=== PATIENT | female | born 1960 | race Caucasian/White ===

== ENCOUNTER 2024-09-16 15:55 | Emergency (ER) | payer MEDICARE, SELFPAY ==
[2024-09-16 15:55] VITALS: BP 148/94; PULSE 99; RESP 16; TEMP 36.2; O2SAT 95
--- NOTE | 2024-09-16 16:17 | ED.EXTPRO ---
HPI - Extremity Problem General Chief complaint: Animal Bite Stated complaint: wound Time Seen by Provider: 09/16/24 16:11 Source: patient Mode of arrival: ambulatory Limitations: no limitations History of Present Illness HPI Narrative: patient was bit by cat last night by and her hand started swelling up. She says that she put he Mupirocin ointment on it she says this helped a little bit in the swelling went down some. She says still very painful. She got very worried and came to the ER today for antibiotics. She will need antibiotics for this it is a pretty bad scratch to her right index finger and is swollen. MD Complaint: extremity swelling ( Right index finger) Onset (ago): day(s) Pain Consistency: constant Location: right and other ( index finger) Severity scale (1-10): 4 Quality: burning and aching Relieving factors: cold therapy Associated symptoms: denies other symptoms Related Data Allergies Allergy/AdvReac Type Severity Reaction Status Date / Time cephalexin (From Keflex) Allergy Unknown Unknown Verified 09/16/24 16:18 Review of Systems Review of Systems: All systems reviewed & are unremarkable except as noted in HPI and below Constitutional: Constitutional: Reports as per HPI Eyes: Eyes: Reports no additional eye complaints ENT: Reports system reviewed and no additional complaints, except as documented Cardiovascular: Cardiovascular: Reports no additional cardiovascular complaints Respiratory: Respiratory: Reports no additional respiratory complaints Gastrointestinal: Gastrointestinal: Reports no additional gastrointestinal complaints Genitourinary: Genitourinary: Reports no additional female genitourinary complaints Musculoskeletal: Musculoskeletal: Reports as per HPI, Reports arthralgias and Reports joint swelling Integumentary/Breasts: Skin/Breast: Reports as per HPI and Reports erythema Comments: laceration to right index finger Neurologic: Reports system reviewed and no additional complaints, except as documented Psychiatric: Psychiatric: Reports no additional psychiatric complaints Endocrine: Endocrine: Reports no additional endocrine complaints Hematologic/Lymphatic: Hematologic/Lymphatic: Reports no additional hematologic/lymphatic complaints Allergic/Immunologic: Allergic/Immunologic: Reports no additional allergic/immunologic complaints Exam Const: General: healthy appearing Nutritional Appearance: well nourished Orientation/consciousness: patient oriented x3 HENMT: Head: normal to inspection Ears: external ears normal Face/Nose/Sinus: Normal external nose present Face and sinus: normal facial exam Eyes: Conjunctivae: conjunctivae normal Pupils: Equal, round and reactive pupils present EOM: EOMs intact bilaterally Neck: Neck: normal visual inspection Chest: Chest palpation & inspection: normal inspection of the chest Resp: Effort & Inspection: normal respiratory effort Auscultation: clear to auscultation bilaterally Cardio: Rate: regular rate Rhythm: regular rhythm Heart sounds: Murmur heart sound present GI: GI Palp: Yes Soft to palpation Back/Spine/Pelvis: Back: no CVA tenderness Skin: General skin exam: normal color Rashes: no rashes Wounds: wounds noted ( 2 cm laceration to right index finger) Neuro: General: patient oriented x3 Cranial nerves: Yes Nystagmus not present Speech: normal speech Extrem: General: normal to inspection Psych: Mental Status: mental status grossly normal Affect: normal affect Attitude: cooperative Course Vital Signs Vital signs: Vital Signs Temperature 97.1 F L 09/16/24 15:55 Pulse Rate 99 09/16/24 15:55 Respiratory Rate 16 09/16/24 15:55 Blood Pressure 148/94 H 09/16/24 15:55 Pulse Oximetry 95 09/16/24 15:55 Oxygen Delivery Room Air 09/16/24 15:55 Temperature 97.1 F L 09/16/24 15:55 Pulse Rate 99 09/16/24 15:55 Respiratory Rate 16 09/16/24 15:55 Blood Pressure 148/94 H 09/16/24 15:55 Pulse Oximetry 95 09/16/24 15:55 Oxygen Delivery Room Air 09/16/24 15:55 MDM - Extremity (Nontraumatic) MDM Narrative Medical decision making narrative: patient has about a 2 cm laceration to the right index finger. The right index finger is very swollen as well. She will need antibiotics. Support Services Tech script for doxycycline has had this to her pharmacy. Will start on doxycycline here in the emergency department 1st. I cleaned the wound very well with ionized and put a Band-Aid over it and gave her wound care instructions. Differential Diagnosis Differential diagnosis: Likely other ( Finger laceration) Medical Records Attestation: I reviewed the patient's medical records. Discharge Plan Discharge Clinical Impression: Bite by animal, Cat bite Patient Disposition: Home Condition: Stable Instructions: Antibiotic Form, Animal Bite (ED) Additional Instructions: wound care instructions were given. Patient Language: Slovak Prescriptions: New doxycycline hyclate 100 mg tablet 100 mg PO Q12H Qty: 20 0RF Follow-up/Referrals: UNKNOWN,DOCTOR [Primary Care Provider] - Time of Disposition: 16:32
[2024-09-16] MEDS: DOXYCYCLINE HYCLATE 100 MG TABLET PO (16:21)
--- NOTE | 2024-09-16 16:33 | PC.NURSE ---
NO ANIMAL BITE FORM COMPLETED, [facility] ANIMAL [facility] IS THE ONE WHO REFERRED PT TO ER FOR TREATMENT, THEY CURRENTLY HAVE THE CAT IN THEIR POSSESSION.
--- OUTSIDE RECORDS SUMMARY | 2024-09-16 18:04 | XMS_ITS ---
Author Organization Unknown Address [address] [place] [address] [phone] Phone Care Team Providers Care Energy Rater Name Role Phone GENEVIEVE Kidd Wet Process Assistant Head Miller Surgeon Unavailable OSMAN Goncalves Attending Unavailable BRANDI RAMIREZ CRNA Unavailable DENIA DAVILA Primary Unavailable Immunization Immunization Date Status Additional Notes Code Code System pneumococcal polysaccharide PPV23 07/06/2016 Completed 33 CVX Tdap 06/22/2015 Completed 115 CVX Pneumococcal conjugate PCV 13 05/22/2013 Completed 133 CVX Influenza, split virus, trivalent, PF 02/19/2015 Completed 140 CVX Influenza, split virus, trivalent, PF 04/06/2016 Completed 140 CVX Influenza, split virus, quadrivalent, PF 02/25/2016 Completed 150 CVX Influenza, split virus, quadrivalent, PF 02/24/2017 Completed 150 CVX Influenza, split virus, quadrivalent, PF 02/13/2019 Completed 150 CVX Influenza, split virus, quadrivalent, PF 02/26/2020 Completed 150 CVX Influenza, split virus, quadrivalent, PF 02/01/2021 Completed 150 CVX Influenza, split virus, quadrivalent, PF 02/21/2022 Completed 150 CVX Influenza, adjuvanted, trivalent, PF 03/21/2024 Completed 168 CVX zoster recombinant 04/18/2023 Completed 187 CVX zoster recombinant 06/21/2023 Completed 187 CVX Influenza, adjuvanted, quadrivalent, PF 03/23/2023 Completed 205 CVX Pneumococcal conjugate PCV20 , polysaccharide [id number] conjugate, adjuvant, PF 06/21/2023 Completed 216 CVX RSV, recombinant, protein subunit RSVpreF, adjuvant reconstituted, 0.5 mL, PF 04/18/2023 Completed 303 CV X Social History Type Status Start Date End Date Code Code Syst em Smoking History Current every day smoker 164896044 SNOMED CT Sex Female Vital Signs Vital Sign Value Unit [place] Date/Time Recent/Initial? Code Code System Body Mass Index 33.99 kg/m2 07/01/2024 08:36 Most Recent 61771 -5 [facility] Body Mass Index 33.99 kg/m2 06/21/2024 12:56 Initial 57028 -5 [facility] Systolic Blood Pressure 114 mm[Hg] 07/01/2024 08:36 Initial 8480- 6 [facility] Diastolic Blood Pressure 71 mm[Hg] 07/01/2024 08:36 Initial 8462- 4 [facility] Body Surface Area 2.16 m2 07/01/2024 08:36 Most Recent 3140- 1 [facility] Body Surface Area 2.16 m2 06/21/2024 12:56 Initial 3140- 1 LOINC Height 170.180 0 cm 67.00 in 07/01/2024 08:36 Most Recent 8302- 2 INC Height 170.180 0 cm 67.00 in 06/21/2024 12:56 Initial 8302- 2 [facility] O2 Saturation 98 % 2024 08:36 Initial 25246 -5 [facility] Pulse 100.0 /min 07/01/2024 08:36 Initial 8867- 4 [facility] Respiration 18 /min 07/01/19 25 08:36 Initial 9279- 1 [facility] Temperature 36.2 Chiqui 97.1 F 07/01/19 25 08:36 Initial 8310- 5 INC Weight 98.43 kg 217.00 lbs 07/01/2024 08:36 Most Recent 68908 -7 [facility] Weight 98.43 kg 217.00 lbs 06/21/2024 12:56 Initial 96047 -7 [facility] Medications Medication Start Date End Date Route Frequency Dose Code Code System Medication Instructions Home Meds Albuterol Sulfate 0.09MG/1Actuation Inhalation Suspension 10/13/2023 Unknown INHALATION THREE TIMES A DAY 2 unit(s) 0479957 RxNorm 2 EACH INHALATION THREE TIMES A DAY Atorvastatin Calcium 40MG Oral Tablet 10/13/2023 Unknown ORAL AT BEDTIM E 40 MILLIGRA MS 048267 RxNorm TAKE 40 MILLIGRAMS ORAL AT BEDTIME Biotin 5 MG Oral Tablet 10/13/2023 Unknown ORAL ONCE A DAY 5 MG 395913 RxNorm TAKE 5 MG ORAL ONCE A DAY Bumetanide 1MG Oral Tablet 10/13/2023 Unknown ORAL TWICE A DAY 1 MILLIGRA MS 339892 RxNorm TAKE 1 MILLIGRAMS ORAL TWICE A DAY Estradiol 0.25MG/1Packet Transdermal Gel/Jelly 10/13/2023 Unknown TRANSDERMAL DIRECT ED 1 unit(s) 4287504 RxNorm APPLY TO 1 EACH TRANSDERMAL DIRECTED Fluticasone 0.05MG/1Actuation Nasal [place] 10/13/2023 Unknown NASAL ONCE A DAY 1 unit(s) 4735493 RxNorm 1 EACH NASAL ONCE A DAY HYDROcodone bitartrate-acetami nophen 10MG-325MG Oral Tablet 10/13/2023 Unknown ORAL THREE TIMES A DAY 1 unit(s) 498315 RxNorm TAKE 1 EACH ORAL THREE TIMES A DAY Lantus 100U/1ML Subcutaneous Solution 10/13/2023 Unknown SUBCUTANEOU S AT BEDTIM E 46 unit(s) 613840 RxNorm INJECT INTO 46 EACH SUBCUTANEOU S AT BEDTIME NovoLOG FlexPen 100U/1ML Subcutaneous Solution 10/13/2023 Unknown SUBCUTANEOU S BEFORE MEALS AND AT BEDTIM E 1 unit(s) 6587751 RxNorm INJECT INTO 1 EACH SUBCUTANEOU S BEFORE MEALS AND AT BEDTIME Ondansetron HCl 4MG Oral Tablet 10/13/2023 Unknown ORAL DIRECT ED 4 MILLIGRA MS 240243 RxNorm TAKE 4 MILLIGRAMS ORAL DIRECTED SUMAtriptan Succinate 100MG Oral Tablet 10/13/2023 Unknown ORAL DIRECT ED 100 MILLIGRA MS 975208 RxNorm TAKE 100 MILLIGRAMS ORAL DIRECTED Spironolactone 25MG Oral Tablet 10/13/2023 Unknown ORAL TWICE A DAY 25 MILLIGRA MS 909625 RxNorm TAKE 25 MILLIGRAMS ORAL TWICE A DAY buPROPion HCl 300MG Oral Tablet, Extended Release, 24 HR 10/13/2023 Unknown ORAL ONCE A DAY 300 MILLIGRA MS 270493 RxNorm TAKE 300 MILLIGRAMS ORAL ONCE A DAY clonazePAM 1MG Oral Tablet 10/13/2023 Unknown ORAL TWICE A DAY 1 MILLIGRA MS 037650 RxNorm TAKE 1 MILLIGRAMS ORAL TWICE A DAY hydrOXYzine HCl 25MG Oral Tablet 10/13/2023 Unknown ORAL NEEDED TWICE A DAY 25 MILLIGRA MS 216683 RxNorm TAKE 25 MILLIGRAMS ORAL NEEDED TWICE A DAY rOPINIRole HCl 2MG Oral Tablet 10/13/2023 Unknown ORAL ONCE A DAY 2 MILLIGRA MS 880953 RxNorm TAKE 2 MILLIGRAMS ORAL ONCE A DAY Protonix 40 MG Oral Tablet, Delayed Release 10/13/2023 Unknown BY MOUTH TWICE A DAY 1 TABLET 127735 RxNorm TAKE 1 TABLET BY MOUTH TWICE A DAY HYDROcodone bitartrate-acetami nophen 7.5MG-325MG Oral Tablet 07/01/2024 Unknown BY MOUTH NEEDED EVERY 6 HOURS 1 TABLET 077548 RxNorm TAKE 1 TABLET BY MOUTH NEEDED EVERY 6 HOURS FOR PAIN Cyclobenzaprine 10MG Oral Tablet 07/01/2024 Unknown ORAL NEEDED TWICE A DAY 10 MILLIGRA MS 950086 RxNorm TAKE 10 MILLIGRAMS ORAL NEEDED TWICE A DAY Fenofibrate 54MG Oral Tablet 07/01/2024 Unknown ORAL ONCE A DAY 54 MILLIGRA MS 905572 RxNorm TAKE 54 MILLIGRAMS ORAL ONCE A DAY Hair, Skin & Nails Oral Capsule, Liquid Filled 07/01/2024 Unknown ORAL ONCE A DAY 1 unit(s) RxNorm TAKE 1 EACH ORAL ONCE A DAY Lisinopril 2.5MG Oral Tablet 07/01/2024 Unknown ORAL ONCE A DAY 2.5 MILLIGRA MS 303018 RxNorm TAKE 2.5 MILLIGRAMS ORAL ONCE A DAY Probiotic 1 Billion CFU Oral Capsule 07/01/2024 Unknown ORAL ONCE A DAY 1 Billion CFU RxNorm TAKE 1 Billion CFU ORAL ONCE A DAY Rybelsus 14MG Oral Tablet 07/01/2024 Unknown ORAL ONCE A DAY 14 MILLIGRA MS 0088918 RxNorm TAKE 14 MILLIGRAMS ORAL ONCE A DAY Hospital Discharge Instructions Should you have any questions prior to discharge, please contact a member of your healthcare team. If you have left the hospital and have any questions, please contact your primary care physician. Reason For Referral No Data Found Procedures Procedure Name Date Status Code Code Syste m Repair of anterior abdominal hernia(s) (ie, epigastric, incisional, ventra 07/01/2024 completed 59837 C PT Repair of anterior abdominal hernia(s) (ie, epigastric, incisional, ventra 07/01/2024 completed 19227 C PT Anesthesia for intraperitone al procedures in upper abdomen including lapar 07/01/2024 completed 27052 CP T Implants Implanted KESHAWN Status Assigning Authority Procedure Date Lot Number Serial Number Manufacturing Date Expiration Date Distinct ID Code Brand Name Model Number ETHICON SECURESTRA P ABSORBABLE STRAP FIXATION DEVICE Active UMBILICAL HERNIA REPAIR WITH MESH 07/01 UBMUTA STRAP 25 06/21/2025 ETHICO N SECURE STRAP [address] Hernia Patch Active UMBILICAL HERNIA REPAIR WITH MESH 07/01 [id number] 11/16/[address] 8262653 Allergies and Adverse Reactions Allergy Substance Reaction Severity Start Date Concern Status Code Code System CEPHALEXIN Hives (SNOMED-CT: 472721720) Active 2231 RxNorm FOLIC ACID Rash (SNOMED-CT: 306312890) Active 4511 RxNorm FOLIC ACID Rash (SNOMED-CT: 442820372) Active 4511 RxNorm METHOTREXATE NAUSEA/BLISTER S (SNOMED-CT: null) Active 6851 RxNorm METHOTREXATE Hives (SNOMED-CT: 498550521) Active 6851 RxNorm ADHESIVE Rash (SNOMED-CT: 196139615) Active PREGABALIN Swelling (SNOMED-CT: 74614268) Active 644680 RxNorm PREGABALIN Swelling (SNOMED-CT: 90995277) Active 323339 RxNorm KEFLEX Hives (SNOMED-CT: 353521830) Active 454868 RxNorm CONTRAST MEDIA, IODINE RELATED Active 598210480 SNOMED-CT CONTRAST MEDIA, IODINE RELATED Active 788363495 SNOMED-CT Plan of Treatment CT Chest/Lung W Contrast (60737) 2024 Encounters Encounter Diagnosis Start Date Code Code Sys tem Umbilical hernia with obstruction, without gangrene SNOMED-CT Personal Care Team Section Performer Name Performer Role Active Date Inactive HARDY Norris PCP - Primary care physician 2021-12-27 2022-03-04 Alejandro Anguiano PCP - Primary care physician 2022-03-04
--- OUTSIDE RECORDS SUMMARY | 2024-09-16 18:04 | XMS_ITS ---
Author Organization Unknown Address [address] [place] [address] [phone] Phone Care Team Providers Care Vehicle Insurance Agent Name Role Phone LESLIE Guillen Attending Unavailable DENIA DAVILA Primary Unavailable Immunization Immunization [...] 205 CVX Pneumococcal conjugate PCV20 , polysaccharide [id number] conjugate, adjuvant, PF 06/21/2023 Completed 216 CVX RSV, recombinant, protein subunit RSVpreF, adjuvant reconstituted, 0.5 mL, PF 04/18/2023 Completed 303 CV X Social History Type Status Start Date End Date Code Code Syst em Smoking History Current every day smoker 137139888 SNOMED CT Sex Female Medications Medication Start Date End Date Route Frequency Dose Code Code System Medication Instructions Home Meds Albuterol Sulfate 0.09MG/1Actuation Inhalation Suspension 10/13/2023 Unknown INHALATION THREE TIMES A DAY 2 unit(s) 6598462 RxNorm 2 EACH INHALATION THREE TIMES A DAY Atorvastatin Calcium 40MG Oral Tablet 10/13/2023 Unknown ORAL AT BEDTIM E 40 MILLIGRA MS 660204 RxNorm TAKE 40 MILLIGRAMS ORAL AT BEDTIME Biotin 5 MG Oral Tablet 10/13/2023 Unknown ORAL ONCE A DAY 5 MG 030059 RxNorm TAKE 5 MG ORAL ONCE A DAY Bumetanide 1MG Oral Tablet 10/13/2023 Unknown ORAL TWICE A DAY 1 MILLIGRA MS 978044 RxNorm TAKE 1 MILLIGRAMS ORAL TWICE A DAY Coconut Oil Oil 10/13/2023 06/21/19 25 ROUTE NOT APPLICABLE ONCE A DAY 1 unit(s) RxNorm 1 EACH ROUTE NOT APPLICABLE ONCE A DAY Cyclobenzaprine 10MG Oral Tablet 10/13/2023 06/21/19 25 ORAL TWICE A DAY 10 MILLIGRA MS 026798 RxNorm TAKE 10 MILLIGRAMS ORAL TWICE A DAY Estradiol 0.25MG/1Packet Transdermal Gel/Jelly 10/13/2023 Unknown TRANSDERMAL DIRECT ED 1 unit(s) 5205910 RxNorm APPLY TO 1 EACH TRANSDERMAL DIRECTED Fluticasone 0.05MG/1Actuation Nasal [place] 10/13/2023 Unknown NASAL ONCE A DAY 1 unit(s) 9638767 RxNorm 1 EACH NASAL ONCE A DAY HYDROcodone bitartrate-acetami nophen 10MG-325MG Oral Tablet 10/13/2023 Unknown ORAL THREE TIMES A DAY 1 unit(s) 226474 RxNorm TAKE 1 EACH ORAL THREE TIMES A DAY Lantus 100U/1ML Subcutaneous Solution 10/13/2023 Unknown SUBCUTANEOU S AT BEDTIM E 46 unit(s) 167435 RxNorm INJECT INTO 46 EACH SUBCUTANEOU S AT BEDTIME NovoLOG FlexPen 100U/1ML Subcutaneous Solution 10/13/2023 Unknown SUBCUTANEOU S BEFORE MEALS AND AT BEDTIM E 1 unit(s) 1376981 RxNorm INJECT INTO 1 EACH SUBCUTANEOU S BEFORE MEALS AND AT BEDTIME Ondansetron HCl 4MG Oral Tablet 10/13/2023 Unknown ORAL DIRECT ED 4 MILLIGRA MS 686737 RxNorm TAKE 4 MILLIGRAMS ORAL DIRECTED Rybelsus 3MG Oral Tablet 10/13/2023 06/21/19 25 ORAL ONCE A DAY 7 MILLIGRA MS 6996654 RxNorm TAKE 7 MILLIGRAMS ORAL ONCE A DAY SUMAtriptan Succinate 100MG Oral Tablet 10/13/2023 Unknown ORAL DIRECT ED 100 MILLIGRA MS 430890 RxNorm TAKE 100 MILLIGRAMS ORAL DIRECTED Spironolactone 25MG Oral Tablet 10/13/2023 Unknown ORAL TWICE A DAY 25 MILLIGRA MS 143187 RxNorm TAKE 25 MILLIGRAMS ORAL TWICE A DAY buPROPion HCl 300MG Oral Tablet, Extended Release, 24 HR 10/13/2023 Unknown ORAL ONCE A DAY 300 MILLIGRA MS 976003 RxNorm TAKE 300 MILLIGRAMS ORAL ONCE A DAY clonazePAM 1MG Oral Tablet 10/13/2023 Unknown ORAL TWICE A DAY 1 MILLIGRA MS 052131 RxNorm TAKE 1 MILLIGRAMS ORAL TWICE A DAY hydrOXYzine HCl 25MG Oral Tablet 10/13/2023 Unknown ORAL NEEDED TWICE A DAY 25 MILLIGRA MS 232842 RxNorm TAKE 25 MILLIGRAMS ORAL NEEDED TWICE A DAY rOPINIRole HCl 2MG Oral Tablet 10/13/2023 Unknown ORAL ONCE A DAY 2 MILLIGRA MS 055437 RxNorm TAKE 2 MILLIGRAMS ORAL ONCE A DAY Protonix 40 MG Oral Tablet, Delayed Release 10/13/2023 Unknown BY MOUTH TWICE A DAY 1 TABLET 480258 RxNorm TAKE 1 TABLET BY MOUTH TWICE A DAY HYDROcodone bitartrate-acetami nophen 7.5MG-325MG Oral Tablet 07/01/2024 Unknown BY MOUTH NEEDED EVERY 6 HOURS 1 TABLET 849806 RxNorm TAKE 1 TABLET BY MOUTH NEEDED EVERY 6 HOURS FOR PAIN Cyclobenzaprine 10MG Oral Tablet 07/01/2024 Unknown ORAL NEEDED TWICE A DAY 10 MILLIGRA MS 710838 RxNorm TAKE 10 MILLIGRAMS ORAL NEEDED TWICE A DAY Fenofibrate 54MG Oral Tablet 07/01/2024 Unknown ORAL ONCE A DAY 54 MILLIGRA MS 303585 RxNorm TAKE 54 MILLIGRAMS ORAL ONCE A DAY Hair, Skin & Nails Oral Capsule, Liquid Filled 07/01/2024 Unknown ORAL ONCE A DAY 1 unit(s) RxNorm TAKE 1 EACH ORAL ONCE A DAY Lisinopril 2.5MG Oral Tablet 07/01/2024 Unknown ORAL ONCE A DAY 2.5 MILLIGRA MS 833009 RxNorm TAKE 2.5 MILLIGRAMS ORAL ONCE A DAY Probiotic 1 Billion CFU Oral Capsule 07/01/2024 Unknown ORAL ONCE A DAY 1 Billion CFU RxNorm TAKE 1 Billion CFU ORAL ONCE A DAY Rybelsus 14MG Oral Tablet 07/01/2024 Unknown ORAL ONCE A DAY 14 MILLIGRA MS 9430846 RxNorm TAKE 14 MILLIGRAMS ORAL ONCE A DAY Hospital Discharge Instructions Should you have any questions prior to discharge, please contact a member of your healthcare team. If you have left the hospital and have any questions, please contact your primary care physician. Reason For Referral No Data Found Implants Implanted KESHAWN Status Assigning Authority Procedure Date Lot Number Serial Number Manufacturing Date Expiration Date Distinct ID Code Brand Name Model Number ETHICON SECURESTRA P ABSORBABLE STRAP FIXATION DEVICE Active UMBILICAL HERNIA REPAIR WITH MESH 07/01 UBMUTA STRAP 25 06/21/2025 ETHICO N SECURE STRAP [address] Hernia Patch Active UMBILICAL HERNIA REPAIR WITH MESH 07/01 [id number] 11/16/[address] 8332322 Allergies and Adverse Reactions Allergy Substance Reaction Severity Start Date Concern Status Code Code System CEPHALEXIN Hives (SNOMED-CT: 767087840) Active 2231 RxNorm FOLIC ACID Rash (SNOMED-CT: 504635346) Active 4511 RxNorm FOLIC ACID Rash (SNOMED-CT: 725353354) Active 4511 RxNorm METHOTREXATE NAUSEA/BLISTER S (SNOMED-CT: null) Active 6851 RxNorm METHOTREXATE Hives (SNOMED-CT: 338984797) Active 6851 RxNorm ADHESIVE Rash (SNOMED-CT: 281013039) Active PREGABALIN Swelling (SNOMED-CT: 05623000) Active 633531 RxNorm PREGABALIN Swelling (SNOMED-CT: 38987944) Active 754465 RxNorm KEFLEX Hives (SNOMED-CT: 356627051) Active 949894 RxNorm CONTRAST MEDIA, IODINE RELATED Active 403674678 SNOMED-CT CONTRAST MEDIA, IODINE RELATED Active 044188178 SNOMED-CT Plan of Treatment CT Chest/Lung W Contrast (48399) 2024 Encounters Encounter Diagnosis Start Date Code Code Sys tem Dysphagia, unspecified 05/01/2023 SNOME D-CT Personal Care Team Section Performer Name Performer Role Active Date Inactive Da HARDY Rivas PCP - Primary care physician 2021-12-27 2022-03-04 Alejandro Anguiano PCP - Primary care physician 2022-03-04
--- OUTSIDE RECORDS SUMMARY | 2024-09-16 18:04 | XMS_ITS ---
Author Organization Unknown Address [address] [place] [phone] Phone Care Team Providers Care Bar Back Name Role Phone DENIA DAVILA Attending Unavailable Immunization Immunization Date Status Additional Notes [...] 205 CVX Pneumococcal conjugate PCV20 , polysaccharide [id number] conjugate, adjuvant, PF 06/21/2023 Completed 216 CVX RSV, recombinant, protein subunit RSVpreF, adjuvant reconstituted, 0.5 mL, PF 04/18/2023 Completed 303 CV X Results MICROALBUMIN - Collect Date/ Time: 09/28/2023 10:07 [facility] ID: [id number] [place], [place], [id number] LOINC: 98134-0 Test Value Unit Reference Range Code Code System Flag MICROALBUMIN 674.0 mg/L L=0.0 H=16.7 79412-8 LOINC H UR CREATININE 80.00 mg/dL L=30.00 H=125 1-8 LOINC MA/CR 842.5 mg/gCR MEDICAL PROFESSIONAL PROFILE (11) - Collect Date/Time: 09/28/2023 10:07 [facility] ID: [id number] [place], [place], [id number] LOINC: Test Value Unit Reference Range Code Code System Flag Creatinine 75.4 20.0-300.0 2161-8 LOINC Amphetamines, Urine Negative Bpraqk=1465 92371-6 LOINC Barbiturate Negative Kowkjm=851 3377-9 LOINC Benzodiazepines Negative Uinmrb=893 42694-8 LOINC Cannabinoids Negative Cutoff=20 07655-9 LOINC Cocaine (Metabolite) Negative Lpybkj=171 3393-6 LOINC Opiates See Final Results Jwojov=757 65729-8 LOINC Oxycodone/Oxymorphone, Urine Negative Dwgsqz=537 19574-3 LOINC Phencyclidine Negative Cutoff=25 3936-2 LOINC Methadone Negative Vbqeac=367 3773-9 LOINC Propoxyphene Negative Alsldp=100 16209-0 LOINC Meperidine Negative Iilvbc=390 3746-5 LOINC Ethanol, Urine Negative Cutoff=0.020 5645-7 LOINC Opiates WILL FOLLOW 41296-4 LOINC Codeine WILL FOLLOW 3507-1 LOINC Codeine Conf, MS, UR WILL FOLLOW 90639-3 LOINC Morphine WILL FOLLOW 3830-7 LOINC Morphine Conf, MS, UR WILL FOLLOW 04949-8 LOINC Hydromorphone WILL FOLLOW 9834-3 LOINC Hydromorphone Conf, MS,UR WILL FOLLOW 78630-8 LOINC Hydrocodone WILL FOLLOW 65286-7 LOINC Hydrocodone Conf, MS, UR WILL FOLLOW 70208-0 LOINC Opiates Positive Jmyndw=757 60264-6 LOINC A Codeine Negative Hvdppj=513 3507-1 LOINC Morphine Negative Bulpkn=204 3830-7 LOINC Hydromorphone Negative Nwgjrh=884 9834-3 LOINC Hydrocodone Positive 42492-4 LOINC A Hydrocodone Conf, MS, UR 2254 Jhiawy=186 07119-7 LOINC HEMOGLOBIN A1C WITH eAG - Co llect Date/Time: 09/28/2023 10:03 [facility] ID: [id number] [place], [place], [id number] LOINC: 4548-4 Test Value Unit Reference Range Code Code System Flag HGBA1C 8.7 % 4548-4 LOINC eAG 203.0 mg/dL 4548-4 [facility] - Collect Date/Time: 09/28/2023 10:03 [facility] ID: [id number] [place], [place], [id number] LOINC: 22999-4 Test Value Unit Reference Range Code Code System Flag FASTING YES BUN 20 mg/dL L=7 H=20 3094-0 LOINC CREATININE 0.90 mg/dL L=0.52 H=1.04 2160-0 LOINC GLUCOSE 64 mg/dL L=74 H=106 2345-7 LOINC L SODIUM 142 mmol/L L=132 H=144 2951-2 LOINC POTASSIUM 3.7 mmol/L L=3.5 H=5.1 2823-3 LOINC CHLORIDE 103 mmol/L L=98 H=107 2075-0 LOINC CO2 24.0 mmol/L L=22.0 H=30.0 8-9 LOINC ANION GAP 19 L=10 H=20 97235-5 LOINC OSMOLALITY 295 mOs/kG L=280 H=296 68044-5 LOINC BUN/CREAT 22.2 3097-3 LOINC CALCIUM 9.7 mg/dL L=8.3 H=10.5 45012-3 LOINC AST 29 U/L L=15 H=46 1920-8 LOINC ALT 25 U/L L=9 H=72 1742-6 LOINC ALKALINE PHOS 83 U/L L=38 H=126 6768-6 LOINC TOTAL BILI 0.3 mg/dL L=0.2 H=1.3 1975-2 LOINC ALBUMIN 4.9 G/dL L=3.5 H=5.0 1751-7 LOINC TOTAL PROTEIN 8.7 g/L L=6.3 H=8.2 2885-2 LOINC H A/G RATIO 1.3 44797-1 LOINC AGE 63 85987-3 LOINC eGFR NON-AFR 68 ml/min eGFR AFR AMER 82 ml/min HEPATITIS C AB (HCV Ab) - Co llect Date/Time: 09/28/2023 10:03 [facility] ID: [id number] [address] [place] [address], [phone] LOINC: 47194-5 Test Value Unit Reference Range Code Code System Flag Hep C Virus Ab Non Reactive Non Reactive 08751-3 LOINC SEND TO [facility]? NO LIPID PANEL - Collect Date/T russ: 09/28/2023 10:03 [facility] ID: [id number] [place] [address], [id number] LOINC: 17880-5 Test Value Unit Reference Range Code Code System Flag FASTING YES CHOLESTEROL 164 mg/dL L=0 H=200 2093-3 LOINC TRIGLYCERIDE 245 mg/dL L=0 H=150 2571-8 LOINC H HDL 35 mg/dL L=40 H=60 2085-9 LOINC L LDL 105 mg/dL 9-1 LOINC Social History Type Status Start Date End Date Code Code Syst em Smoking History Current every day smoker [id number] SNOMED CT Sex Female Medications Medication Start Date End Date Route Frequency Dose Code Code System Medication Instructions Home Meds Albuterol Sulfate 0.09MG/1Actuation Inhalation Suspension 10/13/2023 Unknown INHALATION THREE TIMES A DAY 2 unit(s) 0281524 RxNorm 2 EACH INHALATION THREE TIMES A DAY Atorvastatin Calcium 40MG Oral Tablet 10/13/2023 Unknown ORAL AT BEDTIM E 40 MILLIGRA MS 407595 RxNorm TAKE 40 MILLIGRAMS ORAL AT BEDTIME Biotin 5 MG Oral Tablet 10/13/2023 Unknown ORAL ONCE A DAY 5 MG RxNorm TAKE 5 MG ORAL ONCE A DAY Bumetanide 1MG Oral Tablet 10/13/2023 Unknown ORAL TWICE A DAY 1 MILLIGRA MS 579444 RxNorm TAKE 1 MILLIGRAMS ORAL TWICE A DAY Coconut Oil Oil 10/13/2023 06/21/19 ROUTE NOT APPLICABLE ONCE A DAY 1 unit(s) RxNorm 1 EACH ROUTE NOT APPLICABLE ONCE A DAY Cyclobenzaprine 10MG Oral Tablet 10/13/2023 06/21/19 ORAL TWICE A DAY 10 MILLIGRA MS 889640 RxNorm TAKE 10 MILLIGRAMS ORAL TWICE A DAY Estradiol 0.25MG/1Packet Transdermal Gel/Jelly 10/13/2023 Unknown TRANSDERMAL DIRECT ED 1 unit(s) 6588237 RxNorm APPLY TO 1 EACH TRANSDERMAL DIRECTED Fluticasone 0.05MG/1Actuation Nasal [place] 10/13/2023 Unknown NASAL ONCE A DAY 1 unit(s) 7319678 RxNorm 1 EACH NASAL ONCE A DAY HYDROcodone bitartrate-acetami nophen 10MG-325MG Oral Tablet 10/13/2023 Unknown ORAL THREE TIMES A DAY 1 unit(s) 707678 RxNorm TAKE 1 EACH ORAL THREE TIMES A DAY Lantus 100U/1ML Subcutaneous Solution 10/13/2023 Unknown SUBCUTANEOU S AT BEDTIM E 46 unit(s) 280109 RxNorm INJECT INTO 46 EACH SUBCUTANEOU S AT BEDTIME NovoLOG FlexPen 100U/1ML Subcutaneous Solution 10/13/2023 Unknown SUBCUTANEOU S BEFORE MEALS AND AT BEDTIM E 1 unit(s) 2443351 RxNorm INJECT INTO 1 EACH SUBCUTANEOU S BEFORE MEALS AND AT BEDTIME Ondansetron HCl 4MG Oral Tablet 10/13/2023 Unknown ORAL DIRECT ED 4 MILLIGRA MS 267076 RxNorm TAKE 4 MILLIGRAMS ORAL DIRECTED Rybelsus 3MG Oral Tablet 10/13/2023 06/21/19 ORAL ONCE A DAY 7 MILLIGRA MS 9794813 RxNorm TAKE 7 MILLIGRAMS ORAL ONCE A DAY SUMAtriptan Succinate 100MG Oral Tablet 10/13/2023 Unknown ORAL DIRECT ED 100 MILLIGRA MS 598834 RxNorm TAKE 100 MILLIGRAMS ORAL DIRECTED Spironolactone 25MG Oral Tablet 10/13/2023 Unknown ORAL TWICE A DAY 25 MILLIGRA MS 161410 RxNorm TAKE 25 MILLIGRAMS ORAL TWICE A DAY buPROPion HCl 300MG Oral Tablet, Extended Release, 24 HR 10/13/2023 Unknown ORAL ONCE A DAY 300 MILLIGRA MS 604985 RxNorm TAKE 300 MILLIGRAMS ORAL ONCE A DAY clonazePAM 1MG Oral Tablet 10/13/2023 Unknown ORAL TWICE A DAY 1 MILLIGRA MS 247124 RxNorm TAKE 1 MILLIGRAMS ORAL TWICE A DAY hydrOXYzine HCl 25MG Oral Tablet 10/13/2023 Unknown ORAL NEEDED TWICE A DAY 25 MILLIGRA MS 296502 RxNorm TAKE 25 MILLIGRAMS ORAL NEEDED TWICE A DAY rOPINIRole HCl 2MG Oral Tablet 10/13/2023 Unknown ORAL ONCE A DAY 2 MILLIGRA MS 709700 RxNorm TAKE 2 MILLIGRAMS ORAL ONCE A DAY Protonix 40 MG Oral Tablet, Delayed Release 10/13/2023 Unknown BY MOUTH TWICE A DAY 1 TABLET 404525 RxNorm TAKE 1 TABLET BY MOUTH TWICE A DAY HYDROcodone bitartrate-acetami nophen 7.5MG-325MG Oral Tablet 07/01/2024 Unknown BY MOUTH NEEDED EVERY 6 HOURS 1 TABLET 577410 RxNorm TAKE 1 TABLET BY MOUTH NEEDED EVERY 6 HOURS FOR PAIN Cyclobenzaprine 10MG Oral Tablet 07/01/2024 Unknown ORAL NEEDED TWICE A DAY 10 MILLIGRA MS 762035 RxNorm TAKE 10 MILLIGRAMS ORAL NEEDED TWICE A DAY Fenofibrate 54MG Oral Tablet 07/01/2024 Unknown ORAL ONCE A DAY 54 MILLIGRA MS 721983 RxNorm TAKE 54 MILLIGRAMS ORAL ONCE A DAY Hair, Skin & Nails Oral Capsule, Liquid Filled 07/01/2024 Unknown ORAL ONCE A DAY 1 unit(s) RxNorm TAKE 1 EACH ORAL ONCE A DAY Lisinopril 2.5MG Oral Tablet 07/01/2024 Unknown ORAL ONCE A DAY 2.5 MILLIGRA MS 778543 RxNorm TAKE 2.5 MILLIGRAMS ORAL ONCE A DAY Probiotic 1 Billion CFU Oral Capsule 07/01/2024 Unknown ORAL ONCE A DAY 1 Billion CFU RxNorm TAKE 1 Billion CFU ORAL ONCE A DAY Rybelsus 14MG Oral Tablet 07/01/2024 Unknown ORAL ONCE A DAY 14 MILLIGRA MS 3265214 RxNorm TAKE 14 MILLIGRAMS ORAL ONCE A [...] Active UMBILICAL HERNIA REPAIR WITH MESH 07/01 [id number] 7 [id number] 11/16/[address] 2328645 Allergies and Adverse Reactions Allergy Substance Reaction Severity Start Date Concern Status Code Code System CEPHALEXIN Hives (SNOMED-CT: 649764219) Active 2231 RxNorm FOLIC ACID Rash (SNOMED-CT: 328783131) Active 4511 RxNorm FOLIC ACID Rash (SNOMED-CT: 490725710) Active 4511 RxNorm METHOTREXATE NAUSEA/BLISTER S (SNOMED-CT: null) Active 6851 RxNorm METHOTREXATE Hives (SNOMED-CT: 050326951) Active 6851 RxNorm ADHESIVE Rash (SNOMED-CT: 925864639) Active PREGABALIN Swelling (SNOMED-CT: 62565833) Active 423906 RxNorm PREGABALIN Swelling (SNOMED-CT: 80420249) Active 915650 RxNorm KEFLEX Hives (SNOMED-CT: 789289738) Active 572527 RxNorm CONTRAST MEDIA, IODINE RELATED Active 866829852 SNOMED-CT CONTRAST MEDIA, IODINE RELATED Active 666153376 SNOMED-CT Plan of Treatment CT Chest/Lung W Contrast (03869) 2024 Encounters Encounter Diagnosis Start Date Code Code Sys tem Type 2 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
--- OUTSIDE RECORDS SUMMARY | 2024-09-16 18:04 | XMS_ITS ---
Author Organization Unknown Address [address] [place] [address] [phone] Phone Care Team Providers Care Playground Equipment Erector Name Role Phone DWAINE SANTIAGO Attending Unavailable DENIA DAVILA Primary Unavailable Immunization [...] 205 CVX Pneumococcal conjugate PCV20 , polysaccharide [id number] conjugate, adjuvant, PF 06/21/2023 Completed 216 CVX RSV, recombinant, protein subunit RSVpreF, adjuvant reconstituted, 0.5 mL, PF 04/18/2023 Completed 303 CV X Results US ECHO W/COLOR W/CONTRAST - Completed: 08/29/2023 10:18 LOINC: See Scanned Image Attachment for Report Dictated By: Trans Initials: BG Trans Date: 09/01/23 15:27 <<REPDIST>> Social History Type Status Start Date End Date Code Code Syst em Smoking History Current every day smoker [id number] SNOMED CT Sex Female Medications Medication Start Date End Date Route Frequency Dose Code Code System Medication Instructions Home Meds Albuterol Sulfate 0.09MG/1Actuation Inhalation Suspension 10/13/2023 Unknown INHALATION THREE TIMES A DAY 2 unit(s) 3593930 RxNorm 2 EACH INHALATION THREE TIMES A DAY Atorvastatin Calcium 40MG Oral Tablet 10/13/2023 Unknown ORAL AT BEDTIM E 40 MILLIGRA MS 356986 RxNorm TAKE 40 MILLIGRAMS ORAL AT BEDTIME Biotin 5 MG Oral Tablet 10/13/2023 Unknown ORAL ONCE A DAY 5 MG 135347 RxNorm TAKE 5 MG ORAL ONCE A DAY Bumetanide 1MG Oral Tablet 10/13/2023 Unknown ORAL TWICE A DAY 1 MILLIGRA MS 146457 RxNorm TAKE 1 MILLIGRAMS ORAL TWICE A DAY Coconut Oil Oil 10/13/2023 06/21/19 25 ROUTE NOT APPLICABLE ONCE A DAY 1 unit(s) RxNorm 1 EACH ROUTE NOT APPLICABLE ONCE A DAY Cyclobenzaprine 10MG Oral Tablet 10/13/2023 06/21/19 25 ORAL TWICE A DAY 10 MILLIGRA MS 683299 RxNorm TAKE 10 MILLIGRAMS ORAL TWICE A DAY Estradiol 0.25MG/1Packet Transdermal Gel/Jelly 10/13/2023 Unknown TRANSDERMAL DIRECT ED 1 unit(s) 9145395 RxNorm APPLY TO 1 EACH TRANSDERMAL DIRECTED Fluticasone 0.05MG/1Actuation Nasal [place] 10/13/2023 Unknown NASAL ONCE A DAY 1 unit(s) 0789165 RxNorm 1 EACH NASAL ONCE A DAY HYDROcodone bitartrate-acetami nophen 10MG-325MG Oral Tablet 10/13/2023 Unknown ORAL THREE TIMES A DAY 1 unit(s) 433290 RxNorm TAKE 1 EACH ORAL THREE TIMES A DAY Lantus 100U/1ML Subcutaneous Solution 10/13/2023 Unknown SUBCUTANEOU S AT BEDTIM E 46 unit(s) 683674 RxNorm INJECT INTO 46 EACH SUBCUTANEOU S AT BEDTIME NovoLOG FlexPen 100U/1ML Subcutaneous Solution 10/13/2023 Unknown SUBCUTANEOU S BEFORE MEALS AND AT BEDTIM E 1 unit(s) 7202732 RxNorm INJECT INTO 1 EACH SUBCUTANEOU S BEFORE MEALS AND AT BEDTIME Ondansetron HCl 4MG Oral Tablet 10/13/2023 Unknown ORAL DIRECT ED 4 MILLIGRA MS 675232 RxNorm TAKE 4 MILLIGRAMS ORAL DIRECTED Rybelsus 3MG Oral Tablet 10/13/2023 06/21/19 25 ORAL ONCE A DAY 7 MILLIGRA MS 3455203 RxNorm TAKE 7 MILLIGRAMS ORAL ONCE A DAY SUMAtriptan Succinate 100MG Oral Tablet 10/13/2023 Unknown ORAL DIRECT ED 100 MILLIGRA MS 740071 RxNorm TAKE 100 MILLIGRAMS ORAL DIRECTED Spironolactone 25MG Oral Tablet 10/13/2023 Unknown ORAL TWICE A DAY 25 MILLIGRA MS 706580 RxNorm TAKE 25 MILLIGRAMS ORAL TWICE A DAY buPROPion HCl 300MG Oral Tablet, Extended Release, 24 HR 10/13/2023 Unknown ORAL ONCE A DAY 300 MILLIGRA MS 792587 RxNorm TAKE 300 MILLIGRAMS ORAL ONCE A DAY clonazePAM 1MG Oral Tablet 10/13/2023 Unknown ORAL TWICE A DAY 1 MILLIGRA MS 058650 RxNorm TAKE 1 MILLIGRAMS ORAL TWICE A DAY hydrOXYzine HCl 25MG Oral Tablet 10/13/2023 Unknown ORAL NEEDED TWICE A DAY 25 MILLIGRA MS 834468 RxNorm TAKE 25 MILLIGRAMS ORAL NEEDED TWICE A DAY rOPINIRole HCl 2MG Oral Tablet 10/13/2023 Unknown ORAL ONCE A DAY 2 MILLIGRA MS 374017 RxNorm TAKE 2 MILLIGRAMS ORAL ONCE A DAY Protonix 40 MG Oral Tablet, Delayed Release 10/13/2023 Unknown BY MOUTH TWICE A DAY 1 TABLET 622170 RxNorm TAKE 1 TABLET BY MOUTH TWICE A DAY HYDROcodone bitartrate-acetami nophen 7.5MG-325MG Oral Tablet 07/01/2024 Unknown BY MOUTH NEEDED EVERY 6 HOURS 1 TABLET 918625 RxNorm TAKE 1 TABLET BY MOUTH NEEDED EVERY 6 HOURS FOR PAIN Cyclobenzaprine 10MG Oral Tablet 07/01/2024 Unknown ORAL NEEDED TWICE A DAY 10 MILLIGRA MS 479632 RxNorm TAKE 10 MILLIGRAMS ORAL NEEDED TWICE A DAY Fenofibrate 54MG Oral Tablet 07/01/2024 Unknown ORAL ONCE A DAY 54 MILLIGRA MS 590498 RxNorm TAKE 54 MILLIGRAMS ORAL ONCE A DAY Hair, Skin & Nails Oral Capsule, Liquid Filled 07/01/2024 Unknown ORAL ONCE A DAY 1 unit(s) RxNorm TAKE 1 EACH ORAL ONCE A DAY Lisinopril 2.5MG Oral Tablet 07/01/2024 Unknown ORAL ONCE A DAY 2.5 MILLIGRA MS 712453 RxNorm TAKE 2.5 MILLIGRAMS ORAL ONCE A DAY Probiotic 1 Billion CFU Oral Capsule 07/01/2024 Unknown ORAL ONCE A DAY 1 Billion CFU RxNorm TAKE 1 Billion CFU ORAL ONCE A DAY Rybelsus 14MG Oral Tablet 07/01/2024 Unknown ORAL ONCE A DAY 14 MILLIGRA MS 3224598 RxNorm TAKE 14 MILLIGRAMS ORAL ONCE A [...] Active UMBILICAL HERNIA REPAIR WITH MESH 07/01 [id number] 7 [id number] 11/16/[address] 9548556 Allergies and Adverse Reactions Allergy Substance Reaction Severity Start Date Concern Status Code Code System CEPHALEXIN Hives (SNOMED-CT: 696736054) Active 2231 RxNorm FOLIC ACID Rash (SNOMED-CT: 189329983) Active 4511 RxNorm FOLIC ACID Rash (SNOMED-CT: 900404057) Active 4511 RxNorm METHOTREXATE NAUSEA/BLISTER S (SNOMED-CT: null) Active 6851 RxNorm METHOTREXATE Hives (SNOMED-CT: 836604094) Active 6851 RxNorm ADHESIVE Rash (SNOMED-CT: 912449518) Active PREGABALIN Swelling (SNOMED-CT: 69554578) Active 901242 RxNorm PREGABALIN Swelling (SNOMED-CT: 61124138) Active 739416 RxNorm KEFLEX Hives (SNOMED-CT: 951801862) Active 977001 RxNorm CONTRAST MEDIA, IODINE RELATED Active 874884273 SNOMED-CT CONTRAST MEDIA, IODINE RELATED Active 523972888 SNOMED-CT Plan of Treatment CT Chest/Lung W Contrast (53073) 2024 Encounters Encounter Diagnosis Start Date Code Code Sys tem Chest pain, unspecified 08/29/2023 SNOM ED-CT Personal Care Team Section Performer Name Performer Role Active Date Inactive HARDY Norris PCP - Primary care physician 2021-12-27 2022-03-04 Alejandro Anguiano PCP - Primary care physician 2022-03-04
--- OUTSIDE RECORDS SUMMARY | 2024-09-16 18:04 | XMS_ITS ---
Author Organization Unknown Address [address] [place] [address] [phone] Phone Care Team Providers Care Guard Entrance Registrar Name Role Phone LESLIE Guillen Attending Unavailable [...] 205 CVX Pneumococcal conjugate PCV20 , polysaccharide [id number] conjugate, adjuvant, PF 06/21/2023 Completed 216 CVX RSV, recombinant, protein subunit RSVpreF, adjuvant reconstituted, 0.5 mL, PF 04/18/2023 Completed 303 CV X Results Pharynx Study w Speech - Com pleted: 06/22/2023 09:52 LOINC: EXAM DESCRIPTION: ESOPHAGUS Difficulty swallowing. History of cervical fusion. DOSE: Dose: 21.233 mGy Reference Air Kerma (Ka,r) TECHNIQUE: Fluoroscopic assistance provided to Speech Pathology Department who performed the exam. The patient was brought into the fluoro room and placed upright on a modified barium swallow chair. The patient was then given multiple consistencies mixed with barium to swallow under live fluoroscopic video guidance. COMPARISON: Esophagram 02/22/2023 FINDINGS: There is aspiration of purees, thin liquids and nectar thick liquids. There is aspiration of mixed consistency. There is penetration of multiple consistencies. There is anterior discectomy and fusion in the cervical spine. IMPRESSION: Aspiration of multiple consistencies, as above Please correlate with Speech Pathology report. THIS IS AN ELECTRONICALLY VERIFIED FINAL REPORT 06/26/2023 11:27 AM - Electronically signed by Paco Puri M.D. MZ: MZ Report ID: [id number] Reading Location: [place] [address] Social History Type Status Start Date End Date Code Code Syst em Smoking History Current every day smoker [id number] SNOMED CT Sex Female Medications Medication Start Date End Date Route Frequency Dose Code Code System Medication Instructions Home Meds Albuterol Sulfate 0.09MG/1Actuation Inhalation Suspension 10/13/2023 Unknown INHALATION THREE TIMES A DAY 2 unit(s) 6170042 RxNorm 2 EACH INHALATION THREE TIMES A DAY Atorvastatin Calcium 40MG Oral Tablet 10/13/2023 Unknown ORAL AT BEDTIM E 40 MILLIGRA MS 285805 RxNorm TAKE 40 MILLIGRAMS ORAL AT BEDTIME Biotin 5 MG Oral Tablet 10/13/2023 Unknown ORAL ONCE A DAY 5 MG 780015 RxNorm TAKE 5 MG ORAL ONCE A DAY Bumetanide 1MG Oral Tablet 10/13/2023 Unknown ORAL TWICE A DAY 1 MILLIGRA MS 441225 RxNorm TAKE 1 MILLIGRAMS ORAL TWICE A DAY Coconut Oil Oil 10/13/2023 06/21/19 25 ROUTE NOT APPLICABLE ONCE A DAY 1 unit(s) RxNorm 1 EACH ROUTE NOT APPLICABLE ONCE A DAY Cyclobenzaprine 10MG Oral Tablet 10/13/2023 06/21/19 25 ORAL TWICE A DAY 10 MILLIGRA MS 669436 RxNorm TAKE 10 MILLIGRAMS ORAL TWICE A DAY Estradiol 0.25MG/1Packet Transdermal Gel/Jelly 10/13/2023 Unknown TRANSDERMAL DIRECT ED 1 unit(s) 6126777 RxNorm APPLY TO 1 EACH TRANSDERMAL DIRECTED Fluticasone 0.05MG/1Actuation Nasal [place] 10/13/2023 Unknown NASAL ONCE A DAY 1 unit(s) 4920998 RxNorm 1 EACH NASAL ONCE A DAY HYDROcodone bitartrate-acetami nophen 10MG-325MG Oral Tablet 10/13/2023 Unknown ORAL THREE TIMES A DAY 1 unit(s) 463487 RxNorm TAKE 1 EACH ORAL THREE TIMES A DAY Lantus 100U/1ML Subcutaneous Solution 10/13/2023 Unknown SUBCUTANEOU S AT BEDTIM E 46 unit(s) 513994 RxNorm INJECT INTO 46 EACH SUBCUTANEOU S AT BEDTIME NovoLOG FlexPen 100U/1ML Subcutaneous Solution 10/13/2023 Unknown SUBCUTANEOU S BEFORE MEALS AND AT BEDTIM E 1 unit(s) 4241561 RxNorm INJECT INTO 1 EACH SUBCUTANEOU S BEFORE MEALS AND AT BEDTIME Ondansetron HCl 4MG Oral Tablet 10/13/2023 Unknown ORAL DIRECT ED 4 MILLIGRA MS 369272 RxNorm TAKE 4 MILLIGRAMS ORAL DIRECTED Rybelsus 3MG Oral Tablet 10/13/2023 06/21/19 25 ORAL ONCE A DAY 7 MILLIGRA MS 5410798 RxNorm TAKE 7 MILLIGRAMS ORAL ONCE A DAY SUMAtriptan Succinate 100MG Oral Tablet 10/13/2023 Unknown ORAL DIRECT ED 100 MILLIGRA MS 187439 RxNorm TAKE 100 MILLIGRAMS ORAL DIRECTED Spironolactone 25MG Oral Tablet 10/13/2023 Unknown ORAL TWICE A DAY 25 MILLIGRA MS 439592 RxNorm TAKE 25 MILLIGRAMS ORAL TWICE A DAY buPROPion HCl 300MG Oral Tablet, Extended Release, 24 HR 10/13/2023 Unknown ORAL ONCE A DAY 300 MILLIGRA MS 920562 RxNorm TAKE 300 MILLIGRAMS ORAL ONCE A DAY clonazePAM 1MG Oral Tablet 10/13/2023 Unknown ORAL TWICE A DAY 1 MILLIGRA MS 640950 RxNorm TAKE 1 MILLIGRAMS ORAL TWICE A DAY hydrOXYzine HCl 25MG Oral Tablet 10/13/2023 Unknown ORAL NEEDED TWICE A DAY 25 MILLIGRA MS 356544 RxNorm TAKE 25 MILLIGRAMS ORAL NEEDED TWICE A DAY rOPINIRole HCl 2MG Oral Tablet 10/13/2023 Unknown ORAL ONCE A DAY 2 MILLIGRA MS 617742 RxNorm TAKE 2 MILLIGRAMS ORAL ONCE A DAY Protonix 40 MG Oral Tablet, Delayed Release 10/13/2023 Unknown BY MOUTH TWICE A DAY 1 TABLET 065371 RxNorm TAKE 1 TABLET BY MOUTH TWICE A DAY HYDROcodone bitartrate-acetami nophen 7.5MG-325MG Oral Tablet 07/01/2024 Unknown BY MOUTH NEEDED EVERY 6 HOURS 1 TABLET 078498 RxNorm TAKE 1 TABLET BY MOUTH NEEDED EVERY 6 HOURS FOR PAIN Cyclobenzaprine 10MG Oral Tablet 07/01/2024 Unknown ORAL NEEDED TWICE A DAY 10 MILLIGRA MS 162866 RxNorm TAKE 10 MILLIGRAMS ORAL NEEDED TWICE A DAY Fenofibrate 54MG Oral Tablet 07/01/2024 Unknown ORAL ONCE A DAY 54 MILLIGRA MS 413561 RxNorm TAKE 54 MILLIGRAMS ORAL ONCE A DAY Hair, Skin & Nails Oral Capsule, Liquid Filled 07/01/2024 Unknown ORAL ONCE A DAY 1 unit(s) RxNorm TAKE 1 EACH ORAL ONCE A DAY Lisinopril 2.5MG Oral Tablet 07/01/2024 Unknown ORAL ONCE A DAY 2.5 MILLIGRA MS 862691 RxNorm TAKE 2.5 MILLIGRAMS ORAL ONCE A DAY Probiotic 1 Billion CFU Oral Capsule 07/01/2024 Unknown ORAL ONCE A DAY 1 Billion CFU RxNorm TAKE 1 Billion CFU ORAL ONCE A DAY Rybelsus 14MG Oral Tablet 07/01/2024 Unknown ORAL ONCE A DAY 14 MILLIGRA MS 7829971 RxNorm TAKE 14 MILLIGRAMS ORAL ONCE A [...] Active UMBILICAL HERNIA REPAIR WITH MESH 07/01 [id number] 7 [id number] 11/16/[address] 5616387 Allergies and Adverse Reactions Allergy Substance Reaction Severity Start Date Concern Status Code Code System CEPHALEXIN Hives (SNOMED-CT: 663197397) Active 2231 RxNorm FOLIC ACID Rash (SNOMED-CT: 753973681) Active 4511 RxNorm FOLIC ACID Rash (SNOMED-CT: 234881768) Active 4511 RxNorm METHOTREXATE NAUSEA/BLISTER S (SNOMED-CT: null) Active 6851 RxNorm METHOTREXATE Hives (SNOMED-CT: 352853912) Active 6851 RxNorm ADHESIVE Rash (SNOMED-CT: 368303015) Active PREGABALIN Swelling (SNOMED-CT: 86711482) Active 093416 RxNorm PREGABALIN Swelling (SNOMED-CT: 70572251) Active 406614 RxNorm KEFLEX Hives (SNOMED-CT: 677385764) Active 640221 RxNorm CONTRAST MEDIA, IODINE RELATED Active 563209413 SNOMED-CT CONTRAST MEDIA, IODINE RELATED Active 089541130 SNOMED-CT Plan of Treatment CT Chest/Lung W Contrast (58892) 2024 Encounters Encounter Diagnosis Start Date Code Code Sys tem Abnormal findings on diagnos tic imaging of other parts of digestive tract 06/22/2023 SNOMED-CT Personal Care Team Section Performer Name Performer Role Active Date Inactive HARDY Norris PCP - Primary care physician 2021-12-27 2022-03-04 Alejandro Anguiano PCP - Primary care physician 2022-03-04
--- OUTSIDE RECORDS SUMMARY | 2024-09-16 18:04 | XMS_ITS ---
Author Organization Unknown Address [address] [place] [address] [phone] Phone Care Team Providers [facility] Name Role Phone GENEVIEVE Kidd Attending Unavailable DENIA DAVILA Primary Unavailable Immunization [...] 205 CVX Pneumococcal conjugate PCV20 , polysaccharide [id number] conjugate, adjuvant, PF 06/21/2023 Completed 216 CVX RSV, recombinant, protein subunit RSVpreF, adjuvant reconstituted, 0.5 mL, PF 04/18/2023 Completed 303 CV X Social History Type Status Start Date End Date Code Code Syst em Smoking History Current every day smoker [id number] SNOMED CT Sex Female Medications Medication Start Date End Date Route Frequency Dose Code Code System Medication Instructions Home Meds Albuterol Sulfate 0.09MG/1Actuation Inhalation Suspension 10/13/2023 Unknown INHALATION THREE TIMES A DAY 2 unit(s) 6093119 RxNorm 2 EACH INHALATION THREE TIMES A DAY Atorvastatin Calcium 40MG Oral Tablet 10/13/2023 Unknown ORAL AT BEDTIM E 40 MILLIGRA MS 112367 RxNorm TAKE 40 MILLIGRAMS ORAL AT BEDTIME Biotin 5 MG Oral Tablet 10/13/2023 Unknown ORAL ONCE A DAY 5 MG 188213 RxNorm TAKE 5 MG ORAL ONCE A DAY Bumetanide 1MG Oral Tablet 10/13/2023 Unknown ORAL TWICE A DAY 1 MILLIGRA MS 935649 RxNorm TAKE 1 MILLIGRAMS ORAL TWICE A DAY Coconut Oil Oil 10/13/2023 06/21/19 25 ROUTE NOT APPLICABLE ONCE A DAY 1 unit(s) RxNorm 1 EACH ROUTE NOT APPLICABLE ONCE A DAY Cyclobenzaprine 10MG Oral Tablet 10/13/2023 06/21/19 25 ORAL TWICE A DAY 10 MILLIGRA MS 305597 RxNorm TAKE 10 MILLIGRAMS ORAL TWICE A DAY Estradiol 0.25MG/1Packet Transdermal Gel/Jelly 10/13/2023 Unknown TRANSDERMAL DIRECT ED 1 unit(s) 1037444 RxNorm APPLY TO 1 EACH TRANSDERMAL DIRECTED Fluticasone 0.05MG/1Actuation Nasal [place] 10/13/2023 Unknown NASAL ONCE A DAY 1 unit(s) 3503861 RxNorm 1 EACH NASAL ONCE A DAY HYDROcodone bitartrate-acetami nophen 10MG-325MG Oral Tablet 10/13/2023 Unknown ORAL THREE TIMES A DAY 1 unit(s) 089134 RxNorm TAKE 1 EACH ORAL THREE TIMES A DAY Lantus 100U/1ML Subcutaneous Solution 10/13/2023 Unknown SUBCUTANEOU S AT BEDTIM E 46 unit(s) 618192 RxNorm INJECT INTO 46 EACH SUBCUTANEOU S AT BEDTIME NovoLOG FlexPen 100U/1ML Subcutaneous Solution 10/13/2023 Unknown SUBCUTANEOU S BEFORE MEALS AND AT BEDTIM E 1 unit(s) 4017389 RxNorm INJECT INTO 1 EACH SUBCUTANEOU S BEFORE MEALS AND AT BEDTIME Ondansetron HCl 4MG Oral Tablet 10/13/2023 Unknown ORAL DIRECT ED 4 MILLIGRA MS 517888 RxNorm TAKE 4 MILLIGRAMS ORAL DIRECTED Rybelsus 3MG Oral Tablet 10/13/2023 06/21/19 25 ORAL ONCE A DAY 7 MILLIGRA MS 7311314 RxNorm TAKE 7 MILLIGRAMS ORAL ONCE A DAY SUMAtriptan Succinate 100MG Oral Tablet 10/13/2023 Unknown ORAL DIRECT ED 100 MILLIGRA MS 539500 RxNorm TAKE 100 MILLIGRAMS ORAL DIRECTED Spironolactone 25MG Oral Tablet 10/13/2023 Unknown ORAL TWICE A DAY 25 MILLIGRA MS 059275 RxNorm TAKE 25 MILLIGRAMS ORAL TWICE A DAY buPROPion HCl 300MG Oral Tablet, Extended Release, 24 HR 10/13/2023 Unknown ORAL ONCE A DAY 300 MILLIGRA MS 054868 RxNorm TAKE 300 MILLIGRAMS ORAL ONCE A DAY clonazePAM 1MG Oral Tablet 10/13/2023 Unknown ORAL TWICE A DAY 1 MILLIGRA MS 615966 RxNorm TAKE 1 MILLIGRAMS ORAL TWICE A DAY hydrOXYzine HCl 25MG Oral Tablet 10/13/2023 Unknown ORAL NEEDED TWICE A DAY 25 MILLIGRA MS 266596 RxNorm TAKE 25 MILLIGRAMS ORAL NEEDED TWICE A DAY rOPINIRole HCl 2MG Oral Tablet 10/13/2023 Unknown ORAL ONCE A DAY 2 MILLIGRA MS 123100 RxNorm TAKE 2 MILLIGRAMS ORAL ONCE A DAY Protonix 40 MG Oral Tablet, Delayed Release 10/13/2023 Unknown BY MOUTH TWICE A DAY 1 TABLET 242689 RxNorm TAKE 1 TABLET BY MOUTH TWICE A DAY HYDROcodone bitartrate-acetami nophen 7.5MG-325MG Oral Tablet 07/01/2024 Unknown BY MOUTH NEEDED EVERY 6 HOURS 1 TABLET 328694 RxNorm TAKE 1 TABLET BY MOUTH NEEDED EVERY 6 HOURS FOR PAIN Cyclobenzaprine 10MG Oral Tablet 07/01/2024 Unknown ORAL NEEDED TWICE A DAY 10 MILLIGRA MS 902344 RxNorm TAKE 10 MILLIGRAMS ORAL NEEDED TWICE A DAY Fenofibrate 54MG Oral Tablet 07/01/2024 Unknown ORAL ONCE A DAY 54 MILLIGRA MS 777720 RxNorm TAKE 54 MILLIGRAMS ORAL ONCE A DAY Hair, Skin & Nails Oral Capsule, Liquid Filled 07/01/2024 Unknown ORAL ONCE A DAY 1 unit(s) RxNorm TAKE 1 EACH ORAL ONCE A DAY Lisinopril 2.5MG Oral Tablet 07/01/2024 Unknown ORAL ONCE A DAY 2.5 MILLIGRA MS 727446 RxNorm TAKE 2.5 MILLIGRAMS ORAL ONCE A DAY Probiotic 1 Billion CFU Oral Capsule 07/01/2024 Unknown ORAL ONCE A DAY 1 Billion CFU RxNorm TAKE 1 Billion CFU ORAL ONCE A DAY Rybelsus 14MG Oral Tablet 07/01/2024 Unknown ORAL ONCE A DAY 14 MILLIGRA MS 2424202 RxNorm TAKE 14 MILLIGRAMS ORAL ONCE A [...] Active UMBILICAL HERNIA REPAIR WITH MESH 07/01 [id number] 11/16/[address] 5181530 Allergies and Adverse Reactions Allergy Substance Reaction Severity Start Date Concern Status Code Code System CEPHALEXIN Hives (SNOMED-CT: 435275569) Active 2231 RxNorm FOLIC ACID Rash (SNOMED-CT: 406572463) Active 4511 RxNorm FOLIC ACID Rash (SNOMED-CT: 007306351) Active 4511 RxNorm METHOTREXATE NAUSEA/BLISTER S (SNOMED-CT: null) Active 6851 RxNorm METHOTREXATE Hives (SNOMED-CT: 171399802) Active 6851 RxNorm ADHESIVE Rash (SNOMED-CT: 067356486) Active PREGABALIN Swelling (SNOMED-CT: 83489063) Active 238491 RxNorm PREGABALIN Swelling (SNOMED-CT: 53703535) Active 156554 RxNorm KEFLEX Hives (SNOMED-CT: 398275390) Active 464795 RxNorm CONTRAST MEDIA, IODINE RELATED Active 735361184 SNOMED-CT CONTRAST MEDIA, IODINE RELATED Active 107969268 SNOMED-CT Plan of Treatment CT Chest/Lung W Contrast (70667) 2024 Encounters Encounter Diagnosis Start Date Code Code Sys tem Umbilical hernia without obstruction or gangrene 06/13 SNOMED-CT Personal Care Team Section Performer Name Performer Role Active Date Inactive Da te HARDY ARECHIGA PCP - Primary care physician 2021-12-27 2022-03-04 Alejandro Anguiano PCP - Primary care physician 2022-03-04
--- OUTSIDE RECORDS SUMMARY | 2024-09-16 18:05 | XMS_ITS ---
Author Organization Unknown Address [address] [place] [address] [phone] Phone Care Team Providers Care Furniture Builder Name Role Phone DWAINE SANTIAGO Attending Unavailable [...] 205 CVX Pneumococcal conjugate PCV20 , polysaccharide NRS960 conjugate, adjuvant, PF 06/21/2023 Completed 216 CVX RSV, recombinant, protein subunit RSVpreF, adjuvant reconstituted, 0.5 mL, PF 04/18/2023 Completed 303 CV X Social History Type Status Start Date End Date Code Code Syst em Smoking History Current every day smoker [id number] SNOMED CT Sex Female Medications Medication Start Date End Date Route Frequency Dose Code Code System Medication Instructions Home Meds Albuterol Sulfate 0.09MG/1Actuation Inhalation Suspension 10/13/2023 Unknown INHALATION THREE TIMES A DAY 2 unit(s) 6190191 RxNorm 2 EACH INHALATION THREE TIMES A DAY Atorvastatin Calcium 40MG Oral Tablet 10/13/2023 Unknown ORAL AT BEDTIM E 40 MILLIGRA MS 162214 RxNorm TAKE 40 MILLIGRAMS ORAL AT BEDTIME Biotin 5 MG Oral Tablet 10/13/2023 Unknown ORAL ONCE A DAY 5 MG 469148 RxNorm TAKE 5 MG ORAL ONCE A DAY Bumetanide 1MG Oral Tablet 10/13/2023 Unknown ORAL TWICE A DAY 1 MILLIGRA MS 695328 RxNorm TAKE 1 MILLIGRAMS ORAL TWICE A DAY Coconut Oil Oil 10/13/2023 06/21/19 25 ROUTE NOT APPLICABLE ONCE A DAY 1 unit(s) RxNorm 1 EACH ROUTE NOT APPLICABLE ONCE A DAY Cyclobenzaprine 10MG Oral Tablet 10/13/2023 06/21/19 25 ORAL TWICE A DAY 10 MILLIGRA MS 846307 RxNorm TAKE 10 MILLIGRAMS ORAL TWICE A DAY Estradiol 0.25MG/1Packet Transdermal Gel/Jelly 10/13/2023 Unknown TRANSDERMAL DIRECT ED 1 unit(s) 3022870 RxNorm APPLY TO 1 EACH TRANSDERMAL DIRECTED Fluticasone 0.05MG/1Actuation Nasal [place] 10/13/2023 Unknown NASAL ONCE A DAY 1 unit(s) 9278087 RxNorm 1 EACH NASAL ONCE A DAY HYDROcodone bitartrate-acetami nophen 10MG-325MG Oral Tablet 10/13/2023 Unknown ORAL THREE TIMES A DAY 1 unit(s) 546032 RxNorm TAKE 1 EACH ORAL THREE TIMES A DAY Lantus 100U/1ML Subcutaneous Solution 10/13/2023 Unknown SUBCUTANEOU S AT BEDTIM E 46 unit(s) 159233 RxNorm INJECT INTO 46 EACH SUBCUTANEOU S AT BEDTIME NovoLOG FlexPen 100U/1ML Subcutaneous Solution 10/13/2023 Unknown SUBCUTANEOU S BEFORE MEALS AND AT BEDTIM E 1 unit(s) 3845909 RxNorm INJECT INTO 1 EACH SUBCUTANEOU S BEFORE MEALS AND AT BEDTIME Ondansetron HCl 4MG Oral Tablet 10/13/2023 Unknown ORAL DIRECT ED 4 MILLIGRA MS 280096 RxNorm TAKE 4 MILLIGRAMS ORAL DIRECTED Rybelsus 3MG Oral Tablet 10/13/2023 06/21/19 25 ORAL ONCE A DAY 7 MILLIGRA MS 0442951 RxNorm TAKE 7 MILLIGRAMS ORAL ONCE A DAY SUMAtriptan Succinate 100MG Oral Tablet 10/13/2023 Unknown ORAL DIRECT ED 100 MILLIGRA MS 763947 RxNorm TAKE 100 MILLIGRAMS ORAL DIRECTED Spironolactone 25MG Oral Tablet 10/13/2023 Unknown ORAL TWICE A DAY 25 MILLIGRA MS 569835 RxNorm TAKE 25 MILLIGRAMS ORAL TWICE A DAY buPROPion HCl 300MG Oral Tablet, Extended Release, 24 HR 10/13/2023 Unknown ORAL ONCE A DAY 300 MILLIGRA MS 035224 RxNorm TAKE 300 MILLIGRAMS ORAL ONCE A DAY clonazePAM 1MG Oral Tablet 10/13/2023 Unknown ORAL TWICE A DAY 1 MILLIGRA MS 202192 RxNorm TAKE 1 MILLIGRAMS ORAL TWICE A DAY hydrOXYzine HCl 25MG Oral Tablet 10/13/2023 Unknown ORAL NEEDED TWICE A DAY 25 MILLIGRA MS 062522 RxNorm TAKE 25 MILLIGRAMS ORAL NEEDED TWICE A DAY rOPINIRole HCl 2MG Oral Tablet 10/13/2023 Unknown ORAL ONCE A DAY 2 MILLIGRA MS 797385 RxNorm TAKE 2 MILLIGRAMS ORAL ONCE A DAY Protonix 40 MG Oral Tablet, Delayed Release 10/13/2023 Unknown BY MOUTH TWICE A DAY 1 TABLET 029918 RxNorm TAKE 1 TABLET BY MOUTH TWICE A DAY HYDROcodone bitartrate-acetami nophen 7.5MG-325MG Oral Tablet 07/01/2024 Unknown BY MOUTH NEEDED EVERY 6 HOURS 1 TABLET 256962 RxNorm TAKE 1 TABLET BY MOUTH NEEDED EVERY 6 HOURS FOR PAIN Cyclobenzaprine 10MG Oral Tablet 07/01/2024 Unknown ORAL NEEDED TWICE A DAY 10 MILLIGRA MS 024834 RxNorm TAKE 10 MILLIGRAMS ORAL NEEDED TWICE A DAY Fenofibrate 54MG Oral Tablet 07/01/2024 Unknown ORAL ONCE A DAY 54 MILLIGRA MS 646996 RxNorm TAKE 54 MILLIGRAMS ORAL ONCE A DAY Hair, Skin & Nails Oral Capsule, Liquid Filled 07/01/2024 Unknown ORAL ONCE A DAY 1 unit(s) RxNorm TAKE 1 EACH ORAL ONCE A DAY Lisinopril 2.5MG Oral Tablet 07/01/2024 Unknown ORAL ONCE A DAY 2.5 MILLIGRA MS 213142 RxNorm TAKE 2.5 MILLIGRAMS ORAL ONCE A DAY Probiotic 1 Billion CFU Oral Capsule 07/01/2024 Unknown ORAL ONCE A DAY 1 Billion CFU RxNorm TAKE 1 Billion CFU ORAL ONCE A DAY Rybelsus 14MG Oral Tablet 07/01/2024 Unknown ORAL ONCE A DAY 14 MILLIGRA MS 7390159 RxNorm TAKE 14 MILLIGRAMS ORAL ONCE A [...] Active UMBILICAL HERNIA REPAIR WITH MESH 07/01 [id number] 11/16/[address] 1750331 Allergies and Adverse Reactions Allergy Substance Reaction Severity Start Date Concern Status Code Code System CEPHALEXIN Hives (SNOMED-CT: 925933222) Active 2231 RxNorm FOLIC ACID Rash (SNOMED-CT: 194106833) Active 4511 RxNorm FOLIC ACID Rash (SNOMED-CT: 427351335) Active 4511 RxNorm METHOTREXATE NAUSEA/BLISTER S (SNOMED-CT: null) Active 6851 RxNorm METHOTREXATE Hives (SNOMED-CT: 984045966) Active 6851 RxNorm ADHESIVE Rash (SNOMED-CT: 522853614) Active PREGABALIN Swelling (SNOMED-CT: 49022238) Active 904020 RxNorm PREGABALIN Swelling (SNOMED-CT: 93212475) Active 597278 RxNorm KEFLEX Hives (SNOMED-CT: 117817993) Active 102729 RxNorm CONTRAST MEDIA, IODINE RELATED Active 899014303 SNOMED-CT CONTRAST MEDIA, IODINE RELATED Active 537812778 SNOMED-CT Plan of Treatment CT Chest/Lung W Contrast (35937) 2024 Encounters Encounter Diagnosis Start Date Code Code Sys tem Essential (primary) hypertension 07/17/2023 SNOMED-CT Personal Care Team Section Performer Name Performer Role Active Date Inactive Da HARDY Rivas PCP - Primary care physician 2021-12-27 2022-03-04 Alejandro Anguiano PCP - Primary care physician 2022-03-04
--- OUTSIDE RECORDS SUMMARY | 2024-09-16 18:05 | XMS_ITS ---
Author Organization Unknown Address [address] [place] [phone] Phone Care Team Providers Care Accredited Pharmacy Technician Name Role Phone SAMSON VALDEZ Attending Unavailable LESLIE Guillen Consulting Unavailable DENIA DAVILA Primary Unavailable GENEVIEVE Kidd Secondary Unavailable Immunization Immunization Date Status Additional Notes [...] 205 CVX Pneumococcal conjugate PCV20 , polysaccharide CUD966 conjugate, adjuvant, PF 06/21/2023 Completed 216 CVX RSV, recombinant, protein subunit RSVpreF, adjuvant reconstituted, 0.5 mL, PF 04/18/2023 Completed [address] CHEST CA SCREEN - Complet ed: 07/15/2024 12:35 LOINC: \TM00\12PI\DRAo\BM09\ \MRHo\ [id number] [place] [address] ---------NAME--------- NUMBER SEX AGE ADMIT DISC. XRAY# F/C TYPE ILENE SMITH [id number] F 64 07/15/24 07/15/24 38351 MB3 O/P DATE OF : 1960 M/R# [id number] PH#: [id number] \MRx\ LOCATION: TRANSCRIBED: 07/15/24 15:18 CT CHEST [place] SCREEN [id number] COMPLETED:07/15/24 12:35 JDF [id number] {REASON-CT CHEST CA SCREEN: former smoker PHYSICIAN: LUKE R A D I O L O G Y R E P O R T CT Chest without intravenous contrast INDICATION: former smoker TECHNIQUE: Multidetector spiral CT of the chest was performed from the lung apices to the upper abdomen. Axial, coronal and sagittal multiplanar reformats were performed. Radiation dose : Chest: CTDI volume is 2.76 mGy. Dose-length product is 111.19 mGy*cm The dose indicators for CT are the volume computed tomography (CT) dose index (CTDIvol) and the dose length product (DLP), and are measured in units of mGy and mGy-cm, respectively. These indicators are not patient dose, but values generated from the CT scanner acquisition factors. The report includes radiation exposure data for exposures received during this examination. Comparison: CT CHEST CA SCREEN on DOS: 07/13/23 Findings: Lower neck: Normal thyroid. Lungs: Patchy consolidation and nodularity in the right lower lung. Heart/Vascular Structures: Normal heart size. No pericardial effusion. Lymph Nodes: Fullness of the right hilum, lymphadenopathy or mass is not excluded. Pleura: No pleural effusion or significant pneumothorax. Musculoskeletal: Compression deformity T12. Soft tissues: Normal. Upper abdomen: Left renal calculus. IMPRESSION: 1. New fullness of the right hilum with associated consolidation in the right lower lung. Findings could be infectious / inflammatory. An underlying mass is not excluded. Recommend follow-up chest CT with contrast. Clinical correlation and continued follow-up to resolution is recommended. BI-RADS 4-suspicious. Radiation optimization: All CT scans at this facility use at least one of these dose optimization techniques: Automated exposure control mA and/or kV adjustment per patient size (includes targeted exams where dose is matched to clinical indication) or iterative reconstruction. HS:Y RIST REPRESENTATIVE \ITLo\ \UNDo\ \UNDx\ \ITLx\ Reviewed and Electronically Signed by: Tom Quintanilla MD Signed Date: 07/15/24 15:18 07/15/[email or web address].to DENIA HERNANDEZ via Fredio Social History Type Status Start Date End Date Code Code Syst em Smoking History Current every day smoker [id number] SNOMED CT Sex Female Medications Medication Start Date End Date Route Frequency Dose Code Code System Medication Instructions Home Meds Albuterol Sulfate 0.09MG/1Actuation Inhalation Suspension 10/13/2023 Unknown INHALATION THREE TIMES A DAY 2 unit(s) 0331183 RxNorm 2 EACH INHALATION THREE TIMES A DAY Atorvastatin Calcium 40MG Oral Tablet 10/13/2023 Unknown ORAL AT BEDTIM E 40 MILLIGRA MS 399663 RxNorm TAKE 40 MILLIGRAMS ORAL AT BEDTIME Biotin 5 MG Oral Tablet 10/13/2023 Unknown ORAL ONCE A DAY 5 MG RxNorm TAKE 5 MG ORAL ONCE A DAY Bumetanide 1MG Oral Tablet 10/13/2023 Unknown ORAL TWICE A DAY 1 MILLIGRA MS 584898 RxNorm TAKE 1 MILLIGRAMS ORAL TWICE A DAY Estradiol 0.25MG/1Packet Transdermal Gel/Jelly 10/13/2023 Unknown TRANSDERMAL DIRECT ED 1 unit(s) 6816634 RxNorm APPLY TO 1 EACH TRANSDERMAL DIRECTED Fluticasone 0.05MG/1Actuation Nasal [place] 10/13/2023 Unknown NASAL ONCE A DAY 1 unit(s) 3395280 RxNorm 1 EACH NASAL ONCE A DAY HYDROcodone bitartrate-acetami nophen 10MG-325MG Oral Tablet 10/13/2023 Unknown ORAL THREE TIMES A DAY 1 unit(s) 007445 RxNorm TAKE 1 EACH ORAL THREE TIMES A DAY Lantus 100U/1ML Subcutaneous Solution 10/13/2023 Unknown SUBCUTANEOU S AT BEDTIM E 46 unit(s) 927735 RxNorm INJECT INTO 46 EACH SUBCUTANEOU S AT BEDTIME NovoLOG FlexPen 100U/1ML Subcutaneous Solution 10/13/2023 Unknown SUBCUTANEOU S BEFORE MEALS AND AT BEDTIM E 1 unit(s) 6765542 RxNorm INJECT INTO 1 EACH SUBCUTANEOU S BEFORE MEALS AND AT BEDTIME Ondansetron HCl 4MG Oral Tablet 10/13/2023 Unknown ORAL DIRECT ED 4 MILLIGRA MS 316799 RxNorm TAKE 4 MILLIGRAMS ORAL DIRECTED SUMAtriptan Succinate 100MG Oral Tablet 10/13/2023 Unknown ORAL DIRECT ED 100 MILLIGRA MS 297617 RxNorm TAKE 100 MILLIGRAMS ORAL DIRECTED Spironolactone 25MG Oral Tablet 10/13/2023 Unknown ORAL TWICE A DAY 25 MILLIGRA MS 420325 RxNorm TAKE 25 MILLIGRAMS ORAL TWICE A DAY buPROPion HCl 300MG Oral Tablet, Extended Release, 24 HR 10/13/2023 Unknown ORAL ONCE A DAY 300 MILLIGRA MS 575847 RxNorm TAKE 300 MILLIGRAMS ORAL ONCE A DAY clonazePAM 1MG Oral Tablet 10/13/2023 Unknown ORAL TWICE A DAY 1 MILLIGRA MS 497958 RxNorm TAKE 1 MILLIGRAMS ORAL TWICE A DAY hydrOXYzine HCl 25MG Oral Tablet 10/13/2023 Unknown ORAL NEEDED TWICE A DAY 25 MILLIGRA MS 466072 RxNorm TAKE 25 MILLIGRAMS ORAL NEEDED TWICE A DAY rOPINIRole HCl 2MG Oral Tablet 10/13/2023 Unknown ORAL ONCE A DAY 2 MILLIGRA MS 552310 RxNorm TAKE 2 MILLIGRAMS ORAL ONCE A DAY Protonix 40 MG Oral Tablet, Delayed Release 10/13/2023 Unknown BY MOUTH TWICE A DAY 1 TABLET 174951 RxNorm TAKE 1 TABLET BY MOUTH TWICE A DAY HYDROcodone bitartrate-acetami nophen 7.5MG-325MG Oral Tablet 07/01/2024 Unknown BY MOUTH NEEDED EVERY 6 HOURS 1 TABLET 271815 RxNorm TAKE 1 TABLET BY MOUTH NEEDED EVERY 6 HOURS FOR PAIN Cyclobenzaprine 10MG Oral Tablet 07/01/2024 Unknown ORAL NEEDED TWICE A DAY 10 MILLIGRA MS 839805 RxNorm TAKE 10 MILLIGRAMS ORAL NEEDED TWICE A DAY Fenofibrate 54MG Oral Tablet 07/01/2024 Unknown ORAL ONCE A DAY 54 MILLIGRA MS 583234 RxNorm TAKE 54 MILLIGRAMS ORAL ONCE A DAY Hair, Skin & Nails Oral Capsule, Liquid Filled 07/01/2024 Unknown ORAL ONCE A DAY 1 unit(s) RxNorm TAKE 1 EACH ORAL ONCE A DAY Lisinopril 2.5MG Oral Tablet 07/01/2024 Unknown ORAL ONCE A DAY 2.5 MILLIGRA MS 512115 RxNorm TAKE 2.5 MILLIGRAMS ORAL ONCE A DAY Probiotic 1 Billion CFU Oral Capsule 07/01/2024 Unknown ORAL ONCE A DAY 1 Billion CFU RxNorm TAKE 1 Billion CFU ORAL ONCE A DAY Rybelsus 14MG Oral Tablet 07/01/2024 Unknown ORAL ONCE A DAY 14 MILLIGRA MS 4244209 RxNorm TAKE 14 MILLIGRAMS ORAL ONCE A [...] Active UMBILICAL HERNIA REPAIR WITH MESH 07/01 [id number] 7 8090097 11/16/[address] 7067561 Allergies and Adverse Reactions Allergy Substance Reaction Severity Start Date Concern Status Code Code System CEPHALEXIN Hives (SNOMED-CT: 085018679) Active 2231 RxNorm FOLIC ACID Rash (SNOMED-CT: 906891095) Active 4511 RxNorm FOLIC ACID Rash (SNOMED-CT: 329232657) Active 4511 RxNorm METHOTREXATE NAUSEA/BLISTER S (SNOMED-CT: null) Active 6851 RxNorm METHOTREXATE Hives (SNOMED-CT: 060589963) Active 6851 RxNorm ADHESIVE Rash (SNOMED-CT: 846734488) Active PREGABALIN Swelling (SNOMED-CT: 59433712) Active 794897 RxNorm PREGABALIN Swelling (SNOMED-CT: 93312484) Active 993530 RxNorm KEFLEX Hives (SNOMED-CT: 569904417) Active 879168 RxNorm CONTRAST MEDIA, IODINE RELATED Active 485192171 SNOMED-CT CONTRAST MEDIA, IODINE RELATED Active 062133485 SNOMED-CT Plan of Treatment CT Chest/Lung W Contrast (52737) 2024 Encounters Encounter Diagnosis Start Date Code Code Sys tem Encounter for screening for malignant neoplasm of respiratory organs 07/15/2024 SNOMED-CT Personal Care Team Section Performer Name Performer Role Active Date Inactive HARDY Norris PCP - Primary care physician 2021-12-27 2022-03-04 Alejandro Anguiano PCP - Primary care physician 2022-03-04 Imaging Narrative Notes [facility] 07/15/2024 15:[address] [address] ---------NAME--------- NUMBER SEX AGE ADMIT DISC. XRAY# F/C TYPE ILENE SMITH [id number] F 64 07/15/24 07/15/24 [id number] MB3 O/P DATE OF : 1960 M/R# [id number] PH#: [id number] LOCATION: TRANSCRIBED: 07/15/24 15:18 CT CHEST [place] SCREEN [id number] COMPLETED:07/15/24 12:35 [facility] [id number] {REASON-CT CHEST CA SCREEN: former smoker PHYSICIAN: [facility] REPORT CT Chest without intravenous contrast INDICATION: former smoker TECHNIQUE: Multidetector spiral CT of the chest was performed from the lung apices to the upper abdomen. Axial, coronal and sagittal multiplanar reformats were performed. Radiation dose : Chest: CTDI volume is 2.76 mGy. Dose-length product is 111.19 mGy*cm The dose indicators for CT are the volume computed tomography (CT) dose index (CTDIvol) and the dose length product (DLP), and are measured in units of mGy and mGy-cm, respectively. These indicators are not patient dose, but values generated from the CT scanner acquisition factors. The report includes radiation exposure data for exposures received during this examination. Comparison: CT CHEST CA SCREEN on DOS: 07/13/23 Findings: Lower neck: Normal thyroid. Lungs: Patchy consolidation and nodularity in the right lower lung. Heart/Vascular Structures: Normal heart size. No pericardial effusion. Lymph Nodes: Fullness of the right hilum, lymphadenopathy or mass is not excluded. Pleura: No pleural effusion or significant pneumothorax. Musculoskeletal: Compression deformity T12. Soft tissues: Normal. Upper abdomen: Left renal calculus. IMPRESSION: 1. New fullness of the right hilum with associated consolidation in the right lower lung. Findings could be infectious / inflammatory. An underlying mass is not excluded. Recommend follow-up chest CT with contrast. Clinical correlation and continued follow-up to resolution is recommended. BI-RADS 4-suspicious. Radiation optimization: All CT scans at this facility use at least one of these dose optimization techniques: Automated exposure control mA and/or kV adjustment per patient size (includes targeted exams where dose is matched to clinical indication) or iterative reconstruction. HS:Y RIST REPRESENTATIVE Reviewed and Electronically Signed by: Tom Quintanilla MD Signed Date: 07/15/24 15:18 07/15/[email or web address].to DENIA HERNANDEZ via modem
--- OUTSIDE RECORDS SUMMARY | 2024-09-16 18:05 | XMS_ITS ---
Author Organization Unknown Address [address] [place] [address] [phone] Phone Care Team Providers Care Hog Scalder Name Role Phone LESLIE Guillen Attending Unavailable [...] 205 CVX Pneumococcal conjugate PCV20 , polysaccharide [id number] conjugate, adjuvant, PF 06/21/2023 Completed 216 CVX RSV, recombinant, protein subunit RSVpreF, adjuvant reconstituted, 0.5 mL, PF 04/18/2023 Completed 303 CV X Social History Type Status Start Date End Date Code Code Syst em Smoking History Current every day smoker [id number] SNOMED CT Sex Female Medications Medication Start Date End Date Route Frequency Dose Code Code System Medication Instructions Home Meds Albuterol Sulfate 0.09MG/1Actuation Inhalation Suspension 10/13/2023 Unknown INHALATION THREE TIMES A DAY 2 unit(s) 8124178 RxNorm 2 EACH INHALATION THREE TIMES A DAY Atorvastatin Calcium 40MG Oral Tablet 10/13/2023 Unknown ORAL AT BEDTIM E 40 MILLIGRA MS 665037 RxNorm TAKE 40 MILLIGRAMS ORAL AT BEDTIME Biotin 5 MG Oral Tablet 10/13/2023 Unknown ORAL ONCE A DAY 5 MG 283000 RxNorm TAKE 5 MG ORAL ONCE A DAY Bumetanide 1MG Oral Tablet 10/13/2023 Unknown ORAL TWICE A DAY 1 MILLIGRA MS 001763 RxNorm TAKE 1 MILLIGRAMS ORAL TWICE A DAY Coconut Oil Oil 10/13/2023 06/21/19 25 ROUTE NOT APPLICABLE ONCE A DAY 1 unit(s) RxNorm 1 EACH ROUTE NOT APPLICABLE ONCE A DAY Cyclobenzaprine 10MG Oral Tablet 10/13/2023 06/21/19 25 ORAL TWICE A DAY 10 MILLIGRA MS 162885 RxNorm TAKE 10 MILLIGRAMS ORAL TWICE A DAY Estradiol 0.25MG/1Packet Transdermal Gel/Jelly 10/13/2023 Unknown TRANSDERMAL DIRECT ED 1 unit(s) 6184149 RxNorm APPLY TO 1 EACH TRANSDERMAL DIRECTED Fluticasone 0.05MG/1Actuation Nasal [place] 10/13/2023 Unknown NASAL ONCE A DAY 1 unit(s) 4052542 RxNorm 1 EACH NASAL ONCE A DAY HYDROcodone bitartrate-acetami nophen 10MG-325MG Oral Tablet 10/13/2023 Unknown ORAL THREE TIMES A DAY 1 unit(s) 572522 RxNorm TAKE 1 EACH ORAL THREE TIMES A DAY Lantus 100U/1ML Subcutaneous Solution 10/13/2023 Unknown SUBCUTANEOU S AT BEDTIM E 46 unit(s) 074244 RxNorm INJECT INTO 46 EACH SUBCUTANEOU S AT BEDTIME NovoLOG FlexPen 100U/1ML Subcutaneous Solution 10/13/2023 Unknown SUBCUTANEOU S BEFORE MEALS AND AT BEDTIM E 1 unit(s) 9656638 RxNorm INJECT INTO 1 EACH SUBCUTANEOU S BEFORE MEALS AND AT BEDTIME Ondansetron HCl 4MG Oral Tablet 10/13/2023 Unknown ORAL DIRECT ED 4 MILLIGRA MS 832238 RxNorm TAKE 4 MILLIGRAMS ORAL DIRECTED Rybelsus 3MG Oral Tablet 10/13/2023 06/21/19 25 ORAL ONCE A DAY 7 MILLIGRA MS 3426068 RxNorm TAKE 7 MILLIGRAMS ORAL ONCE A DAY SUMAtriptan Succinate 100MG Oral Tablet 10/13/2023 Unknown ORAL DIRECT ED 100 MILLIGRA MS 469574 RxNorm TAKE 100 MILLIGRAMS ORAL DIRECTED Spironolactone 25MG Oral Tablet 10/13/2023 Unknown ORAL TWICE A DAY 25 MILLIGRA MS 768430 RxNorm TAKE 25 MILLIGRAMS ORAL TWICE A DAY buPROPion HCl 300MG Oral Tablet, Extended Release, 24 HR 10/13/2023 Unknown ORAL ONCE A DAY 300 MILLIGRA MS 785891 RxNorm TAKE 300 MILLIGRAMS ORAL ONCE A DAY clonazePAM 1MG Oral Tablet 10/13/2023 Unknown ORAL TWICE A DAY 1 MILLIGRA MS 370443 RxNorm TAKE 1 MILLIGRAMS ORAL TWICE A DAY hydrOXYzine HCl 25MG Oral Tablet 10/13/2023 Unknown ORAL NEEDED TWICE A DAY 25 MILLIGRA MS 090339 RxNorm TAKE 25 MILLIGRAMS ORAL NEEDED TWICE A DAY rOPINIRole HCl 2MG Oral Tablet 10/13/2023 Unknown ORAL ONCE A DAY 2 MILLIGRA MS 758438 RxNorm TAKE 2 MILLIGRAMS ORAL ONCE A DAY Protonix 40 MG Oral Tablet, Delayed Release 10/13/2023 Unknown BY MOUTH TWICE A DAY 1 TABLET 660414 RxNorm TAKE 1 TABLET BY MOUTH TWICE A DAY HYDROcodone bitartrate-acetami nophen 7.5MG-325MG Oral Tablet 07/01/2024 Unknown BY MOUTH NEEDED EVERY 6 HOURS 1 TABLET 015445 RxNorm TAKE 1 TABLET BY MOUTH NEEDED EVERY 6 HOURS FOR PAIN Cyclobenzaprine 10MG Oral Tablet 07/01/2024 Unknown ORAL NEEDED TWICE A DAY 10 MILLIGRA MS 463389 RxNorm TAKE 10 MILLIGRAMS ORAL NEEDED TWICE A DAY Fenofibrate 54MG Oral Tablet 07/01/2024 Unknown ORAL ONCE A DAY 54 MILLIGRA MS 047997 RxNorm TAKE 54 MILLIGRAMS ORAL ONCE A DAY Hair, Skin & Nails Oral Capsule, Liquid Filled 07/01/2024 Unknown ORAL ONCE A DAY 1 unit(s) RxNorm TAKE 1 EACH ORAL ONCE A DAY Lisinopril 2.5MG Oral Tablet 07/01/2024 Unknown ORAL ONCE A DAY 2.5 MILLIGRA MS 532491 RxNorm TAKE 2.5 MILLIGRAMS ORAL ONCE A DAY Probiotic 1 Billion CFU Oral Capsule 07/01/2024 Unknown ORAL ONCE A DAY 1 Billion CFU RxNorm TAKE 1 Billion CFU ORAL ONCE A DAY Rybelsus 14MG Oral Tablet 07/01/2024 Unknown ORAL ONCE A DAY 14 MILLIGRA MS 9742790 RxNorm TAKE 14 MILLIGRAMS ORAL ONCE A [...] Active UMBILICAL HERNIA REPAIR WITH MESH 07/01 [id number] 11/16/[address] [id number] Allergies and Adverse Reactions Allergy Substance Reaction Severity Start Date Concern Status Code Code System CEPHALEXIN Hives (SNOMED-CT: 477697554) Active 2231 RxNorm FOLIC ACID Rash (SNOMED-CT: 051016692) Active 4511 RxNorm FOLIC ACID Rash (SNOMED-CT: 305499119) Active 4511 RxNorm METHOTREXATE NAUSEA/BLISTER S (SNOMED-CT: null) Active 6851 RxNorm METHOTREXATE Hives (SNOMED-CT: 515854201) Active 6851 RxNorm ADHESIVE Rash (SNOMED-CT: 970303848) Active PREGABALIN Swelling (SNOMED-CT: 57986884) Active 613167 RxNorm PREGABALIN Swelling (SNOMED-CT: 54788097) Active 740341 RxNorm KEFLEX Hives (SNOMED-CT: 788601878) Active 838869 RxNorm CONTRAST MEDIA, IODINE RELATED Active 289823668 SNOMED-CT CONTRAST MEDIA, IODINE RELATED Active 861669784 SNOMED-CT Plan of Treatment CT Chest/Lung W Contrast (29763) 2024 Encounters Encounter Diagnosis Start Date Code Code Sys tem 07/05/2023 [id number] SNOMED-CT Personal Care Team Section Performer Name Performer Role Active Date Inactive Da HARDY Rivas PCP - Primary care physician 2021-12-27 2022-03-04 Alejandro Anguiano PCP - Primary care physician 2022-03-04
--- OUTSIDE RECORDS SUMMARY | 2024-09-16 18:05 | XMS_ITS ---
Author Organization Unknown Address [address] [place] [address] [phone] Phone Care Team Providers Care Montessori Lead Teacher Name Role Phone LESLIE Guillen Attending Unavailable [...] 205 CVX Pneumococcal conjugate PCV20 , polysaccharide [id number] conjugate, adjuvant, PF 06/21/2023 Completed 216 CVX RSV, recombinant, protein subunit RSVpreF, adjuvant reconstituted, 0.5 mL, PF 04/18/2023 Completed 303 CV X Social History Type Status Start Date End Date Code Code Syst em Smoking History Current every day smoker [id number] SNOMED CT Sex Female Medications Medication Start Date End Date Route Frequency Dose Code Code System Medication Instructions Home Meds Albuterol Sulfate 0.09MG/1Actuation Inhalation Suspension 10/13/2023 Unknown INHALATION THREE TIMES A DAY 2 unit(s) 7771635 RxNorm 2 EACH INHALATION THREE TIMES A DAY Atorvastatin Calcium 40MG Oral Tablet 10/13/2023 Unknown ORAL AT BEDTIM E 40 MILLIGRA MS 249546 RxNorm TAKE 40 MILLIGRAMS ORAL AT BEDTIME Biotin 5 MG Oral Tablet 10/13/2023 Unknown ORAL ONCE A DAY 5 MG 414977 RxNorm TAKE 5 MG ORAL ONCE A DAY Bumetanide 1MG Oral Tablet 10/13/2023 Unknown ORAL TWICE A DAY 1 MILLIGRA MS 710620 RxNorm TAKE 1 MILLIGRAMS ORAL TWICE A DAY Coconut Oil Oil 10/13/2023 06/21/19 25 ROUTE NOT APPLICABLE ONCE A DAY 1 unit(s) RxNorm 1 EACH ROUTE NOT APPLICABLE ONCE A DAY Cyclobenzaprine 10MG Oral Tablet 10/13/2023 06/21/19 25 ORAL TWICE A DAY 10 MILLIGRA MS 092787 RxNorm TAKE 10 MILLIGRAMS ORAL TWICE A DAY Estradiol 0.25MG/1Packet Transdermal Gel/Jelly 10/13/2023 Unknown TRANSDERMAL DIRECT ED 1 unit(s) 3619699 RxNorm APPLY TO 1 EACH TRANSDERMAL DIRECTED Fluticasone 0.05MG/1Actuation Nasal [place] 10/13/2023 Unknown NASAL ONCE A DAY 1 unit(s) 9569006 RxNorm 1 EACH NASAL ONCE A DAY HYDROcodone bitartrate-acetami nophen 10MG-325MG Oral Tablet 10/13/2023 Unknown ORAL THREE TIMES A DAY 1 unit(s) 525418 RxNorm TAKE 1 EACH ORAL THREE TIMES A DAY Lantus 100U/1ML Subcutaneous Solution 10/13/2023 Unknown SUBCUTANEOU S AT BEDTIM E 46 unit(s) 218364 RxNorm INJECT INTO 46 EACH SUBCUTANEOU S AT BEDTIME NovoLOG FlexPen 100U/1ML Subcutaneous Solution 10/13/2023 Unknown SUBCUTANEOU S BEFORE MEALS AND AT BEDTIM E 1 unit(s) 4472962 RxNorm INJECT INTO 1 EACH SUBCUTANEOU S BEFORE MEALS AND AT BEDTIME Ondansetron HCl 4MG Oral Tablet 10/13/2023 Unknown ORAL DIRECT ED 4 MILLIGRA MS 754303 RxNorm TAKE 4 MILLIGRAMS ORAL DIRECTED Rybelsus 3MG Oral Tablet 10/13/2023 06/21/19 25 ORAL ONCE A DAY 7 MILLIGRA MS 6726223 RxNorm TAKE 7 MILLIGRAMS ORAL ONCE A DAY SUMAtriptan Succinate 100MG Oral Tablet 10/13/2023 Unknown ORAL DIRECT ED 100 MILLIGRA MS 047609 RxNorm TAKE 100 MILLIGRAMS ORAL DIRECTED Spironolactone 25MG Oral Tablet 10/13/2023 Unknown ORAL TWICE A DAY 25 MILLIGRA MS 328702 RxNorm TAKE 25 MILLIGRAMS ORAL TWICE A DAY buPROPion HCl 300MG Oral Tablet, Extended Release, 24 HR 10/13/2023 Unknown ORAL ONCE A DAY 300 MILLIGRA MS 861341 RxNorm TAKE 300 MILLIGRAMS ORAL ONCE A DAY clonazePAM 1MG Oral Tablet 10/13/2023 Unknown ORAL TWICE A DAY 1 MILLIGRA MS 672893 RxNorm TAKE 1 MILLIGRAMS ORAL TWICE A DAY hydrOXYzine HCl 25MG Oral Tablet 10/13/2023 Unknown ORAL NEEDED TWICE A DAY 25 MILLIGRA MS 945911 RxNorm TAKE 25 MILLIGRAMS ORAL NEEDED TWICE A DAY rOPINIRole HCl 2MG Oral Tablet 10/13/2023 Unknown ORAL ONCE A DAY 2 MILLIGRA MS 680902 RxNorm TAKE 2 MILLIGRAMS ORAL ONCE A DAY Protonix 40 MG Oral Tablet, Delayed Release 10/13/2023 Unknown BY MOUTH TWICE A DAY 1 TABLET 934118 RxNorm TAKE 1 TABLET BY MOUTH TWICE A DAY HYDROcodone bitartrate-acetami nophen 7.5MG-325MG Oral Tablet 07/01/2024 Unknown BY MOUTH NEEDED EVERY 6 HOURS 1 TABLET 749474 RxNorm TAKE 1 TABLET BY MOUTH NEEDED EVERY 6 HOURS FOR PAIN Cyclobenzaprine 10MG Oral Tablet 07/01/2024 Unknown ORAL NEEDED TWICE A DAY 10 MILLIGRA MS 610820 RxNorm TAKE 10 MILLIGRAMS ORAL NEEDED TWICE A DAY Fenofibrate 54MG Oral Tablet 07/01/2024 Unknown ORAL ONCE A DAY 54 MILLIGRA MS 750798 RxNorm TAKE 54 MILLIGRAMS ORAL ONCE A DAY Hair, Skin & Nails Oral Capsule, Liquid Filled 07/01/2024 Unknown ORAL ONCE A DAY 1 unit(s) RxNorm TAKE 1 EACH ORAL ONCE A DAY Lisinopril 2.5MG Oral Tablet 07/01/2024 Unknown ORAL ONCE A DAY 2.5 MILLIGRA MS 551514 RxNorm TAKE 2.5 MILLIGRAMS ORAL ONCE A DAY Probiotic 1 Billion CFU Oral Capsule 07/01/2024 Unknown ORAL ONCE A DAY 1 Billion CFU RxNorm TAKE 1 Billion CFU ORAL ONCE A DAY Rybelsus 14MG Oral Tablet 07/01/2024 Unknown ORAL ONCE A DAY 14 MILLIGRA MS 4717940 RxNorm TAKE 14 MILLIGRAMS ORAL ONCE A [...] Active UMBILICAL HERNIA REPAIR WITH MESH 07/01 [id number] 7 [id number] 11/16/[address] 2686784 Allergies and Adverse Reactions Allergy Substance Reaction Severity Start Date Concern Status Code Code System CEPHALEXIN Hives (SNOMED-CT: 920857415) Active 2231 RxNorm FOLIC ACID Rash (SNOMED-CT: 281489755) Active 4511 RxNorm FOLIC ACID Rash (SNOMED-CT: 859294423) Active 4511 RxNorm METHOTREXATE NAUSEA/BLISTER S (SNOMED-CT: null) Active 6851 RxNorm METHOTREXATE Hives (SNOMED-CT: 165399423) Active 6851 RxNorm ADHESIVE Rash (SNOMED-CT: 877090807) Active PREGABALIN Swelling (SNOMED-CT: 33531284) Active 703572 RxNorm PREGABALIN Swelling (SNOMED-CT: 08121590) Active 313596 RxNorm KEFLEX Hives (SNOMED-CT: 575908640) Active 045599 RxNorm CONTRAST MEDIA, IODINE RELATED Active 341101342 SNOMED-CT CONTRAST MEDIA, IODINE RELATED Active 262067321 SNOMED-CT Plan of Treatment CT Chest/Lung W Contrast (62316) 2024 Encounters Encounter Diagnosis Start Date Code Code Sys tem Dysphagia 10/19/2023 [id number] SNOMED-CT Personal Care Team Section Performer Name Performer Role Active Date Inactive Da HARDY Rivas PCP - Primary care physician 2021-12-27 2022-03-04 Alejandro Anguiano PCP - Primary care physician 2022-03-04
--- OUTSIDE RECORDS SUMMARY | 2024-09-16 18:06 | XMS_ITS ---
Author Organization Unknown Address [address] [place] [address] [phone] Phone Care Team Providers Care Sponge Hooker Name Role Phone OSWALDO JOAQUIN Attending Unavailable DENIA DAVILA Primary Unavailable Immunization [...] 205 CVX Pneumococcal conjugate PCV20 , polysaccharide [id number] conjugate, adjuvant, PF 06/21/2023 Completed 216 CVX RSV, recombinant, protein subunit RSVpreF, adjuvant reconstituted, 0.5 mL, PF 04/18/2023 Completed 303 CV X Results KNEE 3V LEFT - Completed: 11:38 LOINC: EXAM DESCRIPTION: KNEE 3V LEFT REASON FOR STUDY: knee pain/ anterior knee pain and swelling/ no injury Duration: 1 week TECHNIQUE: 3 radiographic view(s) of the left knee . COMPARISON: None FINDINGS: There is no fracture or dislocation. There are moderate osteoarthritic changes of the knee, worse in the patellofemoral compartment. There are several marginal patellar osteophytes. There is a trace knee joint effusion. IMPRESSION: No acute osseous abnormality. Trace joint effusion. THIS IS AN ELECTRONICALLY VERIFIED FINAL REPORT 07/05/2023 11:55 AM - Electronically signed by Ravi Houston M.D. AM: AM Report ID: [id number] Reading Location: [id number] Social History Type Status Start Date End Date Code Code Syst em Smoking History Current every day smoker [id number] SNOMED CT Sex Female Medications Medication Start Date End Date Route Frequency Dose Code Code System Medication Instructions Home Meds Albuterol Sulfate 0.09MG/1Actuation Inhalation Suspension 10/13/2023 Unknown INHALATION THREE TIMES A DAY 2 unit(s) 3644263 RxNorm 2 EACH INHALATION THREE TIMES A DAY Atorvastatin Calcium 40MG Oral Tablet 10/13/2023 Unknown ORAL AT BEDTIM E 40 MILLIGRA MS 985095 RxNorm TAKE 40 MILLIGRAMS ORAL AT BEDTIME Biotin 5 MG Oral Tablet 10/13/2023 Unknown ORAL ONCE A DAY 5 MG 068555 RxNorm TAKE 5 MG ORAL ONCE A DAY Bumetanide 1MG Oral Tablet 10/13/2023 Unknown ORAL TWICE A DAY 1 MILLIGRA MS 608928 RxNorm TAKE 1 MILLIGRAMS ORAL TWICE A DAY Coconut Oil Oil 10/13/2023 06/21/19 25 ROUTE NOT APPLICABLE ONCE A DAY 1 unit(s) RxNorm 1 EACH ROUTE NOT APPLICABLE ONCE A DAY Cyclobenzaprine 10MG Oral Tablet 10/13/2023 06/21/19 25 ORAL TWICE A DAY 10 MILLIGRA MS 640211 RxNorm TAKE 10 MILLIGRAMS ORAL TWICE A DAY Estradiol 0.25MG/1Packet Transdermal Gel/Jelly 10/13/2023 Unknown TRANSDERMAL DIRECT ED 1 unit(s) 6170313 RxNorm APPLY TO 1 EACH TRANSDERMAL DIRECTED Fluticasone 0.05MG/1Actuation Nasal [place] 10/13/2023 Unknown NASAL ONCE A DAY 1 unit(s) 1001343 RxNorm 1 EACH NASAL ONCE A DAY HYDROcodone bitartrate-acetami nophen 10MG-325MG Oral Tablet 10/13/2023 Unknown ORAL THREE TIMES A DAY 1 unit(s) 372668 RxNorm TAKE 1 EACH ORAL THREE TIMES A DAY Lantus 100U/1ML Subcutaneous Solution 10/13/2023 Unknown SUBCUTANEOU S AT BEDTIM E 46 unit(s) 861077 RxNorm INJECT INTO 46 EACH SUBCUTANEOU S AT BEDTIME NovoLOG FlexPen 100U/1ML Subcutaneous Solution 10/13/2023 Unknown SUBCUTANEOU S BEFORE MEALS AND AT BEDTIM E 1 unit(s) 3763358 RxNorm INJECT INTO 1 EACH SUBCUTANEOU S BEFORE MEALS AND AT BEDTIME Ondansetron HCl 4MG Oral Tablet 10/13/2023 Unknown ORAL DIRECT ED 4 MILLIGRA MS 513975 RxNorm TAKE 4 MILLIGRAMS ORAL DIRECTED Rybelsus 3MG Oral Tablet 10/13/2023 06/21/19 25 ORAL ONCE A DAY 7 MILLIGRA MS 1823398 RxNorm TAKE 7 MILLIGRAMS ORAL ONCE A DAY SUMAtriptan Succinate 100MG Oral Tablet 10/13/2023 Unknown ORAL DIRECT ED 100 MILLIGRA MS 219611 RxNorm TAKE 100 MILLIGRAMS ORAL DIRECTED Spironolactone 25MG Oral Tablet 10/13/2023 Unknown ORAL TWICE A DAY 25 MILLIGRA MS 025095 RxNorm TAKE 25 MILLIGRAMS ORAL TWICE A DAY buPROPion HCl 300MG Oral Tablet, Extended Release, 24 HR 10/13/2023 Unknown ORAL ONCE A DAY 300 MILLIGRA MS 818269 RxNorm TAKE 300 MILLIGRAMS ORAL ONCE A DAY clonazePAM 1MG Oral Tablet 10/13/2023 Unknown ORAL TWICE A DAY 1 MILLIGRA MS 125492 RxNorm TAKE 1 MILLIGRAMS ORAL TWICE A DAY hydrOXYzine HCl 25MG Oral Tablet 10/13/2023 Unknown ORAL NEEDED TWICE A DAY 25 MILLIGRA MS 456117 RxNorm TAKE 25 MILLIGRAMS ORAL NEEDED TWICE A DAY rOPINIRole HCl 2MG Oral Tablet 10/13/2023 Unknown ORAL ONCE A DAY 2 MILLIGRA MS 476755 RxNorm TAKE 2 MILLIGRAMS ORAL ONCE A DAY Protonix 40 MG Oral Tablet, Delayed Release 10/13/2023 Unknown BY MOUTH TWICE A DAY 1 TABLET 892156 RxNorm TAKE 1 TABLET BY MOUTH TWICE A DAY HYDROcodone bitartrate-acetami nophen 7.5MG-325MG Oral Tablet 07/01/2024 Unknown BY MOUTH NEEDED EVERY 6 HOURS 1 TABLET 798811 RxNorm TAKE 1 TABLET BY MOUTH NEEDED EVERY 6 HOURS FOR PAIN Cyclobenzaprine 10MG Oral Tablet 07/01/2024 Unknown ORAL NEEDED TWICE A DAY 10 MILLIGRA MS 065268 RxNorm TAKE 10 MILLIGRAMS ORAL NEEDED TWICE A DAY Fenofibrate 54MG Oral Tablet 07/01/2024 Unknown ORAL ONCE A DAY 54 MILLIGRA MS 188807 RxNorm TAKE 54 MILLIGRAMS ORAL ONCE A DAY Hair, Skin & Nails Oral Capsule, Liquid Filled 07/01/2024 Unknown ORAL ONCE A DAY 1 unit(s) RxNorm TAKE 1 EACH ORAL ONCE A DAY Lisinopril 2.5MG Oral Tablet 07/01/2024 Unknown ORAL ONCE A DAY 2.5 MILLIGRA MS 979913 RxNorm TAKE 2.5 MILLIGRAMS ORAL ONCE A DAY Probiotic 1 Billion CFU Oral Capsule 07/01/2024 Unknown ORAL ONCE A DAY 1 Billion CFU RxNorm TAKE 1 Billion CFU ORAL ONCE A DAY Rybelsus 14MG Oral Tablet 07/01/2024 Unknown ORAL ONCE A DAY 14 MILLIGRA MS 9569927 RxNorm TAKE 14 MILLIGRAMS ORAL ONCE A [...] Active UMBILICAL HERNIA REPAIR WITH MESH 07/01 [id number] 11/16/[address] [id number] Allergies and Adverse Reactions Allergy Substance Reaction Severity Start Date Concern Status Code Code System CEPHALEXIN Hives (SNOMED-CT: 319453831) Active 2231 RxNorm FOLIC ACID Rash (SNOMED-CT: 698553670) Active 4511 RxNorm FOLIC ACID Rash (SNOMED-CT: 055152669) Active 4511 RxNorm METHOTREXATE NAUSEA/BLISTER S (SNOMED-CT: null) Active 6851 RxNorm METHOTREXATE Hives (SNOMED-CT: 965014424) Active 6851 RxNorm ADHESIVE Rash (SNOMED-CT: 597052580) Active PREGABALIN Swelling (SNOMED-CT: 06559027) Active 157738 RxNorm PREGABALIN Swelling (SNOMED-CT: 53848402) Active 188905 RxNorm KEFLEX Hives (SNOMED-CT: 183008495) Active 564401 RxNorm CONTRAST MEDIA, IODINE RELATED Active 101551671 SNOMED-CT CONTRAST MEDIA, IODINE RELATED Active 478400901 SNOMED-CT Plan of Treatment CT Chest/Lung W Contrast (02913) 2024 Encounters Encounter Diagnosis Start Date Code Code Sys tem 07/05/2023 [id number] SNOMED-CT Personal Care Team Section Performer Name Performer Role Active Date Inactive HARDY Norris PCP - Primary care physician 2021-12-27 2022-03-04 Alejandro Anguiano PCP - Primary care physician 2022-03-04 Imaging Narrative Notes
--- OUTSIDE RECORDS SUMMARY | 2024-09-16 18:06 | XMS_ITS ---
Author Organization Unknown Address [address] [place] [address] [phone] Phone Care Team Providers Care Supervisor Belt And Link Assembly Name Role Phone JOSE GALINDO Attending Unavailable DENIA DAVILA Primary Unavailable Immunization [...] 205 CVX Pneumococcal conjugate PCV20 , polysaccharide [id number] conjugate, adjuvant, PF 06/21/2023 Completed 216 CVX RSV, recombinant, protein subunit RSVpreF, adjuvant reconstituted, 0.5 mL, PF 04/18/2023 Completed 303 CV X Results DIG 3D ELENI SCREENING BILATER AL - Completed: 02/05/2024 11:12 LOINC: See Scanned Image Attachment for Report Dictated By: Trans Initials: XX Trans Date: 02/07/24 11:10 <<REPDIST>> Social History Type Status Start Date End Date Code Code Syst em Smoking History Current every day smoker [id number] SNOMED CT Sex Female Medications Medication Start Date End Date Route Frequency Dose Code Code System Medication Instructions Home Meds Albuterol Sulfate 0.09MG/1Actuation Inhalation Suspension 10/13/2023 Unknown INHALATION THREE TIMES A DAY 2 unit(s) 6942256 RxNorm 2 EACH INHALATION THREE TIMES A DAY Atorvastatin Calcium 40MG Oral Tablet 10/13/2023 Unknown ORAL AT BEDTIM E 40 MILLIGRA MS 366316 RxNorm TAKE 40 MILLIGRAMS ORAL AT BEDTIME Biotin 5 MG Oral Tablet 10/13/2023 Unknown ORAL ONCE A DAY 5 MG 871676 RxNorm TAKE 5 MG ORAL ONCE A DAY Bumetanide 1MG Oral Tablet 10/13/2023 Unknown ORAL TWICE A DAY 1 MILLIGRA MS 475889 RxNorm TAKE 1 MILLIGRAMS ORAL TWICE A DAY Coconut Oil Oil 10/13/2023 06/21/19 25 ROUTE NOT APPLICABLE ONCE A DAY 1 unit(s) RxNorm 1 EACH ROUTE NOT APPLICABLE ONCE A DAY Cyclobenzaprine 10MG Oral Tablet 10/13/2023 06/21/19 25 ORAL TWICE A DAY 10 MILLIGRA MS 284379 RxNorm TAKE 10 MILLIGRAMS ORAL TWICE A DAY Estradiol 0.25MG/1Packet Transdermal Gel/Jelly 10/13/2023 Unknown TRANSDERMAL DIRECT ED 1 unit(s) 8962271 RxNorm APPLY TO 1 EACH TRANSDERMAL DIRECTED Fluticasone 0.05MG/1Actuation Nasal [place] 10/13/2023 Unknown NASAL ONCE A DAY 1 unit(s) 0290747 RxNorm 1 EACH NASAL ONCE A DAY HYDROcodone bitartrate-acetami nophen 10MG-325MG Oral Tablet 10/13/2023 Unknown ORAL THREE TIMES A DAY 1 unit(s) 868879 RxNorm TAKE 1 EACH ORAL THREE TIMES A DAY Lantus 100U/1ML Subcutaneous Solution 10/13/2023 Unknown SUBCUTANEOU S AT BEDTIM E 46 unit(s) 197115 RxNorm INJECT INTO 46 EACH SUBCUTANEOU S AT BEDTIME NovoLOG FlexPen 100U/1ML Subcutaneous Solution 10/13/2023 Unknown SUBCUTANEOU S BEFORE MEALS AND AT BEDTIM E 1 unit(s) 2502538 RxNorm INJECT INTO 1 EACH SUBCUTANEOU S BEFORE MEALS AND AT BEDTIME Ondansetron HCl 4MG Oral Tablet 10/13/2023 Unknown ORAL DIRECT ED 4 MILLIGRA MS 604087 RxNorm TAKE 4 MILLIGRAMS ORAL DIRECTED Rybelsus 3MG Oral Tablet 10/13/2023 06/21/19 25 ORAL ONCE A DAY 7 MILLIGRA MS 5859452 RxNorm TAKE 7 MILLIGRAMS ORAL ONCE A DAY SUMAtriptan Succinate 100MG Oral Tablet 10/13/2023 Unknown ORAL DIRECT ED 100 MILLIGRA MS 526019 RxNorm TAKE 100 MILLIGRAMS ORAL DIRECTED Spironolactone 25MG Oral Tablet 10/13/2023 Unknown ORAL TWICE A DAY 25 MILLIGRA MS 499222 RxNorm TAKE 25 MILLIGRAMS ORAL TWICE A DAY buPROPion HCl 300MG Oral Tablet, Extended Release, 24 HR 10/13/2023 Unknown ORAL ONCE A DAY 300 MILLIGRA MS 111043 RxNorm TAKE 300 MILLIGRAMS ORAL ONCE A DAY clonazePAM 1MG Oral Tablet 10/13/2023 Unknown ORAL TWICE A DAY 1 MILLIGRA MS 669492 RxNorm TAKE 1 MILLIGRAMS ORAL TWICE A DAY hydrOXYzine HCl 25MG Oral Tablet 10/13/2023 Unknown ORAL NEEDED TWICE A DAY 25 MILLIGRA MS 578076 RxNorm TAKE 25 MILLIGRAMS ORAL NEEDED TWICE A DAY rOPINIRole HCl 2MG Oral Tablet 10/13/2023 Unknown ORAL ONCE A DAY 2 MILLIGRA MS 108017 RxNorm TAKE 2 MILLIGRAMS ORAL ONCE A DAY Protonix 40 MG Oral Tablet, Delayed Release 10/13/2023 Unknown BY MOUTH TWICE A DAY 1 TABLET 875931 RxNorm TAKE 1 TABLET BY MOUTH TWICE A DAY HYDROcodone bitartrate-acetami nophen 7.5MG-325MG Oral Tablet 07/01/2024 Unknown BY MOUTH NEEDED EVERY 6 HOURS 1 TABLET 905159 RxNorm TAKE 1 TABLET BY MOUTH NEEDED EVERY 6 HOURS FOR PAIN Cyclobenzaprine 10MG Oral Tablet 07/01/2024 Unknown ORAL NEEDED TWICE A DAY 10 MILLIGRA MS 123976 RxNorm TAKE 10 MILLIGRAMS ORAL NEEDED TWICE A DAY Fenofibrate 54MG Oral Tablet 07/01/2024 Unknown ORAL ONCE A DAY 54 MILLIGRA MS 774468 RxNorm TAKE 54 MILLIGRAMS ORAL ONCE A DAY Hair, Skin & Nails Oral Capsule, Liquid Filled 07/01/2024 Unknown ORAL ONCE A DAY 1 unit(s) RxNorm TAKE 1 EACH ORAL ONCE A DAY Lisinopril 2.5MG Oral Tablet 07/01/2024 Unknown ORAL ONCE A DAY 2.5 MILLIGRA MS 489597 RxNorm TAKE 2.5 MILLIGRAMS ORAL ONCE A DAY Probiotic 1 Billion CFU Oral Capsule 07/01/2024 Unknown ORAL ONCE A DAY 1 Billion CFU RxNorm TAKE 1 Billion CFU ORAL ONCE A DAY Rybelsus 14MG Oral Tablet 07/01/2024 Unknown ORAL ONCE A DAY 14 MILLIGRA MS 8818880 RxNorm TAKE 14 MILLIGRAMS ORAL ONCE A [...] Active UMBILICAL HERNIA REPAIR WITH MESH 07/01 [id number] 7 5884768 11/16/[address] 6447925 Allergies and Adverse Reactions Allergy Substance Reaction Severity Start Date Concern Status Code Code System CEPHALEXIN Hives (SNOMED-CT: 711118917) Active 2231 RxNorm FOLIC ACID Rash (SNOMED-CT: 281477748) Active 4511 RxNorm FOLIC ACID Rash (SNOMED-CT: 214116504) Active 4511 RxNorm METHOTREXATE NAUSEA/BLISTER S (SNOMED-CT: null) Active 6851 RxNorm METHOTREXATE Hives (SNOMED-CT: 054085987) Active 6851 RxNorm ADHESIVE Rash (SNOMED-CT: 508142980) Active PREGABALIN Swelling (SNOMED-CT: 53577809) Active 673227 RxNorm PREGABALIN Swelling (SNOMED-CT: 61259284) Active 105920 RxNorm KEFLEX Hives (SNOMED-CT: 907988435) Active 181688 RxNorm CONTRAST MEDIA, IODINE RELATED Active 625955279 SNOMED-CT CONTRAST MEDIA, IODINE RELATED Active 083650377 SNOMED-CT Plan of Treatment CT Chest/Lung W Contrast (86988) 2024 Encounters Encounter Diagnosis Start Date Code Code Sys tem Screening mammography 02/05/2024 [id number] SNOMED -CT Personal Care Team Section Performer Name Performer Role Active Date Inactive HARDY Norris PCP - Primary care physician 2021-12-27 2022-03-04 Alejandro Anguiano PCP - Primary care physician 2022-03-04 Imaging Narrative Notes [facility] 02/07/2024 11:[address] [address] RADIOLOGY REPORT Patient Number: [id number] Patient Name: ILENE SMITH Type: O/P MR Number: [id number] : 1960 Age: 63 Sex: F Room #: Admit Date: 02/05/24 Discharge Date 02/05/24 Ordering Physician: JOSE GALINDO Family Physician: DENIA HERNANDEZ [facility] Physician: X-Ray Number : [id number] DIG 3D ELENI SCREENING BILATERA 57328 COMPLETE:02/05/24 11:12 [facility] [id number] ([facility]ONS-DIG 3D ELENI SCREENING BILATERAL: SCREENING See Scanned Image Attachment for Report Dictated By: Trans Initials: XX Trans Date: 02/07/24 11:10 <<REPDIST>>
--- OUTSIDE RECORDS SUMMARY | 2024-09-16 18:06 | XMS_ITS | Clinical Summary ---
Author Organization [facility] Address [address] [place] [address] Care Team Providers Care Freight Service Inspector Name Role Phone Alejandro Anguiano DO Primary Care Provider Allergies Active Allergy Reactions Criticality Noted Date Comments Apple Juice Other (see comment) Medium 12/28/2017 Unclear reaction Cephalexin Hives 10/09/2015 Folic Acid Rash Low 02/25/2016 Methotrexate Nausea Only,Other (see comment) 02/25/2016 Blisters Gadolinium Derivatives Hives 07/23/2023 07/23/2023: Patient initially stated she is allergic to iodine. This was based on history of having hives after she received IV contrast for an MRI. She is certain it was when she was getting a 4-hour long MRI scan, not CT scan. It seems highly unlikely that this was iodinated contrast. Pregabalin Swelling 07/30/2018 Tape Rash Low 04/06/2016 Medications beclomethasone (QVAR) 80 MCG/ACT inhaler 2 puffs every 4 (four) hours as needed. 08/18/19 16 Active buPROPion XL 300 MG 24 hr tablet Take 300 mg by mouth daily. 08/17/19 22 Active Calcium-Vitamin D3 (CALCIUM 500+D HIGH POTENCY) 500-400 MG-UNIT Tab Take 1 tablet by mouth daily. 07/30/19 16 Active clonazePAM 2 MG tablet Take 2 mg by mouth 2 (two) times daily. 08/22/19 22 Active estradiol 0.025 MG/24HR Place 1 patch onto the skin twice a week. 06/17/19 22 Active albuterol (2.5 MG/3ML) 0.083% nebulizer solution Take 2.5 mg by nebulization every 6 (six) hours as needed. FOR WHEEZING 09/15/20 21 Active albuterol sulfate HFA 108 (90 Base) MCG/ACT inhaler Inhale 2 puffs into the lungs. Active amitriptyline 50 MG tablet Take 50 mg by mouth 2 (two) times daily. 05/13/20 Active atorvastatin 40 MG tablet Take 1 tablet by mouth daily. 07/30/19 Active baclofen 10 MG tablet Take 10 mg by mouth 3 (three) times daily. 07/28/19 Active fenofibrate 54 MG tablet Take 1 tablet by mouth daily. 06/06/19 Active fluticasone propionate 50 MCG/ACT nasal spray 1 spray by Each Nostril route daily as needed. 03/31/20 Active furosemide 40 MG tablet Take 40 mg by mouth daily. 08/07/19 Active GUAIATUSSIN AC 100-10 MG/5ML syrup Take 5 mLs by mouth 3 (three) times daily as needed. 02/04/20 Active HYDROcodone-aceta minophen 10-325 MG tablet Take 10-325 tablets by mouth every 6 (six) hours as needed. 09/02/19 Active hydroxychloroquin e 200 MG tablet Take 200 mg by mouth 2 (two) times daily. 07/02/19 Active hydrOXYzine 25 MG tablet Take 2 tablets by mouth every 6 (six) hours. 08/18/19 Active Probiotic Product (ACIDOPHILUS/GOAT MILK) Cap Take by mouth daily. Active propafenone 150 MG tablet Take 1 tablet by mouth daily. 07/30/19 Active propranolol 10 MG tablet Take 10 mg by mouth daily. 03/31/20 Active traZODone 100 MG tablet Take 100 mg by mouth nightly at bedtime. 08/22/19 Active rOPINIRole 2 MG tablet Take 2 mg by mouth 2 (two) times daily. Active insulin lispro 100 UNIT/ML injection (VIAL) Inject 0-8 Units into the skin 4 (four) times daily before meals and nightly. (Less than 70: Initiate Hypoglycemia Standing Orders) (70 - 149, administer 0 units) (150 - 199, administer 1 units) (200 - 249, administer 2 units) (250 - 299, administer 3 units) (300 - 349, administer 4 units) (Greater than 349, administer 5 units and Call her buyers' agent ofice) 10 mL 04/18/20 22 Active cyclobenzaprine (FLEXERIL) 10 MG tablet Take 1 tablet (10 mg total) by mouth 2 (two) times daily as needed. 08/11/19 24 Active ondansetron (ZOFRAN-ODT) 4 MG disintegrating tablet Take 1 tablet (4 mg total) by mouth every 8 (eight) hours as needed for Nausea. 12 tablet 08/22/19 24 Active Active Problems Problem Noted Date Diagnosed Date Hypoglycemia 09/03/2021 Immunizations Immunization Administration Dates Next Due Influenza (Generic) 04/06/2016,02/19/2015 Influenza Adult (Generic) 02/01/2021,11/2019,02/13/2019,02/24/2017,10/2015 Pneumococcal (Pneumovax 23) 07/06/2016 Pneumococcal (Prevnar 13) 05/22/2013 Tdap (Generic) 06/22/2015 Family History Medical History Relation Comments Diabetes Mother Heart Disease Mother Relation Status Comments Mother Social History Tobacco Use Types Packs/Day Years Used Date Smoking Tobacco: Smoker, Current Status Unknown Smokeless Tobacco: Never Tobacco Cessation:Ready to Q uit: Not Asked; Counseling Given: Not Answered Alcohol Use Standard Drinks/Week Comments Not Currently 0 (1 standard drink = 0.6 oz pur e alcohol) Comments No Sex and Gender Information Value Date Recorded Sex Assigned at Not on file Legal Sex Female 8:50 PM CDT Gender Identity Not on file Sexual Orientation Not on file Last Filed Vital Signs Vital Sign Reading Time Taken Comments Blood Pressure 107/51 12/16/2023 12:20 AM CDT Pulse 96 12/15/2023 9:23 PM CDT Temperature 36.5 C (97.7 F) 12/15/2023 9:23 PM CDT Respiratory Rate 21 12/15/2023 9:23 PM CDT Oxygen Saturation 94% 12/16/2023 12:20 AM CDT Inhaled Oxygen Concentration - - Weight 111.6 kg (246 lb 2 oz) 12/15/2023 9:23 PM CDT Height 170.2 cm (5' 7 ) 12/15/2023 9:23 PM CDT Body Mass Index 38.55 12/15/2023 9:23 PM CDT Plan of Treatment Health Maintenance Due Date Last Done Comments Colorectal Cancer Screening Colonoscopy (10 Years) 1960 Annual Physical 1965 Hepatitis C 02/19/1980 Zoster Vaccines (1 of 2) 02/19/2012 Mammogram Screening 11/22/2019 11/21/2017 Pneumococcal Vaccine: 50+ Years (3 of 3 - PCV20 or PCV21) 07/06/2021 07/06/2016, 05/22/2013 COVID-19 Vaccine (1 - 2023-2 5 season) 2024 DTaP, Tdap and Td Vaccines ( 2 - Td or Tdap) 06/22/2025 06/22/2015 RSV Immunization or 60+ Years (1 - 1-dose 75+ series) 2037 Meningococcal B Vaccine Aged Out No l onger eligible based on patient's age to complete this topic Meningococcal Vaccine Aged Out No tatiana nimisha eligible based on patient's age to complete this topic RSV Immunizations Under 20 Months Aged Out No longer eligible b ased on patient's age to complete this topic [place] [address] [place] [address] Advance Directives * Full Code (Latest Code Status on File) Date Activated Date Inactivated Comments 09/03/2021 3:26 AM 09/06/2021 7:54 PM Care Teams Freight Service Inspector Relationship Specialty Start [place] [address] [place] [phone] PCP - General FAMILY PRACTICE 07/23/23
--- OUTSIDE RECORDS SUMMARY | 2024-09-16 18:06 | XMS_ITS ---
Author Organization Unknown Address [address] [place] [phone] Phone Care Team Providers Care Greige Goods Marker Name Role Phone DENIA DAVILA Attending Unavailable [...] 205 CVX Pneumococcal conjugate PCV20 , polysaccharide [id number] conjugate, adjuvant, PF 06/21/2023 Completed 216 CVX RSV, recombinant, protein subunit RSVpreF, adjuvant reconstituted, 0.5 mL, PF 04/18/2023 Completed 303 CV X Results HEMOGLOBIN A1C WITH eAG - Co llect Date/Time: 12/28/2023 10:00 [facility] ID: [id number] [place], [place], [id number] LOINC: 4548-4 Test Value Unit Reference Range Code Code System Flag HGBA1C 6.7 % 4548-4 LOINC eAG 145.6 mg/dL 4548-4 LOINC Social History Type Status Start Date End Date Code Code Syst em Smoking History Current every day smoker [id number] SNOMED CT Sex Female Medications Medication Start Date End Date Route Frequency Dose Code Code System Medication Instructions Home Meds Albuterol Sulfate 0.09MG/1Actuation Inhalation Suspension 10/13/2023 Unknown INHALATION THREE TIMES A DAY 2 unit(s) 9018877 RxNorm 2 EACH INHALATION THREE TIMES A DAY Atorvastatin Calcium 40MG Oral Tablet 10/13/2023 Unknown ORAL AT BEDTIM E 40 MILLIGRA MS 929593 RxNorm TAKE 40 MILLIGRAMS ORAL AT BEDTIME Biotin 5 MG Oral Tablet 10/13/2023 Unknown ORAL ONCE A DAY 5 MG 343763 RxNorm TAKE 5 MG ORAL ONCE A DAY Bumetanide 1MG Oral Tablet 10/13/2023 Unknown ORAL TWICE A DAY 1 MILLIGRA MS 691587 RxNorm TAKE 1 MILLIGRAMS ORAL TWICE A DAY Coconut Oil Oil 10/13/2023 06/21/19 25 ROUTE NOT APPLICABLE ONCE A DAY 1 unit(s) RxNorm 1 EACH ROUTE NOT APPLICABLE ONCE A DAY Cyclobenzaprine 10MG Oral Tablet 10/13/2023 06/21/19 25 ORAL TWICE A DAY 10 MILLIGRA MS 076334 RxNorm TAKE 10 MILLIGRAMS ORAL TWICE A DAY Estradiol 0.25MG/1Packet Transdermal Gel/Jelly 10/13/2023 Unknown TRANSDERMAL DIRECT ED 1 unit(s) 2196362 RxNorm APPLY TO 1 EACH TRANSDERMAL DIRECTED Fluticasone 0.05MG/1Actuation Nasal [place] 10/13/2023 Unknown NASAL ONCE A DAY 1 unit(s) 0710581 RxNorm 1 EACH NASAL ONCE A DAY HYDROcodone bitartrate-acetami nophen 10MG-325MG Oral Tablet 10/13/2023 Unknown ORAL THREE TIMES A DAY 1 unit(s) 907787 RxNorm TAKE 1 EACH ORAL THREE TIMES A DAY Lantus 100U/1ML Subcutaneous Solution 10/13/2023 Unknown SUBCUTANEOU S AT BEDTIM E 46 unit(s) 190475 RxNorm INJECT INTO 46 EACH SUBCUTANEOU S AT BEDTIME NovoLOG FlexPen 100U/1ML Subcutaneous Solution 10/13/2023 Unknown SUBCUTANEOU S BEFORE MEALS AND AT BEDTIM E 1 unit(s) 8062183 RxNorm INJECT INTO 1 EACH SUBCUTANEOU S BEFORE MEALS AND AT BEDTIME Ondansetron HCl 4MG Oral Tablet 10/13/2023 Unknown ORAL DIRECT ED 4 MILLIGRA MS 511740 RxNorm TAKE 4 MILLIGRAMS ORAL DIRECTED Rybelsus 3MG Oral Tablet 10/13/2023 06/21/19 25 ORAL ONCE A DAY 7 MILLIGRA MS 4324317 RxNorm TAKE 7 MILLIGRAMS ORAL ONCE A DAY SUMAtriptan Succinate 100MG Oral Tablet 10/13/2023 Unknown ORAL DIRECT ED 100 MILLIGRA MS 866069 RxNorm TAKE 100 MILLIGRAMS ORAL DIRECTED Spironolactone 25MG Oral Tablet 10/13/2023 Unknown ORAL TWICE A DAY 25 MILLIGRA MS 770205 RxNorm TAKE 25 MILLIGRAMS ORAL TWICE A DAY buPROPion HCl 300MG Oral Tablet, Extended Release, 24 HR 10/13/2023 Unknown ORAL ONCE A DAY 300 MILLIGRA MS 903862 RxNorm TAKE 300 MILLIGRAMS ORAL ONCE A DAY clonazePAM 1MG Oral Tablet 10/13/2023 Unknown ORAL TWICE A DAY 1 MILLIGRA MS 856760 RxNorm TAKE 1 MILLIGRAMS ORAL TWICE A DAY hydrOXYzine HCl 25MG Oral Tablet 10/13/2023 Unknown ORAL NEEDED TWICE A DAY 25 MILLIGRA MS 320968 RxNorm TAKE 25 MILLIGRAMS ORAL NEEDED TWICE A DAY rOPINIRole HCl 2MG Oral Tablet 10/13/2023 Unknown ORAL ONCE A DAY 2 MILLIGRA MS 474737 RxNorm TAKE 2 MILLIGRAMS ORAL ONCE A DAY Protonix 40 MG Oral Tablet, Delayed Release 10/13/2023 Unknown BY MOUTH TWICE A DAY 1 TABLET 220352 RxNorm TAKE 1 TABLET BY MOUTH TWICE A DAY HYDROcodone bitartrate-acetami nophen 7.5MG-325MG Oral Tablet 07/01/2024 Unknown BY MOUTH NEEDED EVERY 6 HOURS 1 TABLET 207240 RxNorm TAKE 1 TABLET BY MOUTH NEEDED EVERY 6 HOURS FOR PAIN Cyclobenzaprine 10MG Oral Tablet 07/01/2024 Unknown ORAL NEEDED TWICE A DAY 10 MILLIGRA MS 056929 RxNorm TAKE 10 MILLIGRAMS ORAL NEEDED TWICE A DAY Fenofibrate 54MG Oral Tablet 07/01/2024 Unknown ORAL ONCE A DAY 54 MILLIGRA MS 648132 RxNorm TAKE 54 MILLIGRAMS ORAL ONCE A DAY Hair, Skin & Nails Oral Capsule, Liquid Filled 07/01/2024 Unknown ORAL ONCE A DAY 1 unit(s) RxNorm TAKE 1 EACH ORAL ONCE A DAY Lisinopril 2.5MG Oral Tablet 07/01/2024 Unknown ORAL ONCE A DAY 2.5 MILLIGRA MS 482797 RxNorm TAKE 2.5 MILLIGRAMS ORAL ONCE A DAY Probiotic 1 Billion CFU Oral Capsule 07/01/2024 Unknown ORAL ONCE A DAY 1 Billion CFU RxNorm TAKE 1 Billion CFU ORAL ONCE A DAY Rybelsus 14MG Oral Tablet 07/01/2024 Unknown ORAL ONCE A DAY 14 MILLIGRA MS 1623970 RxNorm TAKE 14 MILLIGRAMS ORAL ONCE A [...] Active UMBILICAL HERNIA REPAIR WITH MESH 07/01 [id number] 7 3270349 11/16/[address] 1176511 Allergies and Adverse Reactions Allergy Substance Reaction Severity Start Date Concern Status Code Code System CEPHALEXIN Hives (SNOMED-CT: 604314260) Active 2231 RxNorm FOLIC ACID Rash (SNOMED-CT: 157101385) Active 4511 RxNorm FOLIC ACID Rash (SNOMED-CT: 114538007) Active 4511 RxNorm METHOTREXATE NAUSEA/BLISTER S (SNOMED-CT: null) Active 6851 RxNorm METHOTREXATE Hives (SNOMED-CT: 897155576) Active 6851 RxNorm ADHESIVE Rash (SNOMED-CT: 647010562) Active PREGABALIN Swelling (SNOMED-CT: 50394739) Active 327521 RxNorm PREGABALIN Swelling (SNOMED-CT: 81599906) Active 786250 RxNorm KEFLEX Hives (SNOMED-CT: 705942027) Active 872383 RxNorm CONTRAST MEDIA, IODINE RELATED Active 123484054 SNOMED-CT CONTRAST MEDIA, IODINE RELATED Active 485598196 SNOMED-CT Plan of Treatment CT Chest/Lung W Contrast (35075) 2024 Encounters Encounter Diagnosis Start Date Code Code Sys tem Type 2 diabetes mellitus with hyperglycemia 12/28/2023 SNOMED-CT Personal Care Team Section Performer Name Performer Role Active Date Inactive HARDY Norris PCP - Primary care physician 2021-12-27 2022-03-04 Alejandro Anguiano PCP - Primary care physician 2022-03-04
--- OUTSIDE RECORDS SUMMARY | 2024-09-16 18:06 | XMS_ITS ---
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 Name Role Phone DENIA HERNANDEZALD Attending Unavailable QUICK MILTON J Secondary Unavailable Immunization Immunization Date Status Additional [...] 205 CVX Pneumococcal conjugate PCV20 , polysaccharide [id number] conjugate, adjuvant, PF 06/21/2023 Completed 216 CVX RSV, recombinant, protein subunit RSVpreF, adjuvant reconstituted, 0.5 mL, PF 04/18/2023 Completed 303 CV X Results CBC W/ DIFF - Collect Date/T russ: 05/23/2024 09:53 [facility] ID: [id number] [id number] [place], [place], [phone] LOINC: 59602-5 Test Value Unit Reference Range Code Code System Flag WBC 12.5 10^3uL L=4.8 H=10.8 H RBC 5.17 10^6uL L=4.20 H=5.40 HEMOGLOBIN 14.1 g/dL L=12.0 H=16.0 718-7 LOINC HEMATOCRIT 44.7 VOL% L=37.0 H=47.0 4544-3 LOINC MCV 86.5 fL L=81.0 H=99.0 MCH 27.3 pg L=27.0 H=32.0 MCHC 31.5 g/dL L=32.0 H=36.0 L PLATELETS 326 10^3uL L=100 H=400 88986-0 LOINC RDW 13.9 % L=11.7 H=15.5 %GRAN 78.6 % L=40.0 H=70.0 45701-5 LOINC H %LYMPH 14.9 % L=20.0 H=45.0 736-9 LOINC L %MONO 4.1 % L=2.0 H=10.0 74027-4 LOINC %EOS 1.4 % L=0.0 H=6.0 713-8 LOINC %BASO 0.4 % L=0.0 H=3.0 706-2 LOINC #NEUT 9.8 10^3uL L=1.9 H=7.6 75462-7 LOINC H #LYMPH 1.9 10^3uL L=0.9 H=4.9 78422-7 LOINC #MONO 0.5 10^3uL L=0.1 H=0.9 66030-7 LOINC #EOS 0.2 10^3uL L=0.0 H=0.6 712-0 LOINC #BASO 0.05 10^3uL L=0.00 H=0.10 38308-5 LOINC #IM GRANS 0.1 10^3uL L=0.0 H=7.0 89961-1 LOINC %IM GRANS 0.6 % L=0.0 H=5.0 06257-6 LOINC %NRB 0.0 L=0.0 H=0.2 58992-5 LOINC #NRB 0.000 L=0.000 H=0.012 93720-0 LOINC MANUAL DIFF NOT INDICATED RBC MORPH NOT INDICATED COMPREHENSIVE METABOLIC PANE L - Collect Date/Time: 05/23/2024 09:53 [facility] ID: [id number] [place], [place], [phone] LOINC: 44075-2 Test Value Unit Reference Range Code Code System Flag FASTING NO BUN 20 mg/dL L=7 H=20 3094-0 LOINC CREATININE 1.00 mg/dL L=0.52 H=1.04 2160-0 LOINC GLUCOSE 174 mg/dL L=74 H=106 2345-7 LOINC H SODIUM 139 mmol/L L=132 H=144 2951-2 LOINC POTASSIUM 4.5 mmol/L L=3.5 H=5.1 2823-3 LOINC CHLORIDE 100 mmol/L L=98 H=107 2075-0 LOINC CO2 28.0 mmol/L L=22.0 H=30.0 8-9 LOINC ANION GAP 16 L=10 H=20 97922-3 LOINC OSMOLALITY 295 mOs/kG L=280 H=296 68216-7 LOINC BUN/CREAT 20.0 3097-3 LOINC CALCIUM 9.8 mg/dL L=8.3 H=10.5 21711-4 LOINC AST 28 U/L L=15 H=46 1920-8 LOINC ALT 21 U/L L=9 H=72 1742-6 LOINC ALKALINE PHOS 68 U/L L=38 H=126 6768-6 LOINC TOTAL BILI 0.4 mg/dL L=0.2 H=1.3 1975-2 LOINC ALBUMIN 4.9 G/dL L=3.5 H=5.0 1751-7 LOINC TOTAL PROTEIN 8.4 g/L L=6.3 H=8.2 2885-2 LOINC H A/G RATIO 1.4 33337-9 LOINC AGE 64 43431-7 LOINC eGFR NON-AFR 60 ml/min eGFR AFR AMER 73 ml/min LIPID PANEL - Collect Date/T russ: 05/23/2024 09:53 [facility] ID: [id number] [address] [place] [address], [phone] LOINC: 84680-1 Test Value Unit Reference Range Code Code System Flag FASTING NO CHOLESTEROL 211 mg/dL L=0 H=200 2093-3 LOINC H TRIGLYCERIDE 135 mg/dL L=0 H=150 2571-8 LOINC HDL 38 mg/dL L=40 H=60 5-9 LOINC L LDL 139 mg/dL 2088-1 LOINC TSH / REFLEX FT4 - Collect D ate/Time: 05/23/2024 09:53 [facility] ID: [id number] [address] [place] [address], [id number] LOINC: Test Value Unit Reference Range Code Code System Flag TSH 0.747 uIU/L L=0.470 H=4.680 33383-6 LOINC HEMOGLOBIN A1C WITH eAG - Co llect Date/Time: 05/23/2024 09:53 [facility] ID: [id number] [address] [place] [address], [phone] LOINC: 4548-4 Test Value Unit Reference Range Code Code System Flag HGBA1C 5.9 % 4548-4 LOINC eAG 122.6 mg/dL 4548-4 LOINC MEDICAL PROFESSIONAL PROFILE (11) - Collect Date/Time: 05/23/2024 09:50 [facility] ID: [id number] [address] [place] [address], [phone] LOINC: Test Value Unit Reference Range Code Code System Flag Creatinine 107.2 20.0-300.0 2161-8 LOINC Amphetamines, Urine Negative Sgazil=7484 31464-4 LOINC Barbiturate Negative Nkigtr=937 3377-9 LOINC Benzodiazepines Negative Opxmql=296 93630-8 LOINC Cannabinoids Negative Cutoff=20 65621-7 LOINC Cocaine (Metabolite) Negative Vytkbr=302 3393-6 LOINC Ethanol, Urine Negative Cutoff=0.020 5645-7 LOINC Meperidine Negative Xvnmfs=683 3746-5 LOINC Methadone Negative Xnyrgj=072 3773-9 LOINC Opiates See Final Results Ltixgu=167 23124-1 LOINC Oxycodone/Oxymorphone, Urine Negative Qwrljc=763 02544-7 LOINC Phencyclidine Negative Cutoff=25 3936-2 LOINC Propoxyphene Negative Wxglbu=266 26236-0 LOINC Opiates WILL FOLLOW 43143-2 LOINC Codeine WILL FOLLOW 3507-1 LOINC Codeine Conf, MS, UR WILL FOLLOW 33680-9 LOINC Morphine WILL FOLLOW 3830-7 LOINC Morphine Conf, MS, UR WILL FOLLOW 63187-5 LOINC Hydromorphone WILL FOLLOW 9834-3 LOINC Hydromorphone Conf, MS,UR WILL FOLLOW 72882-7 LOINC Hydrocodone WILL FOLLOW 67228-4 LOINC Hydrocodone Conf, MS, UR WILL FOLLOW 37912-5 LOINC Opiates Negative Wcvvxk=704 91550-5 LOINC Social History Type Status Start Date End Date Code Code Syst em Smoking History Current every day smoker 460196602 SNOMED CT Sex Female Medications Medication Start Date End Date Route Frequency Dose Code Code System Medication Instructions Home Meds Albuterol Sulfate 0.09MG/1Actuation Inhalation Suspension 10/13/2023 Unknown INHALATION THREE TIMES A DAY 2 unit(s) 2154803 RxNorm 2 EACH INHALATION THREE TIMES A DAY Atorvastatin Calcium 40MG Oral Tablet 10/13/2023 Unknown ORAL AT BEDTIM E 40 MILLIGRA MS 434285 RxNorm TAKE 40 MILLIGRAMS ORAL AT BEDTIME Biotin 5 MG Oral Tablet 10/13/2023 Unknown ORAL ONCE A DAY 5 MG 333464 RxNorm TAKE 5 MG ORAL ONCE A DAY Bumetanide 1MG Oral Tablet 10/13/2023 Unknown ORAL TWICE A DAY 1 MILLIGRA MS 308349 RxNorm TAKE 1 MILLIGRAMS ORAL TWICE A DAY Coconut Oil Oil 10/13/2023 06/21/19 25 ROUTE NOT APPLICABLE ONCE A DAY 1 unit(s) RxNorm 1 EACH ROUTE NOT APPLICABLE ONCE A DAY Cyclobenzaprine 10MG Oral Tablet 10/13/2023 06/21/19 25 ORAL TWICE A DAY 10 MILLIGRA MS 949917 RxNorm TAKE 10 MILLIGRAMS ORAL TWICE A DAY Estradiol 0.25MG/1Packet Transdermal Gel/Jelly 10/13/2023 Unknown TRANSDERMAL DIRECT ED 1 unit(s) 2301987 RxNorm APPLY TO 1 EACH TRANSDERMAL DIRECTED Fluticasone 0.05MG/1Actuation Nasal [place] 10/13/2023 Unknown NASAL ONCE A DAY 1 unit(s) 5904365 RxNorm 1 EACH NASAL ONCE A DAY HYDROcodone bitartrate-acetami nophen 10MG-325MG Oral Tablet 10/13/2023 Unknown ORAL THREE TIMES A DAY 1 unit(s) 878341 RxNorm TAKE 1 EACH ORAL THREE TIMES A DAY Lantus 100U/1ML Subcutaneous Solution 10/13/2023 Unknown SUBCUTANEOU S AT BEDTIM E 46 unit(s) 245976 RxNorm INJECT INTO 46 EACH SUBCUTANEOU S AT BEDTIME NovoLOG FlexPen 100U/1ML Subcutaneous Solution 10/13/2023 Unknown SUBCUTANEOU S BEFORE MEALS AND AT BEDTIM E 1 unit(s) 5868441 RxNorm INJECT INTO 1 EACH SUBCUTANEOU S BEFORE MEALS AND AT BEDTIME Ondansetron HCl 4MG Oral Tablet 10/13/2023 Unknown ORAL DIRECT ED 4 MILLIGRA MS 600420 RxNorm TAKE 4 MILLIGRAMS ORAL DIRECTED Rybelsus 3MG Oral Tablet 10/13/2023 06/21/19 25 ORAL ONCE A DAY 7 MILLIGRA MS 3578144 RxNorm TAKE 7 MILLIGRAMS ORAL ONCE A DAY SUMAtriptan Succinate 100MG Oral Tablet 10/13/2023 Unknown ORAL DIRECT ED 100 MILLIGRA MS 798023 RxNorm TAKE 100 MILLIGRAMS ORAL DIRECTED Spironolactone 25MG Oral Tablet 10/13/2023 Unknown ORAL TWICE A DAY 25 MILLIGRA MS 062384 RxNorm TAKE 25 MILLIGRAMS ORAL TWICE A DAY buPROPion HCl 300MG Oral Tablet, Extended Release, 24 HR 10/13/2023 Unknown ORAL ONCE A DAY 300 MILLIGRA MS 478447 RxNorm TAKE 300 MILLIGRAMS ORAL ONCE A DAY clonazePAM 1MG Oral Tablet 10/13/2023 Unknown ORAL TWICE A DAY 1 MILLIGRA MS 620752 RxNorm TAKE 1 MILLIGRAMS ORAL TWICE A DAY hydrOXYzine HCl 25MG Oral Tablet 10/13/2023 Unknown ORAL NEEDED TWICE A DAY 25 MILLIGRA MS 028676 RxNorm TAKE 25 MILLIGRAMS ORAL NEEDED TWICE A DAY rOPINIRole HCl 2MG Oral Tablet 10/13/2023 Unknown ORAL ONCE A DAY 2 MILLIGRA MS 145630 RxNorm TAKE 2 MILLIGRAMS ORAL ONCE A DAY Protonix 40 MG Oral Tablet, Delayed Release 10/13/2023 Unknown BY MOUTH TWICE A DAY 1 TABLET 022071 RxNorm TAKE 1 TABLET BY MOUTH TWICE A DAY HYDROcodone bitartrate-acetami nophen 7.5MG-325MG Oral Tablet 07/01/2024 Unknown BY MOUTH NEEDED EVERY 6 HOURS 1 TABLET 914740 RxNorm TAKE 1 TABLET BY MOUTH NEEDED EVERY 6 HOURS FOR PAIN Cyclobenzaprine 10MG Oral Tablet 07/01/2024 Unknown ORAL NEEDED TWICE A DAY 10 MILLIGRA MS 937014 RxNorm TAKE 10 MILLIGRAMS ORAL NEEDED TWICE A DAY Fenofibrate 54MG Oral Tablet 07/01/2024 Unknown ORAL ONCE A DAY 54 MILLIGRA MS 011457 RxNorm TAKE 54 MILLIGRAMS ORAL ONCE A DAY Hair, Skin & Nails Oral Capsule, Liquid Filled 07/01/2024 Unknown ORAL ONCE A DAY 1 unit(s) RxNorm TAKE 1 EACH ORAL ONCE A DAY Lisinopril 2.5MG Oral Tablet 07/01/2024 Unknown ORAL ONCE A DAY 2.5 MILLIGRA MS 661375 RxNorm TAKE 2.5 MILLIGRAMS ORAL ONCE A DAY Probiotic 1 Billion CFU Oral Capsule 07/01/2024 Unknown ORAL ONCE A DAY 1 Billion CFU RxNorm TAKE 1 Billion CFU ORAL ONCE A DAY Rybelsus 14MG Oral Tablet 07/01/2024 Unknown ORAL ONCE A DAY 14 MILLIGRA MS 5293834 RxNorm TAKE 14 MILLIGRAMS ORAL ONCE A [...] Distinct ID Code Brand Name Model Number [facility] SECURESTRA P ABSORBABLE STRAP FIXATION DEVICE Active UMBILICAL HERNIA REPAIR WITH MESH 07/01 UBMUTA STRAP 25 06/21/2025 ETHICO N SECURE STRAP [address] Hernia Patch Active UMBILICAL HERNIA REPAIR WITH MESH 07/01 [id number] 7 [id number] 11/16/[address] [id number] Allergies and Adverse Reactions Allergy Substance Reaction Severity Start Date Concern Status Code Code System CEPHALEXIN Hives (SNOMED-CT: 110975681) Active 2231 RxNorm FOLIC ACID Rash (SNOMED-CT: 965517958) Active 4511 RxNorm FOLIC ACID Rash (SNOMED-CT: 099529966) Active 4511 RxNorm METHOTREXATE NAUSEA/BLISTER S (SNOMED-CT: null) Active 6851 RxNorm METHOTREXATE Hives (SNOMED-CT: 259392570) Active 6851 RxNorm ADHESIVE Rash (SNOMED-CT: 386692995) Active PREGABALIN Swelling (SNOMED-CT: 34126761) Active 924962 RxNorm PREGABALIN Swelling (SNOMED-CT: 25235837) Active 039984 RxNorm KEFLEX Hives (SNOMED-CT: 914454860) Active 068140 RxNorm CONTRAST MEDIA, IODINE RELATED Active 333657024 SNOMED-CT CONTRAST MEDIA, IODINE RELATED Active 378549877 SNOMED-CT Plan of Treatment CT Chest/Lung W Contrast (13701) 2024 Encounters Encounter Diagnosis Start Date Code Code Sys tem Type 2 diabetes mellitus with hyperglycemia 05/23/2024 SNOMED-CT Personal Care Team Section Performer Name Performer Role Active Date Inactive HARDY Norris PCP - Primary care physician 2021-12-27 2022-03-04 Alejandro Anguiano PCP - Primary care physician 2022-03-04
--- OUTSIDE RECORDS SUMMARY | 2024-09-16 18:06 | XMS_ITS ---
Author Organization Unknown Address [address] [place] [phone] Phone Care Team Providers Care Housing Assistant Name Role Phone DENIA ALEJANDRO Attending Unavailable Immunization Immunization Date Status Additional [...] 205 CVX Pneumococcal conjugate PCV20 , polysaccharide [id number] conjugate, adjuvant, PF 06/21/2023 Completed 216 CVX RSV, recombinant, protein subunit RSVpreF, adjuvant reconstituted, 0.5 mL, PF 04/18/2023 Completed [address] CHEST CA SCREEN - Complet ed: 07/13/2023 14:33 LOINC: EXAM DESCRIPTION: CT CHEST CA SCREEN REASON FOR STUDY: Screening CT of the chest in a former smoker with a 20 pack year smoking history. Additional history: Patient quit smoking 3 years ago.. TECHNIQUE: Low dose CT scan of the chest was performed without intravenous contrast using helical scanning technique. The exam extends from the lung apices through the lung bases. Automatic exposure control was used as a dose optimization technique. NOTE: This study was performed for the specific purposes of lung cancer screening and is not an alternative to diagnostic chest CT. RADIATION DOSE: CT dose index volume (CTDIvol) = 2.98 mGy COMPARISON: 03/18/2022. FINDINGS: SMOKING RELATED LUNG DISEASE: There is minimal pulmonary emphysema within the upper lobes. There is mild central bronchial wall thickening. LUNG NODULES: There are sub 4 mm noncalcified pulmonary nodules present bilaterally. There is no suspicious pulmonary nodule within either lung. For reference, there are 2 mm nodules in the lateral left upper lobe on image number 109, stable from prior study. CORONARY ARTERY CALCIFICATION: Present OTHER: There is some subsegmental scarring/atelectasis bilaterally. There is no pneumonic consolidation. There is no effusion or pneumothorax. Overall, improved aeration of the lungs compared to the previous examination. The central airways are patent. Visualized thyroid gland is unremarkable. There is no mediastinal or hilar lymphadenopathy. The esophagus is unremarkable. The heart is normal in size without pericardial effusion. The thoracic aorta is normal in caliber. Main pulmonary trunk is stable. There is no axillary lymphadenopathy. Scattered nodes are stable compared to the prior examination. The chest wall reveals slight asymmetry of density of the parenchyma of the left lateral breast. Would ensure patient is up-to-date with mammography. The included upper abdomen reveals hepatomegaly. The gallbladder is not clearly depicted, presumed surgically absent. There are atherosclerotic calcifications of the abdominal aorta. Nonobstructing lower pole left renal calculus measures 1 cm. There is an exophytic lesion at the posterior cortex of the right kidney on image 339 measuring 1.7 cm. By Hounsfield units, this lesion is indeterminate. It is similar in size compared to the prior study from February 2022. There is no acute osseous abnormality. There are chronic compression deformities at the superior endplates of T3 and T4. There is a chronic compression fracture deformity at T12, with mild retropulsion of the posterior cortex, stable. IMPRESSION: 1. Minimal pulmonary emphysema. 2. Scattered tiny bilateral pulmonary nodules. No suspicious nodule in either lung. 3. Coronary artery calcifications. 4. Slight asymmetric appearance of parenchyma within the lateral aspect of the left breast. Would ensure patient is up-to-date with mammography. 5. Exophytic lesion at the posterior cortex of the right kidney, stable in size compared to February 2022. Lesion is technically indeterminate based on Hounsfield units on the current examination. Further characterization with renal mass protocol MRI can be obtained as warranted clinically. 6. Chronic compression deformities at T3, T4 and T12. Lung-RADS category 2S: Benign appearance or behavior. Finding other than a pulmonary nodule which is potentially clinically significant. Recommendation: Low dose Screening CT of chest in 12 months. THIS IS AN ELECTRONICALLY VERIFIED FINAL REPORT 07/14/2023 12:16 PM - Electronically signed by Cheryl Bass M.D. TW: TW Report ID: [id number] Reading Location: [place] [address] Social History Type Status Start Date End Date Code Code Syst em Smoking History Current every day smoker [id number] SNOMED CT Sex Female Medications Medication Start Date End Date Route Frequency Dose Code Code System Medication Instructions Home Meds Albuterol Sulfate 0.09MG/1Actuation Inhalation Suspension 10/13/2023 Unknown INHALATION THREE TIMES A DAY 2 unit(s) 9659485 RxNorm 2 EACH INHALATION THREE TIMES A DAY Atorvastatin Calcium 40MG Oral Tablet 10/13/2023 Unknown ORAL AT BEDTIM E 40 MILLIGRA MS 618531 RxNorm TAKE 40 MILLIGRAMS ORAL AT BEDTIME Biotin 5 MG Oral Tablet 10/13/2023 Unknown ORAL ONCE A DAY 5 MG 711104 RxNorm TAKE 5 MG ORAL ONCE A DAY Bumetanide 1MG Oral Tablet 10/13/2023 Unknown ORAL TWICE A DAY 1 MILLIGRA MS 220721 RxNorm TAKE 1 MILLIGRAMS ORAL TWICE A DAY Coconut Oil Oil 10/13/2023 06/21/19 25 ROUTE NOT APPLICABLE ONCE A DAY 1 unit(s) RxNorm 1 EACH ROUTE NOT APPLICABLE ONCE A DAY Cyclobenzaprine 10MG Oral Tablet 10/13/2023 06/21/19 25 ORAL TWICE A DAY 10 MILLIGRA MS 543769 RxNorm TAKE 10 MILLIGRAMS ORAL TWICE A DAY Estradiol 0.25MG/1Packet Transdermal Gel/Jelly 10/13/2023 Unknown TRANSDERMAL DIRECT ED 1 unit(s) 5007584 RxNorm APPLY TO 1 EACH TRANSDERMAL DIRECTED Fluticasone 0.05MG/1Actuation Nasal [place] 10/13/2023 Unknown NASAL ONCE A DAY 1 unit(s) 2488089 RxNorm 1 EACH NASAL ONCE A DAY HYDROcodone bitartrate-acetami nophen 10MG-325MG Oral Tablet 10/13/2023 Unknown ORAL THREE TIMES A DAY 1 unit(s) 330324 RxNorm TAKE 1 EACH ORAL THREE TIMES A DAY Lantus 100U/1ML Subcutaneous Solution 10/13/2023 Unknown SUBCUTANEOU S AT BEDTIM E 46 unit(s) 731497 RxNorm INJECT INTO 46 EACH SUBCUTANEOU S AT BEDTIME NovoLOG FlexPen 100U/1ML Subcutaneous Solution 10/13/2023 Unknown SUBCUTANEOU S BEFORE MEALS AND AT BEDTIM E 1 unit(s) 7862858 RxNorm INJECT INTO 1 EACH SUBCUTANEOU S BEFORE MEALS AND AT BEDTIME Ondansetron HCl 4MG Oral Tablet 10/13/2023 Unknown ORAL DIRECT ED 4 MILLIGRA MS 363884 RxNorm TAKE 4 MILLIGRAMS ORAL DIRECTED Rybelsus 3MG Oral Tablet 10/13/2023 06/21/19 25 ORAL ONCE A DAY 7 MILLIGRA MS 7910327 RxNorm TAKE 7 MILLIGRAMS ORAL ONCE A DAY SUMAtriptan Succinate 100MG Oral Tablet 10/13/2023 Unknown ORAL DIRECT ED 100 MILLIGRA MS 600894 RxNorm TAKE 100 MILLIGRAMS ORAL DIRECTED Spironolactone 25MG Oral Tablet 10/13/2023 Unknown ORAL TWICE A DAY 25 MILLIGRA MS 883626 RxNorm TAKE 25 MILLIGRAMS ORAL TWICE A DAY buPROPion HCl 300MG Oral Tablet, Extended Release, 24 HR 10/13/2023 Unknown ORAL ONCE A DAY 300 MILLIGRA MS 274721 RxNorm TAKE 300 MILLIGRAMS ORAL ONCE A DAY clonazePAM 1MG Oral Tablet 10/13/2023 Unknown ORAL TWICE A DAY 1 MILLIGRA MS 730444 RxNorm TAKE 1 MILLIGRAMS ORAL TWICE A DAY hydrOXYzine HCl 25MG Oral Tablet 10/13/2023 Unknown ORAL NEEDED TWICE A DAY 25 MILLIGRA MS 976938 RxNorm TAKE 25 MILLIGRAMS ORAL NEEDED TWICE A DAY rOPINIRole HCl 2MG Oral Tablet 10/13/2023 Unknown ORAL ONCE A DAY 2 MILLIGRA MS 951209 RxNorm TAKE 2 MILLIGRAMS ORAL ONCE A DAY Protonix 40 MG Oral Tablet, Delayed Release 10/13/2023 Unknown BY MOUTH TWICE A DAY 1 TABLET 198803 RxNorm TAKE 1 TABLET BY MOUTH TWICE A DAY HYDROcodone bitartrate-acetami nophen 7.5MG-325MG Oral Tablet 07/01/2024 Unknown BY MOUTH NEEDED EVERY 6 HOURS 1 TABLET 979273 RxNorm TAKE 1 TABLET BY MOUTH NEEDED EVERY 6 HOURS FOR PAIN Cyclobenzaprine 10MG Oral Tablet 07/01/2024 Unknown ORAL NEEDED TWICE A DAY 10 MILLIGRA MS 569839 RxNorm TAKE 10 MILLIGRAMS ORAL NEEDED TWICE A DAY Fenofibrate 54MG Oral Tablet 07/01/2024 Unknown ORAL ONCE A DAY 54 MILLIGRA MS 486691 RxNorm TAKE 54 MILLIGRAMS ORAL ONCE A DAY Hair, Skin & Nails Oral Capsule, Liquid Filled 07/01/2024 Unknown ORAL ONCE A DAY 1 unit(s) RxNorm TAKE 1 EACH ORAL ONCE A DAY Lisinopril 2.5MG Oral Tablet 07/01/2024 Unknown ORAL ONCE A DAY 2.5 MILLIGRA MS 915723 RxNorm TAKE 2.5 MILLIGRAMS ORAL ONCE A DAY Probiotic 1 Billion CFU Oral Capsule 07/01/2024 Unknown ORAL ONCE A DAY 1 Billion CFU RxNorm TAKE 1 Billion CFU ORAL ONCE A DAY Rybelsus 14MG Oral Tablet 07/01/2024 Unknown ORAL ONCE A DAY 14 MILLIGRA MS 3161503 RxNorm TAKE 14 MILLIGRAMS ORAL ONCE A [...] Active UMBILICAL HERNIA REPAIR WITH MESH 07/01 [id number] 7 8780961 11/16/[address] 8634655 Allergies and Adverse Reactions Allergy Substance Reaction Severity Start Date Concern Status Code Code System CEPHALEXIN Hives (SNOMED-CT: 574465666) Active 2231 RxNorm FOLIC ACID Rash (SNOMED-CT: 499426350) Active 4511 RxNorm FOLIC ACID Rash (SNOMED-CT: 138705507) Active 4511 RxNorm METHOTREXATE NAUSEA/BLISTER S (SNOMED-CT: null) Active 6851 RxNorm METHOTREXATE Hives (SNOMED-CT: 491662866) Active 6851 RxNorm ADHESIVE Rash (SNOMED-CT: 616919149) Active PREGABALIN Swelling (SNOMED-CT: 58008248) Active 624137 RxNorm PREGABALIN Swelling (SNOMED-CT: 76255581) Active 013595 RxNorm KEFLEX Hives (SNOMED-CT: 530846691) Active 362874 RxNorm CONTRAST MEDIA, IODINE RELATED Active 022169497 SNOMED-CT CONTRAST MEDIA, IODINE RELATED Active 786904903 SNOMED-CT Plan of Treatment CT Chest/Lung W Contrast (24096) 2024 Encounters Encounter Diagnosis Start Date Code Code Sys tem Encounter for screening for malignant neoplasm of respiratory organs 07/13/2023 SNOMED-CT Personal Care Team Section Performer Name Performer Role Active Date Inactive HARDY Norris PCP - Primary care physician 2021-12-27 2022-03-04 Alejandro Anguiano PCP - Primary care physician 2022-03-04 Imaging Narrative Notes
--- OUTSIDE RECORDS SUMMARY | 2024-09-16 18:06 | XMS_ITS | CONTINUITY OF CARE DOCUMENT ---
Author Name dottie, anitaser Address Unknown Organization [facility] Address [address] [address] [place] [address] Phone [phone] Care Team Providers Care Real Estate Closing Coordinator Name Role Phone Trev CASTILLO, Parris Unavailable Parris Karimi MD Unavailable [phone] PROBLEMS Condition Status Date Provider Notes SLEEP APNEA active Anibal Carroll MD Shortness of breath (SOB) active Anibal stanton MD Edema active Anibal Carroll MD MORBID OBESITY active Anibal Carroll MD Diabetes mellitus, Type II active Anibal foster MD VENOUS INSUFFICIENCY active Anibal Carroll MD PVD active Anibal Carroll MD ENCOUNTERS Date Type Provider Location Encounter Diag nosis - In-person encounter Office Visit Anibal Carroll MD [facility] Shortness of breath (SOB)SLEEP APNEA - In-person encounter Office Visit Anibal Carroll MD [facility] PVDVENOUS INSUFFICIENCYDiabetes mellitus, Type IIMORBID OBESITYEdema VITAL SIGNS Date Observation Value Provider Body Mass Index (Ratio) 41.41 kg/m2 Ananya Carroll MD blood pressure, cuff size large Te joyce Quijano blood pressure, diastolic 68 mm[Hg] Te joyce Quijano blood pressure, systolic 126 mm[Hg] Ken Quijano oxygen saturation, oximetry 94 % Geno Quijano respiratory rate E&M 18 /min Geno Quijano pulse rate 114 /min Geno Quijano weight E&M 264.4 [lb_av] Geno beatty Body Mass Index (Ratio) 41.19 kg/m2 Ananya Carroll MD blood pressure, diastolic 70 mm[Hg] Ruth Ann dupree [facility] blood pressure, systolic 120 mm[Hg] Colette nguyen [facility] oxygen saturation, oximetry 98 % Cristin O'Isac respiratory rate E&M 18 /min Cristin O'Isac pulse rate 118 /min Critsin [facility] blood pressure, resting Yes Damon oakley [facility] height E&M 67 [in_i] Cristin O'[facility]ac weight E&M 263 [lb_av] Cristin O'Isac ALLERGIES Allergy Name Onset Date Reaction Criticality Status TAPE Low Criticality active NYQUIL Low Criticality active METHOTREXATE Low Criticality active KEFLEX Low Criticality active LODINATED DIAGNOSTIC AGENT Low Criti cality active FOLIC ACID Low Criticality active HISTORY OF MEDICATION USE Medication Status Instructions Dates Provider Indications Com ments VALIUM 10 MG ORAL TABLET active 1 tab take 1 hour prior to procedure 4 Nayeli Roberts RN PROAIR HFA 108 (90 Base) MCG/ACT INHALATION AEROSOL SOLUTION active 2 puffs every 4-6 hours 6 Cristin O'Isac LYRICA 50 MG ORAL CAPSULE active TWO TWICE DAILY 6 Cristin O'Isac KLOR-CON M10 10 MEQ ORAL TABLET EXTENDED RELEASE active TAB. DAILY 6 Cristin O'Isac ZOFRAN 8 MG ORAL TABLET active TWICE DAILY 6 Cristin O'Isac FISH OIL CAPSULE active ONE TAB. DAILY 6 Cristin O'Isac METHOTREXATE 2.5 MG ORAL TABLET active FOUR TIMES ONCE WKLY 6 Cristin O'Isac METFORMIN HCL 500 MG ORAL TABLET active TWICE DAILY 6 Cristin O'Isac LISINOPRIL 5 MG ORAL TABLET active ONE TAB. DAILY 6 Cristin O'Isac HUMALOG 100 UNIT/ML SUBCUTANEOUS SOLUTION CARTRIDGE active DIRECTED 6 Cristin O'Isac PLAQUENIL 200 MG ORAL TABLET active TWO TAB ONCE DAILY 6 Cristin O'Isac NORCO 10-325 MG ORAL TABLET active NEEDED 6 Cristin O'Isac HUMALOG 100 UNIT/ML SUBCUTANEOUS SOLUTION CARTRIDGE active DIRECTED 6 Cristin O'Isac GABAPENTIN 400 MG ORAL CAPSULE active THREE TIMES DAILY 6 Cristin O'Isac LASIX 40 MG ORAL TABLET active TWO TAB TWICE DAILY 6 Cristin O'Isac FOLIC ACID 1 MG ORAL TABLET active ONCE DAILY 6 Cristin O'Isac FLONASE ALLERGY RELIEF 50 MCG/ACT NASAL SUSPENSION active ONCE DAILY 6 Cristin O'Isac TRICOR 48 MG ORAL TABLET active ONCE DAILY 6 Cristin O'Isac CYCLOBENZAPRINE HCL TABLET active 75 MG TWO TAB THREE TIMES DAILY 6 Cristin O'Isac VITAMIN B-12 1000 MCG ORAL TABLET active One tablet daily 6 Cristin O'Isac COCONUT OIL CAPSULE active ONCE DAILY 6 Cristin O'Isac CLONAZEPAM 1 MG ORAL TABLET active ONCE DAILY 6 Cristin O'Isac VITAMIN D TABLET active ONCE DAILY 6 Cristin O'Isac ZYRTEC ALLERGY 10 MG ORAL CAPSULE active TWICE DAILY 6 Cristin O'Isac PHOSLO 667 MG ORAL CAPSULE active ONCE DAILY 6 Cristin O'Isac BENZONATATE 200 MG ORAL CAPSULE active THREE TIMES DAILY 6 Cristin O'Isac LIPITOR 40 MG ORAL TABLET active ONE TAB. DAILY 6 Cristin O'Isac [facility] VITAMIN C TABS active ONCE DAILY 6 Cristin O'Isac PROAIR HFA 108 (90 Base) MCG/ACT INHALATION AEROSOL SOLUTION active 2 puffs every 4-6 hours 6 Cristin Knutson SOCIAL HISTORY Date Observation Value Provider social history reviewed E&M reviewed - no changes required Anibal Carroll MD social history reviewed E&M reviewed - no changes required Anibal Carroll MD social history E&M quit 1 month ago. Smoking History: Angelina quispe is a former smoker. Anibal Carroll MD number of grandchildren Anibal Carroll MD Sacha hortencia Knutson smoking, year quit 2015 Cristin Chau cigarette use yes Cristin Knutson smoking status Former smoker Cristin Perales l INSURANCE PROVIDERS Payer name Policy type / Coverage type Santos red green party ID [employer] COMPLETE (2) Medicare [id number] ADVANCE DIRECTIVES Name Date DISCUSSED - NO DECISION MADE TREATMENT PLAN Date Name Performer Cardiology:Will try to get records from Dr. Viramontes's office. Anibal Carroll MD Cardiology:Per Dr. Jakob Carroll MD Cardiology Anibal Carroll MD Cardiology:Has used compression for 6 months along with elevation and continues to have swelling, pain and recently had ulcers. Will do EVLT. Will do the left leg first. Anibal Carroll MD Cardiology:check an echo has sob and edema Anibal Carroll MD Cardiology:rx weight loss Anibal Carroll MD Cardiology:per dr Jakob Carroll MD Cardiology:will chec k a standing venous doppler and a sensialse to see if she has pvd. Anibal Carroll MD Date Name Other Test Venous Doppler Bilat eral LE - Standing Arterial - SENSILASE Complete Echo HISTORY OF PROCEDURES Procedure Date Procedure Name Provider Procedure Notes S tatus venous ablation, one vein Anibal Carroll MD completed SNOMED-CT: 46257874 Physical Exam, Performed: Pulse Exam of Foot Anibal Carroll MD completed EKG Anibal Carroll MD completed SNOMED-CT: 800412334 [id number] Current Medications Documented Anibal Carroll MD completed SNOMED-CT: 96516074 Physical Exam, Performed: Pulse Exam of Foot Anibal Carroll MD completed
--- OUTSIDE RECORDS SUMMARY | 2024-09-16 18:07 | XMS_ITS ---
Author Organization Unknown Address [address] [place] [address] [phone] Phone Care Team Providers Care Auto Radio Mechanic Name Role Phone LESLIE Guillen Attending Unavailable [...] 205 CVX Pneumococcal conjugate PCV20 , polysaccharide [id number] conjugate, adjuvant, PF 06/21/2023 Completed 216 CVX RSV, recombinant, protein subunit RSVpreF, adjuvant reconstituted, 0.5 mL, PF 04/18/2023 Completed 303 CV X Social History Type Status Start Date End Date Code Code Syst em Smoking History Current every day smoker 050024982 SNOMED CT Sex Female Medications Medication Start Date End Date Route Frequency Dose Code Code System Medication Instructions Home Meds Albuterol Sulfate 0.09MG/1Actuation Inhalation Suspension 10/13/2023 Unknown INHALATION THREE TIMES A DAY 2 unit(s) 6105949 RxNorm 2 EACH INHALATION THREE TIMES A DAY Atorvastatin Calcium 40MG Oral Tablet 10/13/2023 Unknown ORAL AT BEDTIM E 40 MILLIGRA MS 200797 RxNorm TAKE 40 MILLIGRAMS ORAL AT BEDTIME Biotin 5 MG Oral Tablet 10/13/2023 Unknown ORAL ONCE A DAY 5 MG 482208 RxNorm TAKE 5 MG ORAL ONCE A DAY Bumetanide 1MG Oral Tablet 10/13/2023 Unknown ORAL TWICE A DAY 1 MILLIGRA MS 340166 RxNorm TAKE 1 MILLIGRAMS ORAL TWICE A DAY Coconut Oil Oil 10/13/2023 06/21/19 25 ROUTE NOT APPLICABLE ONCE A DAY 1 unit(s) RxNorm 1 EACH ROUTE NOT APPLICABLE ONCE A DAY Cyclobenzaprine 10MG Oral Tablet 10/13/2023 06/21/19 25 ORAL TWICE A DAY 10 MILLIGRA MS 493958 RxNorm TAKE 10 MILLIGRAMS ORAL TWICE A DAY Estradiol 0.25MG/1Packet Transdermal Gel/Jelly 10/13/2023 Unknown TRANSDERMAL DIRECT ED 1 unit(s) 9752821 RxNorm APPLY TO 1 EACH TRANSDERMAL DIRECTED Fluticasone 0.05MG/1Actuation Nasal [place] 10/13/2023 Unknown NASAL ONCE A DAY 1 unit(s) 0336846 RxNorm 1 EACH NASAL ONCE A DAY HYDROcodone bitartrate-acetami nophen 10MG-325MG Oral Tablet 10/13/2023 Unknown ORAL THREE TIMES A DAY 1 unit(s) 677792 RxNorm TAKE 1 EACH ORAL THREE TIMES A DAY Lantus 100U/1ML Subcutaneous Solution 10/13/2023 Unknown SUBCUTANEOU S AT BEDTIM E 46 unit(s) 668656 RxNorm INJECT INTO 46 EACH SUBCUTANEOU S AT BEDTIME NovoLOG FlexPen 100U/1ML Subcutaneous Solution 10/13/2023 Unknown SUBCUTANEOU S BEFORE MEALS AND AT BEDTIM E 1 unit(s) 9251441 RxNorm INJECT INTO 1 EACH SUBCUTANEOU S BEFORE MEALS AND AT BEDTIME Ondansetron HCl 4MG Oral Tablet 10/13/2023 Unknown ORAL DIRECT ED 4 MILLIGRA MS 257715 RxNorm TAKE 4 MILLIGRAMS ORAL DIRECTED Rybelsus 3MG Oral Tablet 10/13/2023 06/21/19 25 ORAL ONCE A DAY 7 MILLIGRA MS 7699338 RxNorm TAKE 7 MILLIGRAMS ORAL ONCE A DAY SUMAtriptan Succinate 100MG Oral Tablet 10/13/2023 Unknown ORAL DIRECT ED 100 MILLIGRA MS 283277 RxNorm TAKE 100 MILLIGRAMS ORAL DIRECTED Spironolactone 25MG Oral Tablet 10/13/2023 Unknown ORAL TWICE A DAY 25 MILLIGRA MS 220170 RxNorm TAKE 25 MILLIGRAMS ORAL TWICE A DAY buPROPion HCl 300MG Oral Tablet, Extended Release, 24 HR 10/13/2023 Unknown ORAL ONCE A DAY 300 MILLIGRA MS 130583 RxNorm TAKE 300 MILLIGRAMS ORAL ONCE A DAY clonazePAM 1MG Oral Tablet 10/13/2023 Unknown ORAL TWICE A DAY 1 MILLIGRA MS 525614 RxNorm TAKE 1 MILLIGRAMS ORAL TWICE A DAY hydrOXYzine HCl 25MG Oral Tablet 10/13/2023 Unknown ORAL NEEDED TWICE A DAY 25 MILLIGRA MS 389059 RxNorm TAKE 25 MILLIGRAMS ORAL NEEDED TWICE A DAY rOPINIRole HCl 2MG Oral Tablet 10/13/2023 Unknown ORAL ONCE A DAY 2 MILLIGRA MS 359853 RxNorm TAKE 2 MILLIGRAMS ORAL ONCE A DAY Protonix 40 MG Oral Tablet, Delayed Release 10/13/2023 Unknown BY MOUTH TWICE A DAY 1 TABLET 020301 RxNorm TAKE 1 TABLET BY MOUTH TWICE A DAY HYDROcodone bitartrate-acetami nophen 7.5MG-325MG Oral Tablet 07/01/2024 Unknown BY MOUTH NEEDED EVERY 6 HOURS 1 TABLET 115702 RxNorm TAKE 1 TABLET BY MOUTH NEEDED EVERY 6 HOURS FOR PAIN Cyclobenzaprine 10MG Oral Tablet 07/01/2024 Unknown ORAL NEEDED TWICE A DAY 10 MILLIGRA MS 911862 RxNorm TAKE 10 MILLIGRAMS ORAL NEEDED TWICE A DAY Fenofibrate 54MG Oral Tablet 07/01/2024 Unknown ORAL ONCE A DAY 54 MILLIGRA MS 925330 RxNorm TAKE 54 MILLIGRAMS ORAL ONCE A DAY Hair, Skin & Nails Oral Capsule, Liquid Filled 07/01/2024 Unknown ORAL ONCE A DAY 1 unit(s) RxNorm TAKE 1 EACH ORAL ONCE A DAY Lisinopril 2.5MG Oral Tablet 07/01/2024 Unknown ORAL ONCE A DAY 2.5 MILLIGRA MS 309716 RxNorm TAKE 2.5 MILLIGRAMS ORAL ONCE A DAY Probiotic 1 Billion CFU Oral Capsule 07/01/2024 Unknown ORAL ONCE A DAY 1 Billion CFU RxNorm TAKE 1 Billion CFU ORAL ONCE A DAY Rybelsus 14MG Oral Tablet 07/01/2024 Unknown ORAL ONCE A DAY 14 MILLIGRA MS 7643408 RxNorm TAKE 14 MILLIGRAMS ORAL ONCE A [...] Active UMBILICAL HERNIA REPAIR WITH MESH 07/01 [id number] 11/16/[address] 6153303 Allergies and Adverse Reactions Allergy Substance Reaction Severity Start Date Concern Status Code Code System CEPHALEXIN Hives (SNOMED-CT: 727334766) Active 2231 RxNorm FOLIC ACID Rash (SNOMED-CT: 870847821) Active 4511 RxNorm FOLIC ACID Rash (SNOMED-CT: 289357255) Active 4511 RxNorm METHOTREXATE NAUSEA/BLISTER S (SNOMED-CT: null) Active 6851 RxNorm METHOTREXATE Hives (SNOMED-CT: 605776133) Active 6851 RxNorm ADHESIVE Rash (SNOMED-CT: 695682146) Active PREGABALIN Swelling (SNOMED-CT: 33833581) Active 186780 RxNorm PREGABALIN Swelling (SNOMED-CT: 28954589) Active 088717 RxNorm KEFLEX Hives (SNOMED-CT: 368781688) Active 491585 RxNorm CONTRAST MEDIA, IODINE RELATED Active 676369403 SNOMED-CT CONTRAST MEDIA, IODINE RELATED Active 653759533 SNOMED-CT Plan of Treatment CT Chest/Lung W Contrast (33178) 2024 Encounters Encounter Diagnosis Start Date Code Code Sys tem Dysphagia, oropharyngeal phase 06/14/2023 SNOMED-CT Personal Care Team Section Performer Name Performer Role Active Date Inactive Da HARDY Rivas PCP - Primary care physician 2021-12-27 2022-03-04 Alejandro Anguiano PCP - Primary care physician 2022-03-04
--- OUTSIDE RECORDS SUMMARY | 2024-09-16 18:07 | XMS_ITS ---
Author Organization Unknown Address [address] [place] [address] [phone] Phone Care Team Providers Care Early Head Start Teacher Name Role Phone DENIA DAVILA Attending Unavailable [...] 205 CVX Pneumococcal conjugate PCV20 , polysaccharide [id number] conjugate, adjuvant, PF 06/21/2023 Completed 216 CVX RSV, recombinant, protein subunit RSVpreF, adjuvant reconstituted, 0.5 mL, PF 04/18/2023 Completed 303 CV X Social History Type Status Start Date End Date Code Code Syst em Smoking History Current every day smoker [id number] SNOMED CT Sex Female Medications Medication Start Date End Date Route Frequency Dose Code Code System Medication Instructions Home Meds Albuterol Sulfate 0.09MG/1Actuation Inhalation Suspension 10/13/2023 Unknown INHALATION THREE TIMES A DAY 2 unit(s) 2071597 RxNorm 2 EACH INHALATION THREE TIMES A DAY Atorvastatin Calcium 40MG Oral Tablet 10/13/2023 Unknown ORAL AT BEDTIM E 40 MILLIGRA MS 453864 RxNorm TAKE 40 MILLIGRAMS ORAL AT BEDTIME Biotin 5 MG Oral Tablet 10/13/2023 Unknown ORAL ONCE A DAY 5 MG 932170 RxNorm TAKE 5 MG ORAL ONCE A DAY Bumetanide 1MG Oral Tablet 10/13/2023 Unknown ORAL TWICE A DAY 1 MILLIGRA MS 766736 RxNorm TAKE 1 MILLIGRAMS ORAL TWICE A DAY Coconut Oil Oil 10/13/2023 06/21/19 25 ROUTE NOT APPLICABLE ONCE A DAY 1 unit(s) RxNorm 1 EACH ROUTE NOT APPLICABLE ONCE A DAY Cyclobenzaprine 10MG Oral Tablet 10/13/2023 06/21/19 25 ORAL TWICE A DAY 10 MILLIGRA MS 950094 RxNorm TAKE 10 MILLIGRAMS ORAL TWICE A DAY Estradiol 0.25MG/1Packet Transdermal Gel/Jelly 10/13/2023 Unknown TRANSDERMAL DIRECT ED 1 unit(s) 3922621 RxNorm APPLY TO 1 EACH TRANSDERMAL DIRECTED Fluticasone 0.05MG/1Actuation Nasal [place] 10/13/2023 Unknown NASAL ONCE A DAY 1 unit(s) 6979019 RxNorm 1 EACH NASAL ONCE A DAY HYDROcodone bitartrate-acetami nophen 10MG-325MG Oral Tablet 10/13/2023 Unknown ORAL THREE TIMES A DAY 1 unit(s) 024338 RxNorm TAKE 1 EACH ORAL THREE TIMES A DAY Lantus 100U/1ML Subcutaneous Solution 10/13/2023 Unknown SUBCUTANEOU S AT BEDTIM E 46 unit(s) 519110 RxNorm INJECT INTO 46 EACH SUBCUTANEOU S AT BEDTIME NovoLOG FlexPen 100U/1ML Subcutaneous Solution 10/13/2023 Unknown SUBCUTANEOU S BEFORE MEALS AND AT BEDTIM E 1 unit(s) 2109005 RxNorm INJECT INTO 1 EACH SUBCUTANEOU S BEFORE MEALS AND AT BEDTIME Ondansetron HCl 4MG Oral Tablet 10/13/2023 Unknown ORAL DIRECT ED 4 MILLIGRA MS 175141 RxNorm TAKE 4 MILLIGRAMS ORAL DIRECTED Rybelsus 3MG Oral Tablet 10/13/2023 06/21/19 25 ORAL ONCE A DAY 7 MILLIGRA MS 0518978 RxNorm TAKE 7 MILLIGRAMS ORAL ONCE A DAY SUMAtriptan Succinate 100MG Oral Tablet 10/13/2023 Unknown ORAL DIRECT ED 100 MILLIGRA MS 983124 RxNorm TAKE 100 MILLIGRAMS ORAL DIRECTED Spironolactone 25MG Oral Tablet 10/13/2023 Unknown ORAL TWICE A DAY 25 MILLIGRA MS 343898 RxNorm TAKE 25 MILLIGRAMS ORAL TWICE A DAY buPROPion HCl 300MG Oral Tablet, Extended Release, 24 HR 10/13/2023 Unknown ORAL ONCE A DAY 300 MILLIGRA MS 745302 RxNorm TAKE 300 MILLIGRAMS ORAL ONCE A DAY clonazePAM 1MG Oral Tablet 10/13/2023 Unknown ORAL TWICE A DAY 1 MILLIGRA MS 510796 RxNorm TAKE 1 MILLIGRAMS ORAL TWICE A DAY hydrOXYzine HCl 25MG Oral Tablet 10/13/2023 Unknown ORAL NEEDED TWICE A DAY 25 MILLIGRA MS 828200 RxNorm TAKE 25 MILLIGRAMS ORAL NEEDED TWICE A DAY rOPINIRole HCl 2MG Oral Tablet 10/13/2023 Unknown ORAL ONCE A DAY 2 MILLIGRA MS 045224 RxNorm TAKE 2 MILLIGRAMS ORAL ONCE A DAY Protonix 40 MG Oral Tablet, Delayed Release 10/13/2023 Unknown BY MOUTH TWICE A DAY 1 TABLET 952649 RxNorm TAKE 1 TABLET BY MOUTH TWICE A DAY HYDROcodone bitartrate-acetami nophen 7.5MG-325MG Oral Tablet 07/01/2024 Unknown BY MOUTH NEEDED EVERY 6 HOURS 1 TABLET 766223 RxNorm TAKE 1 TABLET BY MOUTH NEEDED EVERY 6 HOURS FOR PAIN Cyclobenzaprine 10MG Oral Tablet 07/01/2024 Unknown ORAL NEEDED TWICE A DAY 10 MILLIGRA MS 023660 RxNorm TAKE 10 MILLIGRAMS ORAL NEEDED TWICE A DAY Fenofibrate 54MG Oral Tablet 07/01/2024 Unknown ORAL ONCE A DAY 54 MILLIGRA MS 553547 RxNorm TAKE 54 MILLIGRAMS ORAL ONCE A DAY Hair, Skin & Nails Oral Capsule, Liquid Filled 07/01/2024 Unknown ORAL ONCE A DAY 1 unit(s) RxNorm TAKE 1 EACH ORAL ONCE A DAY Lisinopril 2.5MG Oral Tablet 07/01/2024 Unknown ORAL ONCE A DAY 2.5 MILLIGRA MS 456925 RxNorm TAKE 2.5 MILLIGRAMS ORAL ONCE A DAY Probiotic 1 Billion CFU Oral Capsule 07/01/2024 Unknown ORAL ONCE A DAY 1 Billion CFU RxNorm TAKE 1 Billion CFU ORAL ONCE A DAY Rybelsus 14MG Oral Tablet 07/01/2024 Unknown ORAL ONCE A DAY 14 MILLIGRA MS 7133117 RxNorm TAKE 14 MILLIGRAMS ORAL ONCE A [...] Active UMBILICAL HERNIA REPAIR WITH MESH 07/01 [id number] 7 0254458 11/16/[address] 0174365 Allergies and Adverse Reactions Allergy Substance Reaction Severity Start Date Concern Status Code Code System CEPHALEXIN Hives (SNOMED-CT: 194387057) Active 2231 RxNorm FOLIC ACID Rash (SNOMED-CT: 473270767) Active 4511 RxNorm FOLIC ACID Rash (SNOMED-CT: 344685711) Active 4511 RxNorm METHOTREXATE NAUSEA/BLISTER S (SNOMED-CT: null) Active 6851 RxNorm METHOTREXATE Hives (SNOMED-CT: 496281081) Active 6851 RxNorm ADHESIVE Rash (SNOMED-CT: 012981925) Active PREGABALIN Swelling (SNOMED-CT: 97017920) Active 035818 RxNorm PREGABALIN Swelling (SNOMED-CT: 67525181) Active 751711 RxNorm KEFLEX Hives (SNOMED-CT: 607116266) Active 100656 RxNorm CONTRAST MEDIA, IODINE RELATED Active 230493989 SNOMED-CT CONTRAST MEDIA, IODINE RELATED Active 816149684 SNOMED-CT Plan of Treatment CT Chest/Lung W Contrast (42443) 2024 Encounters Encounter Diagnosis Start Date Code Code Sys tem Type 2 diabetes mellitus with hyperglycemia 12/25/2023 SNOMED-CT Personal Care Team Section Performer Name Performer Role Active Date Inactive Da HARDY Rivas PCP - Primary care physician 2021-12-27 2022-03-04 Alejandro Anguiano PCP - Primary care physician 2022-03-04
--- OUTSIDE RECORDS SUMMARY | 2024-09-16 18:07 | XMS_ITS ---
Author Organization Unknown Address [address] [place] [address] [phone] Phone Care Team Providers Care Stock Preparer Name Role Phone DENIA DAVILA Attending Unavailable [...] 205 CVX Pneumococcal conjugate PCV20 , polysaccharide [id number] conjugate, adjuvant, PF 06/21/2023 Completed 216 CVX RSV, recombinant, protein subunit RSVpreF, adjuvant reconstituted, 0.5 mL, PF 04/18/2023 Completed 303 CV X Social History Type Status Start Date End Date Code Code Syst em Smoking History Current every day smoker [id number] SNOMED CT Sex Female Medications Medication Start Date End Date Route Frequency Dose Code Code System Medication Instructions Home Meds Albuterol Sulfate 0.09MG/1Actuation Inhalation Suspension 10/13/2023 Unknown INHALATION THREE TIMES A DAY 2 unit(s) 1392694 RxNorm 2 EACH INHALATION THREE TIMES A DAY Atorvastatin Calcium 40MG Oral Tablet 10/13/2023 Unknown ORAL AT BEDTIM E 40 MILLIGRA MS 869001 RxNorm TAKE 40 MILLIGRAMS ORAL AT BEDTIME Biotin 5 MG Oral Tablet 10/13/2023 Unknown ORAL ONCE A DAY 5 MG 303049 RxNorm TAKE 5 MG ORAL ONCE A DAY Bumetanide 1MG Oral Tablet 10/13/2023 Unknown ORAL TWICE A DAY 1 MILLIGRA MS 862982 RxNorm TAKE 1 MILLIGRAMS ORAL TWICE A DAY Coconut Oil Oil 10/13/2023 06/21/19 25 ROUTE NOT APPLICABLE ONCE A DAY 1 unit(s) RxNorm 1 EACH ROUTE NOT APPLICABLE ONCE A DAY Cyclobenzaprine 10MG Oral Tablet 10/13/2023 06/21/19 25 ORAL TWICE A DAY 10 MILLIGRA MS 674292 RxNorm TAKE 10 MILLIGRAMS ORAL TWICE A DAY Estradiol 0.25MG/1Packet Transdermal Gel/Jelly 10/13/2023 Unknown TRANSDERMAL DIRECT ED 1 unit(s) 2813262 RxNorm APPLY TO 1 EACH TRANSDERMAL DIRECTED Fluticasone 0.05MG/1Actuation Nasal [place] 10/13/2023 Unknown NASAL ONCE A DAY 1 unit(s) 2924033 RxNorm 1 EACH NASAL ONCE A DAY HYDROcodone bitartrate-acetami nophen 10MG-325MG Oral Tablet 10/13/2023 Unknown ORAL THREE TIMES A DAY 1 unit(s) 593162 RxNorm TAKE 1 EACH ORAL THREE TIMES A DAY Lantus 100U/1ML Subcutaneous Solution 10/13/2023 Unknown SUBCUTANEOU S AT BEDTIM E 46 unit(s) 794469 RxNorm INJECT INTO 46 EACH SUBCUTANEOU S AT BEDTIME NovoLOG FlexPen 100U/1ML Subcutaneous Solution 10/13/2023 Unknown SUBCUTANEOU S BEFORE MEALS AND AT BEDTIM E 1 unit(s) 1616433 RxNorm INJECT INTO 1 EACH SUBCUTANEOU S BEFORE MEALS AND AT BEDTIME Ondansetron HCl 4MG Oral Tablet 10/13/2023 Unknown ORAL DIRECT ED 4 MILLIGRA MS 632326 RxNorm TAKE 4 MILLIGRAMS ORAL DIRECTED Rybelsus 3MG Oral Tablet 10/13/2023 06/21/19 25 ORAL ONCE A DAY 7 MILLIGRA MS 0727961 RxNorm TAKE 7 MILLIGRAMS ORAL ONCE A DAY SUMAtriptan Succinate 100MG Oral Tablet 10/13/2023 Unknown ORAL DIRECT ED 100 MILLIGRA MS 410097 RxNorm TAKE 100 MILLIGRAMS ORAL DIRECTED Spironolactone 25MG Oral Tablet 10/13/2023 Unknown ORAL TWICE A DAY 25 MILLIGRA MS 051732 RxNorm TAKE 25 MILLIGRAMS ORAL TWICE A DAY buPROPion HCl 300MG Oral Tablet, Extended Release, 24 HR 10/13/2023 Unknown ORAL ONCE A DAY 300 MILLIGRA MS 619190 RxNorm TAKE 300 MILLIGRAMS ORAL ONCE A DAY clonazePAM 1MG Oral Tablet 10/13/2023 Unknown ORAL TWICE A DAY 1 MILLIGRA MS 334969 RxNorm TAKE 1 MILLIGRAMS ORAL TWICE A DAY hydrOXYzine HCl 25MG Oral Tablet 10/13/2023 Unknown ORAL NEEDED TWICE A DAY 25 MILLIGRA MS 032412 RxNorm TAKE 25 MILLIGRAMS ORAL NEEDED TWICE A DAY rOPINIRole HCl 2MG Oral Tablet 10/13/2023 Unknown ORAL ONCE A DAY 2 MILLIGRA MS 049132 RxNorm TAKE 2 MILLIGRAMS ORAL ONCE A DAY Protonix 40 MG Oral Tablet, Delayed Release 10/13/2023 Unknown BY MOUTH TWICE A DAY 1 TABLET 715652 RxNorm TAKE 1 TABLET BY MOUTH TWICE A DAY HYDROcodone bitartrate-acetami nophen 7.5MG-325MG Oral Tablet 07/01/2024 Unknown BY MOUTH NEEDED EVERY 6 HOURS 1 TABLET 922121 RxNorm TAKE 1 TABLET BY MOUTH NEEDED EVERY 6 HOURS FOR PAIN Cyclobenzaprine 10MG Oral Tablet 07/01/2024 Unknown ORAL NEEDED TWICE A DAY 10 MILLIGRA MS 205831 RxNorm TAKE 10 MILLIGRAMS ORAL NEEDED TWICE A DAY Fenofibrate 54MG Oral Tablet 07/01/2024 Unknown ORAL ONCE A DAY 54 MILLIGRA MS 995309 RxNorm TAKE 54 MILLIGRAMS ORAL ONCE A DAY Hair, Skin & Nails Oral Capsule, Liquid Filled 07/01/2024 Unknown ORAL ONCE A DAY 1 unit(s) RxNorm TAKE 1 EACH ORAL ONCE A DAY Lisinopril 2.5MG Oral Tablet 07/01/2024 Unknown ORAL ONCE A DAY 2.5 MILLIGRA MS 954766 RxNorm TAKE 2.5 MILLIGRAMS ORAL ONCE A DAY Probiotic 1 Billion CFU Oral Capsule 07/01/2024 Unknown ORAL ONCE A DAY 1 Billion CFU RxNorm TAKE 1 Billion CFU ORAL ONCE A DAY Rybelsus 14MG Oral Tablet 07/01/2024 Unknown ORAL ONCE A DAY 14 MILLIGRA MS 0406827 RxNorm TAKE 14 MILLIGRAMS ORAL ONCE A [...] Active UMBILICAL HERNIA REPAIR WITH MESH 07/01 [id number] 7 [id number] 11/16/[address] 5628518 Allergies and Adverse Reactions Allergy Substance Reaction Severity Start Date Concern Status Code Code System CEPHALEXIN Hives (SNOMED-CT: 954810634) Active 2231 RxNorm FOLIC ACID Rash (SNOMED-CT: 927160979) Active 4511 RxNorm FOLIC ACID Rash (SNOMED-CT: 528414960) Active 4511 RxNorm METHOTREXATE NAUSEA/BLISTER S (SNOMED-CT: null) Active 6851 RxNorm METHOTREXATE Hives (SNOMED-CT: 129928236) Active 6851 RxNorm ADHESIVE Rash (SNOMED-CT: 202081629) Active PREGABALIN Swelling (SNOMED-CT: 55386263) Active 699680 RxNorm PREGABALIN Swelling (SNOMED-CT: 56475139) Active 534899 RxNorm KEFLEX Hives (SNOMED-CT: 743388295) Active 105699 RxNorm CONTRAST MEDIA, IODINE RELATED Active 820613959 SNOMED-CT CONTRAST MEDIA, IODINE RELATED Active 824586613 SNOMED-CT Plan of Treatment CT Chest/Lung W Contrast (43766) 2024 Encounters Encounter Diagnosis Start Date Code Code Sys tem Chronic pain syndrome 12/13/2023 SNOMED -CT Personal Care Team Section Performer Name Performer Role Active Date Inactive Da HARDY Rvias PCP - Primary care physician 2021-12-27 2022-03-04 Alejandro Anguiano PCP - Primary care physician 2022-03-04
--- OUTSIDE RECORDS SUMMARY | 2024-09-16 18:07 | XMS_ITS ---
Author Organization Unknown Address [address] [place] [address] [phone] Phone Care Team Providers Care Retirement Officer Name Role Phone TOSHIA Mosley Attending Unavailable BRANDI RAMIREZ CRNA Unavailable DENIA [...] 205 CVX Pneumococcal conjugate PCV20 , polysaccharide [id number] conjugate, adjuvant, PF 06/21/2023 Completed 216 CVX RSV, recombinant, protein subunit RSVpreF, adjuvant reconstituted, 0.5 mL, PF 04/18/2023 Completed 303 CV X Results BEDSIDE GLUCOSE - Collect Da te/Time: 10/13/2023 15:20 [facility] ID: [id number] [address] [place], [place], [id number] LOINC: 38627-5 Test Value Unit Reference Range Code Code System Flag BEDSIDE GLUCOSE 74 mg/dl L=74 H=106 82876-9 [facility] Collect Da te/Time: 10/13/2023 12:57 [facility] ID: [id number] [address] [place], [place], [id number] LOINC: 31345-0 Test Value Unit Reference Range Code Code System Flag BEDSIDE GLUCOSE 76 mg/dl L=74 H=106 65321-3 [facility] Social History Type Status Start Date End Date Code Code Syst em Smoking History Current every day smoker 017446285 SNOMED CT Sex Female Vital Signs Vital Sign Value Unit [place] Value [place] Unit Date/Time Recent/Initial? Code Code System Body Mass Index 39.47 kg/m2 10/13/2023 13:04 Most Recent 52870 -5 [facility] Body Mass Index 39.47 kg/m2 10/02/2023 11:22 Initial 99837 -5 [facility] Systolic Blood Pressure 137 mm[Hg] 10/13/2023 13:03 Initial 8480- 6 [facility] Diastolic Blood Pressure 59 mm[Hg] 10/13/2023 13:03 Initial 8462- 4 [facility] Body Surface Area 2.32 m2 10/13/2023 13:04 Most Recent 3140- 1 [facility] Body Surface Area 2.32 m2 10/02/2023 11:22 Initial 3140- 1 [facility] Height 170.180 0 cm 67.00 in 10/13/2023 13:04 Most Recent 8302- 2 [facility] Height 170.180 0 cm 67.00 in 10/02/2023 11:22 Initial 8302- 2 [facility] O2 Saturation 99 % 2023 13:03 Initial 05594 -5 [facility] Pulse 96.0 /min 10/13/2023 13:03 Initial 8867- 4 [facility] Respiration 20 /min 10/13/19 13:03 Initial 9279- 1 [facility] Temperature 36.1 Chiqui 97.0 F 10/13/19 13:03 Initial 8310- 5 [facility] Weight 114.31 kg 252.00 lbs 10/13/2023 13:04 Most Recent 89699 -7 [facility] Weight 114.31 kg 252.00 lbs 10/02/2023 11:22 Initial 84528 -7 [facility] Medications Medication Start Date End Date Route Frequency Dose Code Code System Medication Instructions Home Meds Albuterol Sulfate 0.09MG/1Actuation Inhalation Suspension 10/13/2023 Unknown INHALATION THREE TIMES A DAY 2 unit(s) 6186200 RxNorm 2 EACH INHALATION THREE TIMES A DAY Atorvastatin Calcium 40MG Oral Tablet 10/13/2023 Unknown ORAL AT BEDTIM E 40 MILLIGRA MS 795759 RxNorm TAKE 40 MILLIGRAMS ORAL AT BEDTIME Biotin 5 MG Oral Tablet 10/13/2023 Unknown ORAL ONCE A DAY 5 MG 441143 RxNorm TAKE 5 MG ORAL ONCE A DAY Bumetanide 1MG Oral Tablet 10/13/2023 Unknown ORAL TWICE A DAY 1 MILLIGRA MS 884447 RxNorm TAKE 1 MILLIGRAMS ORAL TWICE A DAY Coconut Oil Oil 10/13/2023 06/21/19 25 ROUTE NOT APPLICABLE ONCE A DAY 1 unit(s) RxNorm 1 EACH ROUTE NOT APPLICABLE ONCE A DAY Cyclobenzaprine 10MG Oral Tablet 10/13/2023 06/21/19 25 ORAL TWICE A DAY 10 MILLIGRA MS 842031 RxNorm TAKE 10 MILLIGRAMS ORAL TWICE A DAY Estradiol 0.25MG/1Packet Transdermal Gel/Jelly 10/13/2023 Unknown TRANSDERMAL DIRECT ED 1 unit(s) 5014589 RxNorm APPLY TO 1 EACH TRANSDERMAL DIRECTED Fluticasone 0.05MG/1Actuation Nasal [place] 10/13/2023 Unknown NASAL ONCE A DAY 1 unit(s) 9606983 RxNorm 1 EACH NASAL ONCE A DAY HYDROcodone bitartrate-acetami nophen 10MG-325MG Oral Tablet 10/13/2023 Unknown ORAL THREE TIMES A DAY 1 unit(s) 267662 RxNorm TAKE 1 EACH ORAL THREE TIMES A DAY Lantus 100U/1ML Subcutaneous Solution 10/13/2023 Unknown SUBCUTANEOU S AT BEDTIM E 46 unit(s) 289605 RxNorm INJECT INTO 46 EACH SUBCUTANEOU S AT BEDTIME NovoLOG FlexPen 100U/1ML Subcutaneous Solution 10/13/2023 Unknown SUBCUTANEOU S BEFORE MEALS AND AT BEDTIM E 1 unit(s) 2055014 RxNorm INJECT INTO 1 EACH SUBCUTANEOU S BEFORE MEALS AND AT BEDTIME Ondansetron HCl 4MG Oral Tablet 10/13/2023 Unknown ORAL DIRECT ED 4 MILLIGRA MS 428913 RxNorm TAKE 4 MILLIGRAMS ORAL DIRECTED Rybelsus 3MG Oral Tablet 10/13/2023 06/21/19 25 ORAL ONCE A DAY 7 MILLIGRA MS 9313439 RxNorm TAKE 7 MILLIGRAMS ORAL ONCE A DAY SUMAtriptan Succinate 100MG Oral Tablet 10/13/2023 Unknown ORAL DIRECT ED 100 MILLIGRA MS 549821 RxNorm TAKE 100 MILLIGRAMS ORAL DIRECTED Spironolactone 25MG Oral Tablet 10/13/2023 Unknown ORAL TWICE A DAY 25 MILLIGRA MS 300808 RxNorm TAKE 25 MILLIGRAMS ORAL TWICE A DAY buPROPion HCl 300MG Oral Tablet, Extended Release, 24 HR 10/13/2023 Unknown ORAL ONCE A DAY 300 MILLIGRA MS 052767 RxNorm TAKE 300 MILLIGRAMS ORAL ONCE A DAY clonazePAM 1MG Oral Tablet 10/13/2023 Unknown ORAL TWICE A DAY 1 MILLIGRA MS 700275 RxNorm TAKE 1 MILLIGRAMS ORAL TWICE A DAY hydrOXYzine HCl 25MG Oral Tablet 10/13/2023 Unknown ORAL NEEDED TWICE A DAY 25 MILLIGRA MS 883842 RxNorm TAKE 25 MILLIGRAMS ORAL NEEDED TWICE A DAY rOPINIRole HCl 2MG Oral Tablet 10/13/2023 Unknown ORAL ONCE A DAY 2 MILLIGRA MS 400999 RxNorm TAKE 2 MILLIGRAMS ORAL ONCE A DAY Protonix 40 MG Oral Tablet, Delayed Release 10/13/2023 Unknown BY MOUTH TWICE A DAY 1 TABLET 779623 RxNorm TAKE 1 TABLET BY MOUTH TWICE A DAY HYDROcodone bitartrate-acetami nophen 7.5MG-325MG Oral Tablet 07/01/2024 Unknown BY MOUTH NEEDED EVERY 6 HOURS 1 TABLET 790037 RxNorm TAKE 1 TABLET BY MOUTH NEEDED EVERY 6 HOURS FOR PAIN Cyclobenzaprine 10MG Oral Tablet 07/01/2024 Unknown ORAL NEEDED TWICE A DAY 10 MILLIGRA MS 909823 RxNorm TAKE 10 MILLIGRAMS ORAL NEEDED TWICE A DAY Fenofibrate 54MG Oral Tablet 07/01/2024 Unknown ORAL ONCE A DAY 54 MILLIGRA MS 085865 RxNorm TAKE 54 MILLIGRAMS ORAL ONCE A DAY Hair, Skin & Nails Oral Capsule, Liquid Filled 07/01/2024 Unknown ORAL ONCE A DAY 1 unit(s) RxNorm TAKE 1 EACH ORAL ONCE A DAY Lisinopril 2.5MG Oral Tablet 07/01/2024 Unknown ORAL ONCE A DAY 2.5 MILLIGRA MS 576271 RxNorm TAKE 2.5 MILLIGRAMS ORAL ONCE A DAY Probiotic 1 Billion CFU Oral Capsule 07/01/2024 Unknown ORAL ONCE A DAY 1 Billion CFU RxNorm TAKE 1 Billion CFU ORAL ONCE A DAY Rybelsus 14MG Oral Tablet 07/01/2024 Unknown ORAL ONCE A DAY 14 MILLIGRA MS 3812740 RxNorm TAKE 14 MILLIGRAMS ORAL ONCE A DAY Hospital Discharge Instructions Should you have any questions prior to discharge, please contact a member of your healthcare team. If you have left the hospital and have any questions, please contact your primary care physician. Reason For Referral No Data Found Procedures Procedure Name Date Status Code Code Syste m Cubital tunnel completed [id number] SNOMEDCT Cardioversion completed 652782215 SNOMEDCT Carpal tunnel completed 79773151 SNOMEDCT Esophagogastroduodenoscopy, flexible, transoral; with transendoscopic ball 10/13/2023 completed 03510 CPT Anesthesia for upper gastroi ntestinal endoscopic procedures, endoscope int 10/13/2023 completed 48203 CPT Implants Implanted KES[facility]WN Status Assigning Authority Procedure Date Lot Number Serial Number Manufacturing Date Expiration Date Distinct ID Code Brand Name Model Number ETHICON SECURESTRA P ABSORBABLE STRAP FIXATION DEVICE Active UMBILICAL HERNIA REPAIR WITH MESH 07/01 UBMUTA STRAP 25 06/21/2025 ETHICO N SECURE STRAP [address] Hernia Patch Active UMBILICAL HERNIA REPAIR WITH MESH 07/01 [id number] 7 8277650 11/16/[address] 6473546 Allergies and Adverse Reactions Allergy Substance Reaction Severity Start Date Concern Status Code Code System CEPHALEXIN Hives (SNOMED-CT: 781712575) Active 2231 RxNorm FOLIC ACID Rash (SNOMED-CT: 901803687) Active 4511 RxNorm FOLIC ACID Rash (SNOMED-CT: 552450756) Active 4511 RxNorm METHOTREXATE NAUSEA/BLISTER S (SNOMED-CT: null) Active 6851 RxNorm METHOTREXATE Hives (SNOMED-CT: 432455234) Active 6851 RxNorm ADHESIVE Rash (SNOMED-CT: 414669316) Active PREGABALIN Swelling (SNOMED-CT: 50843366) Active 937279 RxNorm PREGABALIN Swelling (SNOMED-CT: 13002829) Active 461655 RxNorm KEFLEX Hives (SNOMED-CT: 770909628) Active 391018 RxNorm CONTRAST MEDIA, IODINE RELATED Active 982473125 SNOMED-CT CONTRAST MEDIA, IODINE RELATED Active 995358138 SNOMED-CT Plan of Treatment CT Chest/Lung W Contrast (76428) 2024 Encounters Encounter Diagnosis Start Date Code Code Sys tem Dysphagia, unspecified 10/13/2023 SNOME D-CT Personal Care Team Section Performer Name Performer Role Active Date Inactive HARDY Norris PCP - Primary care physician 2021-12-27 2022-03-04 Alejandro Anguiano PCP - Primary care physician 2022-03-04
--- OUTSIDE RECORDS SUMMARY | 2024-09-16 18:17 | XMS_ITS ---
Author Organization Unknown Address [address] [place] [address] [phone] Phone Care Team Providers Care Extrusion Engineer Name Role Phone DWAINE SANTIAGO Attending Unavailable [...] 205 CVX Pneumococcal conjugate PCV20 , polysaccharide [id number] conjugate, adjuvant, PF 06/21/2023 Completed 216 CVX [...] em Smoking History Current every day smoker [id number] SNOMED CT Sex Female Medications Medication Start Date End Date Route Frequency Dose Code Code System Medication Instructions Home Meds Albuterol Sulfate 0.09MG/1Actuation Inhalation Suspension 10/13/2023 Unknown INHALATION THREE TIMES A DAY 2 unit(s) 2506102 RxNorm 2 EACH INHALATION THREE TIMES A DAY Atorvastatin Calcium 40MG Oral Tablet 10/13/2023 Unknown ORAL AT BEDTIM E 40 MILLIGRA MS 508354 RxNorm TAKE 40 MILLIGRAMS ORAL AT BEDTIME Biotin 5 MG Oral Tablet 10/13/2023 Unknown ORAL ONCE A DAY 5 MG 695642 RxNorm TAKE 5 MG ORAL ONCE A DAY Bumetanide 1MG Oral Tablet 10/13/2023 Unknown ORAL TWICE A DAY 1 MILLIGRA MS 102403 RxNorm TAKE 1 MILLIGRAMS ORAL TWICE A DAY Coconut Oil Oil 10/13/2023 06/21/19 25 ROUTE NOT APPLICABLE ONCE A DAY 1 unit(s) RxNorm 1 EACH ROUTE NOT APPLICABLE ONCE A DAY Cyclobenzaprine 10MG Oral Tablet 10/13/2023 06/21/19 25 ORAL TWICE A DAY 10 MILLIGRA MS 087043 RxNorm TAKE 10 MILLIGRAMS ORAL TWICE A DAY Estradiol 0.25MG/1Packet Transdermal Gel/Jelly 10/13/2023 Unknown TRANSDERMAL DIRECT ED 1 unit(s) 0194368 RxNorm APPLY TO 1 EACH TRANSDERMAL DIRECTED Fluticasone 0.05MG/1Actuation Nasal [place] 10/13/2023 Unknown NASAL ONCE A DAY 1 unit(s) 2041871 RxNorm 1 EACH NASAL ONCE A DAY HYDROcodone bitartrate-acetami nophen 10MG-325MG Oral Tablet 10/13/2023 Unknown ORAL THREE TIMES A DAY 1 unit(s) 990013 RxNorm TAKE 1 EACH ORAL THREE TIMES A DAY Lantus 100U/1ML Subcutaneous Solution 10/13/2023 Unknown SUBCUTANEOU S AT BEDTIM E 46 unit(s) 114515 RxNorm INJECT INTO 46 EACH SUBCUTANEOU S AT BEDTIME NovoLOG FlexPen 100U/1ML Subcutaneous Solution 10/13/2023 Unknown SUBCUTANEOU S BEFORE MEALS AND AT BEDTIM E 1 unit(s) 1667330 RxNorm INJECT INTO 1 EACH SUBCUTANEOU S BEFORE MEALS AND AT BEDTIME Ondansetron HCl 4MG Oral Tablet 10/13/2023 Unknown ORAL DIRECT ED 4 MILLIGRA MS 676656 RxNorm TAKE 4 MILLIGRAMS ORAL DIRECTED Rybelsus 3MG Oral Tablet 10/13/2023 06/21/19 25 ORAL ONCE A DAY 7 MILLIGRA MS 4036724 RxNorm TAKE 7 MILLIGRAMS ORAL ONCE A DAY SUMAtriptan Succinate 100MG Oral Tablet 10/13/2023 Unknown ORAL DIRECT ED 100 MILLIGRA MS 631388 RxNorm TAKE 100 MILLIGRAMS ORAL DIRECTED Spironolactone 25MG Oral Tablet 10/13/2023 Unknown ORAL TWICE A DAY 25 MILLIGRA MS 269647 RxNorm TAKE 25 MILLIGRAMS ORAL TWICE A DAY buPROPion HCl 300MG Oral Tablet, Extended Release, 24 HR 10/13/2023 Unknown ORAL ONCE A DAY 300 MILLIGRA MS 154054 RxNorm TAKE 300 MILLIGRAMS ORAL ONCE A DAY clonazePAM 1MG Oral Tablet 10/13/2023 Unknown ORAL TWICE A DAY 1 MILLIGRA MS 088728 RxNorm TAKE 1 MILLIGRAMS ORAL TWICE A DAY hydrOXYzine HCl 25MG Oral Tablet 10/13/2023 Unknown ORAL NEEDED TWICE A DAY 25 MILLIGRA MS 275013 RxNorm TAKE 25 MILLIGRAMS ORAL NEEDED TWICE A DAY rOPINIRole HCl 2MG Oral Tablet 10/13/2023 Unknown ORAL ONCE A DAY 2 MILLIGRA MS 096391 RxNorm TAKE 2 MILLIGRAMS ORAL ONCE A DAY Protonix 40 MG Oral Tablet, Delayed Release 10/13/2023 Unknown BY MOUTH TWICE A DAY 1 TABLET 221369 RxNorm TAKE 1 TABLET BY MOUTH TWICE A DAY HYDROcodone bitartrate-acetami nophen 7.5MG-325MG Oral Tablet 07/01/2024 Unknown BY MOUTH NEEDED EVERY 6 HOURS 1 TABLET 748622 RxNorm TAKE 1 TABLET BY MOUTH NEEDED EVERY 6 HOURS FOR PAIN Cyclobenzaprine 10MG Oral Tablet 07/01/2024 Unknown ORAL NEEDED TWICE A DAY 10 MILLIGRA MS 788957 RxNorm TAKE 10 MILLIGRAMS ORAL NEEDED TWICE A DAY Fenofibrate 54MG Oral Tablet 07/01/2024 Unknown ORAL ONCE A DAY 54 MILLIGRA MS 798506 RxNorm TAKE 54 MILLIGRAMS ORAL ONCE A DAY Hair, Skin & Nails Oral Capsule, Liquid Filled 07/01/2024 Unknown ORAL ONCE A DAY 1 unit(s) RxNorm TAKE 1 EACH ORAL ONCE A DAY Lisinopril 2.5MG Oral Tablet 07/01/2024 Unknown ORAL ONCE A DAY 2.5 MILLIGRA MS 175661 RxNorm TAKE 2.5 MILLIGRAMS ORAL ONCE A DAY Probiotic 1 Billion CFU Oral Capsule 07/01/2024 Unknown ORAL ONCE A DAY 1 Billion CFU RxNorm TAKE 1 Billion CFU ORAL ONCE A DAY Rybelsus 14MG Oral Tablet 07/01/2024 Unknown ORAL ONCE A DAY 14 MILLIGRA MS 1445307 RxNorm TAKE 14 MILLIGRAMS ORAL ONCE A [...] Active UMBILICAL HERNIA REPAIR WITH MESH 07/01 [id number] 7 1973950 11/16/[address] 4443494 Allergies and Adverse Reactions Allergy Substance Reaction Severity Start Date Concern Status Code Code System CEPHALEXIN Hives (SNOMED-CT: 475320151) Active 2231 RxNorm FOLIC ACID Rash (SNOMED-CT: 162721421) Active 4511 RxNorm FOLIC ACID Rash (SNOMED-CT: 050470426) Active 4511 RxNorm METHOTREXATE NAUSEA/BLISTER S (SNOMED-CT: null) Active 6851 RxNorm METHOTREXATE Hives (SNOMED-CT: 457065300) Active 6851 RxNorm ADHESIVE Rash (SNOMED-CT: 385947846) Active PREGABALIN Swelling (SNOMED-CT: 06189245) Active 955977 RxNorm PREGABALIN Swelling (SNOMED-CT: 29213646) Active 295023 RxNorm KEFLEX Hives (SNOMED-CT: 099367440) Active 175796 RxNorm CONTRAST MEDIA, IODINE RELATED Active 973278056 SNOMED-CT CONTRAST MEDIA, IODINE RELATED Active 447756784 SNOMED-CT Plan of Treatment CT Chest/Lung W Contrast (10089) 2024 Encounters Encounter Diagnosis Start Date Code Code Sys tem Chest pain, unspecified 08/29/2023 SNOM ED-CT Personal Care Team Section Performer Name Performer Role Active Date Inactive HARDY Norris PCP - Primary care physician 2021-12-27 2022-03-04 Alejandro Anguiano PCP - Primary care physician 2022-03-04
--- OUTSIDE RECORDS SUMMARY | 2024-09-16 18:17 | XMS_ITS ---
Author Organization Unknown Address [address] [place] [address] [phone] Phone Care Team Providers Care Jet Worker Name Role Phone LESLIE Guillen Attending Unavailable [...] 205 CVX Pneumococcal conjugate PCV20 , polysaccharide [id number] conjugate, adjuvant, PF 06/21/2023 Completed 216 CVX [...] Paco Puri M.D. MZ: MZ Report ID: [id number] Reading Location: [place] [address] Social History Type Status Start Date End Date Code Code Syst em Smoking History Current every day smoker [id number] SNOMED CT Sex Female Medications Medication Start Date End Date Route Frequency Dose Code Code System Medication Instructions Home Meds Albuterol Sulfate 0.09MG/1Actuation Inhalation Suspension 10/13/2023 Unknown INHALATION THREE TIMES A DAY 2 unit(s) 5882245 RxNorm 2 EACH INHALATION THREE TIMES A DAY Atorvastatin Calcium 40MG Oral Tablet 10/13/2023 Unknown ORAL AT BEDTIM E 40 MILLIGRA MS 591487 RxNorm TAKE 40 MILLIGRAMS ORAL AT BEDTIME Biotin 5 MG Oral Tablet 10/13/2023 Unknown ORAL ONCE A DAY 5 MG 270699 RxNorm TAKE 5 MG ORAL ONCE A DAY Bumetanide 1MG Oral Tablet 10/13/2023 Unknown ORAL TWICE A DAY 1 MILLIGRA MS 759317 RxNorm TAKE 1 MILLIGRAMS ORAL TWICE A DAY Coconut Oil Oil 10/13/2023 06/21/19 25 ROUTE NOT APPLICABLE ONCE A DAY 1 unit(s) RxNorm 1 EACH ROUTE NOT APPLICABLE ONCE A DAY Cyclobenzaprine 10MG Oral Tablet 10/13/2023 06/21/19 25 ORAL TWICE A DAY 10 MILLIGRA MS 473290 RxNorm TAKE 10 MILLIGRAMS ORAL TWICE A DAY Estradiol 0.25MG/1Packet Transdermal Gel/Jelly 10/13/2023 Unknown TRANSDERMAL DIRECT ED 1 unit(s) 7111713 RxNorm APPLY TO 1 EACH TRANSDERMAL DIRECTED Fluticasone 0.05MG/1Actuation Nasal [place] 10/13/2023 Unknown NASAL ONCE A DAY 1 unit(s) 0545466 RxNorm 1 EACH NASAL ONCE A DAY HYDROcodone bitartrate-acetami nophen 10MG-325MG Oral Tablet 10/13/2023 Unknown ORAL THREE TIMES A DAY 1 unit(s) 831117 RxNorm TAKE 1 EACH ORAL THREE TIMES A DAY Lantus 100U/1ML Subcutaneous Solution 10/13/2023 Unknown SUBCUTANEOU S AT BEDTIM E 46 unit(s) 093324 RxNorm INJECT INTO 46 EACH SUBCUTANEOU S AT BEDTIME NovoLOG FlexPen 100U/1ML Subcutaneous Solution 10/13/2023 Unknown SUBCUTANEOU S BEFORE MEALS AND AT BEDTIM E 1 unit(s) 4243356 RxNorm INJECT INTO 1 EACH SUBCUTANEOU S BEFORE MEALS AND AT BEDTIME Ondansetron HCl 4MG Oral Tablet 10/13/2023 Unknown ORAL DIRECT ED 4 MILLIGRA MS 589902 RxNorm TAKE 4 MILLIGRAMS ORAL DIRECTED Rybelsus 3MG Oral Tablet 10/13/2023 06/21/19 25 ORAL ONCE A DAY 7 MILLIGRA MS 5594571 RxNorm TAKE 7 MILLIGRAMS ORAL ONCE A DAY SUMAtriptan Succinate 100MG Oral Tablet 10/13/2023 Unknown ORAL DIRECT ED 100 MILLIGRA MS 142119 RxNorm TAKE 100 MILLIGRAMS ORAL DIRECTED Spironolactone 25MG Oral Tablet 10/13/2023 Unknown ORAL TWICE A DAY 25 MILLIGRA MS 668657 RxNorm TAKE 25 MILLIGRAMS ORAL TWICE A DAY buPROPion HCl 300MG Oral Tablet, Extended Release, 24 HR 10/13/2023 Unknown ORAL ONCE A DAY 300 MILLIGRA MS 737001 RxNorm TAKE 300 MILLIGRAMS ORAL ONCE A DAY clonazePAM 1MG Oral Tablet 10/13/2023 Unknown ORAL TWICE A DAY 1 MILLIGRA MS 645182 RxNorm TAKE 1 MILLIGRAMS ORAL TWICE A DAY hydrOXYzine HCl 25MG Oral Tablet 10/13/2023 Unknown ORAL NEEDED TWICE A DAY 25 MILLIGRA MS 125608 RxNorm TAKE 25 MILLIGRAMS ORAL NEEDED TWICE A DAY rOPINIRole HCl 2MG Oral Tablet 10/13/2023 Unknown ORAL ONCE A DAY 2 MILLIGRA MS 195818 RxNorm TAKE 2 MILLIGRAMS ORAL ONCE A DAY Protonix 40 MG Oral Tablet, Delayed Release 10/13/2023 Unknown BY MOUTH TWICE A DAY 1 TABLET 557016 RxNorm TAKE 1 TABLET BY MOUTH TWICE A DAY HYDROcodone bitartrate-acetami nophen 7.5MG-325MG Oral Tablet 07/01/2024 Unknown BY MOUTH NEEDED EVERY 6 HOURS 1 TABLET 358715 RxNorm TAKE 1 TABLET BY MOUTH NEEDED EVERY 6 HOURS FOR PAIN Cyclobenzaprine 10MG Oral Tablet 07/01/2024 Unknown ORAL NEEDED TWICE A DAY 10 MILLIGRA MS 930861 RxNorm TAKE 10 MILLIGRAMS ORAL NEEDED TWICE A DAY Fenofibrate 54MG Oral Tablet 07/01/2024 Unknown ORAL ONCE A DAY 54 MILLIGRA MS 583189 RxNorm TAKE 54 MILLIGRAMS ORAL ONCE A DAY Hair, Skin & Nails Oral Capsule, Liquid Filled 07/01/2024 Unknown ORAL ONCE A DAY 1 unit(s) RxNorm TAKE 1 EACH ORAL ONCE A DAY Lisinopril 2.5MG Oral Tablet 07/01/2024 Unknown ORAL ONCE A DAY 2.5 MILLIGRA MS 510144 RxNorm TAKE 2.5 MILLIGRAMS ORAL ONCE A DAY Probiotic 1 Billion CFU Oral Capsule 07/01/2024 Unknown ORAL ONCE A DAY 1 Billion CFU RxNorm TAKE 1 Billion CFU ORAL ONCE A DAY Rybelsus 14MG Oral Tablet 07/01/2024 Unknown ORAL ONCE A DAY 14 MILLIGRA MS 5070008 RxNorm TAKE 14 MILLIGRAMS ORAL ONCE A [...] Active UMBILICAL HERNIA REPAIR WITH MESH 07/01 [id number] 7 1281258 11/16/[address] 5792059 Allergies and Adverse Reactions Allergy Substance Reaction Severity Start Date Concern Status Code Code System CEPHALEXIN Hives (SNOMED-CT: 148105871) Active 2231 RxNorm FOLIC ACID Rash (SNOMED-CT: 508094408) Active 4511 RxNorm FOLIC ACID Rash (SNOMED-CT: 587707908) Active 4511 RxNorm METHOTREXATE NAUSEA/BLISTER S (SNOMED-CT: null) Active 6851 RxNorm METHOTREXATE Hives (SNOMED-CT: 331112140) Active 6851 RxNorm ADHESIVE Rash (SNOMED-CT: 054530328) Active PREGABALIN Swelling (SNOMED-CT: 44353828) Active 333808 RxNorm PREGABALIN Swelling (SNOMED-CT: 78847615) Active 502286 RxNorm KEFLEX Hives (SNOMED-CT: 491448636) Active 117095 RxNorm CONTRAST MEDIA, IODINE RELATED Active 556315647 SNOMED-CT CONTRAST MEDIA, IODINE RELATED Active 578400446 SNOMED-CT Plan of Treatment CT Chest/Lung W Contrast (00313) 2024 Encounters Encounter Diagnosis Start Date Code Code Sys tem Abnormal findings on diagnos tic imaging of other parts of digestive tract 06/22/2023 SNOMED-CT Personal Care Team Section Performer Name Performer Role Active Date Inactive HARDY Norris PCP - Primary care physician 2021-12-27 2022-03-04 Alejandro Anguiano PCP - Primary care physician 2022-03-04
--- OUTSIDE RECORDS SUMMARY | 2024-09-16 18:17 | XMS_ITS ---
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 Name Role Phone LESLIE Guillen Attending Unavailable [...] 205 CVX Pneumococcal conjugate PCV20 , polysaccharide [id number] conjugate, adjuvant, PF 06/21/2023 Completed 216 CVX RSV, recombinant, protein subunit RSVpreF, adjuvant reconstituted, 0.5 mL, PF 04/18/2023 Completed 303 CV X Social History Type Status Start Date End Date Code Code Syst em Smoking History Current every day smoker [id number] SNOMED CT Sex Female Medications Medication Start Date End Date Route Frequency Dose Code Code System Medication Instructions Home Meds Albuterol Sulfate 0.09MG/1Actuation Inhalation Suspension 10/13/2023 Unknown INHALATION THREE TIMES A DAY 2 unit(s) 0754451 RxNorm 2 EACH INHALATION THREE TIMES A DAY Atorvastatin Calcium 40MG Oral Tablet 10/13/2023 Unknown ORAL AT BEDTIM E 40 MILLIGRA MS 994678 RxNorm TAKE 40 MILLIGRAMS ORAL AT BEDTIME Biotin 5 MG Oral Tablet 10/13/2023 Unknown ORAL ONCE A DAY 5 MG 991346 RxNorm TAKE 5 MG ORAL ONCE A DAY Bumetanide 1MG Oral Tablet 10/13/2023 Unknown ORAL TWICE A DAY 1 MILLIGRA MS 946957 RxNorm TAKE 1 MILLIGRAMS ORAL TWICE A DAY Coconut Oil Oil 10/13/2023 06/21/19 25 ROUTE NOT APPLICABLE ONCE A DAY 1 unit(s) RxNorm 1 EACH ROUTE NOT APPLICABLE ONCE A DAY Cyclobenzaprine 10MG Oral Tablet 10/13/2023 06/21/19 25 ORAL TWICE A DAY 10 MILLIGRA MS 578871 RxNorm TAKE 10 MILLIGRAMS ORAL TWICE A DAY Estradiol 0.25MG/1Packet Transdermal Gel/Jelly 10/13/2023 Unknown TRANSDERMAL DIRECT ED 1 unit(s) 5097032 RxNorm APPLY TO 1 EACH TRANSDERMAL DIRECTED Fluticasone 0.05MG/1Actuation Nasal [place] 10/13/2023 Unknown NASAL ONCE A DAY 1 unit(s) 1811740 RxNorm 1 EACH NASAL ONCE A DAY HYDROcodone bitartrate-acetami nophen 10MG-325MG Oral Tablet 10/13/2023 Unknown ORAL THREE TIMES A DAY 1 unit(s) 536381 RxNorm TAKE 1 EACH ORAL THREE TIMES A DAY Lantus 100U/1ML Subcutaneous Solution 10/13/2023 Unknown SUBCUTANEOU S AT BEDTIM E 46 unit(s) 922565 RxNorm INJECT INTO 46 EACH SUBCUTANEOU S AT BEDTIME NovoLOG FlexPen 100U/1ML Subcutaneous Solution 10/13/2023 Unknown SUBCUTANEOU S BEFORE MEALS AND AT BEDTIM E 1 unit(s) 4083629 RxNorm INJECT INTO 1 EACH SUBCUTANEOU S BEFORE MEALS AND AT BEDTIME Ondansetron HCl 4MG Oral Tablet 10/13/2023 Unknown ORAL DIRECT ED 4 MILLIGRA MS 851425 RxNorm TAKE 4 MILLIGRAMS ORAL DIRECTED Rybelsus 3MG Oral Tablet 10/13/2023 06/21/19 25 ORAL ONCE A DAY 7 MILLIGRA MS 1667165 RxNorm TAKE 7 MILLIGRAMS ORAL ONCE A DAY SUMAtriptan Succinate 100MG Oral Tablet 10/13/2023 Unknown ORAL DIRECT ED 100 MILLIGRA MS 893071 RxNorm TAKE 100 MILLIGRAMS ORAL DIRECTED Spironolactone 25MG Oral Tablet 10/13/2023 Unknown ORAL TWICE A DAY 25 MILLIGRA MS 129821 RxNorm TAKE 25 MILLIGRAMS ORAL TWICE A DAY buPROPion HCl 300MG Oral Tablet, Extended Release, 24 HR 10/13/2023 Unknown ORAL ONCE A DAY 300 MILLIGRA MS 386523 RxNorm TAKE 300 MILLIGRAMS ORAL ONCE A DAY clonazePAM 1MG Oral Tablet 10/13/2023 Unknown ORAL TWICE A DAY 1 MILLIGRA MS 905360 RxNorm TAKE 1 MILLIGRAMS ORAL TWICE A DAY hydrOXYzine HCl 25MG Oral Tablet 10/13/2023 Unknown ORAL NEEDED TWICE A DAY 25 MILLIGRA MS 194630 RxNorm TAKE 25 MILLIGRAMS ORAL NEEDED TWICE A DAY rOPINIRole HCl 2MG Oral Tablet 10/13/2023 Unknown ORAL ONCE A DAY 2 MILLIGRA MS 163880 RxNorm TAKE 2 MILLIGRAMS ORAL ONCE A DAY Protonix 40 MG Oral Tablet, Delayed Release 10/13/2023 Unknown BY MOUTH TWICE A DAY 1 TABLET 165942 RxNorm TAKE 1 TABLET BY MOUTH TWICE A DAY HYDROcodone bitartrate-acetami nophen 7.5MG-325MG Oral Tablet 07/01/2024 Unknown BY MOUTH NEEDED EVERY 6 HOURS 1 TABLET 986956 RxNorm TAKE 1 TABLET BY MOUTH NEEDED EVERY 6 HOURS FOR PAIN Cyclobenzaprine 10MG Oral Tablet 07/01/2024 Unknown ORAL NEEDED TWICE A DAY 10 MILLIGRA MS 433049 RxNorm TAKE 10 MILLIGRAMS ORAL NEEDED TWICE A DAY Fenofibrate 54MG Oral Tablet 07/01/2024 Unknown ORAL ONCE A DAY 54 MILLIGRA MS 221629 RxNorm TAKE 54 MILLIGRAMS ORAL ONCE A DAY Hair, Skin & Nails Oral Capsule, Liquid Filled 07/01/2024 Unknown ORAL ONCE A DAY 1 unit(s) RxNorm TAKE 1 EACH ORAL ONCE A DAY Lisinopril 2.5MG Oral Tablet 07/01/2024 Unknown ORAL ONCE A DAY 2.5 MILLIGRA MS 955990 RxNorm TAKE 2.5 MILLIGRAMS ORAL ONCE A DAY Probiotic 1 Billion CFU Oral Capsule 07/01/2024 Unknown ORAL ONCE A DAY 1 Billion CFU RxNorm TAKE 1 Billion CFU ORAL ONCE A DAY Rybelsus 14MG Oral Tablet 07/01/2024 Unknown ORAL ONCE A DAY 14 MILLIGRA MS 9071328 RxNorm TAKE 14 MILLIGRAMS ORAL ONCE A [...] Active UMBILICAL HERNIA REPAIR WITH MESH 07/01 [id number] 11/16/[address] [id number] Allergies and Adverse Reactions Allergy Substance Reaction Severity Start Date Concern Status Code Code System CEPHALEXIN Hives (SNOMED-CT: 895819405) Active 2231 RxNorm FOLIC ACID Rash (SNOMED-CT: 715570436) Active 4511 RxNorm FOLIC ACID Rash (SNOMED-CT: 554828042) Active 4511 RxNorm METHOTREXATE NAUSEA/BLISTER S (SNOMED-CT: null) Active 6851 RxNorm METHOTREXATE Hives (SNOMED-CT: 489456077) Active 6851 RxNorm ADHESIVE Rash (SNOMED-CT: 889824735) Active PREGABALIN Swelling (SNOMED-CT: 63192046) Active 091120 RxNorm PREGABALIN Swelling (SNOMED-CT: 90675860) Active 951247 RxNorm KEFLEX Hives (SNOMED-CT: 490382931) Active 501390 RxNorm CONTRAST MEDIA, IODINE RELATED Active 292094606 SNOMED-CT CONTRAST MEDIA, IODINE RELATED Active 476544483 SNOMED-CT Plan of Treatment CT Chest/Lung W Contrast (56264) 2024 Encounters Encounter Diagnosis Start Date Code Code Sys tem Dysphagia, unspecified 05/01/2023 SNOME D-CT Personal Care Team Section Performer Name Performer Role Active Date Inactive Da HARDY Rivas PCP - Primary care physician 2021-12-27 2022-03-04 Alejandro Anguiano PCP - Primary care physician 2022-03-04
--- OUTSIDE RECORDS SUMMARY | 2024-09-16 18:17 | XMS_ITS ---
Author Organization Unknown Address [address] [place] [address] [phone] Phone Care Team Providers Care Chair Mender Name Role Phone GENEVIEVE Kidd Attending Unavailable [...] 205 CVX Pneumococcal conjugate PCV20 , polysaccharide [id number] conjugate, adjuvant, PF 06/21/2023 Completed 216 CVX RSV, recombinant, protein subunit RSVpreF, adjuvant reconstituted, 0.5 mL, PF 04/18/2023 Completed 303 CV X Social History Type Status Start Date End Date Code Code Syst em Smoking History Current every day smoker [id number] SNOMED CT Sex Female Medications Medication Start Date End Date Route Frequency Dose Code Code System Medication Instructions Home Meds Albuterol Sulfate 0.09MG/1Actuation Inhalation Suspension 10/13/2023 Unknown INHALATION THREE TIMES A DAY 2 unit(s) 3666934 RxNorm 2 EACH INHALATION THREE TIMES A DAY Atorvastatin Calcium 40MG Oral Tablet 10/13/2023 Unknown ORAL AT BEDTIM E 40 MILLIGRA MS 222080 RxNorm TAKE 40 MILLIGRAMS ORAL AT BEDTIME Biotin 5 MG Oral Tablet 10/13/2023 Unknown ORAL ONCE A DAY 5 MG 735743 RxNorm TAKE 5 MG ORAL ONCE A DAY Bumetanide 1MG Oral Tablet 10/13/2023 Unknown ORAL TWICE A DAY 1 MILLIGRA MS 095859 RxNorm TAKE 1 MILLIGRAMS ORAL TWICE A DAY Coconut Oil Oil 10/13/2023 06/21/19 25 ROUTE NOT APPLICABLE ONCE A DAY 1 unit(s) RxNorm 1 EACH ROUTE NOT APPLICABLE ONCE A DAY Cyclobenzaprine 10MG Oral Tablet 10/13/2023 06/21/19 25 ORAL TWICE A DAY 10 MILLIGRA MS 306437 RxNorm TAKE 10 MILLIGRAMS ORAL TWICE A DAY Estradiol 0.25MG/1Packet Transdermal Gel/Jelly 10/13/2023 Unknown TRANSDERMAL DIRECT ED 1 unit(s) 0573471 RxNorm APPLY TO 1 EACH TRANSDERMAL DIRECTED Fluticasone 0.05MG/1Actuation Nasal [place] 10/13/2023 Unknown NASAL ONCE A DAY 1 unit(s) 9356208 RxNorm 1 EACH NASAL ONCE A DAY HYDROcodone bitartrate-acetami nophen 10MG-325MG Oral Tablet 10/13/2023 Unknown ORAL THREE TIMES A DAY 1 unit(s) 337656 RxNorm TAKE 1 EACH ORAL THREE TIMES A DAY Lantus 100U/1ML Subcutaneous Solution 10/13/2023 Unknown SUBCUTANEOU S AT BEDTIM E 46 unit(s) 330916 RxNorm INJECT INTO 46 EACH SUBCUTANEOU S AT BEDTIME NovoLOG FlexPen 100U/1ML Subcutaneous Solution 10/13/2023 Unknown SUBCUTANEOU S BEFORE MEALS AND AT BEDTIM E 1 unit(s) 5049061 RxNorm INJECT INTO 1 EACH SUBCUTANEOU S BEFORE MEALS AND AT BEDTIME Ondansetron HCl 4MG Oral Tablet 10/13/2023 Unknown ORAL DIRECT ED 4 MILLIGRA MS 489773 RxNorm TAKE 4 MILLIGRAMS ORAL DIRECTED Rybelsus 3MG Oral Tablet 10/13/2023 06/21/19 25 ORAL ONCE A DAY 7 MILLIGRA MS 5466411 RxNorm TAKE 7 MILLIGRAMS ORAL ONCE A DAY SUMAtriptan Succinate 100MG Oral Tablet 10/13/2023 Unknown ORAL DIRECT ED 100 MILLIGRA MS 064609 RxNorm TAKE 100 MILLIGRAMS ORAL DIRECTED Spironolactone 25MG Oral Tablet 10/13/2023 Unknown ORAL TWICE A DAY 25 MILLIGRA MS 989674 RxNorm TAKE 25 MILLIGRAMS ORAL TWICE A DAY buPROPion HCl 300MG Oral Tablet, Extended Release, 24 HR 10/13/2023 Unknown ORAL ONCE A DAY 300 MILLIGRA MS 809769 RxNorm TAKE 300 MILLIGRAMS ORAL ONCE A DAY clonazePAM 1MG Oral Tablet 10/13/2023 Unknown ORAL TWICE A DAY 1 MILLIGRA MS 680618 RxNorm TAKE 1 MILLIGRAMS ORAL TWICE A DAY hydrOXYzine HCl 25MG Oral Tablet 10/13/2023 Unknown ORAL NEEDED TWICE A DAY 25 MILLIGRA MS 356320 RxNorm TAKE 25 MILLIGRAMS ORAL NEEDED TWICE A DAY rOPINIRole HCl 2MG Oral Tablet 10/13/2023 Unknown ORAL ONCE A DAY 2 MILLIGRA MS 202636 RxNorm TAKE 2 MILLIGRAMS ORAL ONCE A DAY Protonix 40 MG Oral Tablet, Delayed Release 10/13/2023 Unknown BY MOUTH TWICE A DAY 1 TABLET 185896 RxNorm TAKE 1 TABLET BY MOUTH TWICE A DAY HYDROcodone bitartrate-acetami nophen 7.5MG-325MG Oral Tablet 07/01/2024 Unknown BY MOUTH NEEDED EVERY 6 HOURS 1 TABLET 955367 RxNorm TAKE 1 TABLET BY MOUTH NEEDED EVERY 6 HOURS FOR PAIN Cyclobenzaprine 10MG Oral Tablet 07/01/2024 Unknown ORAL NEEDED TWICE A DAY 10 MILLIGRA MS 622961 RxNorm TAKE 10 MILLIGRAMS ORAL NEEDED TWICE A DAY Fenofibrate 54MG Oral Tablet 07/01/2024 Unknown ORAL ONCE A DAY 54 MILLIGRA MS 426902 RxNorm TAKE 54 MILLIGRAMS ORAL ONCE A DAY Hair, Skin & Nails Oral Capsule, Liquid Filled 07/01/2024 Unknown ORAL ONCE A DAY 1 unit(s) RxNorm TAKE 1 EACH ORAL ONCE A DAY Lisinopril 2.5MG Oral Tablet 07/01/2024 Unknown ORAL ONCE A DAY 2.5 MILLIGRA MS 742615 RxNorm TAKE 2.5 MILLIGRAMS ORAL ONCE A DAY Probiotic 1 Billion CFU Oral Capsule 07/01/2024 Unknown ORAL ONCE A DAY 1 Billion CFU RxNorm TAKE 1 Billion CFU ORAL ONCE A DAY Rybelsus 14MG Oral Tablet 07/01/2024 Unknown ORAL ONCE A DAY 14 MILLIGRA MS 3088154 RxNorm TAKE 14 MILLIGRAMS ORAL ONCE A [...] Active UMBILICAL HERNIA REPAIR WITH MESH 07/01 [id number] 11/16/[address] 6969731 Allergies and Adverse Reactions Allergy Substance Reaction Severity Start Date Concern Status Code Code System CEPHALEXIN Hives (SNOMED-CT: 974299950) Active 2231 RxNorm FOLIC ACID Rash (SNOMED-CT: 400406042) Active 4511 RxNorm FOLIC ACID Rash (SNOMED-CT: 317220097) Active 4511 RxNorm METHOTREXATE NAUSEA/BLISTER S (SNOMED-CT: null) Active 6851 RxNorm METHOTREXATE Hives (SNOMED-CT: 744536511) Active 6851 RxNorm ADHESIVE Rash (SNOMED-CT: 411508373) Active PREGABALIN Swelling (SNOMED-CT: 84341163) Active 120983 RxNorm PREGABALIN Swelling (SNOMED-CT: 70195814) Active 366877 RxNorm KEFLEX Hives (SNOMED-CT: 428619811) Active 011314 RxNorm CONTRAST MEDIA, IODINE RELATED Active 990554425 SNOMED-CT CONTRAST MEDIA, IODINE RELATED Active 988406824 SNOMED-CT Plan of Treatment CT Chest/Lung W Contrast (63889) 2024 Encounters Encounter Diagnosis Start Date Code Code Sys tem Umbilical hernia without obstruction or gangrene 06/13 SNOMED-CT Personal Care Team Section Performer Name Performer Role Active Date Inactive Da te HARDY ARECHIGA PCP - Primary care physician 2021-12-27 2022-03-04 Alejandro Anguiano PCP - Primary care physician 2022-03-04
--- OUTSIDE RECORDS SUMMARY | 2024-09-16 18:18 | XMS_ITS ---
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 Name Role Phone DWAINE SANTIAGO Attending Unavailable [...] 205 CVX Pneumococcal conjugate PCV20 , polysaccharide [id number] conjugate, adjuvant, PF 06/21/2023 Completed 216 CVX RSV, recombinant, protein subunit RSVpreF, adjuvant reconstituted, 0.5 mL, PF 04/18/2023 Completed 303 CV X Social History Type Status Start Date End Date Code Code Syst em Smoking History Current every day smoker [id number] SNOMED CT Sex Female Medications Medication Start Date End Date Route Frequency Dose Code Code System Medication Instructions Home Meds Albuterol Sulfate 0.09MG/1Actuation Inhalation Suspension 10/13/2023 Unknown INHALATION THREE TIMES A DAY 2 unit(s) 3748692 RxNorm 2 EACH INHALATION THREE TIMES A DAY Atorvastatin Calcium 40MG Oral Tablet 10/13/2023 Unknown ORAL AT BEDTIM E 40 MILLIGRA MS 952934 RxNorm TAKE 40 MILLIGRAMS ORAL AT BEDTIME Biotin 5 MG Oral Tablet 10/13/2023 Unknown ORAL ONCE A DAY 5 MG 009906 RxNorm TAKE 5 MG ORAL ONCE A DAY Bumetanide 1MG Oral Tablet 10/13/2023 Unknown ORAL TWICE A DAY 1 MILLIGRA MS 027155 RxNorm TAKE 1 MILLIGRAMS ORAL TWICE A DAY Coconut Oil Oil 10/13/2023 06/21/19 25 ROUTE NOT APPLICABLE ONCE A DAY 1 unit(s) RxNorm 1 EACH ROUTE NOT APPLICABLE ONCE A DAY Cyclobenzaprine 10MG Oral Tablet 10/13/2023 06/21/19 25 ORAL TWICE A DAY 10 MILLIGRA MS 348570 RxNorm TAKE 10 MILLIGRAMS ORAL TWICE A DAY Estradiol 0.25MG/1Packet Transdermal Gel/Jelly 10/13/2023 Unknown TRANSDERMAL DIRECT ED 1 unit(s) 2803603 RxNorm APPLY TO 1 EACH TRANSDERMAL DIRECTED Fluticasone 0.05MG/1Actuation Nasal [place] 10/13/2023 Unknown NASAL ONCE A DAY 1 unit(s) 4544916 RxNorm 1 EACH NASAL ONCE A DAY HYDROcodone bitartrate-acetami nophen 10MG-325MG Oral Tablet 10/13/2023 Unknown ORAL THREE TIMES A DAY 1 unit(s) 592104 RxNorm TAKE 1 EACH ORAL THREE TIMES A DAY Lantus 100U/1ML Subcutaneous Solution 10/13/2023 Unknown SUBCUTANEOU S AT BEDTIM E 46 unit(s) 526034 RxNorm INJECT INTO 46 EACH SUBCUTANEOU S AT BEDTIME NovoLOG FlexPen 100U/1ML Subcutaneous Solution 10/13/2023 Unknown SUBCUTANEOU S BEFORE MEALS AND AT BEDTIM E 1 unit(s) 9954157 RxNorm INJECT INTO 1 EACH SUBCUTANEOU S BEFORE MEALS AND AT BEDTIME Ondansetron HCl 4MG Oral Tablet 10/13/2023 Unknown ORAL DIRECT ED 4 MILLIGRA MS 252704 RxNorm TAKE 4 MILLIGRAMS ORAL DIRECTED Rybelsus 3MG Oral Tablet 10/13/2023 06/21/19 25 ORAL ONCE A DAY 7 MILLIGRA MS 2551137 RxNorm TAKE 7 MILLIGRAMS ORAL ONCE A DAY SUMAtriptan Succinate 100MG Oral Tablet 10/13/2023 Unknown ORAL DIRECT ED 100 MILLIGRA MS 732036 RxNorm TAKE 100 MILLIGRAMS ORAL DIRECTED Spironolactone 25MG Oral Tablet 10/13/2023 Unknown ORAL TWICE A DAY 25 MILLIGRA MS 714632 RxNorm TAKE 25 MILLIGRAMS ORAL TWICE A DAY buPROPion HCl 300MG Oral Tablet, Extended Release, 24 HR 10/13/2023 Unknown ORAL ONCE A DAY 300 MILLIGRA MS 444563 RxNorm TAKE 300 MILLIGRAMS ORAL ONCE A DAY clonazePAM 1MG Oral Tablet 10/13/2023 Unknown ORAL TWICE A DAY 1 MILLIGRA MS 779170 RxNorm TAKE 1 MILLIGRAMS ORAL TWICE A DAY hydrOXYzine HCl 25MG Oral Tablet 10/13/2023 Unknown ORAL NEEDED TWICE A DAY 25 MILLIGRA MS 926754 RxNorm TAKE 25 MILLIGRAMS ORAL NEEDED TWICE A DAY rOPINIRole HCl 2MG Oral Tablet 10/13/2023 Unknown ORAL ONCE A DAY 2 MILLIGRA MS 978188 RxNorm TAKE 2 MILLIGRAMS ORAL ONCE A DAY Protonix 40 MG Oral Tablet, Delayed Release 10/13/2023 Unknown BY MOUTH TWICE A DAY 1 TABLET 784604 RxNorm TAKE 1 TABLET BY MOUTH TWICE A DAY HYDROcodone bitartrate-acetami nophen 7.5MG-325MG Oral Tablet 07/01/2024 Unknown BY MOUTH NEEDED EVERY 6 HOURS 1 TABLET 916992 RxNorm TAKE 1 TABLET BY MOUTH NEEDED EVERY 6 HOURS FOR PAIN Cyclobenzaprine 10MG Oral Tablet 07/01/2024 Unknown ORAL NEEDED TWICE A DAY 10 MILLIGRA MS 699804 RxNorm TAKE 10 MILLIGRAMS ORAL NEEDED TWICE A DAY Fenofibrate 54MG Oral Tablet 07/01/2024 Unknown ORAL ONCE A DAY 54 MILLIGRA MS 267731 RxNorm TAKE 54 MILLIGRAMS ORAL ONCE A DAY Hair, Skin & Nails Oral Capsule, Liquid Filled 07/01/2024 Unknown ORAL ONCE A DAY 1 unit(s) RxNorm TAKE 1 EACH ORAL ONCE A DAY Lisinopril 2.5MG Oral Tablet 07/01/2024 Unknown ORAL ONCE A DAY 2.5 MILLIGRA MS 884431 RxNorm TAKE 2.5 MILLIGRAMS ORAL ONCE A DAY Probiotic 1 Billion CFU Oral Capsule 07/01/2024 Unknown ORAL ONCE A DAY 1 Billion CFU RxNorm TAKE 1 Billion CFU ORAL ONCE A DAY Rybelsus 14MG Oral Tablet 07/01/2024 Unknown ORAL ONCE A DAY 14 MILLIGRA MS 8500558 RxNorm TAKE 14 MILLIGRAMS ORAL ONCE A [...] Active UMBILICAL HERNIA REPAIR WITH MESH 07/01 [id number] 11/16/[address] 4289911 Allergies and Adverse Reactions Allergy Substance Reaction Severity Start Date Concern Status Code Code System CEPHALEXIN Hives (SNOMED-CT: 796795176) Active 2231 RxNorm FOLIC ACID Rash (SNOMED-CT: 692403992) Active 4511 RxNorm FOLIC ACID Rash (SNOMED-CT: 235092455) Active 4511 RxNorm METHOTREXATE NAUSEA/BLISTER S (SNOMED-CT: null) Active 6851 RxNorm METHOTREXATE Hives (SNOMED-CT: 989093054) Active 6851 RxNorm ADHESIVE Rash (SNOMED-CT: 692319858) Active PREGABALIN Swelling (SNOMED-CT: 75566649) Active 601771 RxNorm PREGABALIN Swelling (SNOMED-CT: 61576529) Active 850645 RxNorm KEFLEX Hives (SNOMED-CT: 963355325) Active 597077 RxNorm CONTRAST MEDIA, IODINE RELATED Active 978024844 SNOMED-CT CONTRAST MEDIA, IODINE RELATED Active 405898952 SNOMED-CT Plan of Treatment CT Chest/Lung W Contrast (52930) 2024 Encounters Encounter Diagnosis Start Date Code Code Sys tem Essential (primary) hypertension 07/17/2023 SNOMED-CT Personal Care Team Section Performer Name Performer Role Active Date Inactive Da HARDY Rivas PCP - Primary care physician 2021-12-27 2022-03-04 Alejandro Anguiano PCP - Primary care physician 2022-03-04
--- OUTSIDE RECORDS SUMMARY | 2024-09-16 18:18 | XMS_ITS ---
Author Organization Unknown Address [address] [place] [address] [phone] Phone Care Team Providers Care Director Of Automation Name Role Phone GENEVIEVE Kidd [employer] Team Member Surgeon Unavailable OSMAN Goncalves Attending Unavailable BRANDI [...] 205 CVX Pneumococcal conjugate PCV20 , polysaccharide [id number] conjugate, adjuvant, PF 06/21/2023 Completed 216 CVX RSV, recombinant, protein subunit RSVpreF, adjuvant reconstituted, 0.5 mL, PF 04/18/2023 Completed 303 CV X Social History Type Status Start Date End Date Code Code Syst em Smoking History Current every day smoker [id number] SNOMED CT Sex Female Vital Signs Vital Sign Value Unit Mcminn Value Mcminn Unit Date/Time Recent/Initial? Code Code System Body Mass Index 33.99 kg/m2 07/01/2024 08:36 Most Recent 69323 -5 [facility] Body Mass Index 33.99 kg/m2 06/21/2024 12:56 Initial 09130 -5 [facility] Systolic Blood Pressure 114 mm[Hg] 07/01/2024 08:36 Initial 8480- 6 [facility] Diastolic Blood Pressure 71 mm[Hg] 07/01/2024 08:36 Initial 8462- 4 [facility] Body Surface Area 2.16 m2 07/01/2024 08:36 Most Recent 3140- 1 [facility] Body Surface Area 2.16 m2 06/21/2024 12:56 Initial 3140- 1 [facility] Height 170.180 0 cm 67.00 in 07/01/2024 08:36 Most Recent 8302- 2 INC Height 170.180 0 cm 67.00 in 06/21/2024 12:56 Initial 8302- 2 [facility] O2 Saturation 98 % 2024 08:36 Initial 62505 -5 [facility] Pulse 100.0 /min 07/01/2024 08:36 Initial 8867- 4 [facility] Respiration 18 /min 07/01/19 25 08:36 Initial 9279- 1 [facility] Temperature 36.2 Chiqui 97.1 F 07/01/19 25 08:36 Initial 8310- 5 INC Weight 98.43 kg 217.00 lbs 07/01/2024 08:36 Most Recent 51530 -7 [facility] Weight 98.43 kg 217.00 lbs 06/21/2024 12:56 Initial 67665 -7 [facility] Medications Medication Start Date End Date Route Frequency Dose Code Code System Medication Instructions Home Meds Albuterol Sulfate 0.09MG/1Actuation Inhalation Suspension 10/13/2023 Unknown INHALATION THREE TIMES A DAY 2 unit(s) 6070926 RxNorm 2 EACH INHALATION THREE TIMES A DAY Atorvastatin Calcium 40MG Oral Tablet 10/13/2023 Unknown ORAL AT BEDTIM E 40 MILLIGRA MS 061304 RxNorm TAKE 40 MILLIGRAMS ORAL AT BEDTIME Biotin 5 MG Oral Tablet 10/13/2023 Unknown ORAL ONCE A DAY 5 MG 172985 RxNorm TAKE 5 MG ORAL ONCE A DAY Bumetanide 1MG Oral Tablet 10/13/2023 Unknown ORAL TWICE A DAY 1 MILLIGRA MS 004396 RxNorm TAKE 1 MILLIGRAMS ORAL TWICE A DAY Estradiol 0.25MG/1Packet Transdermal Gel/Jelly 10/13/2023 Unknown TRANSDERMAL DIRECT ED 1 unit(s) 1865334 RxNorm APPLY TO 1 EACH TRANSDERMAL DIRECTED Fluticasone 0.05MG/1Actuation Nasal [place] 10/13/2023 Unknown NASAL ONCE A DAY 1 unit(s) 6880764 RxNorm 1 EACH NASAL ONCE A DAY HYDROcodone bitartrate-acetami nophen 10MG-325MG Oral Tablet 10/13/2023 Unknown ORAL THREE TIMES A DAY 1 unit(s) 471334 RxNorm TAKE 1 EACH ORAL THREE TIMES A DAY Lantus 100U/1ML Subcutaneous Solution 10/13/2023 Unknown SUBCUTANEOU S AT BEDTIM E 46 unit(s) 071178 RxNorm INJECT INTO 46 EACH SUBCUTANEOU S AT BEDTIME NovoLOG FlexPen 100U/1ML Subcutaneous Solution 10/13/2023 Unknown SUBCUTANEOU S BEFORE MEALS AND AT BEDTIM E 1 unit(s) 4095419 RxNorm INJECT INTO 1 EACH SUBCUTANEOU S BEFORE MEALS AND AT BEDTIME Ondansetron HCl 4MG Oral Tablet 10/13/2023 Unknown ORAL DIRECT ED 4 MILLIGRA MS 510219 RxNorm TAKE 4 MILLIGRAMS ORAL DIRECTED SUMAtriptan Succinate 100MG Oral Tablet 10/13/2023 Unknown ORAL DIRECT ED 100 MILLIGRA MS 747598 RxNorm TAKE 100 MILLIGRAMS ORAL DIRECTED Spironolactone 25MG Oral Tablet 10/13/2023 Unknown ORAL TWICE A DAY 25 MILLIGRA MS 176229 RxNorm TAKE 25 MILLIGRAMS ORAL TWICE A DAY buPROPion HCl 300MG Oral Tablet, Extended Release, 24 HR 10/13/2023 Unknown ORAL ONCE A DAY 300 MILLIGRA MS 598046 RxNorm TAKE 300 MILLIGRAMS ORAL ONCE A DAY clonazePAM 1MG Oral Tablet 10/13/2023 Unknown ORAL TWICE A DAY 1 MILLIGRA MS 397412 RxNorm TAKE 1 MILLIGRAMS ORAL TWICE A DAY hydrOXYzine HCl 25MG Oral Tablet 10/13/2023 Unknown ORAL NEEDED TWICE A DAY 25 MILLIGRA MS 438704 RxNorm TAKE 25 MILLIGRAMS ORAL NEEDED TWICE A DAY rOPINIRole HCl 2MG Oral Tablet 10/13/2023 Unknown ORAL ONCE A DAY 2 MILLIGRA MS 115782 RxNorm TAKE 2 MILLIGRAMS ORAL ONCE A DAY Protonix 40 MG Oral Tablet, Delayed Release 10/13/2023 Unknown BY MOUTH TWICE A DAY 1 TABLET 067748 RxNorm TAKE 1 TABLET BY MOUTH TWICE A DAY HYDROcodone bitartrate-acetami nophen 7.5MG-325MG Oral Tablet 07/01/2024 Unknown BY MOUTH NEEDED EVERY 6 HOURS 1 TABLET 412552 RxNorm TAKE 1 TABLET BY MOUTH NEEDED EVERY 6 HOURS FOR PAIN Cyclobenzaprine 10MG Oral Tablet 07/01/2024 Unknown ORAL NEEDED TWICE A DAY 10 MILLIGRA MS 840386 RxNorm TAKE 10 MILLIGRAMS ORAL NEEDED TWICE A DAY Fenofibrate 54MG Oral Tablet 07/01/2024 Unknown ORAL ONCE A DAY 54 MILLIGRA MS 710114 RxNorm TAKE 54 MILLIGRAMS ORAL ONCE A DAY Hair, Skin & Nails Oral Capsule, Liquid Filled 07/01/2024 Unknown ORAL ONCE A DAY 1 unit(s) RxNorm TAKE 1 EACH ORAL ONCE A DAY Lisinopril 2.5MG Oral Tablet 07/01/2024 Unknown ORAL ONCE A DAY 2.5 MILLIGRA MS 947201 RxNorm TAKE 2.5 MILLIGRAMS ORAL ONCE A DAY Probiotic 1 Billion CFU Oral Capsule 07/01/2024 Unknown ORAL ONCE A DAY 1 Billion CFU RxNorm TAKE 1 Billion CFU ORAL ONCE A DAY Rybelsus 14MG Oral Tablet 07/01/2024 Unknown ORAL ONCE A DAY 14 MILLIGRA MS 2714405 RxNorm TAKE 14 MILLIGRAMS ORAL ONCE A [...] hernia(s) (ie, epigastric, incisional, ventra 07/01/2024 completed 38786 C PT Repair of anterior abdominal hernia(s) (ie, epigastric, incisional, ventra 07/01/2024 completed 52756 C PT Anesthesia for intraperitone al procedures in upper abdomen including lapar 07/01/2024 completed 31446 CP T Implants Implanted KESHAWN Status Assigning Authority Procedure Date Lot Number Serial Number Manufacturing Date Expiration Date Distinct ID Code Brand Name Model Number ETHICON SECURESTRA P ABSORBABLE STRAP FIXATION DEVICE Active UMBILICAL HERNIA REPAIR WITH MESH 07/01 UBMUTA STRAP 25 06/21/2025 ETHICO N SECURE STRAP [address] Hernia Patch Active UMBILICAL HERNIA REPAIR WITH MESH 07/01 [id number] 7 [id number] 11/16/[address] 8017772 Allergies and Adverse Reactions Allergy Substance Reaction Severity Start Date Concern Status Code Code System CEPHALEXIN Hives (SNOMED-CT: 367997449) Active 2231 RxNorm FOLIC ACID Rash (SNOMED-CT: 488693946) Active 4511 RxNorm FOLIC ACID Rash (SNOMED-CT: 585129731) Active 4511 RxNorm METHOTREXATE NAUSEA/BLISTER S (SNOMED-CT: null) Active 6851 RxNorm METHOTREXATE Hives (SNOMED-CT: 736763059) Active 6851 RxNorm ADHESIVE Rash (SNOMED-CT: 273656700) Active PREGABALIN Swelling (SNOMED-CT: 55808924) Active 563074 RxNorm PREGABALIN Swelling (SNOMED-CT: 52937632) Active 046321 RxNorm KEFLEX Hives (SNOMED-CT: 331410462) Active 790687 RxNorm CONTRAST MEDIA, IODINE RELATED Active 072460622 SNOMED-CT CONTRAST MEDIA, IODINE RELATED Active 406934608 SNOMED-CT Plan of Treatment CT Chest/Lung W Contrast (87634) 2024 Encounters Encounter Diagnosis Start Date Code Code Sys tem Umbilical hernia with obstruction, without gangrene SNOMED-CT Personal Care Team Section Performer Name Performer Role Active Date Inactive HARDY Norris PCP - Primary care physician 2021-12-27 2022-03-04 Alejandro Anguiano PCP - Primary care physician 2022-03-04
--- OUTSIDE RECORDS SUMMARY | 2024-09-16 18:18 | XMS_ITS ---
Author Organization Unknown Address [address] [place] [address] [phone] Phone Care Team Providers Care Darkroom Worker Name Role Phone DENIA DAVILA Attending Unavailable [...] 205 CVX Pneumococcal conjugate PCV20 , polysaccharide [id number] conjugate, adjuvant, PF 06/21/2023 Completed 216 CVX RSV, recombinant, protein subunit RSVpreF, adjuvant reconstituted, 0.5 mL, PF 04/18/2023 Completed 303 CV X Results MICROALBUMIN - Collect Date/ Time: 09/28/2023 10:07 [facility] ID: [id number] [place], [place], [id number] LOINC: 72060-3 Test Value Unit Reference Range Code Code System Flag MICROALBUMIN 674.0 mg/L L=0.0 H=16.7 69021-9 LOINC H UR CREATININE 80.00 mg/dL L=30.00 H=125 1-8 LOINC MA/CR 842.5 mg/gCR MEDICAL PROFESSIONAL PROFILE (11) - Collect Date/Time: 09/28/2023 10:07 [facility] ID: [id number] [place], [place], [phone] LOINC: Test Value Unit Reference Range Code Code System Flag Creatinine 75.4 20.0-300.0 2161-8 LOINC Amphetamines, Urine Negative Yatnfj=6843 25366-7 LOINC Barbiturate Negative Hcvhpk=847 3377-9 LOINC Benzodiazepines Negative Fzgxph=919 52548-9 LOINC Cannabinoids Negative Cutoff=20 55800-2 LOINC Cocaine (Metabolite) Negative Pijwib=732 3393-6 LOINC Opiates See Final Results Ykklnd=126 63516-6 LOINC Oxycodone/Oxymorphone, Urine Negative Ncigrs=218 82324-7 LOINC Phencyclidine Negative Cutoff=25 3936-2 LOINC Methadone Negative Vecvor=187 3773-9 LOINC Propoxyphene Negative Jmbzrx=363 53625-7 LOINC Meperidine Negative Qbhywm=803 3746-5 LOINC Ethanol, Urine Negative Cutoff=0.020 5645-7 LOINC Opiates WILL FOLLOW 10761-0 LOINC Codeine WILL FOLLOW 3507-1 LOINC Codeine Conf, MS, UR WILL FOLLOW 45774-2 LOINC Morphine WILL FOLLOW 3830-7 LOINC Morphine Conf, MS, UR WILL FOLLOW 76747-0 LOINC Hydromorphone WILL FOLLOW 9834-3 LOINC Hydromorphone Conf, MS,UR WILL FOLLOW 63528-0 LOINC Hydrocodone WILL FOLLOW 43470-3 LOINC Hydrocodone Conf, MS, UR WILL FOLLOW 81056-8 LOINC Opiates Positive Tzveed=484 05568-4 LOINC A Codeine Negative Cksbxd=432 3507-1 LOINC Morphine Negative Qwdaqe=697 3830-7 LOINC Hydromorphone Negative Tccqfa=886 9834-3 LOINC Hydrocodone Positive 09247-0 LOINC A Hydrocodone Conf, MS, UR 2254 Nbwons=793 57286-4 LOINC HEMOGLOBIN A1C WITH eAG - Co llect Date/Time: 09/28/2023 10:03 [facility] ID: [id number] [place], [id number] LOINC: 4548-4 Test Value Unit Reference Range Code Code System Flag HGBA1C 8.7 % 8-4 LOINC eAG 203.0 mg/dL 4548-4 [facility] L - Collect Date/Time: 09/28/2023 10:03 [facility] ID: [id number] [place], [place], [id number] LOINC: 03501-2 Test Value Unit Reference Range Code Code System Flag FASTING YES BUN 20 mg/dL L=7 H=20 3094-0 LOINC CREATININE 0.90 mg/dL L=0.52 H=1.04 2160-0 LOINC GLUCOSE 64 mg/dL L=74 H=106 2345-7 LOINC L SODIUM 142 mmol/L L=132 H=144 2951-2 LOINC POTASSIUM 3.7 mmol/L L=3.5 H=5.1 2823-3 LOINC CHLORIDE 103 mmol/L L=98 H=107 2075-0 LOINC CO2 24.0 mmol/L L=22.0 H=30.0 2028-9 LOINC ANION GAP 19 L=10 H=20 09263-0 LOINC OSMOLALITY 295 mOs/kG L=280 H=296 68958-3 LOINC BUN/CREAT 22.2 3097-3 LOINC CALCIUM 9.7 mg/dL L=8.3 H=10.5 04570-7 LOINC AST 29 U/L L=15 H=46 1920-8 LOINC ALT 25 U/L L=9 H=72 1742-6 LOINC ALKALINE PHOS 83 U/L L=38 H=126 6768-6 LOINC TOTAL BILI 0.3 mg/dL L=0.2 H=1.3 1975-2 LOINC ALBUMIN 4.9 G/dL L=3.5 H=5.0 1751-7 LOINC TOTAL PROTEIN 8.7 g/L L=6.3 H=8.2 2885-2 LOINC H A/G RATIO 1.3 99053-0 LOINC AGE 63 03173-9 LOINC eGFR NON-AFR 68 ml/min eGFR AFR AMER 82 ml/min HEPATITIS C AB (HCV Ab) - Co llect Date/Time: 09/28/2023 10:03 [facility] ID: [id number] [address] [place] [address], [phone] LOINC: 73309-6 Test Value Unit Reference Range Code Code System Flag Hep C Virus Ab Non Reactive Non Reactive 81153-9 LOINC SEND TO IFC? NO LIPID PANEL - Collect Date/T russ: 09/28/2023 10:03 [facility] ID: [id number] [address], [phone] LOINC: 98160-3 Test Value Unit Reference Range Code Code System Flag FASTING YES CHOLESTEROL 164 mg/dL L=0 H=200 2093-3 LOINC TRIGLYCERIDE 245 mg/dL L=0 H=150 2571-8 LOINC H HDL 35 mg/dL L=40 H=60 2085-9 LOINC L LDL 105 mg/dL 9-1 LOINC Social History Type Status Start Date End Date Code Code Syst em Smoking History Current every day smoker [id number] SNOMED CT Sex Female Medications Medication Start Date End Date Route Frequency Dose Code Code System Medication Instructions Home Meds Albuterol Sulfate 0.09MG/1Actuation Inhalation Suspension 10/13/2023 Unknown INHALATION THREE TIMES A DAY 2 unit(s) 4782775 RxNorm 2 EACH INHALATION THREE TIMES A DAY Atorvastatin Calcium 40MG Oral Tablet 10/13/2023 Unknown ORAL AT BEDTIM E 40 MILLIGRA MS 814051 RxNorm TAKE 40 MILLIGRAMS ORAL AT BEDTIME Biotin 5 MG Oral Tablet 10/13/2023 Unknown ORAL ONCE A DAY 5 MG RxNorm TAKE 5 MG ORAL ONCE A DAY Bumetanide 1MG Oral Tablet 10/13/2023 Unknown ORAL TWICE A DAY 1 MILLIGRA MS 722744 RxNorm TAKE 1 MILLIGRAMS ORAL TWICE A DAY Coconut Oil Oil 10/13/2023 06/21/19 ROUTE NOT APPLICABLE ONCE A DAY 1 unit(s) RxNorm 1 EACH ROUTE NOT APPLICABLE ONCE A DAY Cyclobenzaprine 10MG Oral Tablet 10/13/2023 06/21/19 ORAL TWICE A DAY 10 MILLIGRA MS 522047 RxNorm TAKE 10 MILLIGRAMS ORAL TWICE A DAY Estradiol 0.25MG/1Packet Transdermal Gel/Jelly 10/13/2023 Unknown TRANSDERMAL DIRECT ED 1 unit(s) 4579466 RxNorm APPLY TO 1 EACH TRANSDERMAL DIRECTED Fluticasone 0.05MG/1Actuation Nasal [place] 10/13/2023 Unknown NASAL ONCE A DAY 1 unit(s) 1685047 RxNorm 1 EACH NASAL ONCE A DAY HYDROcodone bitartrate-acetami nophen 10MG-325MG Oral Tablet 10/13/2023 Unknown ORAL THREE TIMES A DAY 1 unit(s) 454694 RxNorm TAKE 1 EACH ORAL THREE TIMES A DAY Lantus 100U/1ML Subcutaneous Solution 10/13/2023 Unknown SUBCUTANEOU S AT BEDTIM E 46 unit(s) 158150 RxNorm INJECT INTO 46 EACH SUBCUTANEOU S AT BEDTIME NovoLOG FlexPen 100U/1ML Subcutaneous Solution 10/13/2023 Unknown SUBCUTANEOU S BEFORE MEALS AND AT BEDTIM E 1 unit(s) 6808073 RxNorm INJECT INTO 1 EACH SUBCUTANEOU S BEFORE MEALS AND AT BEDTIME Ondansetron HCl 4MG Oral Tablet 10/13/2023 Unknown ORAL DIRECT ED 4 MILLIGRA MS 833304 RxNorm TAKE 4 MILLIGRAMS ORAL DIRECTED Rybelsus 3MG Oral Tablet 10/13/2023 06/21/19 25 ORAL ONCE A DAY 7 MILLIGRA MS 4881165 RxNorm TAKE 7 MILLIGRAMS ORAL ONCE A DAY SUMAtriptan Succinate 100MG Oral Tablet 10/13/2023 Unknown ORAL DIRECT ED 100 MILLIGRA MS 578504 RxNorm TAKE 100 MILLIGRAMS ORAL DIRECTED Spironolactone 25MG Oral Tablet 10/13/2023 Unknown ORAL TWICE A DAY 25 MILLIGRA MS 078719 RxNorm TAKE 25 MILLIGRAMS ORAL TWICE A DAY buPROPion HCl 300MG Oral Tablet, Extended Release, 24 HR 10/13/2023 Unknown ORAL ONCE A DAY 300 MILLIGRA MS 696476 RxNorm TAKE 300 MILLIGRAMS ORAL ONCE A DAY clonazePAM 1MG Oral Tablet 10/13/2023 Unknown ORAL TWICE A DAY 1 MILLIGRA MS 403629 RxNorm TAKE 1 MILLIGRAMS ORAL TWICE A DAY hydrOXYzine HCl 25MG Oral Tablet 10/13/2023 Unknown ORAL NEEDED TWICE A DAY 25 MILLIGRA MS 465672 RxNorm TAKE 25 MILLIGRAMS ORAL NEEDED TWICE A DAY rOPINIRole HCl 2MG Oral Tablet 10/13/2023 Unknown ORAL ONCE A DAY 2 MILLIGRA MS 769911 RxNorm TAKE 2 MILLIGRAMS ORAL ONCE A DAY Protonix 40 MG Oral Tablet, Delayed Release 10/13/2023 Unknown BY MOUTH TWICE A DAY 1 TABLET 155624 RxNorm TAKE 1 TABLET BY MOUTH TWICE A DAY HYDROcodone bitartrate-acetami nophen 7.5MG-325MG Oral Tablet 07/01/2024 Unknown BY MOUTH NEEDED EVERY 6 HOURS 1 TABLET 570663 RxNorm TAKE 1 TABLET BY MOUTH NEEDED EVERY 6 HOURS FOR PAIN Cyclobenzaprine 10MG Oral Tablet 07/01/2024 Unknown ORAL NEEDED TWICE A DAY 10 MILLIGRA MS 183796 RxNorm TAKE 10 MILLIGRAMS ORAL NEEDED TWICE A DAY Fenofibrate 54MG Oral Tablet 07/01/2024 Unknown ORAL ONCE A DAY 54 MILLIGRA MS 230055 RxNorm TAKE 54 MILLIGRAMS ORAL ONCE A DAY Hair, Skin & Nails Oral Capsule, Liquid Filled 07/01/2024 Unknown ORAL ONCE A DAY 1 unit(s) RxNorm TAKE 1 EACH ORAL ONCE A DAY Lisinopril 2.5MG Oral Tablet 07/01/2024 Unknown ORAL ONCE A DAY 2.5 MILLIGRA MS 695590 RxNorm TAKE 2.5 MILLIGRAMS ORAL ONCE A DAY Probiotic 1 Billion CFU Oral Capsule 07/01/2024 Unknown ORAL ONCE A DAY 1 Billion CFU RxNorm TAKE 1 Billion CFU ORAL ONCE A DAY Rybelsus 14MG Oral Tablet 07/01/2024 Unknown ORAL ONCE A DAY 14 MILLIGRA MS 8467987 RxNorm TAKE 14 MILLIGRAMS ORAL ONCE A [...] Active UMBILICAL HERNIA REPAIR WITH MESH 07/01 [id number] 7 4580984 11/16/[address] 1840471 Allergies and Adverse Reactions Allergy Substance Reaction Severity Start Date Concern Status Code Code System CEPHALEXIN Hives (SNOMED-CT: 538426855) Active 2231 RxNorm FOLIC ACID Rash (SNOMED-CT: 860306845) Active 4511 RxNorm FOLIC ACID Rash (SNOMED-CT: 442969461) Active 4511 RxNorm METHOTREXATE NAUSEA/BLISTER S (SNOMED-CT: null) Active 6851 RxNorm METHOTREXATE Hives (SNOMED-CT: 629814155) Active 6851 RxNorm ADHESIVE Rash (SNOMED-CT: 253507828) Active PREGABALIN Swelling (SNOMED-CT: 66848090) Active 319324 RxNorm PREGABALIN Swelling (SNOMED-CT: 10883680) Active 318358 RxNorm KEFLEX Hives (SNOMED-CT: 533414963) Active 478324 RxNorm CONTRAST MEDIA, IODINE RELATED Active 785438606 SNOMED-CT CONTRAST MEDIA, IODINE RELATED Active 603497286 SNOMED-CT Plan of Treatment CT Chest/Lung W Contrast (71765) 2024 Encounters Encounter Diagnosis Start Date Code Code Sys tem Type 2 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
--- OUTSIDE RECORDS SUMMARY | 2024-09-16 18:18 | XMS_ITS ---
Author Organization Unknown Address [address] [place] [address] [phone] Phone Care Team Providers Care Roll Edge Machine Operator Name Role Phone LESLIE Guillen Attending Unavailable [...] 205 CVX Pneumococcal conjugate PCV20 , polysaccharide [id number] conjugate, adjuvant, PF 06/21/2023 Completed 216 CVX RSV, recombinant, protein subunit RSVpreF, adjuvant reconstituted, 0.5 mL, PF 04/18/2023 Completed 303 CV X Social History Type Status Start Date End Date Code Code Syst em Smoking History Current every day smoker [id number] SNOMED CT Sex Female Medications Medication Start Date End Date Route Frequency Dose Code Code System Medication Instructions Home Meds Albuterol Sulfate 0.09MG/1Actuation Inhalation Suspension 10/13/2023 Unknown INHALATION THREE TIMES A DAY 2 unit(s) 7151016 RxNorm 2 EACH INHALATION THREE TIMES A DAY Atorvastatin Calcium 40MG Oral Tablet 10/13/2023 Unknown ORAL AT BEDTIM E 40 MILLIGRA MS 914924 RxNorm TAKE 40 MILLIGRAMS ORAL AT BEDTIME Biotin 5 MG Oral Tablet 10/13/2023 Unknown ORAL ONCE A DAY 5 MG 352784 RxNorm TAKE 5 MG ORAL ONCE A DAY Bumetanide 1MG Oral Tablet 10/13/2023 Unknown ORAL TWICE A DAY 1 MILLIGRA MS 882711 RxNorm TAKE 1 MILLIGRAMS ORAL TWICE A DAY Coconut Oil Oil 10/13/2023 06/21/19 25 ROUTE NOT APPLICABLE ONCE A DAY 1 unit(s) RxNorm 1 EACH ROUTE NOT APPLICABLE ONCE A DAY Cyclobenzaprine 10MG Oral Tablet 10/13/2023 06/21/19 25 ORAL TWICE A DAY 10 MILLIGRA MS 792528 RxNorm TAKE 10 MILLIGRAMS ORAL TWICE A DAY Estradiol 0.25MG/1Packet Transdermal Gel/Jelly 10/13/2023 Unknown TRANSDERMAL DIRECT ED 1 unit(s) 6054544 RxNorm APPLY TO 1 EACH TRANSDERMAL DIRECTED Fluticasone 0.05MG/1Actuation Nasal [place] 10/13/2023 Unknown NASAL ONCE A DAY 1 unit(s) 8732174 RxNorm 1 EACH NASAL ONCE A DAY HYDROcodone bitartrate-acetami nophen 10MG-325MG Oral Tablet 10/13/2023 Unknown ORAL THREE TIMES A DAY 1 unit(s) 608266 RxNorm TAKE 1 EACH ORAL THREE TIMES A DAY Lantus 100U/1ML Subcutaneous Solution 10/13/2023 Unknown SUBCUTANEOU S AT BEDTIM E 46 unit(s) 304087 RxNorm INJECT INTO 46 EACH SUBCUTANEOU S AT BEDTIME NovoLOG FlexPen 100U/1ML Subcutaneous Solution 10/13/2023 Unknown SUBCUTANEOU S BEFORE MEALS AND AT BEDTIM E 1 unit(s) 2106099 RxNorm INJECT INTO 1 EACH SUBCUTANEOU S BEFORE MEALS AND AT BEDTIME Ondansetron HCl 4MG Oral Tablet 10/13/2023 Unknown ORAL DIRECT ED 4 MILLIGRA MS 341055 RxNorm TAKE 4 MILLIGRAMS ORAL DIRECTED Rybelsus 3MG Oral Tablet 10/13/2023 06/21/19 25 ORAL ONCE A DAY 7 MILLIGRA MS 8354364 RxNorm TAKE 7 MILLIGRAMS ORAL ONCE A DAY SUMAtriptan Succinate 100MG Oral Tablet 10/13/2023 Unknown ORAL DIRECT ED 100 MILLIGRA MS 738347 RxNorm TAKE 100 MILLIGRAMS ORAL DIRECTED Spironolactone 25MG Oral Tablet 10/13/2023 Unknown ORAL TWICE A DAY 25 MILLIGRA MS 141489 RxNorm TAKE 25 MILLIGRAMS ORAL TWICE A DAY buPROPion HCl 300MG Oral Tablet, Extended Release, 24 HR 10/13/2023 Unknown ORAL ONCE A DAY 300 MILLIGRA MS 764332 RxNorm TAKE 300 MILLIGRAMS ORAL ONCE A DAY clonazePAM 1MG Oral Tablet 10/13/2023 Unknown ORAL TWICE A DAY 1 MILLIGRA MS 715091 RxNorm TAKE 1 MILLIGRAMS ORAL TWICE A DAY hydrOXYzine HCl 25MG Oral Tablet 10/13/2023 Unknown ORAL NEEDED TWICE A DAY 25 MILLIGRA MS 372036 RxNorm TAKE 25 MILLIGRAMS ORAL NEEDED TWICE A DAY rOPINIRole HCl 2MG Oral Tablet 10/13/2023 Unknown ORAL ONCE A DAY 2 MILLIGRA MS 150415 RxNorm TAKE 2 MILLIGRAMS ORAL ONCE A DAY Protonix 40 MG Oral Tablet, Delayed Release 10/13/2023 Unknown BY MOUTH TWICE A DAY 1 TABLET 305273 RxNorm TAKE 1 TABLET BY MOUTH TWICE A DAY HYDROcodone bitartrate-acetami nophen 7.5MG-325MG Oral Tablet 07/01/2024 Unknown BY MOUTH NEEDED EVERY 6 HOURS 1 TABLET 760298 RxNorm TAKE 1 TABLET BY MOUTH NEEDED EVERY 6 HOURS FOR PAIN Cyclobenzaprine 10MG Oral Tablet 07/01/2024 Unknown ORAL NEEDED TWICE A DAY 10 MILLIGRA MS 227247 RxNorm TAKE 10 MILLIGRAMS ORAL NEEDED TWICE A DAY Fenofibrate 54MG Oral Tablet 07/01/2024 Unknown ORAL ONCE A DAY 54 MILLIGRA MS 007338 RxNorm TAKE 54 MILLIGRAMS ORAL ONCE A DAY Hair, Skin & Nails Oral Capsule, Liquid Filled 07/01/2024 Unknown ORAL ONCE A DAY 1 unit(s) RxNorm TAKE 1 EACH ORAL ONCE A DAY Lisinopril 2.5MG Oral Tablet 07/01/2024 Unknown ORAL ONCE A DAY 2.5 MILLIGRA MS 377432 RxNorm TAKE 2.5 MILLIGRAMS ORAL ONCE A DAY Probiotic 1 Billion CFU Oral Capsule 07/01/2024 Unknown ORAL ONCE A DAY 1 Billion CFU RxNorm TAKE 1 Billion CFU ORAL ONCE A DAY Rybelsus 14MG Oral Tablet 07/01/2024 Unknown ORAL ONCE A DAY 14 MILLIGRA MS 8436129 RxNorm TAKE 14 MILLIGRAMS ORAL ONCE A [...] Active UMBILICAL HERNIA REPAIR WITH MESH 07/01 UMHW327 7 2148676 11/16/[address] 9581868 Allergies and Adverse Reactions Allergy Substance Reaction Severity Start Date Concern Status Code Code System CEPHALEXIN Hives (SNOMED-CT: 708650133) Active 2231 RxNorm FOLIC ACID Rash (SNOMED-CT: 821236220) Active 4511 RxNorm FOLIC ACID Rash (SNOMED-CT: 791215922) Active 4511 RxNorm METHOTREXATE NAUSEA/BLISTER S (SNOMED-CT: null) Active 6851 RxNorm METHOTREXATE Hives (SNOMED-CT: 539511230) Active 6851 RxNorm ADHESIVE Rash (SNOMED-CT: 650591175) Active PREGABALIN Swelling (SNOMED-CT: 83925223) Active 263872 RxNorm PREGABALIN Swelling (SNOMED-CT: 78814708) Active 586040 RxNorm KEFLEX Hives (SNOMED-CT: 455373532) Active 926059 RxNorm CONTRAST MEDIA, IODINE RELATED Active 326934373 SNOMED-CT CONTRAST MEDIA, IODINE RELATED Active 563830583 SNOMED-CT Plan of Treatment CT Chest/Lung W Contrast (65430) 2024 Encounters Encounter Diagnosis Start Date Code Code Sys tem Dysphagia 10/19/2023 [id number] SNOMED-CT Personal Care Team Section Performer Name Performer Role Active Date Inactive Da HARDY Rivas PCP - Primary care physician 2021-12-27 2022-03-04 Alejandro Anguiano PCP - Primary care physician 2022-03-04
--- OUTSIDE RECORDS SUMMARY | 2024-09-16 18:18 | XMS_ITS ---
Author Organization Unknown Address [address] [place] [address] [phone] Phone Care Team Providers Care Overhead Distribution Engineer Name Role Phone LESLIE Guillen Attending Unavailable [...] 205 CVX Pneumococcal conjugate PCV20 , polysaccharide [id number] conjugate, adjuvant, PF 06/21/2023 Completed 216 CVX RSV, recombinant, protein subunit RSVpreF, adjuvant reconstituted, 0.5 mL, PF 04/18/2023 Completed 303 CV X Social History Type Status Start Date End Date Code Code Syst em Smoking History Current every day smoker [id number] SNOMED CT Sex Female Medications Medication Start Date End Date Route Frequency Dose Code Code System Medication Instructions Home Meds Albuterol Sulfate 0.09MG/1Actuation Inhalation Suspension 10/13/2023 Unknown INHALATION THREE TIMES A DAY 2 unit(s) 5705059 RxNorm 2 EACH INHALATION THREE TIMES A DAY Atorvastatin Calcium 40MG Oral Tablet 10/13/2023 Unknown ORAL AT BEDTIM E 40 MILLIGRA MS 211841 RxNorm TAKE 40 MILLIGRAMS ORAL AT BEDTIME Biotin 5 MG Oral Tablet 10/13/2023 Unknown ORAL ONCE A DAY 5 MG 058504 RxNorm TAKE 5 MG ORAL ONCE A DAY Bumetanide 1MG Oral Tablet 10/13/2023 Unknown ORAL TWICE A DAY 1 MILLIGRA MS 857557 RxNorm TAKE 1 MILLIGRAMS ORAL TWICE A DAY Coconut Oil Oil 10/13/2023 06/21/19 25 ROUTE NOT APPLICABLE ONCE A DAY 1 unit(s) RxNorm 1 EACH ROUTE NOT APPLICABLE ONCE A DAY Cyclobenzaprine 10MG Oral Tablet 10/13/2023 06/21/19 25 ORAL TWICE A DAY 10 MILLIGRA MS 736708 RxNorm TAKE 10 MILLIGRAMS ORAL TWICE A DAY Estradiol 0.25MG/1Packet Transdermal Gel/Jelly 10/13/2023 Unknown TRANSDERMAL DIRECT ED 1 unit(s) 5793255 RxNorm APPLY TO 1 EACH TRANSDERMAL DIRECTED Fluticasone 0.05MG/1Actuation Nasal [place] 10/13/2023 Unknown NASAL ONCE A DAY 1 unit(s) 4785527 RxNorm 1 EACH NASAL ONCE A DAY HYDROcodone bitartrate-acetami nophen 10MG-325MG Oral Tablet 10/13/2023 Unknown ORAL THREE TIMES A DAY 1 unit(s) 644054 RxNorm TAKE 1 EACH ORAL THREE TIMES A DAY Lantus 100U/1ML Subcutaneous Solution 10/13/2023 Unknown SUBCUTANEOU S AT BEDTIM E 46 unit(s) 104931 RxNorm INJECT INTO 46 EACH SUBCUTANEOU S AT BEDTIME NovoLOG FlexPen 100U/1ML Subcutaneous Solution 10/13/2023 Unknown SUBCUTANEOU S BEFORE MEALS AND AT BEDTIM E 1 unit(s) 2937097 RxNorm INJECT INTO 1 EACH SUBCUTANEOU S BEFORE MEALS AND AT BEDTIME Ondansetron HCl 4MG Oral Tablet 10/13/2023 Unknown ORAL DIRECT ED 4 MILLIGRA MS 286464 RxNorm TAKE 4 MILLIGRAMS ORAL DIRECTED Rybelsus 3MG Oral Tablet 10/13/2023 06/21/19 25 ORAL ONCE A DAY 7 MILLIGRA MS 4786144 RxNorm TAKE 7 MILLIGRAMS ORAL ONCE A DAY SUMAtriptan Succinate 100MG Oral Tablet 10/13/2023 Unknown ORAL DIRECT ED 100 MILLIGRA MS 320787 RxNorm TAKE 100 MILLIGRAMS ORAL DIRECTED Spironolactone 25MG Oral Tablet 10/13/2023 Unknown ORAL TWICE A DAY 25 MILLIGRA MS 100745 RxNorm TAKE 25 MILLIGRAMS ORAL TWICE A DAY buPROPion HCl 300MG Oral Tablet, Extended Release, 24 HR 10/13/2023 Unknown ORAL ONCE A DAY 300 MILLIGRA MS 432286 RxNorm TAKE 300 MILLIGRAMS ORAL ONCE A DAY clonazePAM 1MG Oral Tablet 10/13/2023 Unknown ORAL TWICE A DAY 1 MILLIGRA MS 740826 RxNorm TAKE 1 MILLIGRAMS ORAL TWICE A DAY hydrOXYzine HCl 25MG Oral Tablet 10/13/2023 Unknown ORAL NEEDED TWICE A DAY 25 MILLIGRA MS 787647 RxNorm TAKE 25 MILLIGRAMS ORAL NEEDED TWICE A DAY rOPINIRole HCl 2MG Oral Tablet 10/13/2023 Unknown ORAL ONCE A DAY 2 MILLIGRA MS 242868 RxNorm TAKE 2 MILLIGRAMS ORAL ONCE A DAY Protonix 40 MG Oral Tablet, Delayed Release 10/13/2023 Unknown BY MOUTH TWICE A DAY 1 TABLET 656441 RxNorm TAKE 1 TABLET BY MOUTH TWICE A DAY HYDROcodone bitartrate-acetami nophen 7.5MG-325MG Oral Tablet 07/01/2024 Unknown BY MOUTH NEEDED EVERY 6 HOURS 1 TABLET 020855 RxNorm TAKE 1 TABLET BY MOUTH NEEDED EVERY 6 HOURS FOR PAIN Cyclobenzaprine 10MG Oral Tablet 07/01/2024 Unknown ORAL NEEDED TWICE A DAY 10 MILLIGRA MS 266043 RxNorm TAKE 10 MILLIGRAMS ORAL NEEDED TWICE A DAY Fenofibrate 54MG Oral Tablet 07/01/2024 Unknown ORAL ONCE A DAY 54 MILLIGRA MS 802308 RxNorm TAKE 54 MILLIGRAMS ORAL ONCE A DAY Hair, Skin & Nails Oral Capsule, Liquid Filled 07/01/2024 Unknown ORAL ONCE A DAY 1 unit(s) RxNorm TAKE 1 EACH ORAL ONCE A DAY Lisinopril 2.5MG Oral Tablet 07/01/2024 Unknown ORAL ONCE A DAY 2.5 MILLIGRA MS 847722 RxNorm TAKE 2.5 MILLIGRAMS ORAL ONCE A DAY Probiotic 1 Billion CFU Oral Capsule 07/01/2024 Unknown ORAL ONCE A DAY 1 Billion CFU RxNorm TAKE 1 Billion CFU ORAL ONCE A DAY Rybelsus 14MG Oral Tablet 07/01/2024 Unknown ORAL ONCE A DAY 14 MILLIGRA MS 7354500 RxNorm TAKE 14 MILLIGRAMS ORAL ONCE A [...] Active UMBILICAL HERNIA REPAIR WITH MESH 07/01 [id number] 11/16/[address] 1988887 Allergies and Adverse Reactions Allergy Substance Reaction Severity Start Date Concern Status Code Code System CEPHALEXIN Hives (SNOMED-CT: 357907535) Active 2231 RxNorm FOLIC ACID Rash (SNOMED-CT: 002400946) Active 4511 RxNorm FOLIC ACID Rash (SNOMED-CT: 873485152) Active 4511 RxNorm METHOTREXATE NAUSEA/BLISTER S (SNOMED-CT: null) Active 6851 RxNorm METHOTREXATE Hives (SNOMED-CT: 382264130) Active 6851 RxNorm ADHESIVE Rash (SNOMED-CT: 075149747) Active PREGABALIN Swelling (SNOMED-CT: 32364666) Active 780972 RxNorm PREGABALIN Swelling (SNOMED-CT: 39023913) Active 296751 RxNorm KEFLEX Hives (SNOMED-CT: 158400983) Active 572404 RxNorm CONTRAST MEDIA, IODINE RELATED Active 902756791 SNOMED-CT CONTRAST MEDIA, IODINE RELATED Active 894838939 SNOMED-CT Plan of Treatment CT Chest/Lung W Contrast (37978) 2024 Encounters Encounter Diagnosis Start Date Code Code Sys tem 07/05/2023 [id number] SNOMED-CT Personal Care Team Section Performer Name Performer Role Active Date Inactive Da HARDY Rivas PCP - Primary care physician 2021-12-27 2022-03-04 Alejandro Anguiano PCP - Primary care physician 2022-03-04
--- OUTSIDE RECORDS SUMMARY | 2024-09-16 18:19 | XMS_ITS ---
Author Organization Unknown Address [address] [place] [address] [phone] Phone Care Team Providers Care Spanner Operator Name Role Phone OSWALDO JOAQUIN Attending Unavailable [...] 205 CVX Pneumococcal conjugate PCV20 , polysaccharide [id number] conjugate, adjuvant, PF 06/21/2023 Completed 216 CVX [...] Ravi Houston M.D. AM: AM Report ID: [id number] Reading Location: [id number] Social History Type Status Start Date End Date Code Code Syst em Smoking History Current every day smoker [id number] SNOMED CT Sex Female Medications Medication Start Date End Date Route Frequency Dose Code Code System Medication Instructions Home Meds Albuterol Sulfate 0.09MG/1Actuation Inhalation Suspension 10/13/2023 Unknown INHALATION THREE TIMES A DAY 2 unit(s) 5727707 RxNorm 2 EACH INHALATION THREE TIMES A DAY Atorvastatin Calcium 40MG Oral Tablet 10/13/2023 Unknown ORAL AT BEDTIM E 40 MILLIGRA MS 091774 RxNorm TAKE 40 MILLIGRAMS ORAL AT BEDTIME Biotin 5 MG Oral Tablet 10/13/2023 Unknown ORAL ONCE A DAY 5 MG 498927 RxNorm TAKE 5 MG ORAL ONCE A DAY Bumetanide 1MG Oral Tablet 10/13/2023 Unknown ORAL TWICE A DAY 1 MILLIGRA MS 250818 RxNorm TAKE 1 MILLIGRAMS ORAL TWICE A DAY Coconut Oil Oil 10/13/2023 06/21/19 25 ROUTE NOT APPLICABLE ONCE A DAY 1 unit(s) RxNorm 1 EACH ROUTE NOT APPLICABLE ONCE A DAY Cyclobenzaprine 10MG Oral Tablet 10/13/2023 06/21/19 25 ORAL TWICE A DAY 10 MILLIGRA MS 014715 RxNorm TAKE 10 MILLIGRAMS ORAL TWICE A DAY Estradiol 0.25MG/1Packet Transdermal Gel/Jelly 10/13/2023 Unknown TRANSDERMAL DIRECT ED 1 unit(s) 3157284 RxNorm APPLY TO 1 EACH TRANSDERMAL DIRECTED Fluticasone 0.05MG/1Actuation Nasal [place] 10/13/2023 Unknown NASAL ONCE A DAY 1 unit(s) 6654338 RxNorm 1 EACH NASAL ONCE A DAY HYDROcodone bitartrate-acetami nophen 10MG-325MG Oral Tablet 10/13/2023 Unknown ORAL THREE TIMES A DAY 1 unit(s) 990185 RxNorm TAKE 1 EACH ORAL THREE TIMES A DAY Lantus 100U/1ML Subcutaneous Solution 10/13/2023 Unknown SUBCUTANEOU S AT BEDTIM E 46 unit(s) 609619 RxNorm INJECT INTO 46 EACH SUBCUTANEOU S AT BEDTIME NovoLOG FlexPen 100U/1ML Subcutaneous Solution 10/13/2023 Unknown SUBCUTANEOU S BEFORE MEALS AND AT BEDTIM E 1 unit(s) 6609797 RxNorm INJECT INTO 1 EACH SUBCUTANEOU S BEFORE MEALS AND AT BEDTIME Ondansetron HCl 4MG Oral Tablet 10/13/2023 Unknown ORAL DIRECT ED 4 MILLIGRA MS 820283 RxNorm TAKE 4 MILLIGRAMS ORAL DIRECTED Rybelsus 3MG Oral Tablet 10/13/2023 06/21/19 25 ORAL ONCE A DAY 7 MILLIGRA MS 7992934 RxNorm TAKE 7 MILLIGRAMS ORAL ONCE A DAY SUMAtriptan Succinate 100MG Oral Tablet 10/13/2023 Unknown ORAL DIRECT ED 100 MILLIGRA MS 161734 RxNorm TAKE 100 MILLIGRAMS ORAL DIRECTED Spironolactone 25MG Oral Tablet 10/13/2023 Unknown ORAL TWICE A DAY 25 MILLIGRA MS 282751 RxNorm TAKE 25 MILLIGRAMS ORAL TWICE A DAY buPROPion HCl 300MG Oral Tablet, Extended Release, 24 HR 10/13/2023 Unknown ORAL ONCE A DAY 300 MILLIGRA MS 811746 RxNorm TAKE 300 MILLIGRAMS ORAL ONCE A DAY clonazePAM 1MG Oral Tablet 10/13/2023 Unknown ORAL TWICE A DAY 1 MILLIGRA MS 218714 RxNorm TAKE 1 MILLIGRAMS ORAL TWICE A DAY hydrOXYzine HCl 25MG Oral Tablet 10/13/2023 Unknown ORAL NEEDED TWICE A DAY 25 MILLIGRA MS 645098 RxNorm TAKE 25 MILLIGRAMS ORAL NEEDED TWICE A DAY rOPINIRole HCl 2MG Oral Tablet 10/13/2023 Unknown ORAL ONCE A DAY 2 MILLIGRA MS 863960 RxNorm TAKE 2 MILLIGRAMS ORAL ONCE A DAY Protonix 40 MG Oral Tablet, Delayed Release 10/13/2023 Unknown BY MOUTH TWICE A DAY 1 TABLET 422795 RxNorm TAKE 1 TABLET BY MOUTH TWICE A DAY HYDROcodone bitartrate-acetami nophen 7.5MG-325MG Oral Tablet 07/01/2024 Unknown BY MOUTH NEEDED EVERY 6 HOURS 1 TABLET 158733 RxNorm TAKE 1 TABLET BY MOUTH NEEDED EVERY 6 HOURS FOR PAIN Cyclobenzaprine 10MG Oral Tablet 07/01/2024 Unknown ORAL NEEDED TWICE A DAY 10 MILLIGRA MS 423903 RxNorm TAKE 10 MILLIGRAMS ORAL NEEDED TWICE A DAY Fenofibrate 54MG Oral Tablet 07/01/2024 Unknown ORAL ONCE A DAY 54 MILLIGRA MS 812304 RxNorm TAKE 54 MILLIGRAMS ORAL ONCE A DAY Hair, Skin & Nails Oral Capsule, Liquid Filled 07/01/2024 Unknown ORAL ONCE A DAY 1 unit(s) RxNorm TAKE 1 EACH ORAL ONCE A DAY Lisinopril 2.5MG Oral Tablet 07/01/2024 Unknown ORAL ONCE A DAY 2.5 MILLIGRA MS 581548 RxNorm TAKE 2.5 MILLIGRAMS ORAL ONCE A DAY Probiotic 1 Billion CFU Oral Capsule 07/01/2024 Unknown ORAL ONCE A DAY 1 Billion CFU RxNorm TAKE 1 Billion CFU ORAL ONCE A DAY Rybelsus 14MG Oral Tablet 07/01/2024 Unknown ORAL ONCE A DAY 14 MILLIGRA MS 1794480 RxNorm TAKE 14 MILLIGRAMS ORAL ONCE A [...] Active UMBILICAL HERNIA REPAIR WITH MESH 07/01 [id number] 8289539 11/16/[address] 1282408 Allergies and Adverse Reactions Allergy Substance Reaction Severity Start Date Concern Status Code Code System CEPHALEXIN Hives (SNOMED-CT: 853206716) Active 2231 RxNorm FOLIC ACID Rash (SNOMED-CT: 643655448) Active 4511 RxNorm FOLIC ACID Rash (SNOMED-CT: 354884878) Active 4511 RxNorm METHOTREXATE NAUSEA/BLISTER S (SNOMED-CT: null) Active 6851 RxNorm METHOTREXATE Hives (SNOMED-CT: 197297289) Active 6851 RxNorm ADHESIVE Rash (SNOMED-CT: 531421616) Active PREGABALIN Swelling (SNOMED-CT: 83600769) Active 300316 RxNorm PREGABALIN Swelling (SNOMED-CT: 07820447) Active 460672 RxNorm KEFLEX Hives (SNOMED-CT: 309330781) Active 928410 RxNorm CONTRAST MEDIA, IODINE RELATED Active 446089617 SNOMED-CT CONTRAST MEDIA, IODINE RELATED Active 517181033 SNOMED-CT Plan of Treatment CT Chest/Lung W Contrast (85050) 2024 Encounters Encounter Diagnosis Start Date Code Code Sys tem 07/05/2023 [id number] SNOMED-CT Personal Care Team Section Performer Name Performer Role Active Date Inactive HARDY Norris PCP - Primary care physician 2021-12-27 2022-03-04 Alejandro Anguiano PCP - Primary care physician 2022-03-04 Imaging Narrative Notes
--- OUTSIDE RECORDS SUMMARY | 2024-09-16 18:19 | XMS_ITS ---
Author Organization Unknown Address [address] [place] [address] [phone] Phone Care Team Providers Care Voice Network Administrator Name Role Phone SAMSON VALDEZ Attending Unavailable [...] 205 CVX Pneumococcal conjugate PCV20 , polysaccharide [id number] conjugate, adjuvant, PF 06/21/2023 Completed 216 CVX RSV, recombinant, protein subunit RSVpreF, adjuvant reconstituted, 0.5 mL, PF 04/18/2023 Completed [address] CHEST CA SCREEN - Complet ed: 07/15/2024 12:35 LOINC: \TM00\12PI\DRAo\BM09\ \MRHo\ [place] [id number] [place] [address] ---------NAME--------- NUMBER SEX AGE ADMIT DISC. XRAY# F/C TYPE ILENE SMITH [id number] F 64 07/15/24 07/15/24 21813 MB3 O/P DATE OF : 1960 M/R# [id number] PH#: [phone] \MRx\ LOCATION: TRANSCRIBED: 07/15/24 15:18 CT CHEST CA SCREEN 53096 COMPLETED:07/15/24 12:35 JDF [id number] {REASON-CT CHEST CA SCREEN: former smoker PHYSICIAN: [...] to clinical indication) or iterative reconstruction. HS:Y OR NEWS \ITLo\ \UNDo\ \UNDx\ \ITLx\ Reviewed and Electronically Signed by: Tom Quintanilla MD Signed Date: 07/15/24 15:18 07/15/[email or web address] DENIA HERNANDEZ via Chinese Online Social History Type Status Start Date End Date Code Code Syst em Smoking History Current every day smoker [id number] SNOMED CT Sex Female Medications Medication Start Date End Date Route Frequency Dose Code Code System Medication Instructions Home Meds Albuterol Sulfate 0.09MG/1Actuation Inhalation Suspension 10/13/2023 Unknown INHALATION THREE TIMES A DAY 2 unit(s) 3814977 RxNorm 2 EACH INHALATION THREE TIMES A DAY Atorvastatin Calcium 40MG Oral Tablet 10/13/2023 Unknown ORAL AT BEDTIM E 40 MILLIGRA MS 145754 RxNorm TAKE 40 MILLIGRAMS ORAL AT BEDTIME Biotin 5 MG Oral Tablet 10/13/2023 Unknown ORAL ONCE A DAY 5 MG RxNorm TAKE 5 MG ORAL ONCE A DAY Bumetanide 1MG Oral Tablet 10/13/2023 Unknown ORAL TWICE A DAY 1 MILLIGRA MS 146956 RxNorm TAKE 1 MILLIGRAMS ORAL TWICE A DAY Estradiol 0.25MG/1Packet Transdermal Gel/Jelly 10/13/2023 Unknown TRANSDERMAL DIRECT ED 1 unit(s) 0374152 RxNorm APPLY TO 1 EACH TRANSDERMAL DIRECTED Fluticasone 0.05MG/1Actuation Nasal [place] 10/13/2023 Unknown NASAL ONCE A DAY 1 unit(s) 0410885 RxNorm 1 EACH NASAL ONCE A DAY HYDROcodone bitartrate-acetami nophen 10MG-325MG Oral Tablet 10/13/2023 Unknown ORAL THREE TIMES A DAY 1 unit(s) 591515 RxNorm TAKE 1 EACH ORAL THREE TIMES A DAY Lantus 100U/1ML Subcutaneous Solution 10/13/2023 Unknown SUBCUTANEOU S AT BEDTIM E 46 unit(s) 947945 RxNorm INJECT INTO 46 EACH SUBCUTANEOU S AT BEDTIME NovoLOG FlexPen 100U/1ML Subcutaneous Solution 10/13/2023 Unknown SUBCUTANEOU S BEFORE MEALS AND AT BEDTIM E 1 unit(s) 0131943 RxNorm INJECT INTO 1 EACH SUBCUTANEOU S BEFORE MEALS AND AT BEDTIME Ondansetron HCl 4MG Oral Tablet 10/13/2023 Unknown ORAL DIRECT ED 4 MILLIGRA MS 521297 RxNorm TAKE 4 MILLIGRAMS ORAL DIRECTED SUMAtriptan Succinate 100MG Oral Tablet 10/13/2023 Unknown ORAL DIRECT ED 100 MILLIGRA MS 211541 RxNorm TAKE 100 MILLIGRAMS ORAL DIRECTED Spironolactone 25MG Oral Tablet 10/13/2023 Unknown ORAL TWICE A DAY 25 MILLIGRA MS 115299 RxNorm TAKE 25 MILLIGRAMS ORAL TWICE A DAY buPROPion HCl 300MG Oral Tablet, Extended Release, 24 HR 10/13/2023 Unknown ORAL ONCE A DAY 300 MILLIGRA MS 308485 RxNorm TAKE 300 MILLIGRAMS ORAL ONCE A DAY clonazePAM 1MG Oral Tablet 10/13/2023 Unknown ORAL TWICE A DAY 1 MILLIGRA MS 050294 RxNorm TAKE 1 MILLIGRAMS ORAL TWICE A DAY hydrOXYzine HCl 25MG Oral Tablet 10/13/2023 Unknown ORAL NEEDED TWICE A DAY 25 MILLIGRA MS 382059 RxNorm TAKE 25 MILLIGRAMS ORAL NEEDED TWICE A DAY rOPINIRole HCl 2MG Oral Tablet 10/13/2023 Unknown ORAL ONCE A DAY 2 MILLIGRA MS 829850 RxNorm TAKE 2 MILLIGRAMS ORAL ONCE A DAY Protonix 40 MG Oral Tablet, Delayed Release 10/13/2023 Unknown BY MOUTH TWICE A DAY 1 TABLET 443640 RxNorm TAKE 1 TABLET BY MOUTH TWICE A DAY HYDROcodone bitartrate-acetami nophen 7.5MG-325MG Oral Tablet 07/01/2024 Unknown BY MOUTH NEEDED EVERY 6 HOURS 1 TABLET 637039 RxNorm TAKE 1 TABLET BY MOUTH NEEDED EVERY 6 HOURS FOR PAIN Cyclobenzaprine 10MG Oral Tablet 07/01/2024 Unknown ORAL NEEDED TWICE A DAY 10 MILLIGRA MS 855082 RxNorm TAKE 10 MILLIGRAMS ORAL NEEDED TWICE A DAY Fenofibrate 54MG Oral Tablet 07/01/2024 Unknown ORAL ONCE A DAY 54 MILLIGRA MS 283814 RxNorm TAKE 54 MILLIGRAMS ORAL ONCE A DAY Hair, Skin & Nails Oral Capsule, Liquid Filled 07/01/2024 Unknown ORAL ONCE A DAY 1 unit(s) RxNorm TAKE 1 EACH ORAL ONCE A DAY Lisinopril 2.5MG Oral Tablet 07/01/2024 Unknown ORAL ONCE A DAY 2.5 MILLIGRA MS 649128 RxNorm TAKE 2.5 MILLIGRAMS ORAL ONCE A DAY Probiotic 1 Billion CFU Oral Capsule 07/01/2024 Unknown ORAL ONCE A DAY 1 Billion CFU RxNorm TAKE 1 Billion CFU ORAL ONCE A DAY Rybelsus 14MG Oral Tablet 07/01/2024 Unknown ORAL ONCE A DAY 14 MILLIGRA MS 5345952 RxNorm TAKE 14 MILLIGRAMS ORAL ONCE A [...] Active UMBILICAL HERNIA REPAIR WITH MESH 07/01 [id number] 7 8895524 11/16/[address] 4782410 Allergies and Adverse Reactions Allergy Substance Reaction Severity Start Date Concern Status Code Code System CEPHALEXIN Hives (SNOMED-CT: 329426359) Active 2231 RxNorm FOLIC ACID Rash (SNOMED-CT: 980142936) Active 4511 RxNorm FOLIC ACID Rash (SNOMED-CT: 015144595) Active 4511 RxNorm METHOTREXATE NAUSEA/BLISTER S (SNOMED-CT: null) Active 6851 RxNorm METHOTREXATE Hives (SNOMED-CT: 921492364) Active 6851 RxNorm ADHESIVE Rash (SNOMED-CT: 501868465) Active PREGABALIN Swelling (SNOMED-CT: 34913241) Active 127886 RxNorm PREGABALIN Swelling (SNOMED-CT: 65941125) Active 183902 RxNorm KEFLEX Hives (SNOMED-CT: 929829794) Active 484183 RxNorm CONTRAST MEDIA, IODINE RELATED Active 885591387 SNOMED-CT CONTRAST MEDIA, IODINE RELATED Active 371736389 SNOMED-CT Plan of Treatment CT Chest/Lung W Contrast (73398) 2024 Encounters Encounter Diagnosis Start Date Code Code Sys tem Encounter for screening for malignant neoplasm of respiratory organs 07/15/2024 SNOMED-CT Personal Care Team Section Performer Name Performer Role Active Date Inactive HARDY Norris PCP - Primary care physician 2021-12-27 2022-03-04 Alejandro Anguiano PCP - Primary care physician 2022-03-04 Imaging Narrative Notes [facility] 07/15/2024 15:[address] [address] ---------NAME--------- NUMBER SEX AGE ADMIT DISC. XRAY# F/C TYPE ILENE SMITH [id number] F 64 07/15/24 07/15/24 69188 MB3 O/P DATE OF : 1960 M/R# [id number] PH#: [phone] LOCATION: TRANSCRIBED: 07/15/24 15:18 CT CHEST CA SCREEN 38573 COMPLETED:07/15/24 12:35 [facility] [address] {REASON-CT CHEST CA SCREEN: former smoker PHYSICIAN: [...] to clinical indication) or iterative reconstruction. HS:Y OR NEWS Reviewed and Electronically Signed by: Tom Quintanilla MD Signed Date: 07/15/24 15:18 07/15/[email or web address] DENIA HERNANDEZ via modem
--- OUTSIDE RECORDS SUMMARY | 2024-09-16 18:19 | XMS_ITS ---
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 Name Role Phone DENIA HERNANDEZALD Attending Unavailable [...] 205 CVX Pneumococcal conjugate PCV20 , polysaccharide [id number] conjugate, adjuvant, PF 06/21/2023 Completed 216 CVX RSV, recombinant, protein subunit RSVpreF, adjuvant reconstituted, 0.5 mL, PF 04/18/2023 Completed 303 CV X Results CBC W/ DIFF - Collect Date/T russ: 05/23/2024 09:53 [facility] ID: [id number] [address] [place], [place], [id number] LOINC: 77265-6 Test Value Unit Reference Range Code Code System Flag WBC 12.5 10^3uL L=4.8 H=10.8 H RBC 5.17 10^6uL L=4.20 H=5.40 HEMOGLOBIN 14.1 g/dL L=12.0 H=16.0 718-7 LOINC HEMATOCRIT 44.7 VOL% L=37.0 H=47.0 4544-3 LOINC MCV 86.5 fL L=81.0 H=99.0 MCH 27.3 pg L=27.0 H=32.0 MCHC 31.5 g/dL L=32.0 H=36.0 L PLATELETS 326 10^3uL L=100 H=400 52275-9 LOINC RDW 13.9 % L=11.7 H=15.5 %GRAN 78.6 % L=40.0 H=70.0 84037-6 LOINC H %LYMPH 14.9 % L=20.0 H=45.0 736-9 LOINC L %MONO 4.1 % L=2.0 H=10.0 94737-6 LOINC %EOS 1.4 % L=0.0 H=6.0 713-8 LOINC %BASO 0.4 % L=0.0 H=3.0 706-2 LOINC #NEUT 9.8 10^3uL L=1.9 H=7.6 95343-8 LOINC H #LYMPH 1.9 10^3uL L=0.9 H=4.9 72258-2 LOINC #MONO 0.5 10^3uL L=0.1 H=0.9 80533-1 LOINC #EOS 0.2 10^3uL L=0.0 H=0.6 712-0 LOINC #BASO 0.05 10^3uL L=0.00 H=0.10 73063-9 LOINC #IM GRANS 0.1 10^3uL L=0.0 H=7.0 01866-6 LOINC %IM GRANS 0.6 % L=0.0 H=5.0 40371-7 LOINC %NRB 0.0 L=0.0 H=0.2 02830-0 LOINC #NRB 0.000 L=0.000 H=0.012 84208-2 LOINC MANUAL DIFF NOT INDICATED RBC MORPH NOT INDICATED COMPREHENSIVE METABOLIC PANE L - Collect Date/Time: 05/23/2024 09:53 [facility] ID: [id number] [address] [place], [place], [id number] LOINC: 29013-3 Test Value Unit Reference Range Code Code [...] 8-9 LOINC ANION GAP 16 L=10 H=20 65113-8 LOINC OSMOLALITY 295 mOs/kG L=280 H=296 60590-3 LOINC BUN/CREAT 20.0 3097-3 LOINC CALCIUM 9.8 mg/dL L=8.3 H=10.5 53660-3 LOINC AST 28 U/L L=15 H=46 1920-8 LOINC ALT 21 U/L L=9 H=72 1742-6 LOINC ALKALINE PHOS 68 U/L L=38 H=126 6768-6 LOINC TOTAL BILI 0.4 mg/dL L=0.2 H=1.3 1975-2 LOINC ALBUMIN 4.9 G/dL L=3.5 H=5.0 1751-7 LOINC TOTAL PROTEIN 8.4 g/L L=6.3 H=8.2 2885-2 LOINC H A/G RATIO 1.4 10320-5 LOINC AGE 64 87974-7 LOINC eGFR NON-AFR 60 ml/min eGFR AFR AMER 73 ml/min LIPID PANEL - Collect Date/T russ: 05/23/2024 09:53 [facility] ID: [id number] [address] [place] [address], [phone] LOINC: 10553-3 Test Value Unit Reference Range Code Code System Flag FASTING NO CHOLESTEROL 211 mg/dL L=0 H=200 3-3 LOINC H TRIGLYCERIDE 135 mg/dL L=0 H=150 2571-8 LOINC HDL 38 mg/dL L=40 H=60 2084-9 LOINC L LDL 139 mg/dL 2088- LOINC TSH / REFLEX FT4 - Collect D ate/Time: 05/23/2024 09:53 [facility] ID: [id number] [address] [place] [address], [phone] LOINC: Test Value Unit Reference Range Code Code System Flag TSH 0.747 uIU/L L=0.470 H=4.680 72691-7 LOINC HEMOGLOBIN A1C WITH eAG - Co llect Date/Time: 05/23/2024 09:53 [facility] ID: [id number] [address] [place] [address], [id number] LOINC: 4548-4 Test Value Unit Reference Range Code Code System Flag HGBA1C 5.9 % 4548-4 LOINC eAG 122.6 mg/dL 4548-4 LOINC MEDICAL PROFESSIONAL PROFILE (11) - Collect Date/Time: 05/23/2024 09:50 [facility] ID: [id number] [address] [place] [address], [phone] LOINC: Test Value Unit Reference Range Code Code System Flag Creatinine 107.2 20.0-300.0 2161-8 LOINC Amphetamines, Urine Negative Wzsckr=9447 35611-3 LOINC Barbiturate Negative Twcimb=780 3377-9 LOINC Benzodiazepines Negative Yvaohk=669 67698-5 LOINC Cannabinoids Negative Cutoff=20 73633-1 LOINC Cocaine (Metabolite) Negative Jinfgf=017 3393-6 LOINC Ethanol, Urine Negative Cutoff=0.020 5645-7 LOINC Meperidine Negative Tqloth=043 3746-5 LOINC Methadone Negative Mfgdkv=349 3773-9 LOINC Opiates See Final Results Sytvok=176 75492-9 LOINC Oxycodone/Oxymorphone, Urine Negative Ufeegi=311 57014-8 LOINC Phencyclidine Negative Cutoff=25 3936-2 LOINC Propoxyphene Negative Zyivfn=332 84211-3 LOINC Opiates WILL FOLLOW 07782-5 LOINC Codeine WILL FOLLOW 3507-1 LOINC Codeine Conf, MS, UR WILL FOLLOW 71004-5 LOINC Morphine WILL FOLLOW 3830-7 LOINC Morphine Conf, MS, UR WILL FOLLOW 34331-0 LOINC Hydromorphone WILL FOLLOW 9834-3 LOINC Hydromorphone Conf, MS,UR WILL FOLLOW 20184-3 LOINC Hydrocodone WILL FOLLOW 22846-7 LOINC Hydrocodone Conf, MS, UR WILL FOLLOW 30832-2 LOINC Opiates Negative Qtufog=445 68030-0 LOINC Social History Type Status Start Date End Date Code Code Syst em Smoking History Current every day smoker 624974616 SNOMED CT Sex Female Medications Medication Start Date End Date Route Frequency Dose Code Code System Medication Instructions Home Meds Albuterol Sulfate 0.09MG/1Actuation Inhalation Suspension 10/13/2023 Unknown INHALATION THREE TIMES A DAY 2 unit(s) 5330334 RxNorm 2 EACH INHALATION THREE TIMES A DAY Atorvastatin Calcium 40MG Oral Tablet 10/13/2023 Unknown ORAL AT BEDTIM E 40 MILLIGRA MS 610856 RxNorm TAKE 40 MILLIGRAMS ORAL AT BEDTIME Biotin 5 MG Oral Tablet 10/13/2023 Unknown ORAL ONCE A DAY 5 MG 450618 RxNorm TAKE 5 MG ORAL ONCE A DAY Bumetanide 1MG Oral Tablet 10/13/2023 Unknown ORAL TWICE A DAY 1 MILLIGRA MS 588304 RxNorm TAKE 1 MILLIGRAMS ORAL TWICE A DAY Coconut Oil Oil 10/13/2023 06/21/19 25 ROUTE NOT APPLICABLE ONCE A DAY 1 unit(s) RxNorm 1 EACH ROUTE NOT APPLICABLE ONCE A DAY Cyclobenzaprine 10MG Oral Tablet 10/13/2023 06/21/19 25 ORAL TWICE A DAY 10 MILLIGRA MS 714988 RxNorm TAKE 10 MILLIGRAMS ORAL TWICE A DAY Estradiol 0.25MG/1Packet Transdermal Gel/Jelly 10/13/2023 Unknown TRANSDERMAL DIRECT ED 1 unit(s) 3900022 RxNorm APPLY TO 1 EACH TRANSDERMAL DIRECTED Fluticasone 0.05MG/1Actuation Nasal [place] 10/13/2023 Unknown NASAL ONCE A DAY 1 unit(s) 9526088 RxNorm 1 EACH NASAL ONCE A DAY HYDROcodone bitartrate-acetami nophen 10MG-325MG Oral Tablet 10/13/2023 Unknown ORAL THREE TIMES A DAY 1 unit(s) 334316 RxNorm TAKE 1 EACH ORAL THREE TIMES A DAY Lantus 100U/1ML Subcutaneous Solution 10/13/2023 Unknown SUBCUTANEOU S AT BEDTIM E 46 unit(s) 653551 RxNorm INJECT INTO 46 EACH SUBCUTANEOU S AT BEDTIME NovoLOG FlexPen 100U/1ML Subcutaneous Solution 10/13/2023 Unknown SUBCUTANEOU S BEFORE MEALS AND AT BEDTIM E 1 unit(s) 1772747 RxNorm INJECT INTO 1 EACH SUBCUTANEOU S BEFORE MEALS AND AT BEDTIME Ondansetron HCl 4MG Oral Tablet 10/13/2023 Unknown ORAL DIRECT ED 4 MILLIGRA MS 033189 RxNorm TAKE 4 MILLIGRAMS ORAL DIRECTED Rybelsus 3MG Oral Tablet 10/13/2023 06/21/19 25 ORAL ONCE A DAY 7 MILLIGRA MS 8617929 RxNorm TAKE 7 MILLIGRAMS ORAL ONCE A DAY SUMAtriptan Succinate 100MG Oral Tablet 10/13/2023 Unknown ORAL DIRECT ED 100 MILLIGRA MS 889570 RxNorm TAKE 100 MILLIGRAMS ORAL DIRECTED Spironolactone 25MG Oral Tablet 10/13/2023 Unknown ORAL TWICE A DAY 25 MILLIGRA MS 404309 RxNorm TAKE 25 MILLIGRAMS ORAL TWICE A DAY buPROPion HCl 300MG Oral Tablet, Extended Release, 24 HR 10/13/2023 Unknown ORAL ONCE A DAY 300 MILLIGRA MS 682498 RxNorm TAKE 300 MILLIGRAMS ORAL ONCE A DAY clonazePAM 1MG Oral Tablet 10/13/2023 Unknown ORAL TWICE A DAY 1 MILLIGRA MS 578450 RxNorm TAKE 1 MILLIGRAMS ORAL TWICE A DAY hydrOXYzine HCl 25MG Oral Tablet 10/13/2023 Unknown ORAL NEEDED TWICE A DAY 25 MILLIGRA MS 780282 RxNorm TAKE 25 MILLIGRAMS ORAL NEEDED TWICE A DAY rOPINIRole HCl 2MG Oral Tablet 10/13/2023 Unknown ORAL ONCE A DAY 2 MILLIGRA MS 456712 RxNorm TAKE 2 MILLIGRAMS ORAL ONCE A DAY Protonix 40 MG Oral Tablet, Delayed Release 10/13/2023 Unknown BY MOUTH TWICE A DAY 1 TABLET 146374 RxNorm TAKE 1 TABLET BY MOUTH TWICE A DAY HYDROcodone bitartrate-acetami nophen 7.5MG-325MG Oral Tablet 07/01/2024 Unknown BY MOUTH NEEDED EVERY 6 HOURS 1 TABLET 432473 RxNorm TAKE 1 TABLET BY MOUTH NEEDED EVERY 6 HOURS FOR PAIN Cyclobenzaprine 10MG Oral Tablet 07/01/2024 Unknown ORAL NEEDED TWICE A DAY 10 MILLIGRA MS 084923 RxNorm TAKE 10 MILLIGRAMS ORAL NEEDED TWICE A DAY Fenofibrate 54MG Oral Tablet 07/01/2024 Unknown ORAL ONCE A DAY 54 MILLIGRA MS 194555 RxNorm TAKE 54 MILLIGRAMS ORAL ONCE A DAY Hair, Skin & Nails Oral Capsule, Liquid Filled 07/01/2024 Unknown ORAL ONCE A DAY 1 unit(s) RxNorm TAKE 1 EACH ORAL ONCE A DAY Lisinopril 2.5MG Oral Tablet 07/01/2024 Unknown ORAL ONCE A DAY 2.5 MILLIGRA MS 518150 RxNorm TAKE 2.5 MILLIGRAMS ORAL ONCE A DAY Probiotic 1 Billion CFU Oral Capsule 07/01/2024 Unknown ORAL ONCE A DAY 1 Billion CFU RxNorm TAKE 1 Billion CFU ORAL ONCE A DAY Rybelsus 14MG Oral Tablet 07/01/2024 Unknown ORAL ONCE A DAY 14 MILLIGRA MS 0559156 RxNorm TAKE 14 MILLIGRAMS ORAL ONCE A [...] Active UMBILICAL HERNIA REPAIR WITH MESH 07/01 VMDT331 7 6374500 11/16/[address] 1401905 Allergies and Adverse Reactions Allergy Substance Reaction Severity Start Date Concern Status Code Code System CEPHALEXIN Hives (SNOMED-CT: 242310557) Active 2231 RxNorm FOLIC ACID Rash (SNOMED-CT: 753646564) Active 4511 RxNorm FOLIC ACID Rash (SNOMED-CT: 065080809) Active 4511 RxNorm METHOTREXATE NAUSEA/BLISTER S (SNOMED-CT: null) Active 6851 RxNorm METHOTREXATE Hives (SNOMED-CT: 717206461) Active 6851 RxNorm ADHESIVE Rash (SNOMED-CT: 231461592) Active PREGABALIN Swelling (SNOMED-CT: 88270673) Active 450105 RxNorm PREGABALIN Swelling (SNOMED-CT: 32317853) Active 042852 RxNorm KEFLEX Hives (SNOMED-CT: 977536232) Active 004535 RxNorm CONTRAST MEDIA, IODINE RELATED Active 722244576 SNOMED-CT CONTRAST MEDIA, IODINE RELATED Active 368488383 SNOMED-CT Plan of Treatment CT Chest/Lung W Contrast (34798) 2024 Encounters Encounter Diagnosis Start Date Code Code Sys tem Type 2 diabetes mellitus with hyperglycemia 05/23/2024 SNOMED-CT Personal Care Team Section Performer Name Performer Role Active Date Inactive HARDY Norris PCP - Primary care physician 2021-12-27 2022-03-04 Alejandro Anguiano PCP - Primary care physician 2022-03-04
--- OUTSIDE RECORDS SUMMARY | 2024-09-16 18:19 | XMS_ITS ---
Author Organization Unknown Address [address] [place] [phone] Phone Care Team Providers Care Paint Stripper Name Role Phone DENIA DAVILA Attending Unavailable [...] 205 CVX Pneumococcal conjugate PCV20 , polysaccharide [id number] conjugate, adjuvant, PF 06/21/2023 Completed 216 CVX RSV, recombinant, protein subunit RSVpreF, adjuvant reconstituted, 0.5 mL, PF 04/18/2023 Completed 303 CV X Results HEMOGLOBIN A1C WITH eAG - Co llect Date/Time: 12/28/2023 10:00 [facility] ID: [id number] [place], [place], [id number] LOINC: 4548-4 Test Value Unit Reference Range Code Code System Flag HGBA1C 6.7 % 4548-4 LOINC eAG 145.6 mg/dL 4548-4 LOINC Social History Type Status Start Date End Date Code Code Syst em Smoking History Current every day smoker [id number] SNOMED CT Sex Female Medications Medication Start Date End Date Route Frequency Dose Code Code System Medication Instructions Home Meds Albuterol Sulfate 0.09MG/1Actuation Inhalation Suspension 10/13/2023 Unknown INHALATION THREE TIMES A DAY 2 unit(s) 6246222 RxNorm 2 EACH INHALATION THREE TIMES A DAY Atorvastatin Calcium 40MG Oral Tablet 10/13/2023 Unknown ORAL AT BEDTIM E 40 MILLIGRA MS 310386 RxNorm TAKE 40 MILLIGRAMS ORAL AT BEDTIME Biotin 5 MG Oral Tablet 10/13/2023 Unknown ORAL ONCE A DAY 5 MG 246206 RxNorm TAKE 5 MG ORAL ONCE A DAY Bumetanide 1MG Oral Tablet 10/13/2023 Unknown ORAL TWICE A DAY 1 MILLIGRA MS 490758 RxNorm TAKE 1 MILLIGRAMS ORAL TWICE A DAY Coconut Oil Oil 10/13/2023 06/21/19 25 ROUTE NOT APPLICABLE ONCE A DAY 1 unit(s) RxNorm 1 EACH ROUTE NOT APPLICABLE ONCE A DAY Cyclobenzaprine 10MG Oral Tablet 10/13/2023 06/21/19 25 ORAL TWICE A DAY 10 MILLIGRA MS 650093 RxNorm TAKE 10 MILLIGRAMS ORAL TWICE A DAY Estradiol 0.25MG/1Packet Transdermal Gel/Jelly 10/13/2023 Unknown TRANSDERMAL DIRECT ED 1 unit(s) 1986026 RxNorm APPLY TO 1 EACH TRANSDERMAL DIRECTED Fluticasone 0.05MG/1Actuation Nasal [place] 10/13/2023 Unknown NASAL ONCE A DAY 1 unit(s) 7495531 RxNorm 1 EACH NASAL ONCE A DAY HYDROcodone bitartrate-acetami nophen 10MG-325MG Oral Tablet 10/13/2023 Unknown ORAL THREE TIMES A DAY 1 unit(s) 627507 RxNorm TAKE 1 EACH ORAL THREE TIMES A DAY Lantus 100U/1ML Subcutaneous Solution 10/13/2023 Unknown SUBCUTANEOU S AT BEDTIM E 46 unit(s) 701232 RxNorm INJECT INTO 46 EACH SUBCUTANEOU S AT BEDTIME NovoLOG FlexPen 100U/1ML Subcutaneous Solution 10/13/2023 Unknown SUBCUTANEOU S BEFORE MEALS AND AT BEDTIM E 1 unit(s) 5253841 RxNorm INJECT INTO 1 EACH SUBCUTANEOU S BEFORE MEALS AND AT BEDTIME Ondansetron HCl 4MG Oral Tablet 10/13/2023 Unknown ORAL DIRECT ED 4 MILLIGRA MS 385203 RxNorm TAKE 4 MILLIGRAMS ORAL DIRECTED Rybelsus 3MG Oral Tablet 10/13/2023 06/21/19 25 ORAL ONCE A DAY 7 MILLIGRA MS 1311327 RxNorm TAKE 7 MILLIGRAMS ORAL ONCE A DAY SUMAtriptan Succinate 100MG Oral Tablet 10/13/2023 Unknown ORAL DIRECT ED 100 MILLIGRA MS 798699 RxNorm TAKE 100 MILLIGRAMS ORAL DIRECTED Spironolactone 25MG Oral Tablet 10/13/2023 Unknown ORAL TWICE A DAY 25 MILLIGRA MS 203149 RxNorm TAKE 25 MILLIGRAMS ORAL TWICE A DAY buPROPion HCl 300MG Oral Tablet, Extended Release, 24 HR 10/13/2023 Unknown ORAL ONCE A DAY 300 MILLIGRA MS 718749 RxNorm TAKE 300 MILLIGRAMS ORAL ONCE A DAY clonazePAM 1MG Oral Tablet 10/13/2023 Unknown ORAL TWICE A DAY 1 MILLIGRA MS 914872 RxNorm TAKE 1 MILLIGRAMS ORAL TWICE A DAY hydrOXYzine HCl 25MG Oral Tablet 10/13/2023 Unknown ORAL NEEDED TWICE A DAY 25 MILLIGRA MS 757920 RxNorm TAKE 25 MILLIGRAMS ORAL NEEDED TWICE A DAY rOPINIRole HCl 2MG Oral Tablet 10/13/2023 Unknown ORAL ONCE A DAY 2 MILLIGRA MS 188220 RxNorm TAKE 2 MILLIGRAMS ORAL ONCE A DAY Protonix 40 MG Oral Tablet, Delayed Release 10/13/2023 Unknown BY MOUTH TWICE A DAY 1 TABLET 547108 RxNorm TAKE 1 TABLET BY MOUTH TWICE A DAY HYDROcodone bitartrate-acetami nophen 7.5MG-325MG Oral Tablet 07/01/2024 Unknown BY MOUTH NEEDED EVERY 6 HOURS 1 TABLET 766579 RxNorm TAKE 1 TABLET BY MOUTH NEEDED EVERY 6 HOURS FOR PAIN Cyclobenzaprine 10MG Oral Tablet 07/01/2024 Unknown ORAL NEEDED TWICE A DAY 10 MILLIGRA MS 479125 RxNorm TAKE 10 MILLIGRAMS ORAL NEEDED TWICE A DAY Fenofibrate 54MG Oral Tablet 07/01/2024 Unknown ORAL ONCE A DAY 54 MILLIGRA MS 834917 RxNorm TAKE 54 MILLIGRAMS ORAL ONCE A DAY Hair, Skin & Nails Oral Capsule, Liquid Filled 07/01/2024 Unknown ORAL ONCE A DAY 1 unit(s) RxNorm TAKE 1 EACH ORAL ONCE A DAY Lisinopril 2.5MG Oral Tablet 07/01/2024 Unknown ORAL ONCE A DAY 2.5 MILLIGRA MS 167892 RxNorm TAKE 2.5 MILLIGRAMS ORAL ONCE A DAY Probiotic 1 Billion CFU Oral Capsule 07/01/2024 Unknown ORAL ONCE A DAY 1 Billion CFU RxNorm TAKE 1 Billion CFU ORAL ONCE A DAY Rybelsus 14MG Oral Tablet 07/01/2024 Unknown ORAL ONCE A DAY 14 MILLIGRA MS 5674055 RxNorm TAKE 14 MILLIGRAMS ORAL ONCE A [...] Active UMBILICAL HERNIA REPAIR WITH MESH 07/01 NCNO226 7 2309049 11/16/[address] 8710362 Allergies and Adverse Reactions Allergy Substance Reaction Severity Start Date Concern Status Code Code System CEPHALEXIN Hives (SNOMED-CT: 948582761) Active 2231 RxNorm FOLIC ACID Rash (SNOMED-CT: 955519696) Active 4511 RxNorm FOLIC ACID Rash (SNOMED-CT: 534489769) Active 4511 RxNorm METHOTREXATE NAUSEA/BLISTER S (SNOMED-CT: null) Active 6851 RxNorm METHOTREXATE Hives (SNOMED-CT: 438877907) Active 6851 RxNorm ADHESIVE Rash (SNOMED-CT: 097914760) Active PREGABALIN Swelling (SNOMED-CT: 43325950) Active 283236 RxNorm PREGABALIN Swelling (SNOMED-CT: 49129749) Active 179809 RxNorm KEFLEX Hives (SNOMED-CT: 984313423) Active 135850 RxNorm CONTRAST MEDIA, IODINE RELATED Active 001359099 SNOMED-CT CONTRAST MEDIA, IODINE RELATED Active 813217963 SNOMED-CT Plan of Treatment CT Chest/Lung W Contrast (36240) 2024 Encounters Encounter Diagnosis Start Date Code Code Sys tem Type 2 diabetes mellitus with hyperglycemia 12/28/2023 SNOMED-CT Personal Care Team Section Performer Name Performer Role Active Date Inactive HARDY Norris PCP - Primary care physician 2021-12-27 2022-03-04 Alejandro Anguiano PCP - Primary care physician 2022-03-04
--- OUTSIDE RECORDS SUMMARY | 2024-09-16 18:19 | XMS_ITS | CONTINUITY OF CARE DOCUMENT ---
Author Name dottie, anitaser Address Unknown Organization [facility] Address [address] [place] [address] Phone [phone] Care Team Providers Care Acetylene Cutter Name Role Phone Trev CASTILLO, Parris Unavailable Parris Karimi MD Unavailable [phone] PROBLEMS Condition Status Date Provider Notes VENOUS INSUFFICIENCY active Anibal Carroll MD Shortness of breath (SOB) active Anibal stanton MD SLEEP APNEA active Anibal Carroll MD Edema active Anibal Carroll MD MORBID OBESITY active Anibal Carroll MD Diabetes mellitus, Type II active Anibal foster MD PVD active Anibal Carroll MD ENCOUNTERS Date Type Provider Location Encounter Diag nosis - In-person encounter Office Visit Anibal Carroll MD [facility] Shortness of breath (SOB)SLEEP APNEA - In-person encounter Office Visit Anibal Carroll MD [facility] PVDVENOUS INSUFFICIENCYDiabetes mellitus, Type IIMORBID OBESITYEdema [...] /min Cristin O'Isac pulse rate 118 /min Cristin O'Isac blood pressure, resting Yes Damon oakley [...] Policy type / Coverage type [employer] red democrat ID [employer] COMPLETE (2) Medicare [id number] ADVANCE DIRECTIVES Name Date DISCUSSED - NO [...] one vein Anibal Carroll MD completed SNOMED-CT: 63385830 Physical Exam, Performed: Pulse Exam of Foot Anibal Craroll MD completed EKG Anibal Carroll MD completed SNOMED-CT: 926634299 215205 Current Medications Documented Anibal Carroll MD completed SNOMED-CT: 97611064 Physical Exam, Performed: Pulse Exam of Foot Anibal Carroll MD completed
--- OUTSIDE RECORDS SUMMARY | 2024-09-16 18:19 | XMS_ITS ---
Author Organization Unknown Address [address] [place] [address] [phone] Phone Care Team Providers Care Rapid Extractor Operator Name Role Phone JOSE GALINDO Attending Unavailable [...] 205 CVX Pneumococcal conjugate PCV20 , polysaccharide [id number] conjugate, adjuvant, PF 06/21/2023 Completed 216 CVX [...] em Smoking History Current every day smoker [id number] SNOMED CT Sex Female Medications Medication Start Date End Date Route Frequency Dose Code Code System Medication Instructions Home Meds Albuterol Sulfate 0.09MG/1Actuation Inhalation Suspension 10/13/2023 Unknown INHALATION THREE TIMES A DAY 2 unit(s) 7978080 RxNorm 2 EACH INHALATION THREE TIMES A DAY Atorvastatin Calcium 40MG Oral Tablet 10/13/2023 Unknown ORAL AT BEDTIM E 40 MILLIGRA MS 510551 RxNorm TAKE 40 MILLIGRAMS ORAL AT BEDTIME Biotin 5 MG Oral Tablet 10/13/2023 Unknown ORAL ONCE A DAY 5 MG 006926 RxNorm TAKE 5 MG ORAL ONCE A DAY Bumetanide 1MG Oral Tablet 10/13/2023 Unknown ORAL TWICE A DAY 1 MILLIGRA MS 863982 RxNorm TAKE 1 MILLIGRAMS ORAL TWICE A DAY Coconut Oil Oil 10/13/2023 06/21/19 25 ROUTE NOT APPLICABLE ONCE A DAY 1 unit(s) RxNorm 1 EACH ROUTE NOT APPLICABLE ONCE A DAY Cyclobenzaprine 10MG Oral Tablet 10/13/2023 06/21/19 25 ORAL TWICE A DAY 10 MILLIGRA MS 913052 RxNorm TAKE 10 MILLIGRAMS ORAL TWICE A DAY Estradiol 0.25MG/1Packet Transdermal Gel/Jelly 10/13/2023 Unknown TRANSDERMAL DIRECT ED 1 unit(s) 9374729 RxNorm APPLY TO 1 EACH TRANSDERMAL DIRECTED Fluticasone 0.05MG/1Actuation Nasal [place] 10/13/2023 Unknown NASAL ONCE A DAY 1 unit(s) 5289447 RxNorm 1 EACH NASAL ONCE A DAY HYDROcodone bitartrate-acetami nophen 10MG-325MG Oral Tablet 10/13/2023 Unknown ORAL THREE TIMES A DAY 1 unit(s) 558925 RxNorm TAKE 1 EACH ORAL THREE TIMES A DAY Lantus 100U/1ML Subcutaneous Solution 10/13/2023 Unknown SUBCUTANEOU S AT BEDTIM E 46 unit(s) 472383 RxNorm INJECT INTO 46 EACH SUBCUTANEOU S AT BEDTIME NovoLOG FlexPen 100U/1ML Subcutaneous Solution 10/13/2023 Unknown SUBCUTANEOU S BEFORE MEALS AND AT BEDTIM E 1 unit(s) 3039192 RxNorm INJECT INTO 1 EACH SUBCUTANEOU S BEFORE MEALS AND AT BEDTIME Ondansetron HCl 4MG Oral Tablet 10/13/2023 Unknown ORAL DIRECT ED 4 MILLIGRA MS 367379 RxNorm TAKE 4 MILLIGRAMS ORAL DIRECTED Rybelsus 3MG Oral Tablet 10/13/2023 06/21/19 25 ORAL ONCE A DAY 7 MILLIGRA MS 6294914 RxNorm TAKE 7 MILLIGRAMS ORAL ONCE A DAY SUMAtriptan Succinate 100MG Oral Tablet 10/13/2023 Unknown ORAL DIRECT ED 100 MILLIGRA MS 805927 RxNorm TAKE 100 MILLIGRAMS ORAL DIRECTED Spironolactone 25MG Oral Tablet 10/13/2023 Unknown ORAL TWICE A DAY 25 MILLIGRA MS 007331 RxNorm TAKE 25 MILLIGRAMS ORAL TWICE A DAY buPROPion HCl 300MG Oral Tablet, Extended Release, 24 HR 10/13/2023 Unknown ORAL ONCE A DAY 300 MILLIGRA MS 259367 RxNorm TAKE 300 MILLIGRAMS ORAL ONCE A DAY clonazePAM 1MG Oral Tablet 10/13/2023 Unknown ORAL TWICE A DAY 1 MILLIGRA MS 884733 RxNorm TAKE 1 MILLIGRAMS ORAL TWICE A DAY hydrOXYzine HCl 25MG Oral Tablet 10/13/2023 Unknown ORAL NEEDED TWICE A DAY 25 MILLIGRA MS 373138 RxNorm TAKE 25 MILLIGRAMS ORAL NEEDED TWICE A DAY rOPINIRole HCl 2MG Oral Tablet 10/13/2023 Unknown ORAL ONCE A DAY 2 MILLIGRA MS 879475 RxNorm TAKE 2 MILLIGRAMS ORAL ONCE A DAY Protonix 40 MG Oral Tablet, Delayed Release 10/13/2023 Unknown BY MOUTH TWICE A DAY 1 TABLET 577829 RxNorm TAKE 1 TABLET BY MOUTH TWICE A DAY HYDROcodone bitartrate-acetami nophen 7.5MG-325MG Oral Tablet 07/01/2024 Unknown BY MOUTH NEEDED EVERY 6 HOURS 1 TABLET 290254 RxNorm TAKE 1 TABLET BY MOUTH NEEDED EVERY 6 HOURS FOR PAIN Cyclobenzaprine 10MG Oral Tablet 07/01/2024 Unknown ORAL NEEDED TWICE A DAY 10 MILLIGRA MS 860466 RxNorm TAKE 10 MILLIGRAMS ORAL NEEDED TWICE A DAY Fenofibrate 54MG Oral Tablet 07/01/2024 Unknown ORAL ONCE A DAY 54 MILLIGRA MS 056785 RxNorm TAKE 54 MILLIGRAMS ORAL ONCE A DAY Hair, Skin & Nails Oral Capsule, Liquid Filled 07/01/2024 Unknown ORAL ONCE A DAY 1 unit(s) RxNorm TAKE 1 EACH ORAL ONCE A DAY Lisinopril 2.5MG Oral Tablet 07/01/2024 Unknown ORAL ONCE A DAY 2.5 MILLIGRA MS 515795 RxNorm TAKE 2.5 MILLIGRAMS ORAL ONCE A DAY Probiotic 1 Billion CFU Oral Capsule 07/01/2024 Unknown ORAL ONCE A DAY 1 Billion CFU RxNorm TAKE 1 Billion CFU ORAL ONCE A DAY Rybelsus 14MG Oral Tablet 07/01/2024 Unknown ORAL ONCE A DAY 14 MILLIGRA MS 2183934 RxNorm TAKE 14 MILLIGRAMS ORAL ONCE A [...] Active UMBILICAL HERNIA REPAIR WITH MESH 07/01 [id number] 11/16/[address] 3995785 Allergies and Adverse Reactions Allergy Substance Reaction Severity Start Date Concern Status Code Code System CEPHALEXIN Hives (SNOMED-CT: 417966908) Active 2231 RxNorm FOLIC ACID Rash (SNOMED-CT: 671576949) Active 4511 RxNorm FOLIC ACID Rash (SNOMED-CT: 497458965) Active 4511 RxNorm METHOTREXATE NAUSEA/BLISTER S (SNOMED-CT: null) Active 6851 RxNorm METHOTREXATE Hives (SNOMED-CT: 904542460) Active 6851 RxNorm ADHESIVE Rash (SNOMED-CT: 587380000) Active PREGABALIN Swelling (SNOMED-CT: 98234476) Active 402736 RxNorm PREGABALIN Swelling (SNOMED-CT: 95974677) Active 594804 RxNorm KEFLEX Hives (SNOMED-CT: 307455824) Active 655140 RxNorm CONTRAST MEDIA, IODINE RELATED Active 259765121 SNOMED-CT CONTRAST MEDIA, IODINE RELATED Active 713215958 SNOMED-CT Plan of Treatment CT Chest/Lung W Contrast (02330) 2024 Encounters Encounter Diagnosis Start Date Code Code Sys tem Screening mammography 02/05/2024 [id number] SNOMED -CT Personal Care Team Section Performer Name Performer Role Active Date Inactive HARDY Norris PCP - Primary care physician 2021-12-27 2022-03-04 Alejandro Anguiano PCP - Primary care physician 2022-03-04 Imaging Narrative Notes [facility] 02/07/2024 11:[address] [address] RADIOLOGY REPORT Patient Number: [id number] Patient Name: ILENE SMITH Type: O/P MR Number: [id number] : 1960 Age: 63 Sex: F Room #: Admit Date: 02/05/24 Discharge Date 02/05/24 Ordering Physician: JOSE GALINDO Family Physician: DENIA HERNANDEZ [facility] Physician: X-Ray Number : [id number] DIG 3D ELENI SCREENING BILATERA 90010 COMPLETE:02/05/24 11:12 [facility] [id number] (REASONS-DIG 3D ELENI SCREENING BILATERAL: SCREENING See Scanned Image Attachment for Report Dictated By: Trans Initials: XX Trans Date: 02/07/24 11:10 <<REPDIST>>
--- OUTSIDE RECORDS SUMMARY | 2024-09-16 18:19 | XMS_ITS ---
Author Organization Unknown Address [address] [place] [address] [phone] Phone Care Team Providers Care Warp Starter Name Role Phone DENIA ALEJANDRO Attending Unavailable [...] 205 CVX Pneumococcal conjugate PCV20 , polysaccharide [id number] conjugate, adjuvant, PF 06/21/2023 Completed 216 CVX [...] Cheryl Bass M.D. TW: TW Report ID: [id number] Reading Location: [place] [address] Social History Type Status Start Date End Date Code Code Syst em Smoking History Current every day smoker [id number] SNOMED CT Sex Female Medications Medication Start Date End Date Route Frequency Dose Code Code System Medication Instructions Home Meds Albuterol Sulfate 0.09MG/1Actuation Inhalation Suspension 10/13/2023 Unknown INHALATION THREE TIMES A DAY 2 unit(s) 6578151 RxNorm 2 EACH INHALATION THREE TIMES A DAY Atorvastatin Calcium 40MG Oral Tablet 10/13/2023 Unknown ORAL AT BEDTIM E 40 MILLIGRA MS 058492 RxNorm TAKE 40 MILLIGRAMS ORAL AT BEDTIME Biotin 5 MG Oral Tablet 10/13/2023 Unknown ORAL ONCE A DAY 5 MG 155671 RxNorm TAKE 5 MG ORAL ONCE A DAY Bumetanide 1MG Oral Tablet 10/13/2023 Unknown ORAL TWICE A DAY 1 MILLIGRA MS 325735 RxNorm TAKE 1 MILLIGRAMS ORAL TWICE A DAY Coconut Oil Oil 10/13/2023 06/21/19 25 ROUTE NOT APPLICABLE ONCE A DAY 1 unit(s) RxNorm 1 EACH ROUTE NOT APPLICABLE ONCE A DAY Cyclobenzaprine 10MG Oral Tablet 10/13/2023 06/21/19 25 ORAL TWICE A DAY 10 MILLIGRA MS 081060 RxNorm TAKE 10 MILLIGRAMS ORAL TWICE A DAY Estradiol 0.25MG/1Packet Transdermal Gel/Jelly 10/13/2023 Unknown TRANSDERMAL DIRECT ED 1 unit(s) 0077748 RxNorm APPLY TO 1 EACH TRANSDERMAL DIRECTED Fluticasone 0.05MG/1Actuation Nasal [place] 10/13/2023 Unknown NASAL ONCE A DAY 1 unit(s) 9855056 RxNorm 1 EACH NASAL ONCE A DAY HYDROcodone bitartrate-acetami nophen 10MG-325MG Oral Tablet 10/13/2023 Unknown ORAL THREE TIMES A DAY 1 unit(s) 610066 RxNorm TAKE 1 EACH ORAL THREE TIMES A DAY Lantus 100U/1ML Subcutaneous Solution 10/13/2023 Unknown SUBCUTANEOU S AT BEDTIM E 46 unit(s) 994810 RxNorm INJECT INTO 46 EACH SUBCUTANEOU S AT BEDTIME NovoLOG FlexPen 100U/1ML Subcutaneous Solution 10/13/2023 Unknown SUBCUTANEOU S BEFORE MEALS AND AT BEDTIM E 1 unit(s) 0693324 RxNorm INJECT INTO 1 EACH SUBCUTANEOU S BEFORE MEALS AND AT BEDTIME Ondansetron HCl 4MG Oral Tablet 10/13/2023 Unknown ORAL DIRECT ED 4 MILLIGRA MS 764035 RxNorm TAKE 4 MILLIGRAMS ORAL DIRECTED Rybelsus 3MG Oral Tablet 10/13/2023 06/21/19 25 ORAL ONCE A DAY 7 MILLIGRA MS 0557277 RxNorm TAKE 7 MILLIGRAMS ORAL ONCE A DAY SUMAtriptan Succinate 100MG Oral Tablet 10/13/2023 Unknown ORAL DIRECT ED 100 MILLIGRA MS 401927 RxNorm TAKE 100 MILLIGRAMS ORAL DIRECTED Spironolactone 25MG Oral Tablet 10/13/2023 Unknown ORAL TWICE A DAY 25 MILLIGRA MS 884522 RxNorm TAKE 25 MILLIGRAMS ORAL TWICE A DAY buPROPion HCl 300MG Oral Tablet, Extended Release, 24 HR 10/13/2023 Unknown ORAL ONCE A DAY 300 MILLIGRA MS 372370 RxNorm TAKE 300 MILLIGRAMS ORAL ONCE A DAY clonazePAM 1MG Oral Tablet 10/13/2023 Unknown ORAL TWICE A DAY 1 MILLIGRA MS 631409 RxNorm TAKE 1 MILLIGRAMS ORAL TWICE A DAY hydrOXYzine HCl 25MG Oral Tablet 10/13/2023 Unknown ORAL NEEDED TWICE A DAY 25 MILLIGRA MS 586613 RxNorm TAKE 25 MILLIGRAMS ORAL NEEDED TWICE A DAY rOPINIRole HCl 2MG Oral Tablet 10/13/2023 Unknown ORAL ONCE A DAY 2 MILLIGRA MS 968894 RxNorm TAKE 2 MILLIGRAMS ORAL ONCE A DAY Protonix 40 MG Oral Tablet, Delayed Release 10/13/2023 Unknown BY MOUTH TWICE A DAY 1 TABLET 101217 RxNorm TAKE 1 TABLET BY MOUTH TWICE A DAY HYDROcodone bitartrate-acetami nophen 7.5MG-325MG Oral Tablet 07/01/2024 Unknown BY MOUTH NEEDED EVERY 6 HOURS 1 TABLET 867939 RxNorm TAKE 1 TABLET BY MOUTH NEEDED EVERY 6 HOURS FOR PAIN Cyclobenzaprine 10MG Oral Tablet 07/01/2024 Unknown ORAL NEEDED TWICE A DAY 10 MILLIGRA MS 020941 RxNorm TAKE 10 MILLIGRAMS ORAL NEEDED TWICE A DAY Fenofibrate 54MG Oral Tablet 07/01/2024 Unknown ORAL ONCE A DAY 54 MILLIGRA MS 680998 RxNorm TAKE 54 MILLIGRAMS ORAL ONCE A DAY Hair, Skin & Nails Oral Capsule, Liquid Filled 07/01/2024 Unknown ORAL ONCE A DAY 1 unit(s) RxNorm TAKE 1 EACH ORAL ONCE A DAY Lisinopril 2.5MG Oral Tablet 07/01/2024 Unknown ORAL ONCE A DAY 2.5 MILLIGRA MS 972090 RxNorm TAKE 2.5 MILLIGRAMS ORAL ONCE A DAY Probiotic 1 Billion CFU Oral Capsule 07/01/2024 Unknown ORAL ONCE A DAY 1 Billion CFU RxNorm TAKE 1 Billion CFU ORAL ONCE A DAY Rybelsus 14MG Oral Tablet 07/01/2024 Unknown ORAL ONCE A DAY 14 MILLIGRA MS 6913146 RxNorm TAKE 14 MILLIGRAMS ORAL ONCE A [...] Active UMBILICAL HERNIA REPAIR WITH MESH 07/01 [id number] [id number] 11/16/[address] 7896957 Allergies and Adverse Reactions Allergy Substance Reaction Severity Start Date Concern Status Code Code System CEPHALEXIN Hives (SNOMED-CT: 366758684) Active 2231 RxNorm FOLIC ACID Rash (SNOMED-CT: 158148957) Active 4511 RxNorm FOLIC ACID Rash (SNOMED-CT: 431163810) Active 4511 RxNorm METHOTREXATE NAUSEA/BLISTER S (SNOMED-CT: null) Active 6851 RxNorm METHOTREXATE Hives (SNOMED-CT: 126747043) Active 6851 RxNorm ADHESIVE Rash (SNOMED-CT: 879027443) Active PREGABALIN Swelling (SNOMED-CT: 66971861) Active 953443 RxNorm PREGABALIN Swelling (SNOMED-CT: 77395385) Active 329330 RxNorm KEFLEX Hives (SNOMED-CT: 347651719) Active 209204 RxNorm CONTRAST MEDIA, IODINE RELATED Active 707313549 SNOMED-CT CONTRAST MEDIA, IODINE RELATED Active 058547993 SNOMED-CT Plan of Treatment CT Chest/Lung W Contrast (61468) 2024 Encounters Encounter Diagnosis Start Date Code Code Sys tem Encounter for screening for malignant neoplasm of respiratory organs 07/13/2023 SNOMED-CT Personal Care Team Section Performer Name Performer Role Active Date Inactive HARDY Norris PCP - Primary care physician 2021-12-27 2022-03-04 Alejandro Anguiano PCP - Primary care physician 2022-03-04 Imaging Narrative Notes
--- OUTSIDE RECORDS SUMMARY | 2024-09-16 18:20 | XMS_ITS ---
Author Organization Unknown Address [address] [place] [address] [phone] Phone Care Team Providers Care Game Warden Name Role Phone LESLIE Guillen Attending Unavailable [...] 205 CVX Pneumococcal conjugate PCV20 , polysaccharide [id number] conjugate, adjuvant, PF 06/21/2023 Completed 216 CVX RSV, recombinant, protein subunit RSVpreF, adjuvant reconstituted, 0.5 mL, PF 04/18/2023 Completed 303 CV X Social History Type Status Start Date End Date Code Code Syst em Smoking History Current every day smoker [id number] SNOMED CT Sex Female Medications Medication Start Date End Date Route Frequency Dose Code Code System Medication Instructions Home Meds Albuterol Sulfate 0.09MG/1Actuation Inhalation Suspension 10/13/2023 Unknown INHALATION THREE TIMES A DAY 2 unit(s) 3688654 RxNorm 2 EACH INHALATION THREE TIMES A DAY Atorvastatin Calcium 40MG Oral Tablet 10/13/2023 Unknown ORAL AT BEDTIM E 40 MILLIGRA MS 621932 RxNorm TAKE 40 MILLIGRAMS ORAL AT BEDTIME Biotin 5 MG Oral Tablet 10/13/2023 Unknown ORAL ONCE A DAY 5 MG 529029 RxNorm TAKE 5 MG ORAL ONCE A DAY Bumetanide 1MG Oral Tablet 10/13/2023 Unknown ORAL TWICE A DAY 1 MILLIGRA MS 069245 RxNorm TAKE 1 MILLIGRAMS ORAL TWICE A DAY Coconut Oil Oil 10/13/2023 06/21/19 25 ROUTE NOT APPLICABLE ONCE A DAY 1 unit(s) RxNorm 1 EACH ROUTE NOT APPLICABLE ONCE A DAY Cyclobenzaprine 10MG Oral Tablet 10/13/2023 06/21/19 25 ORAL TWICE A DAY 10 MILLIGRA MS 611714 RxNorm TAKE 10 MILLIGRAMS ORAL TWICE A DAY Estradiol 0.25MG/1Packet Transdermal Gel/Jelly 10/13/2023 Unknown TRANSDERMAL DIRECT ED 1 unit(s) 8901130 RxNorm APPLY TO 1 EACH TRANSDERMAL DIRECTED Fluticasone 0.05MG/1Actuation Nasal [place] 10/13/2023 Unknown NASAL ONCE A DAY 1 unit(s) 7349163 RxNorm 1 EACH NASAL ONCE A DAY HYDROcodone bitartrate-acetami nophen 10MG-325MG Oral Tablet 10/13/2023 Unknown ORAL THREE TIMES A DAY 1 unit(s) 570707 RxNorm TAKE 1 EACH ORAL THREE TIMES A DAY Lantus 100U/1ML Subcutaneous Solution 10/13/2023 Unknown SUBCUTANEOU S AT BEDTIM E 46 unit(s) 433412 RxNorm INJECT INTO 46 EACH SUBCUTANEOU S AT BEDTIME NovoLOG FlexPen 100U/1ML Subcutaneous Solution 10/13/2023 Unknown SUBCUTANEOU S BEFORE MEALS AND AT BEDTIM E 1 unit(s) 1242330 RxNorm INJECT INTO 1 EACH SUBCUTANEOU S BEFORE MEALS AND AT BEDTIME Ondansetron HCl 4MG Oral Tablet 10/13/2023 Unknown ORAL DIRECT ED 4 MILLIGRA MS 874134 RxNorm TAKE 4 MILLIGRAMS ORAL DIRECTED Rybelsus 3MG Oral Tablet 10/13/2023 06/21/19 25 ORAL ONCE A DAY 7 MILLIGRA MS 6094659 RxNorm TAKE 7 MILLIGRAMS ORAL ONCE A DAY SUMAtriptan Succinate 100MG Oral Tablet 10/13/2023 Unknown ORAL DIRECT ED 100 MILLIGRA MS 733172 RxNorm TAKE 100 MILLIGRAMS ORAL DIRECTED Spironolactone 25MG Oral Tablet 10/13/2023 Unknown ORAL TWICE A DAY 25 MILLIGRA MS 403607 RxNorm TAKE 25 MILLIGRAMS ORAL TWICE A DAY buPROPion HCl 300MG Oral Tablet, Extended Release, 24 HR 10/13/2023 Unknown ORAL ONCE A DAY 300 MILLIGRA MS 542343 RxNorm TAKE 300 MILLIGRAMS ORAL ONCE A DAY clonazePAM 1MG Oral Tablet 10/13/2023 Unknown ORAL TWICE A DAY 1 MILLIGRA MS 776234 RxNorm TAKE 1 MILLIGRAMS ORAL TWICE A DAY hydrOXYzine HCl 25MG Oral Tablet 10/13/2023 Unknown ORAL NEEDED TWICE A DAY 25 MILLIGRA MS 364449 RxNorm TAKE 25 MILLIGRAMS ORAL NEEDED TWICE A DAY rOPINIRole HCl 2MG Oral Tablet 10/13/2023 Unknown ORAL ONCE A DAY 2 MILLIGRA MS 898712 RxNorm TAKE 2 MILLIGRAMS ORAL ONCE A DAY Protonix 40 MG Oral Tablet, Delayed Release 10/13/2023 Unknown BY MOUTH TWICE A DAY 1 TABLET 641587 RxNorm TAKE 1 TABLET BY MOUTH TWICE A DAY HYDROcodone bitartrate-acetami nophen 7.5MG-325MG Oral Tablet 07/01/2024 Unknown BY MOUTH NEEDED EVERY 6 HOURS 1 TABLET 592047 RxNorm TAKE 1 TABLET BY MOUTH NEEDED EVERY 6 HOURS FOR PAIN Cyclobenzaprine 10MG Oral Tablet 07/01/2024 Unknown ORAL NEEDED TWICE A DAY 10 MILLIGRA MS 259462 RxNorm TAKE 10 MILLIGRAMS ORAL NEEDED TWICE A DAY Fenofibrate 54MG Oral Tablet 07/01/2024 Unknown ORAL ONCE A DAY 54 MILLIGRA MS 607015 RxNorm TAKE 54 MILLIGRAMS ORAL ONCE A DAY Hair, Skin & Nails Oral Capsule, Liquid Filled 07/01/2024 Unknown ORAL ONCE A DAY 1 unit(s) RxNorm TAKE 1 EACH ORAL ONCE A DAY Lisinopril 2.5MG Oral Tablet 07/01/2024 Unknown ORAL ONCE A DAY 2.5 MILLIGRA MS 534601 RxNorm TAKE 2.5 MILLIGRAMS ORAL ONCE A DAY Probiotic 1 Billion CFU Oral Capsule 07/01/2024 Unknown ORAL ONCE A DAY 1 Billion CFU RxNorm TAKE 1 Billion CFU ORAL ONCE A DAY Rybelsus 14MG Oral Tablet 07/01/2024 Unknown ORAL ONCE A DAY 14 MILLIGRA MS 1665511 RxNorm TAKE 14 MILLIGRAMS ORAL ONCE A [...] Active UMBILICAL HERNIA REPAIR WITH MESH 07/01 [id number] 0968889 11/16/[address] 9917812 Allergies and Adverse Reactions Allergy Substance Reaction Severity Start Date Concern Status Code Code System CEPHALEXIN Hives (SNOMED-CT: 410089424) Active 2231 RxNorm FOLIC ACID Rash (SNOMED-CT: 857267786) Active 4511 RxNorm FOLIC ACID Rash (SNOMED-CT: 310922610) Active 4511 RxNorm METHOTREXATE NAUSEA/BLISTER S (SNOMED-CT: null) Active 6851 RxNorm METHOTREXATE Hives (SNOMED-CT: 443287125) Active 6851 RxNorm ADHESIVE Rash (SNOMED-CT: 289091880) Active PREGABALIN Swelling (SNOMED-CT: 10734460) Active 474663 RxNorm PREGABALIN Swelling (SNOMED-CT: 45772932) Active 767773 RxNorm KEFLEX Hives (SNOMED-CT: 656603021) Active 420187 RxNorm CONTRAST MEDIA, IODINE RELATED Active 639126979 SNOMED-CT CONTRAST MEDIA, IODINE RELATED Active 802969874 SNOMED-CT Plan of Treatment CT Chest/Lung W Contrast (22353) 2024 Encounters Encounter Diagnosis Start Date Code Code Sys tem Dysphagia, oropharyngeal phase 06/14/2023 SNOMED-CT Personal Care Team Section Performer Name Performer Role Active Date Inactive Da HARDY Rivas PCP - Primary care physician 2021-12-27 2022-03-04 Alejandro Anguiano PCP - Primary care physician 2022-03-04
--- OUTSIDE RECORDS SUMMARY | 2024-09-16 18:20 | XMS_ITS ---
Author Organization Unknown Address [address] [place] [address] [phone] Phone Care Team Providers Care Parts Salvager Name Role Phone TOSHIA Mosley Attending Unavailable [...] 205 CVX Pneumococcal conjugate PCV20 , polysaccharide [id number] conjugate, adjuvant, PF 06/21/2023 Completed 216 CVX RSV, recombinant, protein subunit RSVpreF, adjuvant reconstituted, 0.5 mL, PF 04/18/2023 Completed 303 CV X Results BEDSIDE GLUCOSE - Collect Da te/Time: 10/13/2023 15:20 [facility] ID: [id number] [address] [place], [place], [id number] LOINC: 06755-6 Test Value Unit Reference Range Code Code System Flag BEDSIDE GLUCOSE 74 mg/dl L=74 H=106 12647-6 [facility] BEDSIDE GLUCOSE - Collect Da te/Time: 10/13/2023 12:57 [facility] ID: [id number] [address] [place], [place], [id number] LOINC: 75983-1 Test Value Unit Reference Range Code Code System Flag BEDSIDE GLUCOSE 76 mg/dl L=74 H=106 53125-2 [facility] Social History Type Status Start Date End Date Code Code Syst em Smoking History Current every day smoker 460393921 SNOMED CT Sex Female Vital Signs Vital Sign Value Unit Paulding Value Paulding Unit Date/Time Recent/Initial? Code Code System Body Mass Index 39.47 kg/m2 10/13/2023 13:04 Most Recent 31970 -5 [facility] Body Mass Index 39.47 kg/m2 10/02/2023 11:22 Initial 39551 -5 [facility] Systolic Blood Pressure 137 mm[Hg] 10/13/2023 13:03 Initial 8480- 6 [facility] Diastolic Blood Pressure 59 mm[Hg] 10/13/2023 13:03 Initial 8462- 4 [facility] Body Surface Area 2.32 m2 10/13/2023 13:04 Most Recent 3140- 1 [facility] Body Surface Area 2.32 m2 10/02/2023 11:22 Initial 3140- 1 INC Height 170.180 0 cm 67.00 in 10/13/2023 13:04 Most Recent 8302- 2 INC Height 170.180 0 cm 67.00 in 10/02/2023 11:22 Initial 8302- 2 [facility] O2 Saturation 99 % 2023 13:03 Initial 70260 -5 [facility] Pulse 96.0 /min 10/13/2023 13:03 Initial 8867- 4 [facility] Respiration 20 /min 10/13/19 13:03 Initial 9279- 1 [facility] Temperature 36.1 Chiqui 97.0 F 05/24/20 24 13:03 Initial 8310- 5 [facility] Weight 114.31 kg 252.00 lbs 10/13/2023 13:04 Most Recent 25957 -7 [facility] Weight 114.31 kg 252.00 lbs 10/02/2023 11:22 Initial 61840 -7 [facility] Medications Medication Start Date End Date Route Frequency Dose Code Code System Medication Instructions Home Meds Albuterol Sulfate 0.09MG/1Actuation Inhalation Suspension 10/13/2023 Unknown INHALATION THREE TIMES A DAY 2 unit(s) 2324139 RxNorm 2 EACH INHALATION THREE TIMES A DAY Atorvastatin Calcium 40MG Oral Tablet 10/13/2023 Unknown ORAL AT BEDTIM E 40 MILLIGRA MS 591677 RxNorm TAKE 40 MILLIGRAMS ORAL AT BEDTIME Biotin 5 MG Oral Tablet 10/13/2023 Unknown ORAL ONCE A DAY 5 MG 533340 RxNorm TAKE 5 MG ORAL ONCE A DAY Bumetanide 1MG Oral Tablet 10/13/2023 Unknown ORAL TWICE A DAY 1 MILLIGRA MS 130526 RxNorm TAKE 1 MILLIGRAMS ORAL TWICE A DAY Coconut Oil Oil 10/13/2023 06/21/19 25 ROUTE NOT APPLICABLE ONCE A DAY 1 unit(s) RxNorm 1 EACH ROUTE NOT APPLICABLE ONCE A DAY Cyclobenzaprine 10MG Oral Tablet 10/13/2023 06/21/19 25 ORAL TWICE A DAY 10 MILLIGRA MS 372234 RxNorm TAKE 10 MILLIGRAMS ORAL TWICE A DAY Estradiol 0.25MG/1Packet Transdermal Gel/Jelly 10/13/2023 Unknown TRANSDERMAL DIRECT ED 1 unit(s) 7264677 RxNorm APPLY TO 1 EACH TRANSDERMAL DIRECTED Fluticasone 0.05MG/1Actuation Nasal [place] 10/13/2023 Unknown NASAL ONCE A DAY 1 unit(s) 6461640 RxNorm 1 EACH NASAL ONCE A DAY HYDROcodone bitartrate-acetami nophen 10MG-325MG Oral Tablet 10/13/2023 Unknown ORAL THREE TIMES A DAY 1 unit(s) 552187 RxNorm TAKE 1 EACH ORAL THREE TIMES A DAY Lantus 100U/1ML Subcutaneous Solution 10/13/2023 Unknown SUBCUTANEOU S AT BEDTIM E 46 unit(s) 431402 RxNorm INJECT INTO 46 EACH SUBCUTANEOU S AT BEDTIME NovoLOG FlexPen 100U/1ML Subcutaneous Solution 10/13/2023 Unknown SUBCUTANEOU S BEFORE MEALS AND AT BEDTIM E 1 unit(s) 4225621 RxNorm INJECT INTO 1 EACH SUBCUTANEOU S BEFORE MEALS AND AT BEDTIME Ondansetron HCl 4MG Oral Tablet 10/13/2023 Unknown ORAL DIRECT ED 4 MILLIGRA MS 177564 RxNorm TAKE 4 MILLIGRAMS ORAL DIRECTED Rybelsus 3MG Oral Tablet 10/13/2023 06/21/19 25 ORAL ONCE A DAY 7 MILLIGRA MS 7981218 RxNorm TAKE 7 MILLIGRAMS ORAL ONCE A DAY SUMAtriptan Succinate 100MG Oral Tablet 10/13/2023 Unknown ORAL DIRECT ED 100 MILLIGRA MS 761123 RxNorm TAKE 100 MILLIGRAMS ORAL DIRECTED Spironolactone 25MG Oral Tablet 10/13/2023 Unknown ORAL TWICE A DAY 25 MILLIGRA MS 928830 RxNorm TAKE 25 MILLIGRAMS ORAL TWICE A DAY buPROPion HCl 300MG Oral Tablet, Extended Release, 24 HR 10/13/2023 Unknown ORAL ONCE A DAY 300 MILLIGRA MS 726172 RxNorm TAKE 300 MILLIGRAMS ORAL ONCE A DAY clonazePAM 1MG Oral Tablet 10/13/2023 Unknown ORAL TWICE A DAY 1 MILLIGRA MS 935328 RxNorm TAKE 1 MILLIGRAMS ORAL TWICE A DAY hydrOXYzine HCl 25MG Oral Tablet 10/13/2023 Unknown ORAL NEEDED TWICE A DAY 25 MILLIGRA MS 111139 RxNorm TAKE 25 MILLIGRAMS ORAL NEEDED TWICE A DAY rOPINIRole HCl 2MG Oral Tablet 10/13/2023 Unknown ORAL ONCE A DAY 2 MILLIGRA MS 088476 RxNorm TAKE 2 MILLIGRAMS ORAL ONCE A DAY Protonix 40 MG Oral Tablet, Delayed Release 10/13/2023 Unknown BY MOUTH TWICE A DAY 1 TABLET 320690 RxNorm TAKE 1 TABLET BY MOUTH TWICE A DAY HYDROcodone bitartrate-acetami nophen 7.5MG-325MG Oral Tablet 07/01/2024 Unknown BY MOUTH NEEDED EVERY 6 HOURS 1 TABLET 330270 RxNorm TAKE 1 TABLET BY MOUTH NEEDED EVERY 6 HOURS FOR PAIN Cyclobenzaprine 10MG Oral Tablet 07/01/2024 Unknown ORAL NEEDED TWICE A DAY 10 MILLIGRA MS 333842 RxNorm TAKE 10 MILLIGRAMS ORAL NEEDED TWICE A DAY Fenofibrate 54MG Oral Tablet 07/01/2024 Unknown ORAL ONCE A DAY 54 MILLIGRA MS 811783 RxNorm TAKE 54 MILLIGRAMS ORAL ONCE A DAY Hair, Skin & Nails Oral Capsule, Liquid Filled 07/01/2024 Unknown ORAL ONCE A DAY 1 unit(s) RxNorm TAKE 1 EACH ORAL ONCE A DAY Lisinopril 2.5MG Oral Tablet 07/01/2024 Unknown ORAL ONCE A DAY 2.5 MILLIGRA MS 422992 RxNorm TAKE 2.5 MILLIGRAMS ORAL ONCE A DAY Probiotic 1 Billion CFU Oral Capsule 07/01/2024 Unknown ORAL ONCE A DAY 1 Billion CFU RxNorm TAKE 1 Billion CFU ORAL ONCE A DAY Rybelsus 14MG Oral Tablet 07/01/2024 Unknown ORAL ONCE A DAY 14 MILLIGRA MS 6777833 RxNorm TAKE 14 MILLIGRAMS ORAL ONCE A DAY Hospital Discharge Instructions Should you have any questions prior to discharge, please contact a member of your healthcare team. If you have left the hospital and have any questions, please contact your primary care physician. Reason For Referral No Data Found Procedures Procedure Name Date Status Code Code Syste m Cubital tunnel completed [id number] SNOMEDCT Cardioversion completed 759083747 SNOMEDCT Carpal tunnel completed 42067727 SNOMEDCT Esophagogastroduodenoscopy, flexible, transoral; with transendoscopic ball 10/13/2023 completed 69044 CPT Anesthesia for upper gastroi ntestinal endoscopic procedures, endoscope int 10/13/2023 completed 43927 CPT Implants Implanted KESHAWN Status Assigning Authority Procedure Date Lot Number Serial Number Manufacturing Date Expiration Date Distinct ID Code Brand Name Model Number ETHICON SECURESTRA P ABSORBABLE STRAP FIXATION DEVICE Active UMBILICAL HERNIA REPAIR WITH MESH 07/01 UBMUTA STRAP 25 06/21/2025 ETHICO N SECURE STRAP [address] Hernia Patch Active UMBILICAL HERNIA REPAIR WITH MESH 07/01 [id number] 7 [id number] 11/16/[address] 7645679 Allergies and Adverse Reactions Allergy Substance Reaction Severity Start Date Concern Status Code Code System CEPHALEXIN Hives (SNOMED-CT: 289671230) Active 2231 RxNorm FOLIC ACID Rash (SNOMED-CT: 483742452) Active 4511 RxNorm FOLIC ACID Rash (SNOMED-CT: 893014072) Active 4511 RxNorm METHOTREXATE NAUSEA/BLISTER S (SNOMED-CT: null) Active 6851 RxNorm METHOTREXATE Hives (SNOMED-CT: 037350622) Active 6851 RxNorm ADHESIVE Rash (SNOMED-CT: 957619847) Active PREGABALIN Swelling (SNOMED-CT: 29607639) Active 678156 RxNorm PREGABALIN Swelling (SNOMED-CT: 95176345) Active 538313 RxNorm KEFLEX Hives (SNOMED-CT: 860837536) Active 981507 RxNorm CONTRAST MEDIA, IODINE RELATED Active 085499350 SNOMED-CT CONTRAST MEDIA, IODINE RELATED Active 919842582 SNOMED-CT Plan of Treatment CT Chest/Lung W Contrast (49664) 2024 Encounters Encounter Diagnosis Start Date Code Code Sys tem Dysphagia, unspecified 10/13/2023 SNOME D-CT Personal Care Team Section Performer Name Performer Role Active Date Inactive HARDY Norris PCP - Primary care physician 2021-12-27 2022-03-04 Alejandro Anguiano PCP - Primary care physician 2022-03-04
--- OUTSIDE RECORDS SUMMARY | 2024-09-16 18:20 | XMS_ITS ---
Author Organization Unknown Address [address] [place] [address] [phone] Phone Care Team Providers Care Labor Law Professor Name Role Phone DENIA DAVILA Attending Unavailable [...] 205 CVX Pneumococcal conjugate PCV20 , polysaccharide [id number] conjugate, adjuvant, PF 06/21/2023 Completed 216 CVX RSV, recombinant, protein subunit RSVpreF, adjuvant reconstituted, 0.5 mL, PF 04/18/2023 Completed 303 CV X Social History Type Status Start Date End Date Code Code Syst em Smoking History Current every day smoker [id number] SNOMED CT Sex Female Medications Medication Start Date End Date Route Frequency Dose Code Code System Medication Instructions Home Meds Albuterol Sulfate 0.09MG/1Actuation Inhalation Suspension 10/13/2023 Unknown INHALATION THREE TIMES A DAY 2 unit(s) 2935744 RxNorm 2 EACH INHALATION THREE TIMES A DAY Atorvastatin Calcium 40MG Oral Tablet 10/13/2023 Unknown ORAL AT BEDTIM E 40 MILLIGRA MS 735681 RxNorm TAKE 40 MILLIGRAMS ORAL AT BEDTIME Biotin 5 MG Oral Tablet 10/13/2023 Unknown ORAL ONCE A DAY 5 MG 559421 RxNorm TAKE 5 MG ORAL ONCE A DAY Bumetanide 1MG Oral Tablet 10/13/2023 Unknown ORAL TWICE A DAY 1 MILLIGRA MS 618049 RxNorm TAKE 1 MILLIGRAMS ORAL TWICE A DAY Coconut Oil Oil 10/13/2023 06/21/19 25 ROUTE NOT APPLICABLE ONCE A DAY 1 unit(s) RxNorm 1 EACH ROUTE NOT APPLICABLE ONCE A DAY Cyclobenzaprine 10MG Oral Tablet 10/13/2023 06/21/19 25 ORAL TWICE A DAY 10 MILLIGRA MS 518739 RxNorm TAKE 10 MILLIGRAMS ORAL TWICE A DAY Estradiol 0.25MG/1Packet Transdermal Gel/Jelly 10/13/2023 Unknown TRANSDERMAL DIRECT ED 1 unit(s) 5864452 RxNorm APPLY TO 1 EACH TRANSDERMAL DIRECTED Fluticasone 0.05MG/1Actuation Nasal [place] 10/13/2023 Unknown NASAL ONCE A DAY 1 unit(s) 0188651 RxNorm 1 EACH NASAL ONCE A DAY HYDROcodone bitartrate-acetami nophen 10MG-325MG Oral Tablet 10/13/2023 Unknown ORAL THREE TIMES A DAY 1 unit(s) 004017 RxNorm TAKE 1 EACH ORAL THREE TIMES A DAY Lantus 100U/1ML Subcutaneous Solution 10/13/2023 Unknown SUBCUTANEOU S AT BEDTIM E 46 unit(s) 342585 RxNorm INJECT INTO 46 EACH SUBCUTANEOU S AT BEDTIME NovoLOG FlexPen 100U/1ML Subcutaneous Solution 10/13/2023 Unknown SUBCUTANEOU S BEFORE MEALS AND AT BEDTIM E 1 unit(s) 4587186 RxNorm INJECT INTO 1 EACH SUBCUTANEOU S BEFORE MEALS AND AT BEDTIME Ondansetron HCl 4MG Oral Tablet 10/13/2023 Unknown ORAL DIRECT ED 4 MILLIGRA MS 139716 RxNorm TAKE 4 MILLIGRAMS ORAL DIRECTED Rybelsus 3MG Oral Tablet 10/13/2023 06/21/19 25 ORAL ONCE A DAY 7 MILLIGRA MS 6570305 RxNorm TAKE 7 MILLIGRAMS ORAL ONCE A DAY SUMAtriptan Succinate 100MG Oral Tablet 10/13/2023 Unknown ORAL DIRECT ED 100 MILLIGRA MS 989883 RxNorm TAKE 100 MILLIGRAMS ORAL DIRECTED Spironolactone 25MG Oral Tablet 10/13/2023 Unknown ORAL TWICE A DAY 25 MILLIGRA MS 723699 RxNorm TAKE 25 MILLIGRAMS ORAL TWICE A DAY buPROPion HCl 300MG Oral Tablet, Extended Release, 24 HR 10/13/2023 Unknown ORAL ONCE A DAY 300 MILLIGRA MS 368379 RxNorm TAKE 300 MILLIGRAMS ORAL ONCE A DAY clonazePAM 1MG Oral Tablet 10/13/2023 Unknown ORAL TWICE A DAY 1 MILLIGRA MS 120940 RxNorm TAKE 1 MILLIGRAMS ORAL TWICE A DAY hydrOXYzine HCl 25MG Oral Tablet 10/13/2023 Unknown ORAL NEEDED TWICE A DAY 25 MILLIGRA MS 410880 RxNorm TAKE 25 MILLIGRAMS ORAL NEEDED TWICE A DAY rOPINIRole HCl 2MG Oral Tablet 10/13/2023 Unknown ORAL ONCE A DAY 2 MILLIGRA MS 444548 RxNorm TAKE 2 MILLIGRAMS ORAL ONCE A DAY Protonix 40 MG Oral Tablet, Delayed Release 10/13/2023 Unknown BY MOUTH TWICE A DAY 1 TABLET 051646 RxNorm TAKE 1 TABLET BY MOUTH TWICE A DAY HYDROcodone bitartrate-acetami nophen 7.5MG-325MG Oral Tablet 07/01/2024 Unknown BY MOUTH NEEDED EVERY 6 HOURS 1 TABLET 157306 RxNorm TAKE 1 TABLET BY MOUTH NEEDED EVERY 6 HOURS FOR PAIN Cyclobenzaprine 10MG Oral Tablet 07/01/2024 Unknown ORAL NEEDED TWICE A DAY 10 MILLIGRA MS 679907 RxNorm TAKE 10 MILLIGRAMS ORAL NEEDED TWICE A DAY Fenofibrate 54MG Oral Tablet 07/01/2024 Unknown ORAL ONCE A DAY 54 MILLIGRA MS 340484 RxNorm TAKE 54 MILLIGRAMS ORAL ONCE A DAY Hair, Skin & Nails Oral Capsule, Liquid Filled 07/01/2024 Unknown ORAL ONCE A DAY 1 unit(s) RxNorm TAKE 1 EACH ORAL ONCE A DAY Lisinopril 2.5MG Oral Tablet 07/01/2024 Unknown ORAL ONCE A DAY 2.5 MILLIGRA MS 552592 RxNorm TAKE 2.5 MILLIGRAMS ORAL ONCE A DAY Probiotic 1 Billion CFU Oral Capsule 07/01/2024 Unknown ORAL ONCE A DAY 1 Billion CFU RxNorm TAKE 1 Billion CFU ORAL ONCE A DAY Rybelsus 14MG Oral Tablet 07/01/2024 Unknown ORAL ONCE A DAY 14 MILLIGRA MS 4529977 RxNorm TAKE 14 MILLIGRAMS ORAL ONCE A [...] Active UMBILICAL HERNIA REPAIR WITH MESH 07/01 [id number] 7 1902675 11/16/[address] 4171169 Allergies and Adverse Reactions Allergy Substance Reaction Severity Start Date Concern Status Code Code System CEPHALEXIN Hives (SNOMED-CT: 198902416) Active 2231 RxNorm FOLIC ACID Rash (SNOMED-CT: 247665420) Active 4511 RxNorm FOLIC ACID Rash (SNOMED-CT: 099945990) Active 4511 RxNorm METHOTREXATE NAUSEA/BLISTER S (SNOMED-CT: null) Active 6851 RxNorm METHOTREXATE Hives (SNOMED-CT: 563894741) Active 6851 RxNorm ADHESIVE Rash (SNOMED-CT: 507467651) Active PREGABALIN Swelling (SNOMED-CT: 33179322) Active 570513 RxNorm PREGABALIN Swelling (SNOMED-CT: 46020813) Active 657745 RxNorm KEFLEX Hives (SNOMED-CT: 461243840) Active 190924 RxNorm CONTRAST MEDIA, IODINE RELATED Active 547177250 SNOMED-CT CONTRAST MEDIA, IODINE RELATED Active 785220972 SNOMED-CT Plan of Treatment CT Chest/Lung W Contrast (96268) 2024 Encounters Encounter Diagnosis Start Date Code Code Sys tem Chronic pain syndrome 12/13/2023 SNOMED -CT Personal Care Team Section Performer Name Performer Role Active Date Inactive Da HARDY Rivas PCP - Primary care physician 2021-12-27 2022-03-04 Alejandro Anguiano PCP - Primary care physician 2022-03-04
--- OUTSIDE RECORDS SUMMARY | 2024-09-16 18:21 | XMS_ITS ---
Author Organization Unknown Address [address] [place] [address] [phone] Phone Care Team Providers Care It Programmer Name Role Phone DENIA DAVILA Attending Unavailable [...] 205 CVX Pneumococcal conjugate PCV20 , polysaccharide [id number] conjugate, adjuvant, PF 06/21/2023 Completed 216 CVX RSV, recombinant, protein subunit RSVpreF, adjuvant reconstituted, 0.5 mL, PF 04/18/2023 Completed 303 CV X Social History Type Status Start Date End Date Code Code Syst em Smoking History Current every day smoker 973208160 SNOMED CT Sex Female Medications Medication Start Date End Date Route Frequency Dose Code Code System Medication Instructions Home Meds Albuterol Sulfate 0.09MG/1Actuation Inhalation Suspension 10/13/2023 Unknown INHALATION THREE TIMES A DAY 2 unit(s) 9412420 RxNorm 2 EACH INHALATION THREE TIMES A DAY Atorvastatin Calcium 40MG Oral Tablet 10/13/2023 Unknown ORAL AT BEDTIM E 40 MILLIGRA MS 076633 RxNorm TAKE 40 MILLIGRAMS ORAL AT BEDTIME Biotin 5 MG Oral Tablet 10/13/2023 Unknown ORAL ONCE A DAY 5 MG 955132 RxNorm TAKE 5 MG ORAL ONCE A DAY Bumetanide 1MG Oral Tablet 10/13/2023 Unknown ORAL TWICE A DAY 1 MILLIGRA MS 371922 RxNorm TAKE 1 MILLIGRAMS ORAL TWICE A DAY Coconut Oil Oil 10/13/2023 06/21/19 25 ROUTE NOT APPLICABLE ONCE A DAY 1 unit(s) RxNorm 1 EACH ROUTE NOT APPLICABLE ONCE A DAY Cyclobenzaprine 10MG Oral Tablet 10/13/2023 06/21/19 25 ORAL TWICE A DAY 10 MILLIGRA MS 746953 RxNorm TAKE 10 MILLIGRAMS ORAL TWICE A DAY Estradiol 0.25MG/1Packet Transdermal Gel/Jelly 10/13/2023 Unknown TRANSDERMAL DIRECT ED 1 unit(s) 6790398 RxNorm APPLY TO 1 EACH TRANSDERMAL DIRECTED Fluticasone 0.05MG/1Actuation Nasal [place] 10/13/2023 Unknown NASAL ONCE A DAY 1 unit(s) 9531228 RxNorm 1 EACH NASAL ONCE A DAY HYDROcodone bitartrate-acetami nophen 10MG-325MG Oral Tablet 10/13/2023 Unknown ORAL THREE TIMES A DAY 1 unit(s) 853974 RxNorm TAKE 1 EACH ORAL THREE TIMES A DAY Lantus 100U/1ML Subcutaneous Solution 10/13/2023 Unknown SUBCUTANEOU S AT BEDTIM E 46 unit(s) 340300 RxNorm INJECT INTO 46 EACH SUBCUTANEOU S AT BEDTIME NovoLOG FlexPen 100U/1ML Subcutaneous Solution 10/13/2023 Unknown SUBCUTANEOU S BEFORE MEALS AND AT BEDTIM E 1 unit(s) 3583669 RxNorm INJECT INTO 1 EACH SUBCUTANEOU S BEFORE MEALS AND AT BEDTIME Ondansetron HCl 4MG Oral Tablet 10/13/2023 Unknown ORAL DIRECT ED 4 MILLIGRA MS 745639 RxNorm TAKE 4 MILLIGRAMS ORAL DIRECTED Rybelsus 3MG Oral Tablet 10/13/2023 06/21/19 25 ORAL ONCE A DAY 7 MILLIGRA MS 2953788 RxNorm TAKE 7 MILLIGRAMS ORAL ONCE A DAY SUMAtriptan Succinate 100MG Oral Tablet 10/13/2023 Unknown ORAL DIRECT ED 100 MILLIGRA MS 729245 RxNorm TAKE 100 MILLIGRAMS ORAL DIRECTED Spironolactone 25MG Oral Tablet 10/13/2023 Unknown ORAL TWICE A DAY 25 MILLIGRA MS 584661 RxNorm TAKE 25 MILLIGRAMS ORAL TWICE A DAY buPROPion HCl 300MG Oral Tablet, Extended Release, 24 HR 10/13/2023 Unknown ORAL ONCE A DAY 300 MILLIGRA MS 019878 RxNorm TAKE 300 MILLIGRAMS ORAL ONCE A DAY clonazePAM 1MG Oral Tablet 10/13/2023 Unknown ORAL TWICE A DAY 1 MILLIGRA MS 319359 RxNorm TAKE 1 MILLIGRAMS ORAL TWICE A DAY hydrOXYzine HCl 25MG Oral Tablet 10/13/2023 Unknown ORAL NEEDED TWICE A DAY 25 MILLIGRA MS 263550 RxNorm TAKE 25 MILLIGRAMS ORAL NEEDED TWICE A DAY rOPINIRole HCl 2MG Oral Tablet 10/13/2023 Unknown ORAL ONCE A DAY 2 MILLIGRA MS 444751 RxNorm TAKE 2 MILLIGRAMS ORAL ONCE A DAY Protonix 40 MG Oral Tablet, Delayed Release 10/13/2023 Unknown BY MOUTH TWICE A DAY 1 TABLET 764385 RxNorm TAKE 1 TABLET BY MOUTH TWICE A DAY HYDROcodone bitartrate-acetami nophen 7.5MG-325MG Oral Tablet 07/01/2024 Unknown BY MOUTH NEEDED EVERY 6 HOURS 1 TABLET 883824 RxNorm TAKE 1 TABLET BY MOUTH NEEDED EVERY 6 HOURS FOR PAIN Cyclobenzaprine 10MG Oral Tablet 07/01/2024 Unknown ORAL NEEDED TWICE A DAY 10 MILLIGRA MS 810048 RxNorm TAKE 10 MILLIGRAMS ORAL NEEDED TWICE A DAY Fenofibrate 54MG Oral Tablet 07/01/2024 Unknown ORAL ONCE A DAY 54 MILLIGRA MS 136098 RxNorm TAKE 54 MILLIGRAMS ORAL ONCE A DAY Hair, Skin & Nails Oral Capsule, Liquid Filled 07/01/2024 Unknown ORAL ONCE A DAY 1 unit(s) RxNorm TAKE 1 EACH ORAL ONCE A DAY Lisinopril 2.5MG Oral Tablet 07/01/2024 Unknown ORAL ONCE A DAY 2.5 MILLIGRA MS 148934 RxNorm TAKE 2.5 MILLIGRAMS ORAL ONCE A DAY Probiotic 1 Billion CFU Oral Capsule 07/01/2024 Unknown ORAL ONCE A DAY 1 Billion CFU RxNorm TAKE 1 Billion CFU ORAL ONCE A DAY Rybelsus 14MG Oral Tablet 07/01/2024 Unknown ORAL ONCE A DAY 14 MILLIGRA MS 2719304 RxNorm TAKE 14 MILLIGRAMS ORAL ONCE A [...] Active UMBILICAL HERNIA REPAIR WITH MESH 07/01 [id number] 7 8637506 11/16/[address] 5819858 Allergies and Adverse Reactions Allergy Substance Reaction Severity Start Date Concern Status Code Code System CEPHALEXIN Hives (SNOMED-CT: 276513401) Active 2231 RxNorm FOLIC ACID Rash (SNOMED-CT: 569694139) Active 4511 RxNorm FOLIC ACID Rash (SNOMED-CT: 469923590) Active 4511 RxNorm METHOTREXATE NAUSEA/BLISTER S (SNOMED-CT: null) Active 6851 RxNorm METHOTREXATE Hives (SNOMED-CT: 695802593) Active 6851 RxNorm ADHESIVE Rash (SNOMED-CT: 826213798) Active PREGABALIN Swelling (SNOMED-CT: 69855659) Active 498243 RxNorm PREGABALIN Swelling (SNOMED-CT: 39294463) Active 956985 RxNorm KEFLEX Hives (SNOMED-CT: 431512289) Active 990675 RxNorm CONTRAST MEDIA, IODINE RELATED Active 030871294 SNOMED-CT CONTRAST MEDIA, IODINE RELATED Active 369856791 SNOMED-CT Plan of Treatment CT Chest/Lung W Contrast (51793) 2024 Encounters Encounter Diagnosis Start Date Code Code Sys tem Type 2 diabetes mellitus with hyperglycemia 12/25/2023 SNOMED-CT Personal Care Team Section Performer Name Performer Role Active Date Inactive Da HARDY Rivas PCP - Primary care physician 2021-12-27 2022-03-04 Alejandro Anguiano PCP - Primary care physician 2022-03-04
== END 2024-09-16 16:35 | disposition home or self-care (01) ==
PROVIDERS: Emergency Provider Family Medicine
DX: S61.250A Open bite of right index finger without damage to nail, initial encounter (principal); W55.01XA Bitten by cat, initial encounter
CPT/HCPCS: 99283; A9270

== ENCOUNTER 2024-12-25 12:54 | Emergency (ER) | payer MEDICARE, MEDICAID, SELFPAY ==
[2024-12-25] VITALS (16 sets, daily range): BP systolic 117–146; BP diastolic 66–84; PULSE 89–100; RESP 20; TEMP 36.9; O2SAT 95–100
--- NOTE | ~2024-12-25 | XR_ITS ---
XR knee LT 3V 12/25/2024 14:11 INDICATION: Left knee pain PROCEDURE: 3 views left knee COMPARISON: No prior studies for comparison. FINDINGS: Fracture, dislocation or subluxation is not identified. The soft tissues appear within norm al limits. No foreign bodies are identified. IMPRESSION: 1: NO ACUTE BONE OR JOINT ABNORMALITY IDENTIFIED. Reviewed, dictated and finalized at location A.
--- NOTE | ~2024-12-25 | CT_ITS ---
EXAMINATION: CT brain wo con DATE: 12/25/2024 14:09 INDICATION: Mental status changes. TECHNIQUE: Computed tomography (CT) of the head was performed without intravenous contrast. The dose- length product was 681.00 mGy-cm. Automated exposure control and iterative reconstruction technique w ere employed. 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 Brain parenchymal volume i s normal for age. Normal diaz-white differentiation. No ventriculomegaly or midline shift. Basilar ci sterns are patent. Paranasal sinuses and mastoids are pneumatized. No acute intracranial hemorrhage, infarction, mass or mass effect. IMPRESSION: 1. No acute intracranial abnormality. 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 Reviewed, dictated and finalized at location A.
--- NOTE | 2024-12-25 13:03 | ED_ITS ---
HPI - General Adult General Chief complaint: Unspecified Stated complaint: hypoglycemia Source: patient Mode of arrival: ambulatory Limitations: no limitations History of Present Illness HPI narrative: 64-year-old female with a history of diabetes mellitus on Lantus/ Humalog, fibromyalgia, chronic neck/ back pain, Negative stress test,presents with -- altered mental status since 3:00 a.m.. Her low sugar the alarm has been surrounding and she has been unable to respond to it. in view of her unresponsiveness someone called EMS and noted her blood sugars to be 32. The patient received Humalog and was started on dextrose drip. A repeat blood sugar was noted to be 191. On arrival to the ED the patient has a blood sugar of 147. Patient is currently on a D10 drip at 50 cc/hour. -- The patient is confused and shaky. No focal neuro deficits noted. -- Right knee pain from a previous fall Onset (ago): hour(s) ( 9 hours) Relieving factors: none Exacerbating factors: none Associated symptoms: confusion and weakness Treatments prior to arrival: other ( the glucagon and D10.) Related Data Allergies Allergy/AdvReac Type Severity Reaction Status Date / Time cephalexin (From Keflex) Allergy Unknown Unknown Verified 09/16/24 16:18 Review of Systems 2 Constitutional: Constitutional: Reports as per HPI and Reports no additional constitutional complaints Eyes: Eyes: Reports as per HPI and Reports no additional eye complaints ENT: Reports system reviewed and no additional complaints, except as documented, Reports as per HPI and Reports Normal hearing present Cardiovascular: Cardiovascular: Reports as per HPI and Reports no additional cardiovascular complaints Respiratory: Respiratory: Reports as per HPI and Reports no additional respiratory complaints Gastrointestinal: Gastrointestinal: Reports as per HPI and Reports no additional gastrointestinal complaints Genitourinary: Genitourinary: Reports no additional female genitourinary complaints and Reports as per HPI Musculoskeletal: Musculoskeletal: Reports no additional musculoskeletal complaints and Reports as per HPI Comments: Chronic neck and back pain. Integumentary/Breasts: Skin/Breast: Reports system reviewed and no additional complaints, except as docu and Reports as per HPI Neurologic: Reports system reviewed and no additional complaints, except as documented and Reports as per HPI Psychiatric: Psychiatric: Reports no additional psychiatric complaints and Reports as per HPI Endocrine: Endocrine: Reports no additional endocrine complaints and Reports as per HPI Hematologic/Lymphatic: Hematologic/Lymphatic: Reports no additional hematologic/lymphatic complaints and Reports as per HPI Allergic/Immunologic: Allergic/Immunologic: Reports no additional allergic/immunologic complaints and Reports as per HPI FORMERLY [facility] Past Medical History Medical History Dyslipidemia Hyperglycemia due to type 2 diabetes mellitus Back pain Chronic pain Fibromyalgia Surgical History Surgical History History of hernia surgery Exam 2 Narrative: vitals are stable Const: General: cooperative, healthy appearing, comfortable, no acute distress, well developed and alert Orientation/consciousness: oriented to person, oriented to place and oriented to time HENMT: Head: normal to inspection, No palpable skull fracture present, normocephalic and atraumatic Ears: hearing grossly normal bilaterally and external ears normal Face/Nose/Sinus: Normal external nose present and Normal nares present Face and sinus: normal facial exam, sinuses nontender and face symmetric Mouth: Yes Normal oral and palatal mucosa present, Yes lip normal, Yes tongue normal, Yes Normal salivary glands and ducts present and Yes oropharynx normal Teeth and gingiva: gingiva normal Throat: posterior oropharynx normal, tonsils normal and uvula midline Eyes: General: appearance normal, both eyes and all related structures V isual [place]: normal visual cary by confrontation Alignment and Position: a lignment normal Neck: Neck: normal visual inspection, full ROM, no lymphadenopathy, no meningeal signs and trachea midline Thyroid: thyroid normal Lymphatic: no lymphadenopathy noted Chest: Chest palpation & inspection: normal inspection of the chest Resp: Effort & Inspection: normal respiratory effort Auscultation: clear to auscultation bilaterally Cardio: Jugular venous distension: no JVD Palpation: normal PMI Rate: r egular rate Rhythm: regular rhythm Heart sounds: S1 normal heart sound present and S2 normal heart sound present GI: Inspection: normal to inspection Percussion: Yes normal to percussion Auscultation: normal bowel sounds Other: No tenderness/rigidity / rebound. : General: Yes bimanual renal exam normal bilaterally and Yes no CVA tenderness Back/Spine/Pelvis: Back: no CVA tenderness Skin: General skin exam: normal color, elasticity normal, turgor normal and other ( Bilateral chronic venous stasis changes.) Other: chronic venous stasis changes of both legs the right greater than the left. Neuro: General: oriented to person, oriented to place, oriented to time, no meningeal signs and no focal motor deficits Extrem: General: normal to inspection and capillary refill normal Left lower extremity: normal to inspection ( Left knee is tender on palpation with decreased range of motion.) Psych: Appearance: grossly normal Course Course Emergency Course: hypoglycemia-- blood sugar of 32 at home. Patient received glucagon and IV dextrose with rise of blood sugar to 191. Subsequent blood sugars have been 147 and 91. Will continue a D10 drip. altered mental status possibly secondary to hypoglycemia. left knee pain- X-rays did not show any acute findings. urinary tract infection-- this appears to be lower urinary tract infection. No CV angle tenderness. No fever or chills. Will treat with Cipro. Vital Signs Vital signs: Vital Signs Temperature 36.9 C 12/25/24 12:55 Pulse Rate 89 12/25/24 12:55 Respiratory Rate 20 12/25/24 12:55 Blood Pressure 136/80 12/25/24 12:55 Pulse Oximetry 100 12/25/24 12:55 Oxygen Delivery Room Air 12/25/24 12:55 Temperature 36.9 C 12/25/24 12:55 Pulse Rate 98 12/25/24 16:33 Respiratory Rate 20 12/25/24 16:33 Blood Pressure 117/84 12/25/24 16:33 Pulse Oximetry 95 12/25/24 16:33 Oxygen Delivery Room Air 12/25/24 16:33 Medical Decision Making MDM Narrative Medical decision making narrative: Hypoglycemia altered mentalstatus urinary tract infection left knee pain Differential Diagnosis Differential Diagnosis: CVA, sepsis Medical Records Medical records reviewed: Yes I reviewed the external patient's medical records. Vital Signs Vital Signs: Vital Signs Temperature 36.9 C 12/25/24 12:55 Pulse Rate 89 12/25/24 12:55 Respiratory Rate 20 12/25/24 12:55 Blood Pressure 136/80 12/25/24 12:55 Pulse Oximetry 100 12/25/24 12:55 Oxygen Delivery Room Air 12/25/24 12:55 Temperature 36.9 C 12/25/24 12:55 Pulse Rate 98 12/25/24 16:33 Respiratory Rate 20 12/25/24 16:33 Blood Pressure 117/84 12/25/24 16:33 Pulse Oximetry 95 12/25/24 16:33 Oxygen Delivery Room Air 12/25/24 16:33 Lab Data Lab results reviewed: Yes I reviewed the patient's lab results. 12/25/24 14:22 12/25/24 14:21 Labs: Lab Results 12/25/24 12/25/24 12/25/24 Range/Units 13:03 13:20 14:13 WBC (4.8-10.8) K/mm3 RBC (4.20-5.40) M/mm3 Hgb (12.0-15.0) g/dL Hct (35.0-49.0) % MCV (78.0-102.0) fL MCH (27.0-31.0) pg MCHC (32-36) g/dL RDW (11.6-14.4) % Plt Count (150-420) K/mm3 MPV (9.2-11.8) fl Immature Gran % (Auto) (0.0-0.0) % Neut % (Auto) (50.0-70.0) % Lymph % (Auto) (18.0-42.0) % [place] % (Auto) (2.0-11.0) % Eos % (Auto) (1.0-6.0) % Baso % (Auto) (0.0-1.0) % Lymph # (Auto) (1.10-4.50) K/mm3 [place] # (Auto) (0.10-0.90) K/mm3 Eos # (Auto) (0.02-0.50) K/mm3 Baso # (Auto) (0.00-0.10) K/mm3 Abs Immat Gran (auto) (0.00-0.00) K/mm3 Absolute Neuts (auto) (1.70-7.20) K/mm3 Absolute Nucleated RBC (0.00-0.00) K/mm3 Nucleated RBC % (0-0.0) % Sodium (137-145) mmol/L Potassium (3.4-5.0) mmol/L Chloride (98-107) mmol/L Carbon Dioxide (22-30) mmol/L Anion Gap (4-12) mmol/L BUN (7-17) mg/dL Creatinine (0.7-1.0) mg/dL Estim Creat Clear Calc ml/min Estimated GFR (59 - ) Glucose (65-110) mg/dL POC Capillary Glucose 147 H 94 (65-105) mg/dl Calculated Osmolality (285-295) mOsm/kg Lactic Acid (0.4-2.0) mmol/L Calcium (8.4-10.2) mg/dL Magnesium (1.6-2.3) mg/dL Total Bilirubin (0.2-1.3) mg/dL AST (14-36) U/L ALT (6-35) U/L Alkaline Phosphatase (38-126) U/L Total Creatine Kinase (30-135) U/L Troponin I (0.000-0.034) ng/mL Total Protein (6.3-8.2) g/dL Albumin (3.5-5.1) g/dL Lipase (23-300) U/L TSH (0.465-4.680) uIU/mL Urine Color Light yellow (Yellow) Urine Appearance Cloudy A (Clear) Urine pH 6.0 (5.0-8.0) Ur Specific [place] 1.015 (1.010-1.020) Urine Protein 1+ H (Negative) Urine Glucose (UA) Negative (Negative) Urine Ketones Trace H (Negative) Ur Blood (Man) Negative (Negative) Urine Nitrate Positive H (Negative) Urine Bilirubin Negative (Negative) Urine Urobilinogen 0.2 (0.2-1.0) mg/dL Leukocyte Esterase Rfl 1+ H (Negative) LEÓN/UL Urine RBC None seen (0-2) /hpf Urine WBC 31-50 H (0-3) /hpf Ur Squamous Epith Cells Few (Few) /hpf Urine Bacteria 3+ H (None) /hpf 12/25/24 12/25/24 12/25/24 Range/Units 14:21 14:22 15:36 WBC 17.4 H (4.8-10.8) K/mm3 RBC 5.24 (4.20-5.40) M/mm3 Hgb 14.5 (12.0-15.0) g/dL Hct 44.9 (35.0-49.0) % MCV 85.7 (78.0-102.0) fL MCH 27.7 (27.0-31.0) pg MCHC 32.3 (32-36) g/dL RDW 13.7 (11.6-14.4) % Plt Count 329 (150-420) K/mm3 MPV 8.9 L (9.2-11.8) fl Immature Gran % (Auto) 0.5 H (0.0-0.0) % Neut % (Auto) 82.3 H (50.0-70.0) % Lymph % (Auto) 12.0 L (18.0-42.0) % [place] % (Auto) 4.3 (2.0-11.0) % Eos % (Auto) 0.6 L (1.0-6.0) % Baso % (Auto) 0.3 (0.0-1.0) % Lymph # (Auto) 2.09 (1.10-4.50) K/mm3 [place] # (Auto) 0.74 (0.10-0.90) K/mm3 Eos # (Auto) 0.10 (0.02-0.50) K/mm3 Baso # (Auto) 0.05 (0.00-0.10) K/mm3 Abs Immat Gran (auto) 0.09 H (0.00-0.00) K/mm3 Absolute Neuts (auto) 14.28 H (1.70-7.20) K/mm3 Absolute Nucleated RBC 0.00 (0.00-0.00) K/mm3 Nucleated RBC % 0.0 (0-0.0) % Sodium 142 (137-145) mmol/L Potassium 3.4 (3.4-5.0) mmol/L Chloride 106 (98-107) mmol/L Carbon Dioxide 27 (22-30) mmol/L Anion Gap 9 (4-12) mmol/L BUN 15 (7-17) mg/dL Creatinine 0.83 (0.7-1.0) mg/dL Estim Creat Clear Calc 69 ml/min Estimated GFR > 60 (59 - ) Glucose 91 (65-110) mg/dL POC Capillary Glucose 222 H (65-105) mg/dl Calculated Osmolality 294 (285-295) mOsm/kg Lactic Acid 1.2 (0.4-2.0) mmol/L Calcium 9.6 (8.4-10.2) mg/dL Magnesium 1.8 (1.6-2.3) mg/dL Total Bilirubin 0.4 (0.2-1.3) mg/dL AST 23 (14-36) U/L ALT 14 (6-35) U/L Alkaline Phosphatase 59 (38-126) U/L Total Creatine Kinase 69 (30-135) U/L Troponin I < 0.012 (0.000-0.034) ng/mL Total Protein 7.5 (6.3-8.2) g/dL Albumin 4.6 (3.5-5.1) g/dL Lipase 33 (23-300) U/L TSH 0.988 (0.465-4.680) uIU/mL Urine Color (Yellow) Urine Appearance (Clear) Urine pH (5.0-8.0) Ur Specific [place] (1.010-1.020) Urine Protein (Negative) Urine Glucose (UA) (Negative) Urine Ketones (Negative) Ur Blood (Man) (Negative) Urine Nitrate (Negative) Urine Bilirubin (Negative) Urine Urobilinogen (0.2-1.0) mg/dL Leukocyte Esterase Rfl (Negative) LEÓN/UL Urine RBC (0-2) /hpf Urine WBC (0-3) /hpf Ur Squamous Epith Cells (Few) /hpf Urine Bacteria (None) /hpf 12/25/24 Range/Units 16:20 WBC (4.8-10.8) K/mm3 RBC (4.20-5.40) M/mm3 Hgb (12.0-15.0) g/dL Hct (35.0-49.0) % MCV (78.0-102.0) fL MCH (27.0-31.0) pg MCHC (32-36) g/dL RDW (11.6-14.4) % Plt Count (150-420) K/mm3 MPV (9.2-11.8) fl Immature Gran % (Auto) (0.0-0.0) % Neut % (Auto) (50.0-70.0) % Lymph % (Auto) (18.0-42.0) % [place] % (Auto) (2.0-11.0) % Eos % (Auto) (1.0-6.0) % Baso % (Auto) (0.0-1.0) % Lymph # (Auto) (1.10-4.50) K/mm3 [place] # (Auto) (0.10-0.90) K/mm3 Eos # (Auto) (0.02-0.50) K/mm3 Baso # (Auto) (0.00-0.10) K/mm3 Abs Immat Gran (auto) (0.00-0.00) K/mm3 Absolute Neuts (auto) (1.70-7.20) K/mm3 Absolute Nucleated RBC (0.00-0.00) K/mm3 Nucleated RBC % (0-0.0) % Sodium (137-145) mmol/L Potassium (3.4-5.0) mmol/L Chloride (98-107) mmol/L Carbon Dioxide (22-30) mmol/L Anion Gap (4-12) mmol/L BUN (7-17) mg/dL Creatinine (0.7-1.0) mg/dL Estim Creat Clear Calc ml/min Estimated GFR (59 - ) Glucose (65-110) mg/dL POC Capillary Glucose 214 H (65-105) mg/dl Calculated Osmolality (285-295) mOsm/kg Lactic Acid (0.4-2.0) mmol/L Calcium (8.4-10.2) mg/dL Magnesium (1.6-2.3) mg/dL Total Bilirubin (0.2-1.3) mg/dL AST (14-36) U/L ALT (6-35) U/L Alkaline Phosphatase (38-126) U/L Total Creatine Kinase (30-135) U/L Troponin I (0.000-0.034) ng/mL Total Protein (6.3-8.2) g/dL Albumin (3.5-5.1) g/dL Lipase (23-300) U/L TSH (0.465-4.680) uIU/mL Urine Color (Yellow) Urine Appearance (Clear) Urine pH (5.0-8.0) Ur Specific [place] (1.010-1.020) Urine Protein (Negative) Urine Glucose (UA) (Negative) Urine Ketones (Negative) Ur Blood (Man) (Negative) Urine Nitrate (Negative) Urine Bilirubin (Negative) Urine Urobilinogen (0.2-1.0) mg/dL Leukocyte Esterase Rfl (Negative) LEÓN/UL Urine RBC (0-2) /hpf Urine WBC (0-3) /hpf Ur Squamous Epith Cells (Few) /hpf Urine Bacteria (None) /hpf ECG Data EKG #1: ECG completion date: 12/25/24 ECG completion time: 13:33 Interpretation: was sinus rhythm. Normal axis. No ST elevation. No specific ST-T wave changes noted. Discharge Plan Discharge Clinical Impression: Hypoglycemia due to insulin, Acute pain of left knee Urinary tract infection Qualifiers: Urinary tract infection type: acute cystitis Hematuria presence: without hematuria Qualified Code(s): N30.00 - Acute cystitis without hematuria Patient Disposition: Home Condition: Stable Instructions: Antibiotic Form, Urinary Tract Infection in Women (DC), Hypoglycemia in a Person with Diabetes (DC) Additional Instructions: advised the patient to decrease the dose of Lantus to 35 units at bedtime. Patient Language: [place] Prescriptions: New ciprofloxacin HCl [Cipro] 250 mg tablet 250 mg PO Q12H Qty: 10 0RF No Action doxycycline hyclate 100 mg tablet 100 mg PO Q12H Qty: 20 0RF Follow-up/Referrals: Judah,Kaur Johnson NP [Non-Staff] - Time of Disposition: 16:44
[2024-12-25] MEDS: DEXTROSE 10% 250 ML 50 ML IV CONT (13:16)
--- NOTE | 2024-12-25 13:24 | ECG_ITS ---
Test Date: 2024-12-25 13:33:49 Measurements Intervals [place] Rate: 80 P: 54 CT: 137 QRS: 59 QRSD: 99 T: 71 QT: 352 QTc: 408 Interpretive Statements SINUS RHYTHM NONSPECIFIC ST & T-WAVE ABNORMALITY- DIFFUSE LEADS BASELINE ARTIFACT- I, II, III, AVR, AVL, AVF, V1 BORDERLINE ECG No previous ECG available for comparison Electronically Signed On 12-25-2024 13:38:20 CDT by Wicho Hernandez D.O.
--- NOTE | 2024-12-25 13:29 | PC.NURSE ---
pt complaint of left knee pain related to fall couple days ago. pain medication requested . dr kent notified.
[2024-12-25 13:30] LABS: Add Urine Microscopic? YES; Glucose Urine UA Negative (Negative); Leukocyte Esterase Ur 1+ LEU/UL (Negative); Nitrate Urine Positive (Negative); Specific Grav Ur 1.015 (1.010-1.020)
[2024-12-25] MEDS: HYDROcodone/acetaminophen (*CRX) 5-325 MG TABLET 1 TAB PO (13:39)
[2024-12-25 13:54] LABS: Appearance Urine Cloudy (Clear)
[2024-12-25 14:25] LABS: Hematocrit 44.9 % (35.0-49.0); Hemoglobin 14.5 g/dL (12.0-15.0); Immature Granulocyte Percent A 0.5 % (0.0-0.0); Lymphocytes Absolute Auto 2.09 K/mm3 (1.10-4.50); Mean Corpuscular HGB Conc 32.3 g/dL (32-36); Mean Corpuscular Hemoglobin 27.7 pg (27.0-31.0); Mean Corpuscular Volume 85.7 fL (78.0-102.0); Nucleated Red Blood Cells Absolute Auto 0.00 K/mm3 (0.00-0.00); Nucleated Red Blood Cells Perc 0.0 % (0-0.0); Platelet Count Result 329 K/mm3 (150-420); Red Blood Count 5.24 M/mm3 (4.20-5.40); White Blood Count 17.4 K/mm3 (4.8-10.8)
[2024-12-25 14:36] LABS: Alanine Aminotransferase 14 U/L (6-35); Albumin Level 4.6 g/dL (3.5-5.1); Alkaline Phosphatase 59 U/L (38-126); Anion Gap 9 mmol/L (4-12); Aspartate Amino Transferase 23 U/L (14-36); Bilirubin,Total 0.4 mg/dL (0.2-1.3); Blood Urea Nitrogen 15 mg/dL (7-17); Calcium 9.6 mg/dL (8.4-10.2); Carbon Dioxide 27 mmol/L (22-30); Chloride 106 mmol/L (98-107); Creatine Kinase 69 U/L (30-135); Estimated CRCL calculation 69 ml/min; Estimated Glomerular Filt Rate > 60; Glucose 91 mg/dL (65-110); Lipase 33 U/L (23-300); Magnesium 1.8 mg/dL (1.6-2.3); Osmolality Calculated 294 mOsm/kg (285-295); Potassium 3.4 mmol/L (3.4-5.0); Sodium 142 mmol/L (137-145); Total Protein 7.5 g/dL (6.3-8.2)
[2024-12-25 14:48] LABS: Troponin I < 0.012 ng/mL (0.000-0.034)
[2024-12-25 15:07] LABS: Thyroid Stimulating Hormone 0.988 uIU/mL (0.465-4.680)
[2024-12-25] MEDS: levoFLOXacin 500 MG/D5W 100 ML 500 MG/100 ML BAG 100 MG IVPB (15:15)
--- NOTE | 2024-12-27 13:22 | PC.NURSE ---
Preliminary urine culture report; gram negative bacilli isolated, patient discharged on cipro, will wait for final culture and sensitivity per ERP Dr. Granados.
--- NOTE | 2024-12-29 13:22 | PC.NURSE ---
preliminary urine culture reviewed. E. coli isolated. sensitivity report shows cipro appropriate treatment. pt was prescribed cipro at discharge. no change in plan of care.
--- NOTE | 2024-12-31 06:55 | PC.NURSE ---
Culture report back and positive test for E-coli. Pt is currently on correct antibx Cipro that was prescribed. No further action needed.
--- NOTE | 2024-12-31 14:15 | PC.NURSE ---
FINAL URINE CULTURE POSITIVE FOR E COLI PT RECIEVED LEVAQUIN 500MG IVPB IN ER AND SENT HOME ON CIPRO 250MG BID FOR [address] VENTURA NO FURTHER ORDERS NEEDED
== END 2024-12-25 16:45 | disposition home or self-care (01) ==
PROVIDERS: Emergency Provider Internal Medicine Critical Care Medicine
DX: E11.649 Type 2 diabetes mellitus with hypoglycemia without coma (principal); M25.561 Pain in right knee; N30.00 Acute cystitis without hematuria; Z79.4 Long term (current) use of insulin
CPT/HCPCS: 36415; 70450; 73562; 80053; 81001; 82550; 82948; 83605; 83690; 83735; 84443; 84484; 85025; 87086; 93005; 96365; 96375; 99284; A9270; J1956